=== PATIENT | female | born 1950 | race Caucasian/White ===

== ENCOUNTER 2019-04-15 14:55 | Emergency (ER) | payer MEDICARE, SELFPAY ==
[2019-04-15 15:19] VITALS: BP 134/84; PULSE 91; RESP 20; TEMP 36.8; O2SAT 100
--- NOTE | 2019-04-15 15:39 | ED.URI ---
HPI - URI/Sore Throat General Chief Complaint: Upper Respiratory Infection Stated Complaint: sinus infection Time Seen by Provider: 04/15/19 15:39 Source: patient and RN notes reviewed History of Present Illness HPI Narrative: Patient is a 69-year-old female presents the urgent care with complaints of body aches, congestion, headache. Patient states it started on and she has been using Sudafed and just got some [id number] Vicks cold and flu medication. Patient states that she has not taken her temperature but has had chills and sweats. No other acute complaints. No acute distress noted. Patient had a plan of care. Related Data Home Medications Medication Instructions Recorded Confirmed levothyroxine 175 mcg PO DAILY 02/10/19 02/10/19 Combigan 04/15/19 aspirin 04/15/19 buspirone 04/15/19 estradiol 04/15/19 modafinil 04/15/19 ranitidine HCl 04/15/19 trazodone 04/15/19 valsartan-hydrochlorothiazide 04/15/19 Allergies Allergy/AdvReac Type Severity Reaction Status Date / Time codeine Allergy Intermediate Nausea and Verified 04/15/19 15:45 Vomiting Review of Systems Review of Systems: Narrative: CONSTITUTIONAL: Reports of chills and sweats without known fever EYES: Denies visual changes, redness, or discharge. ENT: Reports of sinus congestion CARDIOVASCULAR: Denies chest pain, palpitations, or edema. RESPIRATORY: Reports of nonproductive cough without dyspnea GASTROINTESTINAL: Denies abdominal pain, nausea, vomiting, or diarrhea. GENITOURINARY: Denies dysuria or hematuria. SKIN: Denies rash or itching. MUSCULOSKELETAL: Denies back pain, joint pain; reports of body aches NEUROLOGIC: Reports of intermittent headaches All other systems reviewed are negative, except as documented in HPI. PMFSH Comments At the time of my signature, I reviewed and agree with the nursing past medical, surgical, social, and family history. There is no relevant family history pertinent to the patient complaint. Exam Narrative: Exam Narrative: GENERAL: This is a well-nourished, well-developed patient, appears slightly fatigued HEAD: normocephalic, atraumatic. EYES: PERRL. Sclera clear/white. Vision is grossly intact. EARS: External ears normal, auditory canals clear and without drainage, TMs normal without perforation. Hearing grossly intact. NOSE: External nose normal with no obvious nasal discharge, mild bilateral erythemic nares with clear rhinorrhea. THROAT: Mucous membranes moist, posterior pharynx clear. Mild postnasal drainage NECK: Neck supple, non-tender without lymphadenopathy CARDIOVASCULAR: Regular rate and rhythm without murmurs, gallops, or rubs. RESPIRATORY: Clear to auscultation. Breath sounds equal bilaterally. No wheezes, rales, or rhonchi. SKIN: warm, intact with no suspicious lesions or rash, good texture and turgor. NEURO: awake, alert, and oriented to person, place and time. There were no obvious focal neurologic abnormalities. EXTREMITIES: No clubbing, cyanosis, or edema. Course Vital Signs Vital signs: Vital Signs Temperature 98.3 F 04/15/19 15:19 Pulse Rate 91 04/15/19 15:19 Respiratory Rate 20 04/15/19 15:19 Blood Pressure 134/84 04/15/19 15:19 Pulse Oximetry 100 04/15/19 15:19 Temperature 98.3 F 04/15/19 15:19 Pulse Rate 91 04/15/19 15:19 Respiratory Rate 20 04/15/19 15:19 Blood Pressure 134/84 04/15/19 15:19 Pulse Oximetry 100 04/15/19 15:19 Reviewed MDM - URI/Sore Throat MDM Narrative Medical decision making narrative: Reviewed lab results with the patient. She is aware that flu swab was negative. Advised patient to continue using [id number] medication for symptom relief such as Claritin and Flonase nasal spray. Use Tylenol/ibuprofen as needed for fever and headache. Increase fluids and rest. Use humidifier at night. If you develop any increase in symptoms associated with shortness of breath, wheezing, high fevers?go to the [facility]
== END 2019-04-15 16:10 | disposition home or self-care (01) ==
PROVIDERS: Emergency Provider Nurse Practitioner Family; PCP Internal Medicine
DX: B34.9 Viral infection, unspecified (principal); I10 Essential (primary) hypertension
CPT/HCPCS: 87804; 99212; G0463

== ENCOUNTER 2019-04-24 12:25 | Emergency (ER) | payer MEDICARE, SELFPAY ==
[2019-04-24 12:31] VITALS: BP 119/78; PULSE 87; RESP 20; TEMP 36.8; O2SAT 100
--- NOTE | 2019-04-24 13:08 | ED.URI ---
HPI - URI/Sore Throat General Chief Complaint: Upper Respiratory Infection Stated Complaint: sinus aches cough Time Seen by Provider: 04/24/19 13:01 Source: patient and RN notes reviewed Mode of arrival: ambulatory Limitations: no limitations History of Present Illness HPI Narrative: Patient presents today with a 10+ day history of occasionally productive cough, nasal congestion, sweats, body aches, headache. She was seen at [facility] on 04/15/2019 and diagnosed with a viral infection. States she has been continuing to take Sudafed and Claritin at home. Reports she was feeling better, but symptoms worsened 4 days ago. States the cough is keeping her awake at night. 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 MD elicited complaint: cough, nasal congestion and sinus pain Related Data Home Medications Medication Instructions Recorded Confirmed levothyroxine 175 mcg PO DAILY 02/10/19 02/10/19 Combigan 04/15/19 aspirin 04/15/19 buspirone 04/15/19 estradiol 04/15/19 modafinil 04/15/19 ranitidine HCl 04/15/19 trazodone 04/15/19 valsartan-hydrochlorothiazide 04/15/19 Allergies Allergy/AdvReac Type Severity Reaction Status Date / Time codeine Allergy Intermediate Nausea and Verified 04/24/19 12:42 Vomiting Review of Systems Review of Systems: Narrative: CONSTITUTIONAL: Denies fever, chills. +Sweats, body aches EYES: Denies visual changes, redness, or discharge. ENT: Denies rhinorrhea, sore throat, or otalgia.+Congestion CARDIOVASCULAR: Denies chest pain, palpitations, or edema. RESPIRATORY: +Cough. Denies shortness of breath GASTROINTESTINAL: Denies abdominal pain, nausea, vomiting, or diarrhea. GENITOURINARY: Denies dysuria or hematuria. SKIN: Denies rash, itching, or wounds. MUSCULOSKELETAL: Denies back pain, joint pain, or myalgia. NEUROLOGIC: Denies numbness, tingling, or weakness.+Headache PSYCH: Denies depression or anxiety. ON LICENSE OF [facility] Social History Social History Gender identity (if verbalized by the patient): Female Comments At time of signature, I have reviewed and agree with nursing past medical, surgical, social and family history unless otherwise noted. Please see nursing chart for further information. There is no relevant family history pertinent to the presenting complaint Exam Narrative: Exam Narrative: GENERAL: Mildly ill-appearing, well-nourished, and in no acute distress. HEAD: Normocephalic, atraumatic. EYES: EOMI. No redness or drainage. Conjunctivae normal. ENT: Mucous membranes pink and moist. Nares Congested. Bilateral maxillary sinus tenderness. No rhinorrhea. TMs normal bilaterally. Throat normal. Uvula midline. NECK: Normal AROM. Supple. No lymphadenopathy. CHEST: No respiratory distress. Clear to auscultation.Frequent dry cough noted. HEART: Regular rate and rhythm. No murmur appreciated. Normal peripheral pulses. EXTREMITIES: Normal range of motion. No edema. SKIN: Warm, dry, no rash. NEURO: No focal deficits. Alert and oriented x3. Gait steady. PSYCH: Normal affect. No signs of depression or anxiety. Course Vital Signs Vital signs: Vital Signs Temperature 98.2 F 04/24/19 12:31 Pulse Rate 87 04/24/19 12:31 Respiratory Rate 04/24/19 12:31 Blood Pressure 119/78 04/24/19 12:31 Pulse Oximetry 100 04/24/19 12:31 Temperature 98.2 F 04/24/19 12:31 Pulse Rate 87 04/24/19 12:31 Respiratory Rate 04/24/19 12:31 Blood Pressure 119/78 04/24/19 12:31 Pulse Oximetry 100 04/24/19 12:31 Reviewed MDM - URI/Sore Throat Differential Diagnosis Differential diagnosis: Likely upper respiratory infection, sinusitis and bronchitis Medical Records Attestation: I reviewed the patient's medical records. Critical Care Time Critical Care Time Critical Care Time: No Discharge Plan Discharge Clinical Impression: Bronchitis Sinusitis Qualifiers: Sinusitis location: unspecified location Chronicity: acute
== END 2019-04-24 13:15 | disposition home or self-care (01) ==
PROVIDERS: Emergency Provider Nurse Practitioner; PCP Internal Medicine
DX: J40 Bronchitis, not specified as acute or chronic (principal); J01.90 Acute sinusitis, unspecified
CPT/HCPCS: 99213; G0463

== ENCOUNTER 2019-12-01 08:02 | Emergency (ER) | payer MEDICARE, SELFPAY ==
[2019-12-01 08:10] VITALS: BP 138/76; PULSE 81; RESP 20; TEMP 36.9; O2SAT 99
--- NOTE | 2019-12-01 08:35 | ED.URI ---
HPI - URI/Sore Throat General Chief Complaint: Upper Respiratory Infection Stated Complaint: sinus infection Time Seen by Provider: 12/01/19 08:18 Source: patient, RN notes reviewed and old records reviewed Mode of arrival: ambulatory Limitations: no limitations History of Present Illness HPI Narrative: Patient presents today complaining of sinus pressure with yellow nasal drainage, postnasal drip, runny nose, cough. Symptoms have been intermittent since September, but have been worsening since onset. Denies shortness of breath, fever, nausea, vomiting, diarrhea, ear pain, sore throat. She has been taking Sudafed without relief. In September, her PCP prescribed her an unknown antibiotic, which did not help. She also had a telemedicine visit on 11/22/2019, where she was prescribed a course of doxycycline.This has not helped her symptoms either. She was previously seen at the medical center in April 2019 with similar symptoms, treated with prednisone and Augmentin, and states her symptoms resolved fully. She has not followed up with an ENT physician since return of her symptoms. Denies seasonal or environmental allergies. MD elicited complaint: cough, nasal congestion and sinus pain Related Data Home Medications Medication Instructions Recorded Confirmed aspirin 81 mg PO DAILY 12/01/19 12/01/19 brimonidine-timolol [Combigan] drp 12/01/19 buspirone mg 12/01/19 calcium carbonate-vitamin D3 tablet 12/01/19 [Os-Kyle 500 + D3] estradiol mg 12/01/19 famotidine 12/01/19 folic acid 12/01/19 latanoprost 12/01/19 levocetirizine mg 12/01/19 levothyroxine 12/01/19 medroxyprogesterone mg 12/01/19 melatonin 10 mg PO HS PRN 12/01/19 12/01/19 pyridoxine (vitamin B6) [Vitamin 100 mg PO DAILY 12/01/19 12/01/19 B-6] trazodone 12/01/19 valsartan-hydrochlorothiazide tablet 12/01/19 venlafaxine mg 12/01/19 vitamin B complex [B 1 tablet PO DAILY 12/01/19 12/01/19 Complex-Vitamin B12] Allergies Allergy/AdvReac Type Severity Reaction Status Date / Time codeine Allergy Intermediate Nausea and Verified 04/24/19 12:42 Vomiting Review of Systems Review of Systems: Narrative: CONSTITUTIONAL: Denies body aches, fever, chills, or sweats. EYES: Denies visual changes, redness, or discharge. ENT: Denies sore throat, or otalgia. +Rhinorrhea, sinus pressure, nasal congestion CARDIOVASCULAR: Denies chest pain, palpitations, or edema. RESPIRATORY: Denies dyspnea. +Cough GASTROINTESTINAL: Denies abdominal pain, nausea, vomiting, or diarrhea. GENITOURINARY: Denies dysuria or hematuria. SKIN: Denies rash, itching, or wounds. MUSCULOSKELETAL: Denies back pain, joint pain, or myalgia. NEUROLOGIC: Denies headache, numbness, tingling, or weakness. PSYCH: Denies depression or anxiety. [facility] Past Medical History Medical History (Updated 12/01/19 @ 08:54 by Toshia Schulz, FORESTRY ENGINEER, ) Anxiety Cataract Depression GERD (gastroesophageal reflux disease) Glaucoma Hypertension Hypothyroidism Sleep apnea Social History Social History Gender identity (if verbalized by the patient): Female Comments At time of signature, I have reviewed and agree with nursing past medical, surgical, social and family history unless otherwise noted. Please see nursing chart for further information. There is no relevant family history pertinent to the presenting complaint Exam Narrative: Exam Narrative: GENERAL: Well-appearing, well-nourished, and in no acute distress. HEAD: Normocephalic, atraumatic. EYES: EOMI. No redness or drainage. Conjunctivae normal. ENT: Mucous membranes pink and moist. Nares Congested with clear yellow drainage. Erythematous and swollen nasal turbinates. Bilateral maxillary sinus tenderness. No frontal sinus tenderness. TMs normal bilaterally. Throat normal. Uvula midline. NECK: Normal AROM. Supple. No lymphadenopathy. CHEST: No respiratory distress. Clear to auscultation. HEART: Regular rate and rhythm. No murmur appr
== END 2019-12-01 08:45 | disposition home or self-care (01) ==
PROVIDERS: Emergency Provider Nurse Practitioner; PCP Internal Medicine
DX: J01.11 Acute recurrent frontal sinusitis (principal); K21.9 Gastro-esophageal reflux disease without esophagitis; H40.9 Unspecified glaucoma; I10 Essential (primary) hypertension; E03.9 Hypothyroidism, unspecified; G47.30 Sleep apnea, unspecified; F41.9 Anxiety disorder, unspecified; F32.9 Major depressive disorder, single episode, unspecified; H26.9 Unspecified cataract; Z79.82 Long term (current) use of aspirin
CPT/HCPCS: 99213; G0463

== ENCOUNTER 2024-04-19 09:57 | Outpatient (CLI) | payer MEDICARE, SELFPAY ==
--- NOTE | ~2024-04-19 | XR_ITS ---
Right foot Technique: AP, oblique, and lateral views were obtained. Clinical History: Pain Findings: No acute fracture or dislocation is seen. There is moderate degenerative change of the firs t MTP joint. There is chronic remodeling of the distal aspect of the fifth proximal phalanx. Soft tis sues are unremarkable. 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 Reviewed, dictated and finalized at location . 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
--- OUTSIDE RECORDS SUMMARY | 2024-04-19 10:58 | XMS_ITS | Encounter Summary ---
Author Organization [facility] Address [address] [place] [address] Phone Care Team Providers Care Reliability Specialist Name Role Phone Aditya Reza MD Unavailable Alexus Mehta APRN, CNP Primary Care Provid er Reason for Visit * Reason Comments Medication Refill Encounter Details Date Type Department Care Team (Late st Contact Info) Description 09/23/2022 Refill [facility] - [facility] [address] [place] [address] Ja Samuel MD #[address] [address] Medication Refill Social History Tobacco Use Types Packs/Day Years Used Date Smoking Tobacco: Former Cigarettes 0 07/06/1982 - 07/06/1989 Smokeless Tobacco: Never Alcohol Use Standard Drinks/Week Comments No 0 (1 standard drink = 0.6 oz pur e alcohol) PHQ-2 Answer Date Recorded Total Score - Questions 1-9 0 10/2021 Sexually Active Control Partners Comments Not Currently Comments No Sex and Gender Information Value Date Recorded Sex Assigned at Not on file Legal Sex Female 10:30 PM CDT Gender Identity Not on file Sexual Orientation Not on file COVID-19 Exposure Response Date Recorded In the last 10 days, have yo u been in contact with someone who was confirmed or suspected to have Coronavirus/COVID-19? 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 [address] [place] [address] Consulting Physician Urology 12/31/21 documented as of this encounter
--- OUTSIDE RECORDS SUMMARY | 2024-04-19 10:58 | XMS_ITS | Encounter Summary ---
Author Organization [facility] Address [address] [place] [address] Phone Care Team Providers Care Hand Shoe Cutter Name Role Phone Aditya Reza MD Unavailable Alexus Mehta APRN, CNP Primary Care Provid er Reason for Visit * Reason Comments Medication Refill Encounter Details Date Type Department Care Team (Late st Contact Info) Description 09/20/2022 Refill [facility] - [facility] #2 [place] [address] Ja Samuel MD #[address] [address] Medication Refill Social History Tobacco Use Types [...] AM CDT documented as of this encounter Miscellaneous Notes * Telephone Encounter - Lynn Saucedo RN - 09/21/2022 1:14 PM CDT Images from the original note were not included. Venlafaxine HCl Dispensed Days Supply Quantity Provider Pharmacy VENLAFAXINE 100MG TABLETS 08/02/2022 90 180 Each Ja Samuel MD [facility] #... 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, unspecified documented in this encounter Additional Health Concerns Infection Onset Date Last Indicated Resolved Time ESBL 06/20/2018 01/01/2022 Assessment Noted Time PHQ-9 Depression Total Score: 0 01/14/20 10:00 AM CUT OFF WORKER documented as of this encounter Care Teams Hand Shoe Cutter Relationship Specialty Start Date End Date Alexus Mehta APRN, CNP #2 [facility] [address] [place] [address] PCP - General Advanced Practice Nurse 01/13/22 Aditya Reza MD [address] [facility] [address] [place] [address] Consulting Physician Urology 12/31/21 documented as of this encounter
--- OUTSIDE RECORDS SUMMARY | 2024-04-19 10:58 | XMS_ITS | Encounter Summary ---
Author Organization [facility] Address [address] [place] [address] Phone Care Team Providers Care Imaging Analyst Name Role Phone Aditya Reza MD Unavailable Alexus Mehta APRN, CNP Primary Care Provid er Reason for Visit * Reason Comments Medication Refill Encounter Details Date Type Department Care Team (Late st Contact Info) Description 06/28/2022 Refill [facility] #2 [place] [address] Ja Samuel MD #[address] [address] Medication Refill Social History Tobacco Use Types [...] suspected to have Coronavirus/COVID-19? No / Unsure 06/12/2022 9:42 AM CDT documented as of this encounter Miscellaneous Notes * Telephone Encounter - Lynn Saucedo RN - 06/29/2022 10:15 AM CDT Reordered 06/04/22 for 4 months - [facility] documented in this encounter Plan of Treatment Not on file documented as of this encounter Visit Diagnoses Not on filedocumented in this encounter Additional Health Concerns Infection Onset Date Last Indicated Resolved Time ESBL 06/20/2018 01/01/2022 Assessment Noted Time PHQ-9 Depression Total Score: 0 01/14/20 10:00 AM COMMISSION SALES ASSOCIATE documented as of this encounter Care Teams Imaging Analyst Relationship Specialty Start Date End Date Alexus Mehta APRN, INTELLIGENCE OFFICER BASIC #[facility] [address] [place] [address] PCP - General Advanced Practice Nurse 01/13/22 Aditya Reza MD [address] [place] [facility] [address] [place] [address] Consulting Physician Urology 12/31/21 documented as of this encounter
--- OUTSIDE RECORDS SUMMARY | 2024-04-19 10:58 | XMS_ITS | Encounter Summary ---
Author Organization [facility] Address [address] [place] [address] Phone Care Team Providers Care Purification Supervisor Name Role Phone Aditya Reza MD Unavailable Alexus Mehta APRN, CNP Primary Care Provid er Reason for Visit * Reason Comments Medication Refill Encounter Details Date Type Department Care Team (Late st Contact Info) Description 04/23/2022 Refill [facility] #2 [place] [address] Alexus Mehta APRN, CNP #[address] [address] Medication Refill Social History Tobacco Use Types [...] Recorded In the last 10 days, have med u been in contact with someone who was confirmed or suspected to have Coronavirus/COVID-19? No / Unsure 04/09/2022 3:43 PM TORCH CUTTER documented as of this encounter Miscellaneous Notes * Telephone Encounter - Lynn Saucedo RN - 04/23/2022 3:16 PM CST Signed Today (04/23/2022): venlafaxine (EFFEXOR) 100 MG Tablet Sig: TAKE 1 TABLET BY MOUTH IN THE MORNING AND AT BEDTIME Disp: 180 Tablet ? Refills: 1 Signed by: Ja Samuel MD [facility] H CUTTER 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, unspecified documented in this encounter Additional Health Concerns Infection Onset Date Last Indicated Resolved Time ESBL 06/20/2018 01/01/2022 Assessment Noted Time PHQ-9 Depression Total Score: 0 01/14/20 22 10:00 AM TORCH CUTTER documented as of this encounter Care Teams Purification Supervisor Relationship Specialty Start Date End Date Alexus Mehta APRN, CNP #2 [facility] [address] [place] [address] PCP - General Advanced Practice Nurse 01/13/22 Aditya Reza MD [address] [place] [facility] [address] [place] [address] Consulting Physician Urology 12/31/21 documented as of this encounter
--- OUTSIDE RECORDS SUMMARY | 2024-04-19 10:58 | XMS_ITS | Encounter Summary ---
Author Organization [facility] Address [address] [place] [address] Phone Care Team Providers Care Fiber Heel Piece Shaper Name Role Phone Aditya Reza MD Unavailable Alexus Mehta APRN, CNP Primary Care Provid er Reason for Visit * Reason Comments Medication Refill Encounter Details Date Type Department Care Team (Late st Contact Info) Description 09/13/2022 Refill [facility] #[address] [place] [address] Ja Samuel MD #[address] [address] Medication Refill Social History Tobacco Use Types [...] Telephone Encounter - Lynn Saucedo RN - 09/14/2022 10:47 AM CDT Images from the original note were not included. Venlafaxine HCl Dispensed Days Supply Quantity Provider Pharmacy VENLAFAXINE 100MG TABLETS 08/02/2022 90 180 Each Ja Samuel MD [facility] #... 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, unspecified documented in this encounter Additional Health Concerns Infection Onset Date Last Indicated Resolved Time ESBL 06/20/2018 01/01/2022 Assessment Noted Time PHQ-9 Depression Total Score: 0 01/14/20 10:00 AM GRAPHICS COORDINATOR documented as of this encounter Care Teams Fiber Heel Piece Shaper Relationship Specialty Start Date End Date Alexus Mehta APRN, CNP #2 [facility] [address] [place] [address] PCP - General Advanced Practice Nurse 01/13/22 Aditya Reza MD #[address] [facility] [address] [place] [address] Consulting Physician Urology 12/31/21 documented as of this encounter
--- OUTSIDE RECORDS SUMMARY | 2024-04-19 10:58 | XMS_ITS | Encounter Summary ---
Author Organization [facility] Address [address] [place] [address] Phone Care Team Providers Care Resourcing Advisor Name Role Phone Aditya Reza MD Unavailable Alexus Mehta APRN, CNP Primary Care Provid er Reason for Visit * Reason Comments Medication Refill Encounter Details Date Type Department Care Team (Late st Contact Info) Description 04/23/2022 Refill [facility] #2 [place] [address] Alexus Mehta APRN, CNP #[address] [address] Medication Refill Social History Tobacco [...] Coronavirus/COVID-19? No / Unsure 04/09/2022 3:43 PM MEDICAL TECHNOLOGIST CHIEF documented as of this encounter Miscellaneous Notes * Telephone Encounter - Lynn Saucedo RN - 04/23/2022 2:45 PM CST Medication failed the protocol, provider to review and approve the medication order if appropriate. Requested Prescriptions Pending Prescriptions Disp Refills venlafaxine (EFFEXOR) 100 MG Tablet [Pharmacy Med Name: VENLAFAXINE 100MG TABLETS] 180 Tablet 1 Sig: TAKE 1 TABLET BY MOUTH IN THE MORNING AND AT BEDTIME SNRI (6 Month Refill Only) Protocol Failed - 04/23/2022 2:08 PM Failed - Has an encounter in the past 6 months with a depression or anxiety visit diagnosis Failed - Patient has established therapy with Serotonin-Norepinephrine Reuptake Inhibitors for at least 6 months Passed - Visit with relevant provider in past 6 months or upcoming 90 days Recent Visits Date Type Provider Dept 01/13/22 Office Visit Alexus Mehta APRN, CNP [facility] Showing recent visits within past 182 days and meeting all other requirements Future Appointments Date Type Provider Dept 06/12/22 Appointment Alexus Mehta APRN, CNP [facility] Showing future appointments within next 90 days and meeting all other requirements CAL TECHNOLOGIST CHIEF 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, unspecified documented in this encounter Additional Health Concerns Infection Onset Date Last Indicated Resolved Time ESBL 06/20/2018 01/01/2022 Assessment Noted Time PHQ-9 Depression Total Score: 0 01/14/20 22 10:00 AM MEDICAL TECHNOLOGIST CHIEF documented as of this encounter Care Teams Resourcing Advisor Relationship Specialty Start Date End Date Alexus Mehta APRN, [place] #[address] [phone] PCP - General Advanced Practice Nurse 01/13/22 Aditya Reza MD #2 [place] [address] Consulting Physician Urology 12/31/21 documented as of this encounter
--- OUTSIDE RECORDS SUMMARY | 2024-04-19 10:58 | XMS_ITS | Encounter Summary ---
Author Organization [facility] Address [address] [place] [address] Phone Care Team Providers Care Automatic Seamer Name Role Phone Aditya Reza MD Unavailable Alexus Mehta APRN, CNP Primary Care Provid er Reason for Visit * Reason Comments Medication Refill Encounter Details Date Type Department Care Team (Late st Contact Info) Description 10/20/2022 Refill [facility] #2 [place] [address] Alexus Mehta APRN, CNP #[address] [address] Medication Refill Social History Tobacco [...] on file Sexual Orientation Not on file documented as of this encounter Miscellaneous Notes * Telephone Encounter - Polina Lyn RN - 10/21/2022 10:43 AM CDT PDMP 08/30/22 30 day supply. Do you want to approve refills also? Medication failed the protocol, provider to review and approve the medication order if appropriate. Requested Prescriptions Pending Prescriptions Disp Refills traZODone (DESYREL) 100 MG Tablet [Pharmacy Med Name: TRAZODONE 100MG TABLETS] 30 Tablet 3 Sig: TAKE 1 TABLET BY MOUTH EVERY NIGHT Serotonin Modulators (6 Month Refill Only) Protocol Failed - 10/20/2022 10:03 PM Failed - Has an encounter in the past 6 months with a depression or anxiety visit diagnosis Passed - Visit with relevant provider in past 6 months or upcoming 90 days Recent Visits Date Type Provider Dept 06/12/22 Office Visit Alexus Mehta APRN, [facility] [place] Showing recent visits within past 182 days and meeting all other requirements Future Appointments Date Type Provider Dept 12/15/22 Appointment Alexus Mehta APRN, [facility] [place] Showing future appointments within next 90 days and meeting all other requirements Passed - No PRN Use for Trazodone Passed - Patient has established therapy with Serotonin Modulators for at least 6 months documented in this encounter Plan of Treatment Not on file documented as of this encounter Visit Diagnoses Not on filedocumented in this encounter Additional Health Concerns Infection Onset Date Last Indicated Resolved Time ESBL 06/20/2018 01/01/2022 Assessment Noted Time PHQ-9 Depression Total Score: 0 01/14/20 10:00 AM COACH documented as of this encounter Care Teams Automatic Seamer Relationship Specialty Start Date End Date Alexus Mehta APRN, CNP #2 [facility] [address] [place] [phone] PCP - General Advanced Practice Nurse 01/13/22 Aditya Reza MD #2 [place] [facility] [place] [address] [place] [address] Consulting Physician Urology 12/31/21 documented as of this encounter
--- OUTSIDE RECORDS SUMMARY | 2024-04-19 10:58 | XMS_ITS | Encounter Summary ---
Author Organization [facility] Address [address] [place] [address] Phone Care Team Providers Care Sports Marketing Internship Name Role Phone Aditya Reza MD Unavailable Alexus Mehta APRN, CNP Primary Care Provid er Reason for Visit * Reason Comments Medication Refill Encounter Details Date Type Department Care Team (Late st Contact Info) Description 01/07/2023 Refill [facility] #2 [place] [address] Ja Samuel MD #[address] [address] Medication Refill Social History Tobacco Use Types Packs/Day Years Used Date Smoking Tobacco: Former Cigarettes 0 07/06/1982 - 07/06/1989 Smokeless Tobacco: Never Alcohol Use Standard Drinks/Week Comments No 0 (1 standard drink = 0.6 oz pur e alcohol) PHQ-2 Answer Date Recorded Total Score - Questions 1-9 0 10/2021 Education Answer Date Recorded What is the highest level of school you have completed or the highest degree you have received? 12th grade 12/31/2022 Sexually Active Control Partners Comments Not Currently [...] suspected to have Coronavirus/COVID-19? No / Unsure 12/31/2022 8:04 AM CDT documented as of this encounter Miscellaneous Notes * Telephone Encounter - Lynn Saucedo RN - 01/07/2023 10:17 AM CDT Signed 1 week ago (12/31/2022): busPIRone (BUSPAR) 10 MG Tablet Sig: Take 10 mg in the morning and 15 mg in the afternoon Disp: 270 Tablet ? Refills: 0 Signed by: [facility]N, [facility] documented in this encounter Plan of Treatment Not on file documented as of this encounter Visit Diagnoses Diagnosis Anxiety Anxiety state, unspecified documented in this encounter Additional Health Concerns Infection Onset Date Last Indicated Resolved Time ESBL 06/20/2018 01/01/2022 Assessment Noted Time PHQ-9 Depression Total Score: 0 01/14/20 22 10:00 AM MANNEQUIN MOLD MAKER documented as of this encounter Care Teams Sports Marketing Internship Relationship Specialty Start Date End Date Alexus Mehta APRN, CNP #2 [facility] [address] [place] [address] PCP - General Advanced Practice Nurse 01/13/22 Aditya Reza MD #2 [facility] [address] [place] [address] Consulting Physician Urology 12/31/21 documented as of this encounter
--- OUTSIDE RECORDS SUMMARY | 2024-04-19 10:59 | XMS_ITS | Encounter Summary ---
Author Organization [facility] Address [address] [place] [address] Phone Care Team Providers Care Filter Changing Technician Name Role Phone Aditya Reza MD Unavailable Alexus Mehta APRN, CNP Primary Care Provid er Reason for Visit * Reason Comments Medication Refill Encounter Details Date Type Department Care Team (Late st Contact Info) Description 06/21/2023 Refill [facility] - [place] #2 [place] [address] Alexus Mehta APRN, CNP #[address] [address] Medication Refill Social History Tobacco Use Types Packs/Day Years Used Date Smoking Tobacco: Former Cigarettes 0 07/06/1982 - 07/06/1989 Smokeless Tobacco: Never Alcohol Use Standard Drinks/Week Comments No 0 (1 standard drink = 0.6 oz pur e alcohol) PHQ-2 Answer Date Recorded Total Score - Questions 1-9 9 04/2023 Education Answer Date Recorded What is the [...] Telephone Encounter - Lynn Saucedo RN - 06/22/2023 11:22 AM CDT Medication([facility]) [facility] Standing Order for Pediatricand Adult Patients. Requested Prescriptions Pending Prescriptions Disp Refills valsartan-hydroCHLOROthiazide (DIOVAN-HCT) 320-12.5 MG Tablet [Pharmacy Med Name: VALSARTAN/HCTZ 320MG/12.5MG TABLETS] 90 Tablet 1 Sig: Take 1 Tablet by mouth daily. ANGIOTENSIN-II RECEPTOR BLOCKERS-DIURETICS COMBO PROTOCOL Passed - 06/21/2023 5:30 PM Passed - Serum potassium on record in past 12 months POTASSIUM Date Value Ref Range Status 06/08/2023 3.9 3.5 - 5.1 mmol/L Final Passed - Serum sodium on record in past 12 months SODIUM Date Value Ref Range Status 06/08/2023 139 136 - 145 mmol/L Final Passed - BP on record in the past year Clinician-entered: BP Readings from Last 3 Encounters: 06/08/23 114/68 03/04/23 (!) 145/93 12/31/22 134/80 Patient-entered: No data recorded Passed - Visit with relevant provider in past year or upcoming 90 days Recent Visits Date Type Provider Dept 06/08/23 Office Visit Alexus Mehta APRN, [place] 12/31/22 Office Visit [facility] Showing recent visits within past 365 days and meeting all other requirements Future Appointments No visits were found meeting these conditions. Showing future appointments within next 90 days and meeting all other requirements Passed - GFR on record in past 12 months GFR, EST. NONAFRICAN Date Value Ref Range Status 06/08/2023 59 (L) >=60 Final documented in this encounter Plan of Treatment Not on file documented as of this encounter Visit Diagnoses Diagnosis Primary hypertension Unspecified essential hypertension documented in this encounter Additional Health Concerns Infection Onset Date Last Indicated Resolved Time ESBL 06/20/2018 01/01/2022 Assessment Noted Time PHQ-9 Depression Total Score: 9 06/08/19 24 10:07 AM CDT documented as of this encounter Care Teams Filter Changing Technician Relationship Specialty Start Date End Date Alexus Mehta APRN, CNP #2 [facility] [address] [place] [address] PCP - General Advanced Practice Nurse 01/13/22 Ad[facility]a Reza MD #2 [facility] [address] [place] [address] Consulting Physician Urology 12/31/21 documented as of this encounter
--- OUTSIDE RECORDS SUMMARY | 2024-04-19 10:59 | XMS_ITS | Encounter Summary ---
Author Organization [facility] Address [address] [place] [address] Phone Care Team Providers Care Associate Product Manager Name Role Phone Aditya Reza MD Unavailable Alexus Mehta APRN, CNP Primary Care Provid er Reason for Visit * Reason Comments Medication Refill Encounter Details Date Type Department Care Team (Late st Contact Info) Description 11/20/2023 Refill [facility] - Family Medicine - [place] #2 [place] [address] Alexus Mehta APRN, CNP #[address] [address] Medication Refill Social History Tobacco Use Types Packs/Day Years Used Date Smoking Tobacco: Former Cigarettes 0 07/06/1982 - 07/06/1989 Smokeless Tobacco: Never Alcohol Use Standard Drinks/Week Comments Never 0 (1 standard drink = 0.6 oz pur e alcohol) [facility] Utilities Answer Date Recorded In the past 12 months has e electric, gas, oil, or water company threatened to shut off services in your home? No 10/14/2023 Social Connection and Isolat ion Panel [NHANES] Answer Date Recorded In a typical week, how many times do you talk on the phone with family, friends, or neighbors? More than three times a week 10/14/2023 How often do you get togethe r with friends or relatives? Three times a week 10/14/2023 How often do you attend chur ch or anabaptist services? 1 to 4 times per year 10/14/2023 Do you belong to any clubs o r organizations such as rastafarian groups, unions, fraternal or athletic groups, or school groups? Yes 10/14/2023 How often do you attend meet ings of the clubs or organizations you belong to? 1 to 4 times per year 10/14/2023 Are you , , di vorced, , never , or living with a partner? 10/14/2023 AUDIT-C Answer Date Recorded Q1: How often do you have a drink containing alcohol? Never 10/14/2023 Q2: How many drinks containi ng alcohol do you have on a typical day when you are drinking? Patient does not drink Q3: How often do you have si x or more drinks on one occasion? Never 10/14/2023 Overall Financial Resource Strain (CARDIA) Answe r Date Recorded How hard is it for you to pa y for the very basics like food, housing, medical care, and heating? Somewhat hard 10/14/2023 PHQ-2 Answer Date Recorded Total Score - Questions 1-9 12 11/2023 [facility]at ional [facility] - Occupational Stress Questionnaire Answer Date Recorded Do you feel stress - tense, restless, nervous, or anxious, or unable to sleep at night because your mind is troubled all the time - these days? To some extent 10/14/2023 Exercise Vital Sign Answer Date Recorde d On average, how many days pe r week do you engage in moderate to strenuous exercise (like a brisk walk)? 1 day 10/14/2023 On average, how many minutes do you engage in exercise at this level? 10 min 10/14/2023 Hunger Vital Sign Answer Date Recorded Within the past 12 months, y ou worried that your food would run out before you got the money to buy more. Never true 10/14/19 24 Within the past 12 months, t he food you bought just didn't last and you didn't have money to get more. Never true 10/14/2023 PRAPARE - Transportation Answer Date Re corded In the past 12 months, has l ack of transportation kept you from medical appointments or from getting medications? No 10/2023 In the past 12 months, has l ack of transportation kept you from meetings, work, or from getting things needed for daily living? No 10/14/2023 Housing Stability Vital Sign Answer Abdon e Recorded In the last 12 months, was t here a time when you were not able to pay the mortgage or rent on time? No 10/14/2023 In the past 12 months, how m any times have you moved where you were living? 0 10/14/2023 At any time in the past 12 m [facility], were you homeless or living in a half-way (including now)? No 10/14/2023 Education Answer Date Recorded What is the highest level of school you have completed or the highest degree you have received? 12th grade 12/31/2022 Sexually Active Control Partners Comments Not Currently I.U.D. Female Comments No Sex and Gender Information Value Date Recorded Sex Assigned at Not on file Legal Sex Female 10:30 PM CDT Gender Identity Not on file Sexual Orientation Not on file documented as of this encounter Miscellaneous Notes * Telephone Encounter - Lynn Saucedo RN - 11/22/2023 9:20 AM CDT Images from the original note were not included. Name from pharmacy: FLUTICASONE 50MCG NASAL SP (120) RX Will file in chart as: fluticasone (FLONASE) 50 MCG/ACT Suspension The original prescription was discontinued on 12/31/2022 by Alexus Mehta APRN, TROLLEY COACH DRIVER documented in this encounter Plan of Treatment Not on file documented as of this encounter Visit Diagnoses Diagnosis Viral URI with cough Acute upper respiratory infections of unspecified site documented in this encounter Additional Health Concerns Infection Onset Date Last Indicated Resolved Time ESBL 06/20/2018 01/01/2022 Assessment Noted Time PHQ-9 Depression Total Score: 12 024 1:00 PM CDT documented as of this encounter Care Teams Associate Product Manager Relationship Specialty Start Date End Date Alexus Mehat APRN, TROLLEY COACH DRIVER #2 [facility] [address] [place] [address] PCP - General Advanced Practice Nurse 01/13/22 Aditya Reza MD #2 [facility] [address] [place] [address] Consulting Physician Urology 12/31/21 documented as of this encounter
--- OUTSIDE RECORDS SUMMARY | 2024-04-19 10:59 | XMS_ITS | Clinical Summary ---
Author Organization [facility] Medical Office Building B Address [address] [place] [address] Care Team Providers Care Program Lead Name Role Phone Alexus Mehta NP Primary Care Provider + Cuong Gaytan MD Unavailable [phone] Allergies Active Allergy Reactions Criticality Noted Date Comments Codeine Hives,Nausea Only Medium 03/11/2016 Reaction: HIVES, Reaction: Hives, , , Warfarin Unknown 07/06/2016 Pt unsure, someone documented pt was allergic after total Medications traZODone (DESYREL) 50 mg tablet take 1 tablet (50MG) by ORAL route every am and 2 tablets at bedtime 0 2 Active multivitamin (DAILY VITAMIN) tablet tablet take 1 tablet by oral route every day with food 0 0 3 Active brimonidine-ti molol (COMBIGAN) 0.2-0.5 % ophthalmic solution instill 1 drop by ophthalmic route every 12 hours into affected eye(s) 0 drop 0 3 Active cholecalcifero l (VITAMIN D3) 2,000 unit tablet take one twice daily 0 0 3 Active alendronate (FOSAMAX) 35 mg tablet take 1 tablet by oral route every week in the morning, at least 30 min before first food, beverage, or medication of day 0 0 5 Active aspirin (ASPIR-81) 81 mg tablet take 1 tablet by oral route every day 0 0 3 Active levothyroxine sodium (TIROSINT) 125 mcg capsule take 1 capsule by oral route every day 0 0 3 Active cyanocobalamin (vitamin B-12) 1,000 mcg tablet take 1 Tablet by Oral route every day 0 0 5 Active busPIRone (BUSPAR) 10 mg tablet take 1 tablet by oral route 3 times every day 0 0 5 Active folic acid (FOLVITE) 1 mg tablet take 1 tablet by oral route every day 0 0 5 Active pyridoxine (vitamin B-6) 100 mg tablet take 1 by Oral route every day 0 0 5 Active latanoprost (XALATAN) 0.005 % ophthalmic solution Administer into affected eye(s). Active medroxyPROGEST ERone (PROVERA) 2.5 mg tablet Take 1 tablet (2.5 mg total) by mouth daily 3 7 Active estradioL (ESTRACE) 2 mg tablet Take 1 tablet (2 mg total) by mouth daily Active melatonin 5 mg tablet Take 1.5 tablets (7.5 mg total) by mouth daily Active acidophilus-pe ctin, citrus 100 million cell-10 mg capsule Take by mouth daily Active valsartan-hydr ochlorothiazid e (DIOVAN-HCT) 320-12.5 mg per tablet Take 1 tablet by mouth daily Active traMADoL (ULTRAM) 50 mg tablet Take 1 tablet (50 mg total) by mouth every 6 (six) hours as needed for pain Active solriamfetoL (Sunosi) 150 mg tablet Take 1 tablet (150 mg total) by mouth daily 30 tablet 5 Active solriamfetoL (Sunosi) 150 mg tablet TAKE 1 TABLET(150 MG) BY MOUTH 1 TIME FOR 1 DOSE 30 tablet 5 4 04/10/19 25 Discontinu ed(Reorder ) Active Problems Problem Noted Date Diagnosed Date Postmenopausal bleeding 04/26/2023 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 Overview (06/10/2016): Hypersomnia with sleep apnea Insomnia 11/14/2012 Overview (06/11/2016): Insomnia Adiposity 11/14/2012 Overview (06/12/2016): Obesity Obstructive sleep apnea syndrome 11/14/2012 Overview (06/12/2016): Obstructive sleep apnea syndrome Hyperparathyroidism 09/23/2010 Thyroid activity decreased 09/23/2010 Calculus of kidney 02/24/2010 Abnormal finding in urine 02/24/2010 Blood in urine 02/24/2010 Encounters Date Type Department Care Team Description 04/03/2024 Telephone [facility] [address] [place] [address] Winter Womack MA 01/26/2024 Telephone [facility] Orthopedics and Sports Medicine [address] [place] [address] Arvin Carreon MD from Last 3 Months Surgical History Surgery Date Site/Laterality Comments ROTATOR CUFF REPAIR 2002 Left Rotator cuff repair OTHER SURGICAL HISTORY 2010 left kidney surgery OTHER SURGICAL HISTORY 03/08/1975 - 03/07/1976 intestinal bypass surgery to lose weight SHOULDER SURGERY rt shoulder surgery KNEE ARTHROPLASTY left knee replacement OTHER SURGICAL HISTORY rt knee replacement Medical History Medical History Date Comments Disorder of thyroid Thyroid dise ase Calculus of kidney Nephrolithias is Sleep apnea Hypertension Bipolar disorder (HCC) Depression Anxiety Family History Medical History Relation Name Comments Cancer Father Cancer; Diabetes Father Diabetes mellit us; Hypertension Father Hypertension; Prostate cancer Father Cancer -pros valdes; Cause of : Cancer -prostate Colon cancer Maternal Grandfather Cancer, colon; Diabetes Mother Diabetes mellit us; Hypertension Mother Hypertension; Relation Name Status Comments Father (Age 75) Maternal Grandfather Mother Social History Tobacco Use Types Packs/Day Years Used Date Smoking Tobacco: Never Smokeless Tobacco: Never Tobacco Cessation:Counseling Given: Not Answered Alcohol Use Standard Drinks/Week Comments No 0 (1 standard drink = 0.6 oz pur e alcohol) AUDIT-C Answer Date Recorded Frequency of Alcohol Consumption Not on file 05/11/2023 Q2: How many drinks containi ng alcohol do you have on a typical day when you are drinking? Patient does not drink Frequency of Binge Drinking Not on file 07/2023 Personal Safety Answer Date Recorded Have you ever been in or are you currently in a harmful physical or emotional relationship or is someone making you feel afraid or unsafe? Denies 05/17/2023 Comments Unknown Sex and Gender Information Value Date Recorded Sex Assigned at Not on file Legal Sex Female 1:02 AM CONVEYOR ATTENDANT Gender Identity Not on file Sexual Orientation Not on file Obstetrics History Last Filed Vital Signs Vital Sign Reading Time Taken Comments Blood Pressure 138/81 05/27/2023 1:11 PM CDT Pulse 83 05/27/2023 1:11 PM CDT Temperature 36.4 C (97.5 F) 05/17/2023 12:20 PM CDT Respiratory Rate 20 05/17/2023 12:50 PM CDT Oxygen Saturation 97% 05/27/2023 1:11 PM CDT Inhaled Oxygen Concentration - - Weight 77.6 kg (171 lb) 05/27/2023 1:11 PM CDT Height 162.6 cm (5' 4 ) 05/27/2023 1:11 PM CDT Body Mass Index 29.35 05/27/2023 1:11 PM CDT Plan of Treatment Health Maintenance Due Date Last Done Comments Depression Screening 1950 Fall Risk Assessment 1950 Hepatitis C Screening 1950 Hepatitis B Screening 1967 Zoster Vaccine (1 of 2) 1999 Well Visit 65+ 2014 Influenza Vaccine (#1) 2023 , 11/26/2019, 12/08/2018, Additional history exists Osteoporosis Screening-Bone Density Scan 08/06/2024 08/06/2022, 10/13/2019 Colon Cancer Screening-Colonoscopy 08/08/2025 08/09/2015, 08/09/2015 DTaP/Tdap/Td Vaccine (3 - Td or Tdap) 04/09/2032 04/09/2022, 11/08/2021 Colon Cancer Screening-CT Colonography Discontinued 08/09/2015, 08/09/2015 Colon Cancer Screening-DNA Stool Discontinued 08/09/19 16, 08/09/2015 Colon Cancer Screening-FIT Discontinued 08/09/2015, Colon Cancer Screening-Sigmoidoscopy Discontinued 08/09/2015, 08/09/2015 Pneumococcal vaccine 65+ Completed 05/05/2018, 05/07 Breast Cancer Screening-Mammogram Discontinued 023, 04/22/2015 Procedures Procedure Name Priority Date/Time Associated Diagnosis Comments COLONOSCOPY 08/09/2015 12:00 AM CDT from Last 3 Months or Most Recently Relevant to Health Maintenance Results * COLONOSCOPY (08/09/2015 12:00 AM CDT) Anatomical Region Laterality Modality Other Narrative 08/09/2015 12:00 AM CDT Ordered by an unspecified provider. Procedure Note Provider, MD John - 08/09/2015 12:00 AM CDT PROCEDURE REPORT Patient: SINA YOO Account: [id number] Room No: : 1950 Patient Type: [facility] Attend.: Elsa Alex M.D. Admit Date: 08/09/2015 Dict.: Elsa Alex M.D. Disch. Date: 08/09/2015 DATE OF PROCEDURE 08/09/15 SURGEON Elsa Alex M.D. PROCEDURE PERFORMED Colonoscopy with polypectomy by cold biopsy forceps. INDICATION Personal history of colon polyps, screening for colon cancer. DATE OF PROCEDURE 08/09/[address] Ishmael Higuera BRIEF HISTORY AND PHYSICAL The patient is a 67-year-old, white female with personal history ofpolyps. No family history of colon cancer. Colonoscopy is being done for afollowup screening. PROCEDURE Sedation was provided by anesthesia service. The procedure ofcolonoscopy including indications and possible complications of bleeding, infection, perforation requiring surgery were discussed with the patient. Consentwas obtained. Rectal exam prior to colonoscopy was unremarkable. The scope introduced to the rectum, advanced to the cecum which was identified bythe ileocecal valve and appendiceal orifice. The quality of the colon preparation was good. The cecum, ascending colon, transverse colon were unremarkable. The descending colon was unremarkable. Noted in the sigmoid colon were small4 mm polyps removed with a jumbo cold biopsy forceps. The rectum was unremarkable. Retroflex in the rectum showed medium size internal hemorrhoids. IMPRESSION 1. One benign 4 mm polyp of the sigmoid colon removed with cold biopsy forceps. 2. Internal hemorrhoids. RECOMMENDATIONS Followup pathology report and repeat screening in 7 years. Electronically Authenticated by: Elsa Alex MD On 08/23/2015 09:25 AM CDT Araseli Reddy/paula TD: 08/09/2015 12:13 CC: Ishmael Higuera M.D. Historical Provider ENDOSCOPY PROCEDURES Kelsey l Result from Last 3 Months or Most Recently Relevant to Health Maintenance Insurance [facility] MEDICARE MEDICARE [facility] MEDICARE [facility] Member Subscriber Plan / Payer (Ef fective 2014-Present) Name:Sina Yoo Relation to Subscriber:Self Name:Sina Yoo Payer ID:[id number] Group ID:Not on file Type:COMMERCIAL Address: [facility] [address] [id number] Care Teams Program Lead Relationship Specialty Start Date End Date Alexus Mehta NP [address] [facility] [place] [address] PCP - General Nurse Practitioner 11/03/22 Cuong Gaytan MD [address] [place] [address] [address] [address] Consulting Physician Obstetrics and Gynecology 05/17/23
--- OUTSIDE RECORDS SUMMARY | 2024-04-19 10:59 | XMS_ITS | Encounter Summary ---
Author Organization [facility] Address [address] [place] [address] Phone Care Team Providers Care Foreign Broadcast Specialist Name Role Phone Aditya Reza MD Unavailable Alexus Mehta APRN, CNP Primary Care Provid er Reason for Visit * Reason Comments Medication Refill Encounter Details Date Type Department Care Team (Late st Contact Info) Description 06/24/2023 Refill [facility] - [place] [address] [place] [address] Alexus Mehta APRN, CNP [address] [address] Medication Refill Social History Tobacco [...] Telephone Encounter - Lynn Saucedo RN - 06/24/2023 11:18 AM CDT Medication(s) refilled and signed per [facility] Chronic Medication Refill Standing Order for Pediatricand Adult Patients. Requested Prescriptions Pending Prescriptions Disp Refills folic acid (FOLVITE) 1 MG Tablet [Pharmacy Med Name: FOLIC ACID 1MG TABLETS] 30 Tablet 6 Sig: TAKE 1 TABLET BY MOUTH DAILY Folic Acid Protocol Passed - 06/24/2023 4:59 AM Passed - Visit with relevant provider in past 12 months or upcoming 90 days Recent Visits Date Type Provider Dept 06/08/23 Office Visit Alexus Mehta APRN, CNP [facility] [place] 12/31/22 Office Visit Alexus Mehta APRN, [facility] Showing recent visits within past 365 days and meeting all other requirements Future Appointments No visits were found meeting these conditions. Showing future appointments within next 90 days and meeting all other requirements documented in this encounter Plan of Treatment Not on file documented as of this encounter Visit Diagnoses Not on filedocumented in this encounter Additional Health Concerns Infection Onset Date Last Indicated Resolved Time ESBL 06/20/2018 01/01/2022 Assessment Noted Time PHQ-9 Depression Total Score: 9 06/08/19 24 10:07 AM CDT documented as of this encounter Care Teams Foreign Broadcast Specialist Relationship Specialty Start Date End Date Alexus Mehta APRN, TYRONE #2 [facility] [address] [place] [address] PCP - General Advanced Practice Nurse 01/13/22 Aditya Reza MD #2 [facility] [address] [place] [address] Consulting Physician Urology 12/31/21 documented as of this encounter
--- OUTSIDE RECORDS SUMMARY | 2024-04-19 10:59 | XMS_ITS | Clinical Summary ---
Author Organization [facility] Address [address] [place] [address] Phone Care Team Providers Care Press Operator Apprentice Name Role Phone Unavailable Primary Care Provider Unavailabl e Social History Tobacco Use Types Packs/Day Years Used Date Smoking Tobacco: Never Assessed Comments Unknown Sex and Gender Information Value Date Recorded Sex Assigned at Not on file Legal Sex Female 5:44 AM BROADCAST TECHNICIAN Gender Identity Not on file Sexual Orientation Not on file Plan of Treatment Health Maintenance Due Date Last Done Comments DTAP/TDAP/TD VACCINES (1 - Tdap) 1968 COLORECTAL SCREENING 1994 Colorectal Cancer Screening 1994 FIT-DNA Q 3 years 1994 FIT/FOBT Q 1 year 1994 Flex Sig/CT Colonography Q 5 years 1994 PNEUMOCOCCAL VACCINE 65+ YEARS (1 of 1 - PCV) 04/15/19 00 ZOSTER VACCINE (1 of 2) 1999 OSTEOPOROSIS SCREENING 2014 INFLUENZA VACCINE (#1) 2023 RSV VACCINE (60+ or ) (1 - 1-dose 75+ series) 2024
--- OUTSIDE RECORDS SUMMARY | 2024-04-19 10:59 | XMS_ITS | Continuity of Care Document ---
Author Organization [facility] Address [address] [place] [address] Phone Care Team Providers Care Locomotive Operator Helper Name Role Phone Juan Daniel Thayer MD [...] Diagnoses Date Provider Providers Copied on Encounter [facility], [address], [place], [place], [id number], [place] tel:[phone] [address] Tone [employer]IVERS Professional No Information [address]. [address] [facility] [facility] [place], [place], [id number], [place]. tel:[phone] Family History Family Member Type Diagnosis Age At Onset Father Problem (finding) glaucoma Mother Problem (finding) glaucoma Mother Problem (finding) Diabetes mellitus Payers Payer name Insurance type Covered alliance party ID Authoriza tion(s) No Information Social History [...]
--- OUTSIDE RECORDS SUMMARY | 2024-04-19 10:59 | XMS_ITS | Referral Summary ---
Author Organization [facility] Medical Office Building B Address [address] [place] [address] Care Team Providers Care Manager Call Center Name Role Phone Alexus Mehta NP Primary Care Provider + Cuong Gaytan MD Unavailable [phone] Encounters Date Type Department Care Team Description 04/03/2024 Telephone [facility] [address] [place] [address] Winter Womack MA 01/26/2024 Telephone [facility] Orthopedics and Sports Medicine [address] [place] [address] Arvin Carreon MD from Last 3 Months Allergies Active Allergy Reactions Criticality Noted Date [...] in urine 02/24/2010 Blood in urine 02/24/2010 Social History Tobacco Use Types Packs/Day Years [...] on file Legal Sex Female 1:02 AM READING AIDE Gender Identity Not on file Sexual Orientation Not on file Last Filed Vital Signs Vital Sign Reading [...] 05/27/2023 1:11 PM CDT Plan of Treatment Not on file Procedures Procedure Name Priority Date/Time Associated Diagnosis Comments COLONOSCOPY 08/09/2015 12:00 AM CDT from Last 3 Months or Most Recently Relevant to Health Maintenance Results * COLONOSCOPY (08/09/2015 12:00 AM CDT) Anatomical Region Laterality Modality Other Narrative 08/09/2015 12:00 AM CDT Ordered by an unspecified provider. Procedure Note Provider, MD John - 08/09/2015 12:00 AM CDT PROCEDURE REPORT Patient: SINA YOO Account: [id number] Room No: : 1950 Patient Type: [facility] Attend.: Elsa Alex M.D. Admit Date: 08/09/2015 [...] Alex MD On 08/23/2015 09:25 AM CDT Elsa Alex M.D. [place] TD: 08/09/2015 12:13 CC: Ishmael Higuera M.D. Historical Provider ENDOSCOPY PROCEDURES Kelsey l Result from Last 3 Months or Most Recently Relevant to Health Maintenance Insurance MEDICARE MEDICARE [facility] Member Subscriber Plan / Payer (Ef fective 2014-Present) Name:ArlenSina Relation to Subscriber:Self Name:SINA YOO Patricia Payer ID:[id number] Group ID:Not on file Type:DigePrint Address: [address] [id number] MEDICARE [facility] Care Teams Manager Call Center Relationship Specialty Start Date End Date Alexus Mehta, ROUGE PRESSER 2 [facility] [address] [place] [address] PCP - General Nurse Practitioner 11/03/22 Cuong Gaytan MD [address] [facility] [facility] [address] [place] [address] Consulting Physician Obstetrics and Gynecology 05/17/23
--- OUTSIDE RECORDS SUMMARY | 2024-04-19 10:59 | XMS_ITS | Encounter Summary ---
Author Organization [facility] Address [address] [place] [address] Phone Care Team Providers Care Animal Caregiver Name Role Phone Aditya Reza MD Unavailable Alexus Mehta APRN, CNP Primary Care Provid er Reason for Visit * Reason Comments Medication Refill Encounter Details Date Type Department Care Team (Late st Contact Info) Description 06/06/2023 Refill [facility] - [place] #[address] [place] [address] Alexus Mehta APRN, CNP [address] [address] Medication Refill Social History Tobacco [...] on file documented as of this encounter Functional Status * Question Answer Date of Assessment Author Little interest or pleasure in doing things Several days 06/08/2023 10:07 AM CDT Melquiades Head MA Feeling down, depressed, or hopeless Not at all 06/08/2023 10:07 AM CDT Kellie Head MA * Over the past 2 weeks, how often have you been bothered by any of the following problems? Question Answer Date of Assessment Author Patient Health Questionnaire -2 Score 1 06/08/2023 10:07 AM CDT Kellie Head MA documented as of this encounter Miscellaneous Notes * Telephone Encounter - Lynn Saucedo RN - 06/08/2023 9:00 AM CDT Medication warning Per nursing clinical judgement, provider to review and approve the medication(s) order(s) if appropriate. Requested Prescriptions Pending Prescriptions Disp Refills traZODone (DESYREL) 100 MG Tablet [Pharmacy Med Name: TRAZODONE 100MG TABLETS] 90 Tablet 1 Sig: TAKE 1 TABLET BY MOUTH EVERY NIGHT Serotonin Modulators (6 Month Refill Only) Protocol Passed - 06/06/2023 3:55 AM Passed - Visit with relevant provider in past 6 months or upcoming 90 days Recent Visits Date Type Provider Dept 12/31/22 Office Visit Alexus Mehta APRN, TYRONE [facility] [place] Showing recent visits within past 182 days and meeting all other requirements Today's Visits Date Type Provider Dept 06/08/23 Appointment Alexus Mehta APRN, TELESCOPE MAINTENANCE [facility] [place] Showing today's visits and meeting all other requirements Future Appointments No visits were found meeting these conditions. Showing future appointments within next 90 days and meeting all other requirements Passed - Has an encounter in the past 6 months with a depression or anxiety visit diagnosis Passed - No PRN Use for Trazodone [...] Total Score: 0 01/14/20 22 10:00 AM COLLECTIONS SPECIALIST documented as of this encounter Care Teams Animal Caregiver Relationship Specialty Start Date End Date Alexus Mehta APRN, CNP #2 [facility] [address] [place] [address] PCP - General Advanced Practice Nurse 01/13/22 Aditya Reza MD #[address] [facility] [address] [place] [address] Consulting Physician Urology 12/31/21 documented as of this encounter
--- OUTSIDE RECORDS SUMMARY | 2024-04-19 10:59 | XMS_ITS | Encounter Summary ---
Author Organization [facility] Address [address] [place] [address] Phone Care Team Providers Care Manager Retirement Name Role Phone Aditya Reza MD Unavailable Alexus Mehta APRN, CNP Primary Care Provid er Reason for Visit * Reason Comments Medication Refill Encounter Details Date Type Department Care Team (Late st Contact Info) Description 02/10/2023 Refill [facility] - [facility] - [place] #2 [place] [address] Alexus Mehta APRN, CNP #[address] [address] Medication Refill Social History Tobacco [...] Telephone Encounter - Lynn Saucedo RN - 02/10/2023 9:20 AM CST Medication warning Per nursing clinical judgement, provider to review and approve the medication(s) order(s) if appropriate. Requested Prescriptions Pending Prescriptions Disp Refills traZODone (DESYREL) 100 MG Tablet [Pharmacy Med Name: TRAZODONE 100MG TABLETS] 30 Tablet 3 Sig: TAKE 1 TABLET BY MOUTH EVERY NIGHT Serotonin Modulators (6 Month Refill Only) Protocol Passed - 02/10/2023 3:56 AM Passed - Visit with relevant provider in past 6 months or upcoming 90 days Recent Visits Date Type Provider Dept 12/31/22 Office Visit Alexus Mehta APRN, CNP [facility] Showing recent visits within past 182 days [...] Serotonin Modulators for at least 6 months RUCTIONAL CONSULTANT documented in this encounter Plan of Treatment Not on file documented as of this encounter Visit Diagnoses Not on filedocumented in this encounter Additional Health Concerns Infection Onset Date Last Indicated Resolved Time ESBL 06/20/2018 01/01/2022 Assessment Noted Time PHQ-9 Depression Total Score: 0 01/14/20 10:00 AM INSTRUCTIONAL CONSULTANT documented as of this encounter Care Teams Manager Retirement Relationship Specialty Start Date End Date Alexus Mehta APRN, TYRONE #2 [facility] [address] [place] [id number] PCP - General Advanced Practice Nurse 01/13/22 Aditya Reza MD #2 [facility] [address] [place] [address] Consulting Physician Urology 12/31/21 documented as of this encounter
--- OUTSIDE RECORDS SUMMARY | 2024-04-19 10:59 | XMS_ITS | Encounter Summary ---
Author Organization [facility] Address [address] [place] [address] Phone Care Team Providers Care Secretary Book Keeper Name Role Phone Aditya Reza MD Unavailable Alexus Mehta APRN, CNP Primary Care Provid er Reason for Visit * Reason Comments Medication Refill Encounter Details Date Type Department Care Team (Late st Contact Info) Description 02/10/2023 Refill [facility] - [place] #[address] [place] [address] Alexus Mehta APRN, CNP #[address] [address] Medication Refill Social History Tobacco [...] Telephone Encounter - Lynn Saucedo RN - 02/11/2023 8:34 AM CST Name from pharmacy: TRAZODONE 100MG TABLETS Will file in chart as: traZODone (DESYREL) 100 MG Tablet The original prescription was reordered on 02/10/2023 by Alexus Mehta APRN, CNP. LANCE DISPATCHER * Telephone Encounter - Lynn Saucedo RN - 02/10/2023 9:19 AM CST duplicate LANCE DISPATCHER documented in this encounter Plan of Treatment Not on file documented as of this encounter Visit Diagnoses Not on filedocumented in this encounter Additional Health Concerns Infection Onset Date Last Indicated Resolved Time ESBL 06/20/2018 01/01/2022 Assessment Noted Time PHQ-9 Depression Total Score: 0 01/14/20 22 10:00 AM AMBULANCE DISPATCHER documented as of this encounter Care Teams Secretary Book Keeper Relationship Specialty Start Date End Date Alexus Mehta APRN, CNP #2 [facility] [address] [place] [address] PCP - General Advanced Practice Nurse 01/13/22 Aditya Reza MD #2 [facility] [address] [place] [address] Consulting Physician Urology 12/31/21 documented as of this encounter
--- OUTSIDE RECORDS SUMMARY | 2024-04-19 10:59 | XMS_ITS | Encounter Summary ---
Author Organization [facility] Address [address] [place] [address] Phone Care Team Providers Care Rn Acls Name Role Phone Aditya Reza MD Unavailable Alexus Mehta APRN, CNP Primary Care Provid er Reason for Visit * Reason Comments Medication Refill Encounter Details Date Type Department Care Team (Late st Contact Info) Description 02/02/2023 Refill [facility] - Family Medicine - [place] [address] [place] [address] Alexus Mehta APRN, CNP [address] [id number] Medication Refill Social History Tobacco [...] Telephone Encounter - Lynn Saucedo RN - 02/02/2023 11:09 AM CST Name from pharmacy: HYDROXYZINE HCL 10MG TABLETS Will file in chart as: hydrOXYzine (ATARAX) 10 MG Tablet The original prescription was discontinued on 12/31/2022 by Alexus Mehta APRN, CNP for the following reason: Formulary change. [facility] documented in this encounter Plan of Treatment Not on file documented as of this encounter Visit Diagnoses Diagnosis Anxiety Anxiety state, unspecified documented in this encounter Additional Health Concerns Infection Onset Date Last Indicated Resolved Time ESBL 06/20/2018 01/01/2022 Assessment Noted Time PHQ-9 Depression Total Score: 0 01/14/20 10:00 AM PRIMARY HEALTH CARE NURSE documented as of this encounter Care Teams Rn Acls Relationship Specialty Start Date End Date Alexus Mehta APRN, CNP [facility] [address] [place] [phone] PCP - General Advanced Practice Nurse 01/13/22 Aditya Reza MD #2 [facility] [address] [place] [address] Consulting Physician Urology 12/31/21 documented as of this encounter
--- OUTSIDE RECORDS SUMMARY | 2024-04-19 10:59 | XMS_ITS | Clinical Summary ---
Author Organization [facility] Address [address] [place] [address] Phone Care Team Providers Care Brim Rounder Name Role Phone Aditya Reza MD Unavailable Alexus Mehta APRN, CNP Primary Care Provid er Allergies Active Allergy Reactions Criticality Noted Date Comments Codeine Nausea,Hives Medium 03/11/2016 Reaction: HIVES, Reaction: Hives, , , Warfarin Unknown 07/06/2016 Pt unsure, someone documented pt was allergic after total Medications Aspirin 81 MG Tablet Take 81 mg by mouth daily. Active B Complex Vitamins (VITAMIN B COMPLEX PO) Take 100 mg by mouth daily. Active Multiple Vitamin (MULTIVITAMINS PO) Take by mouth daily. Active Brimonidine Tartrate-Timolol 0.2-0.5 % Solution Place 1 Drop in affected eye(s) 2 times daily. Takes in the morning Active latanoprost (XALATAN) 0.005 % Solution INSTILL 1 DROP INTO BOTH EYES AT BEDTIME 11 9 Active Solriamfetol HCl (Sunosi) 150 MG Tablet Take by mouth. Activ e traMADol (ULTRAM) 50 MG Tablet TAKE 1 TABLET BY MOUTH EVERY 8 HOURS NEEDED FOR PAIN 2 Active Melatonin (Melatonin Maximum Strength) 5 MG Tablet Take 7.5 mg by mouth. Active Cyanocobalamin 2500 MCG Tablet Take 1 Tablet by mouth daily. 5 Active meloxicam (MOBIC) 7.5 MG Tablet Take 15 mg by mouth daily. 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 90 Tablet 3 4 Active Cholecalciferol (VITAMIN D-3 PO) Take by mouth. Active venlafaxine (EFFEXOR) 100 MG TabletIndications :Hypersomnia with sleep apnea TAKE 1 TABLET BY MOUTH IN THE MORNING AND AT BEDTIME 180 Tablet 1 4 Active traZODone (DESYREL) 100 MG Tablet TAKE 1 TABLET BY MOUTH EVERY NIGHT 90 Tablet 1 4 Active valsartan-hydroCH LOROthiazide (DIOVAN-HCT) 320-12.5 MG TabletIndications :Primary hypertension Take 1 Tablet by mouth daily. 90 Tablet 1 4 Active metroNIDAZOLE (FLAGYL) 500 MG TabletIndications :Bacterial intestinal infection Take 1 Tablet by mouth 3 times daily. 30 Tablet 4 Active folic acid (FOLVITE) 1 MG Tablet TAKE 1 TABLET BY MOUTH DAILY 30 Tablet 6 4 Active busPIRone (BUSPAR) 10 MG TabletIndications :Anxiety TAKE 1 TABLET BY MOUTH EVERY MORNING AND 1 AND 1/2 TABLETS IN THE AFTERNOON 270 Tablet 1 5 Active famotidine (PEPCID) 20 MG TabletIndications :Gastroesophageal reflux disease, unspecified whether esophagitis present TAKE 1 TABLET BY MOUTH TWICE DAILY 180 Tablet 1 5 Active Active Problems Problem Noted Date Diagnosed Date Skin mole 10/17/2018 Renal stone 06/24/2018 Tear of left rotator cuff 07/29/2016 Right flank pain 03/12/2016 Hypertension 03/12/2016 Hypothyroidism 03/12/2016 Depression 03/12/2016 Right knee pain 03/12/2016 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 Overview (01/13/2022): Overview: Hypersomnia with sleep apnea Insomnia 11/14/2012 Overview (01/13/2022): Overview: Insomnia Obstructive sleep apnea syndrome 11/14/2012 Overview (01/13/2022): Overview: Obstructive sleep apnea syndrome Hyperparathyroidism 09/23/2010 Resolved Problems Problem Noted Date Diagnosed Date Resolved Date Acute UTI 03/12/2016 06/12/2022 Leucocytosis 03/12/2016 06/12/2022 Hypokalemia 03/12/2016 06/12/2022 Diarrhea 03/12/2016 06/12/2022 Hypomagnesemia 03/12/2016 06/12/2022 Generalized weakness 03/12/2016 023 Clostridium difficile colitis 03/12/2016 06/12/2022 Encounters Date Type Department Care Team Description 2024 Telephone [facility] [address] [place] [id number] Deanna Grajeda RN 04/12/2024 5:39 PM STORAGE BRINE WORKER - 04/12/2024 9:37 PM STORAGE BRINE WORKER Emergency [facility] [address] [place] [address] Madleyn Jha APRN, CNP Injury of head, initial encounter Discharge Disposition: Discharged to home or Selfcare 04/12/2024 Travel 03/17/2024 [facility] [address] [place] [address] Ja Samuel MD Medication Refill 03/15/2024 [facility] [place] [address] Alexus Mehta APRN, CNP Medication Refill 01/23/2024 [facility] [place] [address] Alexus Mehta APRN, TYRONE Medication Refill from Last 3 Months Immunizations Immunization Administration Dates Next Due Covid-19, Mrna, Lnp-s, Pf, 1 00 Mcg Or 50 Mcg Dose (MODERNA) 01/24/2021,04/30/2020,04/03/2020 Influenza, High-dose, Quadrivalent 12/21/2022,,11/26/2019 Influenza, Injectable, Quadrivalent 12/04/2020,1 ,12/12/2014 Influenza, Quadrivalent, Adjuvanted 01/07/2022 Influenza, Seasonal, Injectable, Undefined 01/16 Influenza, Trivalent, Adjuvanted, PF 01/01/2024 Influenza, high-dose, trivalent, PF 12/08/2018,0 11/24/2017,12/31/2016 Pneumococcal Vaccine - 13 Valent 05/28/2016 Pneumococcal Vaccine Adult - 23 Valent 9 Sars-cov-2 (Covid-19) Vaccine, Unspecified 12/21 TDAP Vaccine 04/09/2022,11/08/2021 Family History Medical History Relation Name Comments Cancer Brother Kwasi Colon Cancer Brother Kwasi Glaucoma Brother Kwasi Cancer Father Fredis prostate Colon Cancer Maternal Grandfather Congestive Heart Failure Maternal Grandmother LenaLena Heart Attack Maternal Grandmother LenaLena Hypertension Maternal Grandmother LenaLena Diabetes Mother Maria De Jesus Hypertension Mother Maria De Jesus Neuropathy Mother Maria De Jesus Relation Name Status Comments Brother Kwasi Father Fredis Maternal Grandfather Maternal Grandmother LenaLena Mother Maria De Jesus Social History Tobacco Use Types Packs/Day Years Used Date Smoking Tobacco: Former Cigarettes 0 07/06/1982 - 07/06/1989 Smokeless Tobacco: Never Tobacco Cessation:Counseling Given: No Alcohol Use Standard Drinks/Week Comments Never 0 (1 standard drink = 0.6 oz pur e alcohol) [employer] Util[employer] Answer Date Recorded In the past 12 months has [employer], [employer], or water [employer] threatened to shut off services in your [...] week 10/14/2023 How often do you attend [facility] or gnosticism services? 1 to 4 times per year 10/14/2023 Do you belong to any clubs o r organizations such as jehovah's witness groups, unions, fraternal or athletic groups, or [...] Recorded Total Score - Questions 1-9 0 03/2023 [facility] - Occupational Stress [...] any time in the past 12 m [facility], were you homeless or living in a fdc (including now)? No 10/14/2023 Education Answer Date [...] Sign Reading Time Taken Comments Blood Pressure 137/93 04/12/2024 9:00 PM STORAGE BRINE WORKER Pulse 87 04/12/2024 9:15 PM STORAGE BRINE WORKER Temperature 36.1 C (96.9 F) 04/12/2024 2:43 PM STORAGE BRINE WORKER Respiratory Rate 18 04/12/2024 9:15 PM STORAGE BRINE WORKER Oxygen Saturation 100% 04/12/2024 9:15 PM STORAGE BRINE WORKER Inhaled Oxygen Concentration - - Weight 81.2 kg (179 lb) 04/12/2024 2:43 PM STORAGE BRINE WORKER Height 163.8 cm (5' 4.5 ) 04/12/2024 2:43 PM STORAGE BRINE WORKER Body Mass Index 30.25 04/12/2024 2:43 PM STORAGE BRINE WORKER Plan of Treatment Health Maintenance Due Date Last Done Comments Cologuard 1999 Immunochemical Fecal Occult Blood 1999 Zoster Immunization (1 of 2) 1999 SARS-COV-2 Immunization ( season) 2023 12/21/2022, 01/24/2021, 04/30/2020, Additional history exists Respiratory Syncytial Virus (RSV) Immunization (Adult) (1 - 1-dose 75+ series) 2024 DEXA Bone Density 08/06/2024 08/06/2022, 10/13/2019 Colonoscopy 08/08/2025 08/09/2015 Colorectal Cancer Screening 08/08/2025 Td Immunization Every 10 Years (Adults With 1 Tdap) 04/09/2032 04/09/2022, 11/08/2021 Pneumococcal Immunization (50+ years) Completed 05/05/2018, 05/28/2016 Pneumococcal Immunization Combined Discontinued 05/05/2018, 05/28/2016 DTaP/Tdap/Td Immunization Discontinued 04/09/2022, 05/2021 Mammogram Discontinued 08/06/2022, 04/22/2015 Influenza Immunization Completed , 12/21/2022, 01/07/2022, Additional history exists Hepatitis B Immunization Aged Out No longer eligible based on patient's age to complete this topic Hepatitis C Virus (HCV) Screening Discontinued Meningococcal Immunization (ACWY) Aged Out No longer eligible based on patient's age to complete this topic Rotavirus Immunization Aged Out No lo nger eligible based on patient's age to complete this topic Medical Devices Implanted Type Area Granite Polisher Apprentice Device Identifier Shelf Expiration Date Model / Serial / Lot Stent Ureteral 6fr 2.1fr 24cm 2 Pigtail Curve 2 Durometer Taper Tip Loprfl Graduated Polaris Ultra - [id number] Implanted:Qty: 1 on 07/15/2018 by [facility] IMPLANT Right: Ureter [employer] 02/07/2021 [id number] 20 / [id number] 20 / [id number] Speedbridge Implant Systemw Ith Biocomposity Swivel Lock Implanted:Qty: 1 on 07/29/2016 by [facility]ofi [facility] Left: Shoulder 03/07/2018 / [id number] S-4 / [id number] Explanted Type Area Granite Polisher Apprentice Device Identifier Shelf Expiration Date Model / Serial / Lot Stent Ureteral 6fr 2.1fr 24cm 2 Pigtail Curve 2 Durometer Taper Tip Loprfl Graduated Polaris Ultra - [id number] Implanted:Qty : 1 on 06/24/2018 by Marbella [facility] at [facility] Explanted:Qty : 1 on 07/15/2018 by [facility]bella [facility] IMPLANT Right: Ureter [employer] 12/20/2020 [id number] / [id number] / [id number] Procedures Procedure Name Priority Date/Time Associated Diagnosis Comments CT CHEST ABDOMEN AND PELVIS W CONTRAST Stat with Interpretation 04/12/2024 8:04 PM STORAGE BRINE WORKER GOLD TOP TUBE STAT 04/12/2024 6:45 PM STORAGE BRINE WORKER BLUE TOP TUBE STAT 04/12/2024 6:45 PM STORAGE BRINE WORKER CBC WITH AUTO DIFFERENTIAL STAT 04/12/2024 6:45 PM STORAGE BRINE WORKER EXTRA TUBES STAT 04/12/2024 6:45 PM STORAGE BRINE WORKER CMP (COMPREHENSIVE METABOLIC PANEL) STAT 04/12/2024 6:45 PM STORAGE BRINE WORKER COMPLETE BLOOD COUNT (CBC) WITH DIFF STAT 04/12/2024 6:45 PM STORAGE BRINE WORKER XR RIBS UNILATERAL WITH PA CHEST LEFT STAT 04/12/2024 3:[address] FACIAL BONES WO CONTRAST Stat with Interpretation 04/12/2024 3:[address] CERVICAL SPINE WO/ CONTRAST Stat with Interpretation 04/12/2024 3:[address] HEAD OR BRAIN WO CONTRAST Stat with Interpretation 04/12/2024 3:15 PM STORAGE BRINE WORKER [facility] BONE DENSITOMETRY AXIAL SKELETON Routine 08/06/2022 11:38 AM CDT Post-menopausal Encounter for screening for osteoporosis [facility] SCREENING BILATERAL DIGITAL W CAD W JESSICA Routine 08/06/2022 11:27 AM CDT Screening mammogram for breast cancer from Last 3 Months or Most Recently Relevant to Health Maintenance Results * CT CHEST ABDOMEN AND PELVIS W CONTRAST (04/12/2024 8:04 PM STORAGE BRINE WORKER) Anatomical Region Laterality Modality Chest, Abdomen, Pelvis N/A Computed Tomography 04/12/2024 8:40 PM STORAGE BRINE WORKER Impressions 04/12/2024 8:43 PM STORAGE BRINE WORKER IMPRESSION: Acute nondisplaced single part fractures of the anterior left 5th and 6th ribs. No acute findings in the abdomen and pelvis. Narrative 04/12/2024 8:43 PM STORAGE BRINE WORKER EXAM DESCRIPTION: CT CHEST ABDOMEN AND PELVIS W CONTRAST REASON FOR STUDY: pt /o pain to left eyebrow area and left ribs after she slipped and fell from a school bus step around 1330. Pt denies LOC. Hematoma and abrasion noted to left eyebrow. Pt denies use of blood thinners. Denies neck pain. TECHNIQUE: CT scan of the chest, abdomen, and pelvis performed with intravenous and without oral contrast using helical scanning technique with dynamic intravenous contrast injection. Reconstructed coronal and sagittal MPR images reviewed. All images stored on PACS. Automated exposure control was used as a dose optimization technique for this examination. CONTRAST TYPE/DOSE: 100mL of IOPAMIDOL 76 % IV SOLN injected via Intravenous COMPARISON: CT abdomen and pelvis 01/13/2022 FINDINGS: CHEST LUNGS: Small bilateral subsegmental atelectasis/scarring. No nodules or masses. No pneumonia. PLEURA: No effusion. No pneumothorax. MEDIASTINUM/CHELE: Calcified mediastinal lymph nodes HEART: Heart size is normal with no pericardial effusion. VASCULATURE CHEST: Atheromatous disease of the aorta with coronary artery calcification. No aneurysms of the aorta. AXILLA: No adenopathy. CHEST WALL: No masses. No subcutaneous air. HARDWARE/LINES/TUBES: None. MUSCULOSKELETAL CHEST: Acute nondisplaced single part fractures of the anterior left 5th and 6th ribs. ABDOMEN/PELVIS LIVER: Normal size. No identified cystic or solid masses. GALLBLADDER: No stones, wall thickening or pericholecystic fluid BILE DUCTS: No intrahepatic or extrahepatic ductal dilatation. SPLEEN: Normal size. No focal lesions. PANCREAS: No identified cystic or solid masses. No significant calcifications. No adjacent inflammation or peripancreatic fluid collections. Pancreatic duct not dilated. ADRENALS: Normal. KIDNEYS/URINARY TRACT: Right renal cortical atrophy. No identified significant cystic or solid masses. No visualized stones. No hydronephrosis or hydroureter. Symmetric enhancement. Urinary bladder is unremarkable. GI: Small hiatal hernia. No dilated bowel loops. No obvious wall thickening. No significant diverticular disease. PERITONEUM: No ascites or free air. RETROPERITONEUM: No mass or adenopathy. REPRODUCTIVE: No significant abnormality. VASCULATURE ABDOMEN: No abdominal aortic aneurysm. MUSCULOSKELETAL ABDOMEN PELVIS: No acute finding. OTHER: No significant abnormality. THIS IS AN ELECTRONICALLY VERIFIED FINAL REPORT 04/12/2024 8:40 PM - Electronically signed by Marysol Aguirre M.D. FT: FT Report ID: [id number] Reading Location: [place] [address] Procedure Note Marysol Dietz MD - 04/12/2024 EXAM DESCRIPTION: CT CHEST ABDOMEN AND PELVIS W CONTRAST REASON FOR STUDY: pt /o pain to left eyebrow area and left ribs after she slipped and fell from a school bus step around 1330. Pt denies LOC. Hematoma and abrasion noted to left eyebrow. Pt denies use of blood thinners. Denies neck pain. TECHNIQUE: CT scan of the chest, abdomen, and pelvis performed with intravenous and without oral contrast using helical scanning technique with dynamic intravenous contrast injection. Reconstructed coronal and sagittal MPR images reviewed. All images stored on PACS. Automated exposure control was used as a dose optimization technique for this examination. CONTRAST TYPE/DOSE: 100mL of IOPAMIDOL 76 % IV SOLN injected via Intravenous COMPARISON: CT abdomen and pelvis 01/13/2022 FINDINGS: CHEST LUNGS: Small bilateral subsegmental atelectasis/scarring. No nodules or masses. No pneumonia. PLEURA: No effusion. No pneumothorax. MEDIASTINUM/CHELE: Calcified mediastinal lymph nodes HEART: Heart size is normal with no pericardial effusion. VASCULATURE CHEST: Atheromatous disease of the aorta with coronary artery calcification. No aneurysms of the aorta. AXILLA: No adenopathy. CHEST WALL: No masses. No subcutaneous air. HARDWARE/LINES/TUBES: None. MUSCULOSKELETAL CHEST: Acute nondisplaced single part fractures of the anterior left 5th and 6th ribs. ABDOMEN/PELVIS LIVER: Normal size. No identified cystic or solid masses. GALLBLADDER: No stones, wall thickening or pericholecystic fluid BILE DUCTS: No intrahepatic or extrahepatic ductal dilatation. SPLEEN: Normal size. No focal lesions. PANCREAS: No identified cystic or solid masses. No significant calcifications. No adjacent inflammation or peripancreatic fluid collections. Pancreatic duct not dilated. ADRENALS: Normal. KIDNEYS/URINARY TRACT: Right renal cortical atrophy. No identified significant cystic or solid masses. No visualized stones. No hydronephrosis or hydroureter. Symmetric enhancement. Urinary bladder is unremarkable. GI: Small hiatal hernia. No dilated bowel loops. No obvious wall thickening. No significant diverticular disease. PERITONEUM: No ascites or free air. RETROPERITONEUM: No mass or adenopathy. REPRODUCTIVE: No significant abnormality. VASCULATURE ABDOMEN: No abdominal aortic aneurysm. MUSCULOSKELETAL ABDOMEN PELVIS: No acute finding. OTHER: No significant abnormality. THIS IS AN ELECTRONICALLY VERIFIED FINAL REPORT 04/12/2024 8:40 PM - Electronically signed by Marysol Aguirre M.D. FT: FT Report ID: [id number] Reading Location: [id number] IMPRESSION: Acute nondisplaced single part fractures of the anterior left 5th and 6th ribs. No acute findings in the abdomen and pelvis. Madelyn Jha APRN, CNP IMG CT ORDERABLES Final Result * Gold Top Tube (04/12/2024 6:45 PM STORAGE BRINE WORKER) Blood No Phlebotomy Charged / Unknown 04/12/2024 6:45 PM STORAGE BRINE WORKER 04/12/2024 6:56 PM STORAGE BRINE WORKER Madelyn Jha APRN, CNP CHEMISTRY ORDERABL ES Final Result Performing Organization Address [facility] Co de Phone Number [facility] [address] [place] [address] * Blue Top Tube (04/12/2024 6:45 PM STORAGE BRINE WORKER) Blood No Phlebotomy Charged / Unknown 04/12/2024 6:45 PM STORAGE BRINE WORKER 04/12/2024 6:56 PM STORAGE BRINE WORKER Madelyn Jha APRN, CNP HEMATOLOGY ORDERAB LES Final Result Performing Organization Address [facility] Co de Phone Number [facility] [address] [place] [address] * (ABNORMAL) CBC with Auto Differential (04/12/2024 6:45 PM [facility]) [facility] WBC 10.10 4.00 - 12.00 10(3)/mcL 04/12/2024 6:59 PM [facility] RBC 3.84 3.80 - 5.30 10(6)/mcL 04/12/2024 6:59 PM [facility] HEMOGLOBIN (HGB) 11.4(L) 12.0 - 15.8 g/dL 04/12/2024 6:59 PM [facility] HEMATOCRIT (HCT) 34.5(L) 36.0 - 47.0 % 04/12/2024 6:59 PM [facility] MCV 89.8 82.0 - 96.0 fL 04/12/2024 6:59 PM [facility] MCH 29.7 26.0 - 34.0 pg 04/12/2024 6:59 PM [facility] MCHC 33.0 31.0 - 36.0 g/dL 04/12/2024 6:59 PM [facility] PLATELET COUNT 290 140 - 440 10(3)/[facility] 04/12/2024 6:59 PM [facility] RDW 13.5 11.8 - 15.5 % 04/12/2024 6:59 PM [facility] MPV 10.5 9.7 - 12.4 fL 04/12/2024 6:59 PM [facility] NEUTROPHILS 71.4 47.0 - 73.0 % 04/12/2024 6:59 PM [facility] LYMPHOCYTES 15.7(L) 18.0 - 42.0 % 04/12/2024 6:59 PM [facility] MONOCYTES 11.7 4.0 - 12.0 % 04/12/2024 6:59 PM [facility] EOSINOPHILS 0.9 0.0 - 5.0 % 04/12/2024 6:59 PM [facility] BASOPHILS 0.3 0.0 - 1.0 % 04/12/2024 6:59 PM STORAGE BRINE WORKER [facility] ABSOLUTE NEUTROPHILS 7.21 1.60 - 7.70 10(3)/[facility] 04/12/2024 6:59 PM STORAGE BRINE WORKER [facility] ABSOLUTE LYMPHOCYTES 1.59 1.30 - 3.20 10(3)/[facility] 04/12/2024 6:59 PM STORAGE BRINE WORKER [facility] ABSOLUTE MONOCYTES 1.18(H) 0.20 - 1.00 10(3)/[facility] 04/12/2024 6:59 PM STORAGE BRINE WORKER [facility] ABSOLUTE EOSINOPHIL 0.09 0.00 - 0.40 10(3)/[facility] 04/12/2024 6:59 PM STORAGE BRINE WORKER [facility] ABSOLUTE BASOPHILS 0.03 0.00 - 0.10 10(3)/[facility] 04/12/2024 6:59 PM STORAGE BRINE WORKER [facility] NRBC PER 100 WBC 0 04/12/19 25 6:59 PM [facility] Blood Venipuncture / Unknown 04/12/2024 6:45 PM STORAGE BRINE WORKER 04/12/2024 6:54 PM STORAGE BRINE WORKER us Madelyn Jha APRN, OCCUP THER HEMATOLOGY ORDERAB LES Final Result [facility] [address] [place] [address] * (ABNORMAL) CMP (04/12/2024 6:45 PM STORAGE BRINE WORKER) SODIUM 141 136 - 145 mmol/L 04/12/2024 7:18 PM STORAGE BRINE WORKER [facility] POTASSIUM 3.9 3.5 - 5.1 mmol/L 04/12/2024 7:18 PM [facility] CHLORIDE 108(H) 98 - 107 mmol/L 04/12/2024 7:18 PM [facility] CO2, VENOUS 25 22 - 30 mmol/L 04/12/2024 7:18 PM [facility] ANION GAP 11.9 <18.0 mmol/L 04/12/2024 7:18 PM [facility] GLUCOSE 112(H) 70 - 99 mg/dL 04/12/2024 7:18 PM [facility] BUN 26(H) 10 - 20 mg/dL 04/12/2024 7:18 PM [facility] CREATININE, BLOOD 1.05(H) 0.60 - 1.00 mg/dL 04/12/2024 7:18 PM [facility] BUN/CREATININE RATIO 25(H) 12 - 20 ratio 04/12/2024 7:18 PM [facility] TOTAL PROTEIN 7.7 6.0 - 8.0 g/dL 04/12/2024 7:18 PM [facility] ALBUMIN 4.1 3.5 - 5.0 g/dL 04/12/2024 7:18 PM [facility] A/G RATIO 1.1 1.0 - 2.2 04/12/2024 7:18 PM [facility] CALCIUM 9.2 8.7 - 10.5 mg/dL 04/12/2024 7:18 PM [facility] T BILI 0.3 0.2 - 1.2 mg/dL 04/12/2024 7:18 PM [facility] SGOT (AST) 27 6 - 42 U/L 04/12/2024 7:18 PM [facility] SGPT (ALT) 35 6 - 55 U/L 04/12/2024 7:18 PM [facility] ALKALINE PHOSPHATASE 75 40 - 150 U/L 04/12/2024 7:18 PM [facility] GFR, ESTIMATED 56(L) >=60 04/12/2024 7:18 PM [facility] Comment: Creatinine Clearance is the preferred criteria for selecting drug dose adjustments in renally impaired patients. The GFR is provided as additional pertinent clinical information. GFR is reported in mL/min/1.73 sq m. Calculation based on the Chronic Kidney Disease Epidemiology Collaboration (CKD- EPI) equation refit without adjustment for race. GFR, EST. >60 >=60 025 7:18 PM STORAGE BRINE WORKER [facility] GFR, EST. NONAFRICAN 51(L) >=60 04/12/2024 7:18 PM STORAGE BRINE WORKER [facility] Blood Venipuncture / Unknown 04/12/2024 6:45 PM STORAGE BRINE WORKER 04/12/2024 6:54 PM STORAGE BRINE WORKER us Madelyn Jha NASCAR DRIVER, OCCUP THER CHEMISTRY ORDERABL ES Final Result [facility] [address] [place] [address] * XR RIBS UNILATERAL WITH PA CHEST LEFT (04/12/2024 3:35 PM STORAGE BRINE WORKER) Anatomical Region Laterality Modality Chest, Rib Left Digital Radiogra phy 04/12/2024 3:46 PM STORAGE BRINE WORKER Impressions 04/12/2024 3:48 PM STORAGE BRINE WORKER IMPRESSION: Questionable fractures of the left 5th and 6th rib laterally. Narrative 04/12/2024 3:48 PM STORAGE BRINE WORKER EXAM DESCRIPTION: XR RIBS UNILATERAL WITH PA CHEST LEFT REASON FOR STUDY: fell from school bus; pain in left ribs TECHNIQUE: 3 view(s) of the left ribs with single view of the chest. COMPARISON: None FINDINGS: LUNGS: No focal opacity, pleural effusion, or pneumothorax. HEART/MEDIASTINUM: Cardiac silhouette normal in size. Mediastinal and hilar contours appear normal. LINES/TUBES: None. BONES: There are questionable fractures of the left 5th and 6th rib laterally. Non contrasted low-dose CT be could be obtained for further characterization as clinically warranted. THIS IS AN ELECTRONICALLY VERIFIED FINAL REPORT 04/12/2024 3:46 PM - Electronically signed by Timoteo Uribe M.D. JA: TOYA Report ID: [id number] Reading Location: [id number] Procedure Note Timoteo Uribe MD - 04/12/2024 EXAM DESCRIPTION: XR RIBS UNILATERAL WITH PA CHEST LEFT REASON FOR STUDY: fell from school bus; pain in left ribs TECHNIQUE: 3 view(s) of the left ribs with single view of the chest. COMPARISON: None FINDINGS: LUNGS: No focal opacity, pleural effusion, or pneumothorax. HEART/MEDIASTINUM: Cardiac silhouette normal in size. Mediastinal and hilar contours appear normal. LINES/TUBES: None. BONES: There are questionable fractures of the left 5th and 6th rib laterally. Non contrasted low-dose CT be could be obtained for further characterization as clinically warranted. THIS IS AN ELECTRONICALLY VERIFIED FINAL REPORT 04/12/2024 3:46 PM - Electronically signed by Timoteo Urbie M.D. JA: TOYA Report ID: [id number] Reading Location: [id number] IMPRESSION: Questionable fractures of the left 5th and 6th rib laterally. Madelyn Jha APRN, [facility] DIAGNOSTIC ORD ERABLES Final Result * CT FACIAL BONES WO CONTRAST (04/12/2024 3:17 PM [employer]AGE [employer]INE WORKER) Anatomical Region Laterality Modality Head N/A Computed Tomogra phy 04/12/2024 3:49 PM [employer]ORAGE [employer]INE WORKER Impressions 04/12/2024 3:51 PM [employer]ORAGE [employer]INE WORKER IMPRESSION: No acute intracranial abnormality. No acute displaced calvarial fracture. Moderate inferior left supraorbital scalp contusion/hematoma. No acute displaced facial bone fracture. No acute fracture or traumatic malalignment of the cervical spine. New fluid within the left maxillary sinus could support a clinical diagnosis of sinusitis in the absence of displaced fracture. Multilevel degenerative changes of the cervical spine as described above. Additional incidental and chronic findings as above. Narrative 04/12/2024 3:51 PM [employer]ORAGE [employer]INE WORKER EXAM DESCRIPTION: CT HEAD OR BRAIN WO CONTRAST; CT FACIAL BONES WO CONTRAST; CT CERVICAL SPINE WO/ CONTRAST REASON FOR STUDY: fall today. pain and abrasion to left eyebrow area. ; fall today. patient denies any neck pain. TECHNIQUE: Axial images acquired through the brain and paranasal sinuses without intravenous contrast. Sagittal and coronal reformatted images obtained. Axial images through the cervical spine with sagittal and coronal reformatted images. Images stored on PACS. Automated exposure control was used as a dose optimization technique for this examination. COMPARISON: None. FINDINGS: Beam hardening artifact obscures evaluation of the brainstem. Findings made within these confines. HEAD: SURGICAL/SUPPORT DEVICES: None. BRAIN PARENCHYMA: No acute large vascular territory infarction. No acute intraparenchymal hemorrhage. No mass or significant mass effect. Patchy periventricular hypodensities which are nonspecific but can be seen with mild chronic microvascular ischemic changes. Similar-appearing calcification/mineralization of the bilateral basal ganglia, bilateral cerebellar dentate nuclei, and white matter of the genao radiata and centrum semiovale which may be seen with primary familial brain calcification (Fahr disease), endocrinopathies, among others. EXTRA-AXIAL SPACES: No hyperdense fluid collections. VENTRICLES: No acute hydrocephalus. BONES/SOFT TISSUES: Moderate inferior left frontal scalp contusion/hematoma. No underlying acute displaced calvarial fracture. OTHER: No other significant abnormality. FACE: BONES/SOFT TISSUES: Left supraorbital contusion/hematoma. No acute displaced fracture. PARANASAL SINUSES: New fluid within the left maxillary sinus. NASAL CAVITY: Midline nasal septum. ORBITS: Bilateral lens replacement. No definite acute orbital injury. TMJ: Advanced degenerative changes of the bilateral temporomandibular joints. MASTOIDS/MIDDLE EAR: No significant abnormality. OTHER: No other significant finding. CERVICAL SPINE: HARDWARE: None in the spine. ALIGNMENT: Unchanged trace anterolisthesis of C4 on C5, likely degenerative. No definite acute traumatic spondylolisthesis. CRANIOCERVICAL JUNCTION: Degenerative changes, otherwise unremarkable. Slight offset of the C1 lateral mass on C2, favored rotational/positional. VERTEBRAE: No acute displaced fracture. Vertebral body heights well-maintained. INTERVERTEBRAL DISCS: Multilevel intervertebral disc height loss. INDIVIDUAL DISC LEVELS: C2-C3: Posterior disc osteophyte complex results in mild spinal canal narrowing. C3-C4: Posterior disc osteophyte complex and uncovertebral joint hypertrophy with mild spinal canal and minimal bilateral neural foraminal narrowing. C4-5: Posterior disc osteophyte complex, uncovertebral joint hypertrophy, and facet arthropathy results in mild spinal canal narrowing and [id number] left neural foraminal narrowing. C5-6: Posterior disc osteophyte complex, uncovertebral joint hypertrophy, and facet arthropathy result in mild spinal canal narrowing. Moderate right and mild left neural foraminal narrowing. C6-C7: Posterior disc osteophyte complex, uncovertebral joint hypertrophy, and facet arthropathy results in mild spinal canal narrowing. C7-T1: Degenerative changes without high-grade narrowing. UPPER THORACIC: Incompletely imaged. No significant osseous spinal stenosis or osseous neural foraminal stenosis. LUNG APICES: Mosaic attenuation which is nonspecific but may be seen with small airways or small vessels disease. Left upper lobe calcified pulmonary nodules, likely sequela of previous granulomatous disease. NECK SOFT TISSUES: Carotid atherosclerotic calcifications. Medialization of the internal carotid arteries. OTHER: No other significant findings. THIS IS AN ELECTRONICALLY VERIFIED FINAL REPORT 04/12/2024 3:49 PM - Electronically signed by Dez Santamaria M.D. NS: NS Report ID: [id number] Reading Location: [place] [address] Procedure Note Dez Santamaria MD - 04/12/2024 EXAM DESCRIPTION: CT HEAD OR BRAIN WO CONTRAST; CT FACIAL BONES WO CONTRAST; CT CERVICAL SPINE WO/ CONTRAST REASON FOR STUDY: fall today. pain and abrasion to left eyebrow area. ; fall today. patient denies any neck pain. TECHNIQUE: Axial images acquired through the brain and paranasal sinuses without intravenous contrast. Sagittal and coronal reformatted images obtained. Axial images through the cervical spine with sagittal and coronal reformatted images. Images stored on PACS. Automated exposure control was used as a dose optimization technique for this examination. COMPARISON: None. FINDINGS: Beam hardening artifact obscures evaluation of the brainstem. Findings made within these confines. HEAD: SURGICAL/SUPPORT DEVICES: None. BRAIN PARENCHYMA: No acute large vascular territory infarction. No acute intraparenchymal hemorrhage. No mass or significant mass effect. Patchy periventricular hypodensities which are nonspecific but can be seen with mild chronic microvascular ischemic changes. Similar-appearing calcification/mineralization of the bilateral basal ganglia, bilateral cerebellar dentate nuclei, and white matter of the genao radiata and centrum semiovale which may be seen with primary familial brain calcification (Fahr disease), endocrinopathies, among others. EXTRA-AXIAL SPACES: No hyperdense fluid collections. VENTRICLES: No acute hydrocephalus. BONES/SOFT TISSUES: Moderate inferior left frontal scalp contusion/hematoma. No underlying acute displaced calvarial fracture. OTHER: No other significant abnormality. FACE: BONES/SOFT TISSUES: Left supraorbital contusion/hematoma. No acute displaced fracture. PARANASAL SINUSES: New fluid within the left maxillary sinus. NASAL CAVITY: Midline nasal septum. ORBITS: Bilateral lens replacement. No definite acute orbital injury. TMJ: Advanced degenerative changes of the bilateral temporomandibular joints. MASTOIDS/MIDDLE EAR: No significant abnormality. OTHER: No other significant finding. CERVICAL SPINE: HARDWARE: None in the spine. ALIGNMENT: Unchanged trace anterolisthesis of C4 on C5, likely degenerative. No definite acute traumatic spondylolisthesis. CRANIOCERVICAL JUNCTION: Degenerative changes, otherwise unremarkable. Slight offset of the C1 lateral mass on C2, favored rotational/positional. VERTEBRAE: No acute displaced fracture. Vertebral body heights well-maintained. INTERVERTEBRAL DISCS: Multilevel intervertebral disc height loss. INDIVIDUAL DISC LEVELS: C2-C3: Posterior disc osteophyte complex results in mild spinal canal narrowing. C3-C4: Posterior disc osteophyte complex and uncovertebral joint hypertrophy with mild spinal canal and minimal bilateral neural foraminal narrowing. C4-5: Posterior disc osteophyte complex, uncovertebral joint hypertrophy, and facet arthropathy results in mild spinal canal narrowing and [id number] left neural foraminal narrowing. C5-6: Posterior disc osteophyte complex, uncovertebral joint hypertrophy, and facet arthropathy result in mild spinal canal narrowing. Moderate right and mild left neural foraminal narrowing. C6-C7: Posterior disc osteophyte complex, uncovertebral joint hypertrophy, and facet arthropathy results in mild spinal canal narrowing. C7-T1: Degenerative changes without high-grade narrowing. UPPER THORACIC: Incompletely imaged. No significant osseous spinal stenosis or osseous neural foraminal stenosis. LUNG APICES: Mosaic attenuation which is nonspecific but may be seen with small airways or small vessels disease. Left upper lobe calcified pulmonary nodules, likely sequela of previous granulomatous disease. NECK SOFT TISSUES: Carotid atherosclerotic calcifications. Medialization of the internal carotid arteries. OTHER: No other significant findings. THIS IS AN ELECTRONICALLY VERIFIED FINAL REPORT 04/12/2024 3:49 PM - Electronically signed by Dez Santamaria M.D. NS: NS Report ID: [id number] Reading Location: [id number] IMPRESSION: No acute intracranial abnormality. No acute displaced calvarial fracture. Moderate inferior left supraorbital scalp contusion/hematoma. No acute displaced facial bone fracture. No acute fracture or traumatic malalignment of the cervical spine. New fluid within the left maxillary sinus could support a clinical diagnosis of sinusitis in the absence of displaced fracture. Multilevel degenerative changes of the cervical spine as described above. Additional incidental and chronic findings as above. 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 No acute displaced calvarial fracture. Moderate inferior left supraorbital scalp contusion/hematoma. No acute displaced facial bone fracture. No acute fracture or traumatic malalignment of the cervical spine. New fluid within the left maxillary sinus could support a clinical diagnosis of sinusitis in the absence of displaced fracture. Multilevel degenerative changes of the cervical spine as described above. Additional incidental and chronic findings as above. Narrative 04/12/2024 3:51 PM STORAGE BRINE WORKER EXAM DESCRIPTION: CT HEAD OR BRAIN WO CONTRAST; CT FACIAL BONES WO CONTRAST; CT CERVICAL SPINE WO/ CONTRAST REASON FOR STUDY: fall today. pain and abrasion to left eyebrow area. ; fall today. patient denies any neck pain. TECHNIQUE: Axial images acquired through the brain and paranasal sinuses without intravenous contrast. Sagittal and coronal reformatted images obtained. Axial images through the cervical spine with sagittal and coronal reformatted images. Images stored on PACS. Automated exposure control was used as a dose optimization technique for this examination. COMPARISON: None. FINDINGS: Beam hardening artifact obscures evaluation of the brainstem. Findings made within these confines. HEAD: SURGICAL/SUPPORT DEVICES: None. BRAIN PARENCHYMA: No acute large vascular territory infarction. No acute intraparenchymal hemorrhage. No mass or significant mass effect. Patchy periventricular hypodensities which are nonspecific but can be seen with mild chronic microvascular ischemic changes. Similar-appearing calcification/mineralization of the bilateral basal ganglia, bilateral cerebellar dentate nuclei, and white matter of the genao radiata and centrum semiovale which may be seen with primary familial brain calcification (Fahr disease), endocrinopathies, among others. EXTRA-AXIAL SPACES: No hyperdense fluid collections. VENTRICLES: No acute hydrocephalus. BONES/SOFT TISSUES: Moderate inferior left frontal scalp contusion/hematoma. No underlying acute displaced calvarial fracture. OTHER: No other significant abnormality. FACE: BONES/SOFT TISSUES: Left supraorbital contusion/hematoma. No acute displaced fracture. PARANASAL SINUSES: New fluid within the left maxillary sinus. NASAL CAVITY: Midline nasal septum. ORBITS: Bilateral lens replacement. No definite acute orbital injury. TMJ: Advanced degenerative changes of the bilateral temporomandibular joints. MASTOIDS/MIDDLE EAR: No significant abnormality. OTHER: No other significant finding. CERVICAL SPINE: HARDWARE: None in the spine. ALIGNMENT: Unchanged trace anterolisthesis of C4 on C5, likely degenerative. No definite acute traumatic spondylolisthesis. CRANIOCERVICAL JUNCTION: Degenerative changes, otherwise unremarkable. Slight offset of the C1 lateral mass on C2, favored rotational/positional. VERTEBRAE: No acute displaced fracture. Vertebral body heights well-maintained. INTERVERTEBRAL DISCS: Multilevel intervertebral disc height loss. INDIVIDUAL DISC LEVELS: C2-C3: Posterior disc osteophyte complex results in mild spinal canal narrowing. C3-C4: Posterior disc osteophyte complex and uncovertebral joint hypertrophy with mild spinal canal and minimal bilateral neural foraminal narrowing. C4-5: Posterior disc osteophyte complex, uncovertebral joint hypertrophy, and facet arthropathy results in mild spinal canal narrowing and [id number]-[id number] left neural foraminal narrowing. C5-6: Posterior disc osteophyte complex, uncovertebral joint hypertrophy, and facet arthropathy result in mild spinal canal narrowing. Moderate right and mild left neural foraminal narrowing. C6-C7: Posterior disc osteophyte complex, uncovertebral joint hypertrophy, and facet arthropathy results in mild spinal canal narrowing. C7-T1: Degenerative changes without high-grade narrowing. UPPER THORACIC: Incompletely imaged. No significant osseous spinal stenosis or osseous neural foraminal stenosis. LUNG APICES: Mosaic attenuation which is nonspecific but may be seen with small airways or small vessels disease. Left upper lobe calcified pulmonary nodules, likely sequela of previous granulomatous disease. NECK SOFT TISSUES: Carotid atherosclerotic calcifications. Medialization of the internal carotid arteries. OTHER: No other significant findings. THIS IS AN ELECTRONICALLY VERIFIED FINAL REPORT 04/12/2024 3:49 PM - Electronically signed by Dez Santamaria M.D. NS: NS Report ID: [id number] Reading Location: [place] [id number] Procedure Note Dez Santamaria MD - 04/12/2024 EXAM DESCRIPTION: CT HEAD OR BRAIN WO CONTRAST; CT FACIAL BONES WO CONTRAST; CT CERVICAL SPINE WO/ CONTRAST REASON FOR STUDY: fall today. pain and abrasion to left eyebrow area. ; fall today. patient denies any neck pain. TECHNIQUE: Axial images acquired through the brain and paranasal sinuses without intravenous contrast. Sagittal and coronal reformatted images obtained. Axial images through the cervical spine with sagittal and coronal reformatted images. Images stored on PACS. Automated exposure control was used as a dose optimization technique for this examination. COMPARISON: None. FINDINGS: Beam hardening artifact obscures evaluation of the brainstem. Findings made within these confines. HEAD: SURGICAL/SUPPORT DEVICES: None. BRAIN PARENCHYMA: No acute large vascular territory infarction. No acute intraparenchymal hemorrhage. No mass or significant mass effect. Patchy periventricular hypodensities which are nonspecific but can be seen with mild chronic microvascular ischemic changes. Similar-appearing calcification/mineralization of the bilateral basal ganglia, bilateral cerebellar dentate nuclei, and white matter of the genao radiata and centrum semiovale which may be seen with primary familial brain calcification (Fahr disease), endocrinopathies, among others. EXTRA-AXIAL SPACES: No hyperdense fluid collections. VENTRICLES: No acute hydrocephalus. BONES/SOFT TISSUES: Moderate inferior left frontal scalp contusion/hematoma. No underlying acute displaced calvarial fracture. OTHER: No other significant abnormality. FACE: BONES/SOFT TISSUES: Left supraorbital contusion/hematoma. No acute displaced fracture. PARANASAL SINUSES: New fluid within the left maxillary sinus. NASAL CAVITY: Midline nasal septum. ORBITS: Bilateral lens replacement. No definite acute orbital injury. TMJ: Advanced degenerative changes of the bilateral temporomandibular joints. MASTOIDS/MIDDLE EAR: No significant abnormality. OTHER: No other significant finding. CERVICAL SPINE: HARDWARE: None in the spine. ALIGNMENT: Unchanged trace anterolisthesis of C4 on C5, likely degenerative. No definite acute traumatic spondylolisthesis. CRANIOCERVICAL JUNCTION: Degenerative changes, otherwise unremarkable. Slight offset of the C1 lateral mass on C2, favored rotational/positional. VERTEBRAE: No acute displaced fracture. Vertebral body heights well-maintained. INTERVERTEBRAL DISCS: Multilevel intervertebral disc height loss. INDIVIDUAL DISC LEVELS: C2-C3: Posterior disc osteophyte complex results in mild spinal canal narrowing. C3-C4: Posterior disc osteophyte complex and uncovertebral joint hypertrophy with mild spinal canal and minimal bilateral neural foraminal narrowing. C4-5: Posterior disc osteophyte complex, uncovertebral joint hypertrophy, and facet arthropathy results in mild spinal canal narrowing and [id number]-[id number] left neural foraminal narrowing. C5-6: Posterior disc osteophyte complex, uncovertebral joint hypertrophy, and facet arthropathy result in mild spinal canal narrowing. Moderate right and mild left neural foraminal narrowing. C6-C7: Posterior disc osteophyte complex, uncovertebral joint hypertrophy, and facet arthropathy results in mild spinal canal narrowing. C7-T1: Degenerative changes without high-grade narrowing. UPPER THORACIC: Incompletely imaged. No significant osseous spinal stenosis or osseous neural foraminal stenosis. LUNG APICES: Mosaic attenuation which is nonspecific but may be seen with small airways or small vessels disease. Left upper lobe calcified pulmonary nodules, likely sequela of previous granulomatous disease. NECK SOFT TISSUES: Carotid atherosclerotic calcifications. Medialization of the internal carotid arteries. OTHER: No other significant findings. THIS IS AN ELECTRONICALLY VERIFIED FINAL REPORT 04/12/2024 3:49 PM - Electronically signed by Dez Santamaria M.D. NS: NS Report ID: [id number] Reading Location: [place] [id number] IMPRESSION: No acute intracranial abnormality. No acute displaced calvarial fracture. Moderate inferior left supraorbital scalp contusion/hematoma. No acute displaced facial bone fracture. No acute fracture or traumatic malalignment of the cervical spine. New fluid within the left maxillary sinus could support a clinical diagnosis of sinusitis in the absence of displaced fracture. Multilevel degenerative changes of the cervical spine as described above. Additional incidental and chronic findings as above. us Madelyn Jha APRN, O[employer] IMG CT ORDERABLES Final Result * CT HEAD OR BRAIN WO CONTRAST (04/12/2024 3:15 PM STORAGE BRINE WORKER) Anatomical Region Laterality Modality Head N/A Computed Tomogra phy 04/12/2024 3:49 PM STORAGE BRINE WORKER Impressions 04/12/2024 3:51 PM STORAGE [employer]INE WORKER IMPRESSION: No acute intracranial abnormality. No acute displaced calvarial fracture. Moderate inferior left supraorbital scalp contusion/hematoma. No acute displaced facial bone fracture. No acute fracture or traumatic malalignment of the cervical spine. New fluid within the left maxillary sinus could support a clinical diagnosis of sinusitis in the absence of displaced fracture. Multilevel degenerative changes of the cervical spine as described above. Additional incidental and chronic findings as above. Narrative 04/12/2024 3:51 PM STORAGE BRINE WORKER EXAM DESCRIPTION: CT HEAD OR BRAIN WO CONTRAST; CT FACIAL BONES WO CONTRAST; CT CERVICAL SPINE WO/ CONTRAST REASON FOR STUDY: fall today. pain and abrasion to left eyebrow area. ; fall today. patient denies any neck pain. TECHNIQUE: Axial images acquired through the brain and paranasal sinuses without intravenous contrast. Sagittal and coronal reformatted images obtained. Axial images through the cervical spine with sagittal and coronal reformatted images. Images stored on PACS. Automated exposure control was used as a dose optimization technique for this examination. COMPARISON: None. FINDINGS: Beam hardening artifact obscures evaluation of the brainstem. Findings made within these confines. HEAD: SURGICAL/SUPPORT DEVICES: None. BRAIN PARENCHYMA: No acute large vascular territory infarction. No acute intraparenchymal hemorrhage. No mass or significant mass effect. Patchy periventricular hypodensities which are nonspecific but can be seen with mild chronic microvascular ischemic changes. Similar-appearing calcification/mineralization of the bilateral basal ganglia, bilateral cerebellar dentate nuclei, and white matter of the genao radiata and centrum semiovale which may be seen with primary familial brain calcification (Fahr disease), endocrinopathies, among others. EXTRA-AXIAL SPACES: No hyperdense fluid collections. VENTRICLES: No acute hydrocephalus. BONES/SOFT TISSUES: Moderate inferior left frontal scalp contusion/hematoma. No underlying acute displaced calvarial fracture. OTHER: No other significant abnormality. FACE: BONES/SOFT TISSUES: Left supraorbital contusion/hematoma. No acute displaced fracture. PARANASAL SINUSES: New fluid within the left maxillary sinus. NASAL CAVITY: Midline nasal septum. ORBITS: Bilateral lens replacement. No definite acute orbital injury. TMJ: Advanced degenerative changes of the bilateral temporomandibular joints. MASTOIDS/MIDDLE EAR: No significant abnormality. OTHER: No other significant finding. CERVICAL SPINE: HARDWARE: None in the spine. ALIGNMENT: Unchanged trace anterolisthesis of C4 on C5, likely degenerative. No definite acute traumatic spondylolisthesis. CRANIOCERVICAL JUNCTION: Degenerative changes, otherwise unremarkable. Slight offset of the C1 lateral mass on C2, favored rotational/positional. VERTEBRAE: No acute displaced fracture. Vertebral body heights well-maintained. INTERVERTEBRAL DISCS: Multilevel intervertebral disc height loss. INDIVIDUAL DISC LEVELS: C2-C3: Posterior disc osteophyte complex results in mild spinal canal narrowing. C3-C4: Posterior disc osteophyte complex and uncovertebral joint hypertrophy with mild spinal canal and minimal bilateral neural foraminal narrowing. C4-5: Posterior disc osteophyte complex, uncovertebral joint hypertrophy, and facet arthropathy results in mild spinal canal narrowing and aswcrdoj-kn-whlrog left neural foraminal narrowing. C5-6: Posterior disc osteophyte complex, uncovertebral joint hypertrophy, and facet arthropathy result in mild spinal canal narrowing. Moderate right and mild left neural foraminal narrowing. C6-C7: Posterior disc osteophyte complex, uncovertebral joint hypertrophy, and facet arthropathy results in mild spinal canal narrowing. C7-T1: Degenerative changes without high-grade narrowing. UPPER THORACIC: Incompletely imaged. No significant osseous spinal stenosis or osseous neural foraminal stenosis. LUNG APICES: Mosaic attenuation which is nonspecific but may be seen with small airways or small vessels disease. Left upper lobe calcified pulmonary nodules, likely sequela of previous granulomatous disease. NECK SOFT TISSUES: Carotid atherosclerotic calcifications. Medialization of the internal carotid arteries. OTHER: No other significant findings. THIS IS AN ELECTRONICALLY VERIFIED FINAL REPORT 04/12/2024 3:49 PM - Electronically signed by Dez Santamaria M.D. NS: NS Report ID: [id number] Reading Location: [place] [id number] Procedure Note Dez Santamaria MD - 04/12/2024 EXAM DESCRIPTION: CT HEAD OR BRAIN WO CONTRAST; CT FACIAL BONES WO CONTRAST; CT CERVICAL SPINE WO/ CONTRAST REASON FOR STUDY: fall today. pain and abrasion to left eyebrow area. ; fall today. patient denies any neck pain. TECHNIQUE: Axial images acquired through the brain and paranasal sinuses without intravenous contrast. Sagittal and coronal reformatted images obtained. Axial images through the cervical spine with sagittal and coronal reformatted images. Images stored on PACS. Automated exposure control was used as a dose optimization technique for this examination. COMPARISON: None. FINDINGS: Beam hardening artifact obscures evaluation of the brainstem. Findings made within these confines. HEAD: SURGICAL/SUPPORT DEVICES: None. BRAIN PARENCHYMA: No acute large vascular territory infarction. No acute intraparenchymal hemorrhage. No mass or significant mass effect. Patchy periventricular hypodensities which are nonspecific but can be seen with mild chronic microvascular ischemic changes. Similar-appearing calcification/mineralization of the bilateral basal ganglia, bilateral cerebellar dentate nuclei, and white matter of the genao radiata and centrum semiovale which may be seen with primary familial brain calcification (Fahr disease), endocrinopathies, among others. EXTRA-AXIAL SPACES: No hyperdense fluid collections. VENTRICLES: No acute hydrocephalus. BONES/SOFT TISSUES: Moderate inferior left frontal scalp contusion/hematoma. No underlying acute displaced calvarial fracture. OTHER: No other significant abnormality. FACE: BONES/SOFT TISSUES: Left supraorbital contusion/hematoma. No acute displaced fracture. PARANASAL SINUSES: New fluid within the left maxillary sinus. NASAL CAVITY: Midline nasal septum. ORBITS: Bilateral lens replacement. No definite acute orbital injury. TMJ: Advanced degenerative changes of the bilateral temporomandibular joints. MASTOIDS/MIDDLE EAR: No significant abnormality. OTHER: No other significant finding. CERVICAL SPINE: HARDWARE: None in the spine. ALIGNMENT: Unchanged trace anterolisthesis of C4 on C5, likely degenerative. No definite acute traumatic spondylolisthesis. CRANIOCERVICAL JUNCTION: Degenerative changes, otherwise unremarkable. Slight offset of the C1 lateral mass on C2, favored rotational/positional. VERTEBRAE: No acute displaced fracture. Vertebral body heights well-maintained. INTERVERTEBRAL DISCS: Multilevel intervertebral disc height loss. INDIVIDUAL DISC LEVELS: C2-C3: Posterior disc osteophyte complex results in mild spinal canal narrowing. C3-C4: Posterior disc osteophyte complex and uncovertebral joint hypertrophy with mild spinal canal and minimal bilateral neural foraminal narrowing. C4-5: Posterior disc osteophyte complex, uncovertebral joint hypertrophy, and facet arthropathy results in mild spinal canal narrowing and [id number] left neural foraminal narrowing. C5-6: Posterior disc osteophyte complex, uncovertebral joint hypertrophy, and facet arthropathy result in mild spinal canal narrowing. Moderate right and mild left neural foraminal narrowing. C6-C7: Posterior disc osteophyte complex, uncovertebral joint hypertrophy, and facet arthropathy results in mild spinal canal narrowing. C7-T1: Degenerative changes without high-grade narrowing. UPPER THORACIC: Incompletely imaged. No significant osseous spinal stenosis or osseous neural foraminal stenosis. LUNG APICES: Mosaic attenuation which is nonspecific but may be seen with small airways or small vessels disease. Left upper lobe calcified pulmonary nodules, likely sequela of previous granulomatous disease. NECK SOFT TISSUES: Carotid atherosclerotic calcifications. Medialization of the internal carotid arteries. OTHER: No other significant findings. THIS IS AN ELECTRONICALLY VERIFIED FINAL REPORT 04/12/2024 3:49 PM - Electronically signed by Dez Santamaria M.D. NS: NS Report ID: [id number] Reading Location: [id number] IMPRESSION: No acute intracranial abnormality. No acute displaced calvarial fracture. Moderate inferior left supraorbital scalp contusion/hematoma. No acute displaced facial bone fracture. No acute fracture or traumatic malalignment of the cervical spine. New fluid within the left maxillary sinus could support a clinical diagnosis of sinusitis in the absence of displaced fracture. Multilevel degenerative changes of the cervical spine as described above. Additional incidental and chronic findings as above. us Madelyn Jha APRN, [facility] ORDERABLES Final Result * ANTWON BONE DENSITOMETRY AXIAL SKELETON (08/06/2022 11:38 AM CDT) Anatomical Region Laterality Modality BODY N/A Computed Radiogr aphy 08/07/2022 6:03 AM CDT Impressions 08/07/2022 6:06 AM CDT IMPRESSION: Osteoporosis REFERENCE: Bone mineral density: Normal (T-score above or = -1.0) Low bone mass (T-score between -1.0 and -2.5) replaces the previously used term osteopenia Osteoporosis (T-score = or below -2.5) Medical evaluation for secondary causes of low bone mineral density may be appropriate. FRAX is a World Health Organization validated fracture risk assessment tool that calculates a person's 10 year probability of a major osteoporosis related fracture and hip fracture. According to the National Osteoporosis Foundation guidelines, postmenopausal women and men age 50 or older with low bone mass and a 10 year probability of a major osteoporosis related fracture = or greater than 20% or a 10 year probability of a hip fracture = or greater than 3% should be considered for treatment. For further information, including treatment recommendations, please refer to the 2019 ISCD Official Positions (http://www.iscd.org) and the NOF's Clinician's Guide to Prevention and Treatment of Osteoporosis (http://www.nof.org/professionals/clinical-guidelines) Narrative 08/07/2022 6:06 AM CDT EXAM DESCRIPTION: ANTWON BONE DENSITOMETRY AXIAL SKELETON REASON FOR STUDY: 72 y/o year old F with given history of screening. 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 LEFT HIP: Total BMD is 0.748 g/cm2 T-score is -2.1 This is a 3.6% decrease in comparison to prior exam which is not statistically significant. Femoral neck BMD is 0.667 g/cm2 T-score is -2.7 FRAX: FRAX not reported due to T-scores of hip, femoral neck and/or spine being at or below -2.5 (Osteoporosis). THIS IS AN ELECTRONICALLY VERIFIED FINAL REPORT 08/07/2022 6:03 AM - Electronically signed by Naomi Cifuentes M.D. TW: MARY Report ID: [id number] Reading Location: [id number] Procedure Note Naomi Cifuentes MD - 08/07/2022 EXAM DESCRIPTION: ANTWON BONE DENSITOMETRY AXIAL SKELETON REASON FOR STUDY: 72 y/o year old F with given history of screening. 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 LEFT HIP: Total BMD is 0.748 g/cm2 T-score is -2.1 This is a 3.6% decrease in comparison to prior exam which is not statistically significant. Femoral neck BMD is 0.667 g/cm2 T-score is -2.7 FRAX: FRAX not reported due to T-scores of hip, femoral neck and/or spine being at or below -2.5 (Osteoporosis). THIS IS AN ELECTRONICALLY VERIFIED FINAL REPORT 08/07/2022 6:03 AM - Electronically signed by Naomi Cifuentes M.D. TW: TW Report ID: [id number] Reading Location: [id number] IMPRESSION: Osteoporosis REFERENCE: Bone mineral density: Normal (T-score above or = -1.0) Low bone mass (T-score between -1.0 and -2.5) replaces the previously used term osteopenia Osteoporosis (T-score = or below -2.5) Medical evaluation for secondary causes of low bone mineral density may be appropriate. FRAX is a World Health Organization validated fracture risk assessment tool that calculates a person's 10 year probability of a major osteoporosis related fracture and hip fracture. According to the National Osteoporosis Foundation guidelines, postmenopausal women and men age 50 or older with low bone mass and a 10 year probability of a major osteoporosis related fracture = or greater than 20% or a 10 year probability of a hip fracture = or greater than 3% should be considered for treatment. For further information, including treatment recommendations, please refer to the 2019 ISCD Official Positions (http://www.iscd.org) and the NOF's Clinician's Guide to Prevention and Treatment of Osteoporosis (http://www.nof.org/professionals/clinical-guidelines) Alexus Mehta NASCAR DRIVER, OCCUP THER IMG DEXA ORDERABLES Final Result * ANTWON SCREENING BILATERAL DIGITAL W CAD W JESSICA (08/06/2022 11:27 AM CDT) Anatomical Region Laterality Modality breast Bilateral Mammography 08/06/2022 12:1 8 PM CDT Narrative 08/06/2022 3:19 PM CDT - ANTWON SCREENING BILATERAL DIGITAL W CAD W JESSICA BILATERAL DIGITAL SCREENING MAMMOGRAM 3D/2D WITH CAD WITH MEDIOLATERAL OBLIQUE CRANIOCAUDAL: 08/06/2022 The study was acquired using digital technology and interpreted from soft copy. Current study was also evaluated with ICAD version 7.2. 2D digital mammographic views, as well as 3D digital tomosynthesis were performed in the CC and MLO projections. CLINICAL: Routine screening. Patient has no complaints. Patient has numerous moles covering bilateral breasts. No personal history of cancer. No family history of breast cancer. COMPARISONS: Comparison is made to exams dated: 04/22/2015 and 03/03/2011 [facility]. BREAST TISSUE:There are scattered fibroglandular densities in both breasts. FINDINGS: High density material trapped within the moles is identified and likely represents cream or talc. There are mole markers on both breasts. No significant masses, calcifications, or other findings are seen in either breast. There has been no significant interval change. IMPRESSION: BI-RAD 2 BENIGN There is no mammographic evidence of malignancy. A 1 year screening mammogram is recommended. A letter will be sent to the patient with these results. The patient will be entered into a reminder system with a target due date of 1 year for her next screening exam. Electronically signed by: Karlee boyer/mary:08/06/2022 15:06:48 Yarn Comber(s): RT Wil(R)(M), [facility] letter sent: Normal Exam Reading location: [facility] BI-RADS: 2 Benign Procedure Note Karlee Mendiola MD - 08/06/2022 - ANTWON SCREENING BILATERAL DIGITAL W CAD W JESSICA BILATERAL DIGITAL SCREENING MAMMOGRAM 3D/2D WITH CAD WITH MEDIOLATERAL OBLIQUE CRANIOCAUDAL: 08/06/2022 The study was acquired using digital technology and interpreted from soft copy. Current study was also evaluated with ICAD version 7.2. 2D digital mammographic views, as well as 3D digital tomosynthesis were performed in the CC and MLO projections. CLINICAL: Routine screening. Patient has no complaints. Patient has numerous moles covering bilateral breasts. No personal history of cancer. No family history of breast cancer. COMPARISONS: Comparison is made to exams dated: 04/22/2015 and 03/03/2011 [facility]. BREAST TISSUE:There are scattered fibroglandular densities in both breasts. FINDINGS: High density material trapped within the moles is identified and likely represents cream or talc. There are mole markers on both breasts. No significant masses, calcifications, or other findings are seen in either breast. There has been no significant interval change. IMPRESSION: BI-RAD 2 BENIGN There is no mammographic evidence of malignancy. A 1 year screening mammogram is recommended. A letter will be sent to the patient with these results. The patient will be entered into a reminder system with a target due date of 1 year for her next screening exam. Electronically signed by: Karlee boyer/mary:08/06/2022 15:06:48 Yarn Comber(s): RT Wil(R)(M), [facility] letter sent: Normal Exam Reading location: [facility] BI-RADS: 2 Benign Alexus Mehta APRN, [facility] MAMMO ORDERABLES Final Result from Last 3 Months or Most Recently Relevant to Health Maintenance Additional Health Concerns Infection Onset Date Last Indicated ESBL 06/20/2018 01/01/2022 Insurance [employer] MEDICARE C [employer] OR MEDPAY PA [facility]PL [facility] Advance Directives * Full Code (Latest Code Status on File) Date Activated Date Inactivated Comments 07/29/2016 5:22 AM 07/29/2016 1:46 PM CPR-Full Jorje atment: FULL ARREST: Attempt Resuscitation/CPR wit intubation and mechanical ventilation. PRE-ARREST: Use entire range of life support measures to stabilize the patient. * Full Code Date Activated Date Inactivated Comments 03/11/2016 8:26 PM 03/14/2016 7:02 PM CPR-Full Treat ment: FULL ARREST: Attempt Resuscitation/CPR wit intubation and mechanical ventilation. PRE-ARREST: Use entire range of life support measures to stabilize the patient. Care Teams Brim Rounder Relationship Specialty Start Date End Date Alexus Mehta APRN, OCCUP THER #2 [facility] [address] [place] [id number] PCP - General Advanced Practice Nurse 01/13/22 Aditya Reza MD #2 [facility] [address] [place] [address] Consulting Physician Urology 12/31/21
--- OUTSIDE RECORDS SUMMARY | 2024-04-19 10:59 | XMS_ITS | Encounter Summary ---
Author Organization [facility] Address 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 Gender Identity Not on file Sexual Orientation Not on file documented as of this encounter Plan of Treatment Not on file documented as of this encounter Procedures Procedure Name Priority Date/Time Associated Diagnosis Comments PROTIME-INR Routine 09/07/2008 5:57 AM CDT CBC WITH DIFFERENTIAL Timed Study 09/06/2008 5:00 AM CDT PROTIME-INR Routine 09/06/2008 5:00 AM CDT BASIC METABOLIC PANEL Timed Study 09/06/2008 5:00 AM CDT HEMOGLOBIN AND HEMATOCRIT Routine 09/05/2008 4:16 AM CDT PROTIME-INR Routine 09/05/2008 4:16 AM CDT BASIC METABOLIC PANEL Timed Study 09/05/2008 4:16 AM CDT XR CHEST PA AND LATERAL 2 VW Pre-Operative 08/13/2008 11:57 AM CDT CBC WITH DIFFERENTIAL Routine 08/13/2008 11:14 AM CDT URINALYSIS W/REFLEX MICROSCOPIC Routine 08/13/2008 11:14 AM CDT PROTIME-INR Routine 08/13/2008 11:14 AM CDT COMPREHENSIVE METABOLIC PANEL Routine 08/13/2008 11:14 AM CDT TYPE AND CROSSMATCH Routine 08/13/2008 1 1:13 AM CDT documented in this encounter Results * (ABNORMAL) PROTIME-INR (09/07/2008 5:57 AM CDT) INR 2.5(H) 0.9 - 1.1 [facility] Comment: INR Therapeutic Range: Adult: 2.0 - 3.0 for pulmonary embolism or prophylaxis against venous thrombosis or systemic embolization. 2.0 - 3.0 for patients with tissue heart valves. 2.5 - 3.5 for patients with mechanical heart valves or post AK. Pediatric (12 years and under): 1.5 - 3.0 Although the target range in children is not well established, INR values of 1.5 - 3.0 are recommended for most patients. Higher values have been used in children with prosthetic cardiac valves and hereditary clotting disorders. (<3 days) therapeutic ranges have not been established. PROTIME 27.1(H) 12.7 - 15.1 Seconds [facility] 09/07/2008 5:57 AM CDT 09/07/2008 6:39 AM CDT us Gio Watkins MD HEMATOLOGY ORDERABLES Kelsey kaminski Result INTERFACE SYSTEM Refer to clinic/hospital department [facility] CLIA# [id number] [address] [place] [address] * (ABNORMAL) PROTIME-INR (09/06/2008 5:00 AM CDT) PROTIME 23.5(H) 12.7 - 15.1 Seconds [facility] INR 2.1(H) 0.9 - 1.1 [facility] Comment: INR Therapeutic Range: Adult: 2.0 - 3.0 for pulmonary embolism or prophylaxis against venous thrombosis or systemic embolization. 2.0 - 3.0 for patients with tissue heart valves. 2.5 - 3.5 for patients with mechanical heart valves or post AK. Pediatric (12 years and under): 1.5 - 3.0 Although the target range in children is not well established, INR values of 1.5 - 3.0 are recommended for most patients. Higher values have been used in children with prosthetic cardiac valves and hereditary clotting disorders. Troy (<3 days) therapeutic ranges have not been established. 09/06/2008 5:00 AM CDT 09/06/2008 6:09 AM CDT us Subbuluxmi Sunita DONALDSON HEMATOLOGY ORDERABLES Fi nal Result INTERFACE SYSTEM Refer to clinic/hospital department [facility] CLIA# [id number] [address] [facility] [place] [address] * (ABNORMAL) BASIC METABOLIC PANEL (09/06/2008 5:00 AM CDT) CHLORIDE 104 96 - 108 mmol/L [facility] GLUCOSE 98 65 - 99 mg/dL [facility] SODIUM 135 135 - 145 mmol/L [facility] CALCIUM 8.2(L) 8.6 - 10.2 mg/dL [facility] CO2 24 22 - 30 mmol/L [facility] CREATININE 0.80 0.51 - 0.95 mg/dL [facility] POTASSIUM 4.1 3.5 - 4.9 mmol/L [facility] BUN 15 6 - 20 mg/dL [facility] GFR, >60 >=60 mL/min/1. 7 sq meter [facility] GFR >60 >=60 mL/min/1. 7 sq meter [facility] Comment: Modification of Diet in Renal Disease (MDRD) study formula. Estimated GFR rate interpretative information for both Americans and non- Americans is available on the [facility] Intranet at: [email or web address] Select: Lab Policies and Procedures Select: Reference Ranges - GFR 09/06/2008 5:00 AM CDT 09/06/2008 6:09 AM CDT us Subbuluxmi Sunita DONALDSON CHEMISTRY ORDERABLES Chavo mack INTERFACE SYSTEM Refer to clinic/hospital department [facility] CLIA# [id number] [address] [place] [address] * (ABNORMAL) CBC WITH DIFFERENTIAL (09/06/2008 5:00 AM CDT) MCV 83.8 82.0 - 99.0 fL [facility] PLATELETS 191 140 - 350 K/uL [facility] HEMOGLOBIN 8.3(L) 11.8 - 14.8 g/dL [facility] RDW 14.8(H) 11.5 - 14.5 % [facility] WBC 7.9 4.0 - 9.8 K/uL [facility] MCH 27.5 27.2 - 32.6 pg [facility] MPV 10.5 9.3 - 12.4 fL [facility] HEMATOCRIT 25.3(L) 35.5 - 44.0 % [facility] RDW-STDEV 46.0 37.1 - 48.7 fL [facility] RBC 3.02(L) 3.90 - 4.90 M/uL [facility] MCHC 32.8 31.5 - 35.5 % [facility] BASOPHILS ABSOLUTE 0.00 0.00 - 0.20 K/uL [facility] POIKILOCYTES Slight [facility] MONOCYTES 5 3 - 13 % [facility] MONOCYTE ABSOLUTE 0.40 0.10 - 1.30 K/uL [facility] PLATELET EST. Consistent w/ count Normal [facility] BANDS 1 0 - 5 % [facility] NEUTROPHIL ABSOLUTE 6.32 1.90 - 7.00 K/uL [facility] NEUTROPHILS, SEG 79(H) 45 - 70 % [facility] EOSINOPHILS 2 0 - 7 % [facility] MICROCYTES Slight [facility] EOSINOPHIL ABSOLUTE 0.16 0.00 - 0.70 K/uL [facility] LYMPHOCYTES 13(L) 16 - 45 % [facility] ANISOCYTOSIS Slight [facility] LYMPHOCYTE ABSOLUTE 1.03 0.70 - 4.50 K/uL [facility] BASOPHILS 0 0 - 2 % [facility] Blood specimen (specimen) 09/06/2008 5:00 AM CDT 09/06/2008 6:09 AM CDT Mickbuluxbrad Dorsey MD HEMATOLOGY ORDERABLES Ed ited INTERFACE SYSTEM Refer to clinic/hospital department [facility] CLIA# [id number] [address] [facility] [address] [place], [place] [address] * (ABNORMAL) PROTIME-INR (09/05/2008 4:16 AM CDT) PROTIME 16.3(H) 12.7 - 15.1 Seconds [facility] INR 1.3(H) 0.9 - 1.1 [facility] Comment: INR Therapeutic Range: Adult: 2.0 - 3.0 for pulmonary embolism or prophylaxis against venous thrombosis or systemic embolization. 2.0 - 3.0 for patients with tissue heart valves. 2.5 - 3.5 for patients with mechanical heart valves or post AK. Pediatric (12 years and under): 1.5 - 3.0 Although the target range in children is not well established, INR values of 1.5 - 3.0 are recommended for most patients. Higher values have been used in children with prosthetic cardiac valves and hereditary clotting disorders. Troy (<3 days) therapeutic ranges have not been established. 09/05/2008 4:16 AM CDT 09/05/2008 5:14 AM CDT Gio Watkins MD HEMATOLOGY ORDERABLES Kelsey kaminski Result Performing Organization Address [facility] Phone Number INTERFACE SYSTEM Refer to clinic/hospital department [facility] CLIA# [id number] [address] [facility] [place] [address] * (ABNORMAL) HEMOGLOBIN AND HEMATOCRIT (09/05/2008 4:16 AM CDT) HEMOGLOBIN 8.9(L) 11.8 - 14.8 g/dL [facility] HEMATOCRIT 27.1(L) 35.5 - 44.0 % [facility] 09/05/2008 4:16 AM CDT 09/05/2008 5:14 AM CDT Gio Watkins MD HEMATOLOGY ORDERABLES Kelsey l Result Performing Organization Address [facility] de Phone Number INTERFACE SYSTEM Refer to clinic/hospital department [facility] CLIA# [id number] [address] [place] [address] * (ABNORMAL) BASIC METABOLIC PANEL (09/05/2008 4:16 AM CDT) CREATININE 0.86 0.51 - 0.95 mg/dL [facility] POTASSIUM 3.4(L) 3.5 - 4.9 mmol/L [facility] BUN 13 6 - 20 mg/dL [facility] CHLORIDE 103 96 - 108 mmol/L [facility] GLUCOSE 115(H) 65 - 99 mg/dL [facility] SODIUM 135 135 - 145 mmol/L [facility] CALCIUM 8.1(L) 8.6 - 10.2 mg/dL [facility] CO2 23 22 - 30 mmol/L [facility] GFR, >60 >=60 mL/min/1. 7 sq meter [facility] GFR >60 >=60 mL/min/1. 7 sq meter [facility] Comment: Modification of Diet in Renal Disease (MDRD) study formula. Estimated GFR rate interpretative information for both Americans and non- Americans is available on the [facility] Intranet at: [email or web address] Select: Lab Policies and Procedures Select: Reference Ranges - GFR 09/05/2008 4:16 AM CDT 09/05/2008 5:14 AM CDT Gio Watkins MD CHEMISTRY ORDERABLES Edite d Performing Organization Address City/State/[facility] Co de Phone Number INTERFACE SYSTEM Refer to clinic/hospital department [facility] CLIA# [id number] [address] [place] [address] * XR CHEST PA AND LATERAL (08/13/2008 11:57 AM CDT) Anatomical Region Laterality Modality Chest Other 08/13/2008 11:5 7 AM CDT Narrative 08/13/2008 12:45 PM CDT [facility] [address] [place], [place] [address] Admit Date: 07/09/2008 DEANNA YOO Sex: F Admit Prov: GIO WATKINS Date: 1950 Primary Care Prov: SRIKANTH MULLINS CMRN: [id number] [facility] [id number] IMAGING SERVICES Ordering Prov: N/A Accession Number: [id number] Interpretation PA AND LATERAL CHEST X-RAY, 08/13/2008 HISTORY: Orthopedic knee surgery planned, shortness of breath. FINDINGS: No prior chest exams are available. There are some small nodular densities in the left upper lobe. The lungs are otherwise clear. There is no pneumothorax or pleural effusion. The heart size is normal. IMPRESSION: Small nodular changes in the left upper lobe, of uncertain significance. . Dictated by: LUPE CARTER 08/13/2008 12:04 Electronically signed by: LUPE CARTER 08/13/2008 12:43 Transcribed: 08/13/2008 12:40 DKT Procedure Note Lupe Carter MD - 08/13/2008 [id number] [place], [place] [address] Admit Date: 07/09/2008 DEANNA YOO Sex: F Admit Prov: GIO WATKINS Date: 1950 Primary Care Prov: SRIKANTH MULLINS CMRN: [id number] [facility] [id number] IM[facility]ING SERVICES Ordering Prov: N/A Interpretation PA AND LATERAL CHEST X-RAY, 08/13/2008 HISTORY: Orthopedic knee surgery planned, shortness of breath. FINDINGS: No prior chest exams are available. There are some smallnodular densities in the left upper lobe. The lungs are otherwise clear.There is no pneumothorax or pleural effusion. The heart size is normal. IMPRESSION: Small nodular changes in the left upper lobe, ofuncertain significance. . Dictated by: LUPE CARTER 08/13/2008 12:04 Electronically signed by: LUPE CARTER 08/13/2008 12:43 Transcribed: 08/13/2008 12:40 DKT Gio Watkins MD DIAGNOSTIC IMAGING ORDERAB LES Final Result * (ABNORMAL) URINALYSIS (08/13/2008 11:14 AM CDT) CLARITY UA Slt. Cloudy(A) Clear [facility] PROTEIN UA Trace(A) Negative [facility] EPITHELIAL CELLS, URINE 0-2 /HPF [facility] BILIRUBIN UA Negative Negative [facility] LEUKOCYTE ESTERASE UA 3+(A) Negative [facility] RBC UA 28(H) 0 - 4 /HPF [facility] SPECIFIC GRAVITY UA 1.013 1.001 - 1.035 [facility] BLOOD UA 2+(A) Negative [facility] GLUCOSE UA Negative Negative [facility] WBC CLUMPS Present(A) None Seen [facility] COLOR UA Yellow [facility] NITRITE UA Negative Negative [facility] UROBILINOGEN UA <1 <=1 mg/dL [facility] BACTERIA UA 3+(A) None Seen /HPF [facility] PH UA 5.5 5.0 - 8.0 [facility] KETONES UA Negative Negative [facility] WBC UA >100(H) 0 - 5 /HPF [facility] 08/13/2008 11:1 4 AM CDT 08/13/2008 12:16 PM CDT us Gio Watkins MD URINE ORDERABLES Final Res ult INTERFACE SYSTEM Refer to clinic/hospital department [facility] CLIA# [id number] [address] [place] [address] * COMPREHENSIVE METABOLIC PANEL (08/13/2008 11:14 AM CDT) Pathologist [facility] ALKALINE PHOSPHATASE 79 35 - 104 U/L [facility] CO2 22 22 - 30 mmol/L [facility] BILIRUBIN TOTAL 0.4 0.2 - 1.0 mg/dL [facility] POTASSIUM 3.5 3.5 - 4.9 mmol/L [facility] TOTAL PROTEIN 7.7 6.3 - 8.6 g/dL [facility] GLUCOSE 90 65 - 99 mg/dL [facility] AST 12 12 - 32 U/L [facility] BUN 12 6 - 20 mg/dL [facility] CALCIUM 9.6 8.6 - 10.2 mg/dL [facility] ALBUMIN 4.1 3.4 - 4.8 g/dL [facility] CHLORIDE 105 96 - 108 mmol/L [facility] CREATININE 0.92 0.51 - 0.95 mg/dL [facility] ALT 13 0 - 31 U/L [facility] SODIUM 140 135 - 145 mmol/L [facility] GFR, >60 >=60 mL/min/1.7 sq meter [facility] GFR >60 >=60 mL/min/1.7 sq meter [facility] Comment: Modification of Diet in Renal Disease (MDRD) study formula. Estimated GFR rate interpretative information for both Americans and non- Americans is available on the [facility] Intranet at: [email or web address] Select: Lab Policies and Procedures Select: Reference Ranges - GFR 08/13/2008 11:1 4 AM CDT 08/13/2008 12:08 PM CDT us Gio Watkins MD CHEMISTRY ORDERABLES Edite d INTERFACE SYSTEM Refer to clinic/hospital department [facility] CLIA# [id number] [address] [place] [address] * PROTIME-INR (08/13/2008 11:14 AM CDT) INR 1.0 0.9 - 1.1 [facility] Comment: ansiINR Therapeutic Range: Adult: 2.0 - 3.0 for pulmonary embolism or prophylaxis against venous thrombosis or systemic embolization. 2.0 - 3.0 for patients with tissue heart valves. 2.5 - 3.5 for patients with mechanical heart valves or post AK. Pediatric (12 years and under): 1.5 - 3.0 Although the target range in children is not well established, INR values of 1.5 - 3.0 are recommended for most patients. Higher values have been used in children with prosthetic cardiac valves and hereditary clotting disorders. Troy (<3 days) therapeutic ranges have not been established. PROTIME 13.5 12.7 - 15.1 Seconds [facility] 08/13/2008 11:1 4 AM CDT 08/13/2008 12:08 PM CDT us Gio Watkins MD HEMATOLOGY ORDERABLES Kelsey kaminski Result INTERFACE SYSTEM Refer to clinic/hospital department [facility] CLIA# [id number] [address] [place] [address] * (ABNORMAL) CBC WITH DIFFERENTIAL (08/13/2008 11:14 AM CDT) Pathologist [facility] WBC 6.9 4.0 - 9.8 K/uL [facility] MCH 27.7 27.2 - 32.6 pg [facility] MPV 11.1 9.3 - 12.4 fL [facility] HEMATOCRIT 36.5 35.5 - 44.0 % [facility] RDW-STDEV 44.2 37.1 - 48.7 fL [facility] RBC 4.23 3.90 - 4.90 M/uL [facility] MCHC 32.1 31.5 - 35.5 % [facility] MCV 86.3 82.0 - 99.0 fL [facility] PLATELETS 334 140 - 350 K/uL [facility] HEMOGLOBIN 11.7(L) 11.8 - 14.8 g/dL [facility] RDW 14.2 11.5 - 14.5 % [facility] LYMPHOCYTES 29 16 - 45 % [facility] LYMPHOCYTE ABSOLUTE 2.01 0.70 - 4.50 K/uL [facility] BASOPHILS 0 0 - 2 % [facility] BASOPHILS ABSOLUTE 0.02 0.00 - 0.20 K/uL [facility] MONOCYTES 8 3 - 13 % [facility] MONOCYTE ABSOLUTE 0.57 0.10 - 1.30 K/uL [facility] NEUTROPHILS 62 45 - 70 % [facility] NEUTROPHIL ABSOLUTE 4.24 1.90 - 7.00 K/uL [facility] EOSINOPHILS 1 0 - 7 % [facility] EOSINOPHIL ABSOLUTE 0.05 0.00 - 0.70 K/uL [facility] 08/13/2008 11:1 4 AM CDT 08/13/2008 12:08 PM CDT us Gio Watkins MD HEMATOLOGY ORDERABLES Edit ed INTERFACE SYSTEM Refer to clinic/hospital department [facility] CLIA# [id number] [address] [place] [address] * TYPE AND CROSSMATCH (08/13/2008 11:13 AM CDT) HISTORY CHECK No Historical ABO/Rh [facility] SPECIMEN LIFE 3 days from OR date [facility] ABO/RH TYPE AB Negative [facility] ANTIBODY SCREEN Negative [facility] 08/13/2008 11:1 3 AM CDT us Gio Watkins MD BLOOD BANK ORDERABLES Edit ed INTERFACE SYSTEM Refer to clinic/hospital department [facility] CLIA# [id number] [address] [place], [place] [address] documented in this encounter Visit Diagnoses Not on filedocumented in this encounter
[2024-04-19 18:16] LABS: Basophils Absolute Auto 0.1 K/mm3 (0.0-0.1); Basophils Percent Auto 0.8 % (0.2-1.2); Eosinophils Absolute Auto 0.3 K/mm3 (0-0.3); Eosinophils Percent Auto 3.2 % (0-4.4); Hematocrit 36.1 % (37.0-47.0); Hemoglobin 11.4 g/dL (12.0-15.0); Immature Granulocyte Absolute 0.02 K/mm3 (0.00-0.031); Immature Granulocyte Percent A 0.3 % (0-0.5); Lymphocytes Absolute Auto 1.29 K/mm3 (0.9-3.2); Lymphocytes Percent Auto 16.7 % (18.3-44.2); Mean Corpuscular HGB Conc 31.6 g/dl (32-36); Mean Corpuscular Hemoglobin 29.1 pg (26-34); Mean Corpuscular Volume 92.1 fl (80-100); Mean Platelet Volume 10.7 fl (7.4-10.4); Monocytes Absolute Auto 1.2 K/mm3 (0.1-0.6); Monocytes Percent Auto 16.1 % (2.6-8.5); Neutrophils Absolute Auto 4.9 K/mm3 (1.3-6.7); Neutrophils Percent Auto 62.9 % (45.5-73.1); Platelet Count Result 317 k/mm3 (150-375); Red Blood Count 3.92 M/mm3 (4.2-5.4); Red Cell Distribution Width 14.4 % (11.5-14.5); White Blood Count 7.7 K/mm3 (4.5-10.0)
[2024-04-19 18:28] LABS: Alanine Aminotransferase 25 U/L (6-35); Alkaline Phosphatase 86 U/L (38-126); Anion Gap 12 mmol/L (4-12); Aspartate Amino Transferase 36 U/L (14-36); Bilirubin,Total 0.4 mg/dL (0.2-1.3); Blood Urea Nitrogen 28 mg/dL (7-17); Calcium 9.5 mg/dL (8.4-10.2); Carbon Dioxide 25 mmol/L (22-30); Chloride 104 mmol/L (98-107); Cholesterol 153 mg/dL (0-200); Estimated Glomerular Filt Rate 47; Glucose 100 mg/dL (65-110); HDL Direct 46 mg/dL; Magnesium 1.8 mg/dL (1.6-2.3); Sodium 141 mmol/L (137-145); Triglycerides 140 mg/dL (<150)
[2024-04-19 18:39] LABS: LDL Cholesterol Direct 80 mg/dL
[2024-04-19 18:43] LABS: Vitamin D 25 Hydroxy 32.1 ng/mL
[2024-04-19 19:23] LABS: Free T4 Free Thyroxine Reflex 0.76 ng/dL (0.78-2.19)
[2024-04-19 19:36] LABS: Folic Acid > 20.0 ng/mL (2.76->20)
== END 2024-04-19 09:58 | disposition home or self-care (01) ==
LOC: ANHBWCLAB 09:59
PROVIDERS: PCP Nurse Practitioner Adult Health; Visit Provider Nurse Practitioner Adult Health
DX: E55.9 Vitamin D deficiency, unspecified (principal); I10 Essential (primary) hypertension; E53.8 Deficiency of other specified B group vitamins; M79.671 Pain in right foot
CPT/HCPCS: 36415; 73630; 80053; 80061; 82306; 82607; 82746; 83735; 84439; 84443; 85025

== ENCOUNTER 2024-05-16 12:20 | Emergency (ER) | payer MEDICARE, SELFPAY ==
--- NOTE | ~2024-05-16 | CT_ITS ---
CT lumbar spine wo con Ordering provider: Sangeetha Melton PA-C History: 74 years Female with . low back pain radiating down legs . Comparison: None. Technique: CT lumbar spine without contrast. Automated exposure control and iterative reconstruction technique were employed. The dose-length product was 937.62 mGy-cm. FINDINGS: VERTEBRAE: Normal height and alignment. No subluxation or visible acute fracture. Degenerative change s of the spine. DISC SPACES: Well maintained. Multilevel facet joint disease. T12-L1: No stenosis. L1-L2: No stenosis. L2-L3: No stenosis. L3-L4: No stenosis. Mild diffuse disc bulge. L4-L5: No stenosis. Mild diffuse disc bulge. L5-S1: Diffuse disc bulge. Soft tissue density is seen in the right side of the vertebral canal with indentation of the thecal sac. This may indicate sequestrated disc versus synovium cyst. PARASPINOUS SOFT TISSUES: Normal aorta. Left kidney stones in the left kidney upper pole. Slightly at rophic right kidney. Bilateral sacroiliitis. IMPRESSION: Soft tissue density at the level of L5-S1 on the right side of the vertebral canal which may be seque strated disc versus synovial cyst. MRI evaluation advised. Left kidney stones in the upper pole with slightly atrophic right kidney. Reviewed, dictated and finalized at location A. IMPRESSION: Soft tissue density at the level of L5-S1 on the right side of the vertebral ca nal which may be sequestrated disc versus synovial cyst. MRI evaluation advised . Left kidney stones in the upper pole with slightly atrophic right kidney.
[2024-05-16 12:46] VITALS: BP 142/90; PULSE 88; RESP 18; TEMP 36.6; O2SAT 100
--- OUTSIDE RECORDS SUMMARY | 2024-05-16 13:40 | XMS_ITS | Encounter Summary ---
Author Organization [facility] Address [address] [place] [address] Phone Care Team Providers Care Salvage Worker Name Role Phone Aditya Reza MD Unavailable Alexus Mehta APRN, CNP Primary Care Provid er Reason for Visit * Reason Comments Medication Refill Encounter Details Date Type Department Care Team (Late st Contact Info) Description 01/07/2023 Refill [facility] - [facility] Medicine [facility] [address] [place] [address] Ja Samuel MD [address] [address] Medication Refill Social History Tobacco Use Types [...] 0 Signed by: Alexus Mehta APRN, CNP [facility] [place] documented in this encounter Plan of Treatment Not on file documented as of this encounter Visit Diagnoses Diagnosis Anxiety Anxiety state, unspecified documented in this encounter Additional Health Concerns Infection Onset Date Last Indicated Resolved Time ESBL 06/20/2018 01/01/2022 Assessment Noted Time PHQ-9 Depression Total Score: 0 01/14/20 22 10:00 AM ONCOLOGY NURSE documented as of this encounter Care Teams Salvage Worker Relationship Specialty Start Date End Date Alexus Mehta APRN, CNP [address]2 [facility] [address] [place] [address] PCP - General Advanced Practice Nurse 01/13/22 Aditya Reza MD #2 [facility] [address] [place] [address] Consulting Physician Urology 12/31/21 documented as of this encounter
--- OUTSIDE RECORDS SUMMARY | 2024-05-16 13:40 | XMS_ITS | Encounter Summary ---
Author Organization [facility] Address [address] [place] [address] Phone Care Team Providers Care Sheriff'S Sergeant Name Role Phone Aditya Reza MD Unavailable Alexus Mehta APRN, CNP Primary Care Provid er Reason for Visit * Reason Comments Medication Refill Encounter Details Date Type Department Care Team (Late st Contact Info) Description 09/23/2022 Refill [facility] - Family Medicine [facility] [address] [place] [address] Ja Samuel MD #[address] [address] Medication Refill Social History Tobacco Use Types [...] Depression Total Score: 0 01/14/20 10:00 AM NETWORK ARCHITECT documented as of this encounter Care Teams Sheriff'S Sergeant Relationship Specialty Start Date End Date Alexus Mehta APRN, ASSEMBLER DC [employer] #2 [facility] [address] [place] [address] PCP - General Advanced Practice Nurse 01/13/22 Aditya Reza MD #2 [facility] [address] [place] [address] Consulting Physician Urology 12/31/21 documented as of this encounter
--- OUTSIDE RECORDS SUMMARY | 2024-05-16 13:40 | XMS_ITS | Encounter Summary ---
Author Organization [facility] Address [address] [place] [address] Phone Care Team Providers Care Operational Test Mechanic Name Role Phone Aditya Reza MD Unavailable Alexus Mehta APRN, CNP Primary Care Provid er Reason for Visit * Reason Comments Medication Refill Encounter Details Date Type Department Care Team (Late st Contact Info) Description 11/20/2023 Refill [facility] - Family Medicine - [place] [address] [place] [address] Alexus Mehta APRN, CNP #[address] [address] Medication Refill Social History Tobacco Use Types Packs/Day Years Used Date Smoking Tobacco: Former Cigarettes 0 07/06/1982 - 07/06/1989 Smokeless Tobacco: Never Alcohol Use Standard Drinks/Week Comments Never 0 (1 standard drink = 0.6 oz pur e alcohol) [facility] Utilities Answer Date Recorded In the past [...] often do you attend chur ch or gnosticism services? 1 to 4 times per year 10/14/2023 Do you belong to any clubs o r organizations such as buddhism groups, unions, fraternal or athletic groups, or [...] Score - Questions 1-9 12 11/2023 [facility] - Occupational Stress [...] any time in the past 12 m [facility], were you homeless or living in a detention (including now)? No 10/14/2023 Education Answer Date [...] discontinued on 12/31/2022 by Alexus Mehta APRN, NO EXPERIENCE documented in this encounter Plan of Treatment [...] documented as of this encounter Care Teams Operational Test Mechanic Relationship Specialty Start Date End Date Alexus Mehta APRN, NO EXPERIENCE #2 [facility] [address] [place] [address] PCP - General Advanced Practice Nurse 01/13/22 Aditya Reza MD #2 [facility] [address] [place] [address] Consulting Physician Urology 12/31/21 documented as of this encounter
--- OUTSIDE RECORDS SUMMARY | 2024-05-16 13:40 | XMS_ITS | Encounter Summary ---
Author Organization [facility] Address [address] [place] [address] Phone Care Team Providers Care Solar Installation Manager Name Role Phone Aditya Reza MD Unavailable Alexus Mehta APRN, CNP Primary Care Provid er Reason for Visit * Reason Comments Medication Refill Encounter Details Date Type Department Care Team (Late st Contact Info) Description 09/13/2022 Refill [facility] #[address] [place] [address] Ja Samuel MD #[address] [address] Medication Refill Social History Tobacco Use Types [...] 08/02/2022 90 180 Each Ja Samuel MD [facility] #... 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, unspecified documented in this encounter Additional Health Concerns Infection Onset Date Last Indicated Resolved Time ESBL 06/20/2018 01/01/2022 Assessment Noted Time PHQ-9 Depression Total Score: 0 01/14/20 10:00 AM MANAGER ZONE documented as of this encounter Care Teams Solar Installation Manager Relationship Specialty Start Date End Date Alexus Mehta APRN, CNP #2 [facility] [address] [place] [address] PCP - General Advanced Practice Nurse 01/13/22 Aditya Reza MD #2 [facility] [address] [place] [address] Consulting Physician Urology 12/31/21 documented as of this encounter
--- OUTSIDE RECORDS SUMMARY | 2024-05-16 13:40 | XMS_ITS | Continuity of Care Document ---
Author Organization [facility] Address [address] [place] [address] Phone Care Team Providers Care Gemologist Name Role Phone Juan Daniel Thayer MD [...] Copied on Encounter [facility], [address], [place], [place], [id number], [place] tel:[phone] [employer] Professional No Information [address], [address], [place], [place], [id number], [place]. tel:[phone] Family History Family Member Type Diagnosis Age At Onset Father Problem (finding) glaucoma Mother Problem (finding) glaucoma Mother Problem (finding) Diabetes mellitus Payers Payer name Insurance type Covered democrat ID Authoriza tion(s) No Information Social History [...]
--- OUTSIDE RECORDS SUMMARY | 2024-05-16 13:40 | XMS_ITS | Encounter Summary ---
Author Organization [facility] Address [address] [place] [address] Phone Care Team Providers Care Recruitment Manager Name Role Phone Aditya Reza MD Unavailable Alexus Mehta APRN, CNP Primary Care Provid er Reason for Visit * Reason Comments Medication Refill Encounter Details Date Type Department Care Team (Late st Contact Info) Description 06/24/2023 Refill [facility] - Family Medicine - [place] [address] [place] [address] Alexus Mehta APRN, CNP #[address] [address] Medication Refill Social History Tobacco [...] AM CDT Medication([facility]) [facility] Medication Refill Standing Order for Pediatricand [...] 12/31/22 Office Visit Alexus Mehta APRN, CNP [facility] Showing recent visits within past 365 [...] documented as of this encounter Care Teams Recruitment Manager Relationship Specialty Start Date End Date Alexus Mehta APRN, TYRONE #2 [facility] [address] [place] [address] PCP - General Advanced Practice Nurse 01/13/22 Aditya Reza MD #2 [facility] [address] [place] [address] Consulting Physician Urology 12/31/21 documented as of this encounter
--- OUTSIDE RECORDS SUMMARY | 2024-05-16 13:40 | XMS_ITS | Encounter Summary ---
Author Organization [facility] Address [address] [place] [address] Phone Care Team Providers Care Supplier Specialist Name Role Phone Aditya Reza MD Unavailable Alexus Mehta APRN, CNP Primary Care Provid er Reason for Visit * Reason Comments Medication Refill Encounter Details Date Type Department Care Team (Late st Contact Info) Description 02/10/2023 Refill [facility] - [facility] Medicine - [place] [address]2 [place] [address] Alexus Mehta APRN, CNP #[address] [address] Medication Refill Social History Tobacco [...] 12/31/22 Office Visit Alexus Mehta APRN, CNP [facility] Showing recent visits within past 182 days [...] Serotonin Modulators for at least 6 months RICT ADMINISTRATOR documented in this encounter Plan of Treatment Not on file documented as of this encounter Visit Diagnoses Not on filedocumented in this encounter Additional Health Concerns Infection Onset Date Last Indicated Resolved Time ESBL 06/20/2018 01/01/2022 Assessment Noted Time PHQ-9 Depression Total Score: 0 01/14/20 10:00 AM DISTRICT 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
--- OUTSIDE RECORDS SUMMARY | 2024-05-16 13:40 | XMS_ITS | Encounter Summary ---
Author Organization [facility] Address [address] [place] [address] Phone Care Team Providers Care Repairer Wood Furniture Name Role Phone Aditya Reza MD Unavailable Alexus Mehta APRN, CNP Primary Care Provid er Reason for Visit * Reason Comments Medication Refill Encounter Details Date Type Department Care Team (Late st Contact Info) Description 06/21/2023 Refill [facility] - Family Medicine - [place] [address]2 [place] [address] Alexus Mehta APRN, CNP #[address] [address] Medication Refill Social History Tobacco [...] AM CDT [facility]) [facility] Medication Refill Standing Order for [...] 12/31/22 Office Visit Alexus Mehta APRN, CNP [facility] Showing recent visits within past 365 [...] documented as of this encounter Care Teams Repairer Wood Furniture Relationship Specialty Start Date End Date Alexus Mehta APRN, CNP #2 [facility] [address] [place] [address] PCP - General Advanced Practice Nurse 01/13/22 Aditya Reza MD [facility]2 [facility] [address] [place] [address] Consulting Physician Urology 12/31/21 documented as of this encounter
--- OUTSIDE RECORDS SUMMARY | 2024-05-16 13:40 | XMS_ITS | Referral Summary ---
Author Organization [facility] Address [address] [place] [address] Care Team Providers Care Bid Clerk Name Role Phone Alexus Mehta NP Primary Care Provider + Cuong Gaytan MD Unavailable [phone] Encounters Date Type Department Care Team Description 04/03/2024 Telephone [facility] [address] [facility] [address] [place] [address] Winter Womack MA from Last 3 Months Allergies Active Allergy [...] day with food 0 0 3 Active brimonidine-andre olol (COMBIGAN) 0.2-0.5 % ophthalmic solution instill 1 drop by ophthalmic route every 12 hours into affected eye(s) 0 drop 0 3 Active cholecalciferol (VITAMIN D3) 2,000 unit tablet take one [...] ophthalmic solution Administer into affected eye(s). Active medroxyPROGESTE Adam (PROVERA) 2.5 mg tablet Take 1 tablet (2.5 mg total) by mouth daily 3 7 Active estradioL (ESTRACE) 2 mg tablet Take 1 tablet (2 mg total) by mouth daily Active melatonin 5 mg tablet Take 1.5 tablets (7.5 mg total) by mouth daily Active acidophilus-pec tin, citrus 100 million cell-10 mg capsule Take by mouth daily Active valsartan-hydro chlorothiazide (DIOVAN-HCT) 320-12.5 mg per tablet Take 1 tablet by mouth daily Active traMADoL (ULTRAM) 50 mg tablet Take 1 tablet (50 mg total) by mouth every 6 (six) hours as needed for pain Active solriamfetoL (Sunosi) 150 mg tablet Take 1 tablet (150 mg total) by mouth daily 30 tablet 5 Active Active Problems Problem Noted Date [...] on file Legal Sex 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 Procedure Note ProviderJohn MD - 08/09/2015 12:00 AM CDT PROCEDURE REPORT Patient: SINA YOO Account: [id number] Room No: : 1950 Patient Type: SDS Attend.: Elsa Alex M.D. Admit Date: 08/09/2015 [...] 08/23/2015 09:25 AM CDT Elsa Alex M.D. JOSE/paula TD: 08/09/2015 12:13 CC: Ishmael Higuera M.D. Historical Provider ENDOSCOPY PROCEDURES Kelsey l Result from Last 3 Months or Most Recently Relevant to Health Maintenance Insurance [facility] MEDICARE MEDICARE [facility] MEDICARE [facility] Care Teams Bid Clerk Relationship Specialty Start Date End Date Alexus Mehta NP [address] [facility] [address] [address] PCP - General Nurse Practitioner 11/03/22 Cuong Gaytan MD [address] [address] [place]be [address] [address] Consulting Physician Obstetrics and Gynecology 05/17/23
--- OUTSIDE RECORDS SUMMARY | 2024-05-16 13:40 | XMS_ITS | Encounter Summary ---
Author Organization [employer] [facility] Address 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 2.0 - 3.0 for patients with tissue heart valves. 2.5 - 3.5 for patients with mechanical heart valves or post VA. Pediatric (12 years and under): 1.5 - 3.0 Although the target range in children is not well established, INR values of 1.5 - 3.0 are recommended for most patients. Higher values have been used in children with prosthetic cardiac valves and hereditary clotting disorders. Leigh (<3 days) therapeutic ranges have not been established. PROTIME 27.1(H) 12.7 - 15.1 Seconds [facility] 09/07/2008 5:57 AM CDT 09/07/2008 6:39 AM CDT us Gio Watkins MD HEMATOLOGY ORDERABLES Kelsey kaminski Result INTERFACE SYSTEM Refer to clinic/hospital department [facility] CLIA# [id number] [address] [place] [address] * (ABNORMAL) PROTIME-INR (09/06/2008 5:00 AM CDT) PROTIME 23.5(H) 12.7 - 15.1 Seconds [facility] INR 2.1(H) 0.9 - 1.1 [facility] Comment: INR Therapeutic Range: Adult: 2.0 - 3.0 for pulmonary embolism or prophylaxis against venous thrombosis or systemic embolization. 2.0 - 3.0 for patients with tissue heart valves. 2.5 - 3.5 for patients with mechanical heart valves or post VA. Pediatric (12 years and under): 1.5 - 3.0 Although the target range in children is not well established, INR values of 1.5 - 3.0 are recommended for most patients. Higher values have been used in children with prosthetic cardiac valves and hereditary clotting disorders. Leigh (<3 days) therapeutic ranges have not been established. 09/06/2008 5:00 AM CDT 09/06/2008 6:09 AM CDT us Subbuluxmi Sunita DONALDSON HEMATOLOGY ORDERABLES Fi nal Result INTERFACE SYSTEM Refer to clinic/hospital department [facility] CLIA# [id number] [address] [facility] [place] [address] * (ABNORMAL) BASIC METABOLIC PANEL (09/06/2008 5:00 AM CDT) CHLORIDE 104 96 - 108 mmol/L [facility] GLUCOSE 98 65 - 99 mg/dL [facility] SODIUM 135 135 - 145 mmol/L [facility] CALCIUM 8.2(L) 8.6 - 10.2 mg/dL [facility] CO2 24 22 - 30 mmol/L [facility] CREATININE 0.80 0.51 - 0.95 mg/dL [facility] POTASSIUM 4.1 3.5 - 4.9 mmol/L [facility] BUN 15 6 - 20 mg/dL [facility] GFR, >60 >=60 mL/min/1. 7 sq meter [facility] GFR >60 >=60 mL/min/1. 7 sq meter [facility] Comment: Modification of Diet in Renal Disease (MDRD) study formula. Estimated GFR rate interpretative information for both Americans and non- Americans is available on the [facility] Intranet at: [email or web address] Select: Lab Policies and Procedures Select: Reference Ranges - GFR 09/06/2008 5:00 AM CDT 09/06/2008 6:09 AM CDT us Subbuluxmi Sunita DONALDSON CHEMISTRY ORDERABLES Chavo mack INTERFACE SYSTEM Refer to clinic/hospital department [facility] CLIA# [id number] [address] [place] [address] * (ABNORMAL) CBC WITH DIFFERENTIAL (09/06/2008 5:00 AM CDT) MCV 83.8 82.0 - 99.0 fL [facility] PLATELETS 191 140 - 350 K/uL [facility] HEMOGLOBIN 8.3(L) 11.8 - 14.8 g/dL [facility] RDW 14.8(H) 11.5 - 14.5 % [facility] WBC 7.9 4.0 - 9.8 K/uL [facility] MCH 27.5 27.2 - 32.6 pg [facility] MPV 10.5 9.3 - 12.4 fL [facility] HEMATOCRIT 25.3(L) 35.5 - 44.0 % [facility] RDW-STDEV 46.0 37.1 - 48.7 fL [facility] RBC 3.02(L) 3.90 - 4.90 M/uL [facility] MCHC 32.8 31.5 - 35.5 % [facility] BASOPHILS ABSOLUTE 0.00 0.00 - 0.20 K/uL [facility] POIKILOCYTES Slight [facility] MONOCYTES 5 3 - 13 % [facility] MONOCYTE ABSOLUTE 0.40 0.10 - 1.30 K/uL [facility] PLATELET EST. Consistent w/ count Normal [facility] BANDS 1 0 - 5 % [facility] NEUTROPHIL ABSOLUTE 6.32 1.90 - 7.00 K/uL [facility] NEUTROPHILS, SEG 79(H) 45 - 70 % [facility] EOSINOPHILS 2 0 - 7 % [facility] MICROCYTES Slight [facility] EOSINOPHIL ABSOLUTE 0.16 0.00 - 0.70 K/uL [facility] LYMPHOCYTES 13(L) 16 - 45 % [facility] ANISOCYTOSIS Slight [facility] LYMPHOCYTE ABSOLUTE 1.03 0.70 - 4.50 K/uL [facility] BASOPHILS 0 0 - 2 % [facility] Blood specimen (specimen) 09/06/2008 5:00 AM CDT 09/06/2008 6:09 AM CDT Mickbuluxbrad Dorsey MD HEMATOLOGY ORDERABLES Ed ited INTERFACE SYSTEM Refer to clinic/hospital department [facility] CLIA# [id number] [address] [place], [place] [address] * (ABNORMAL) PROTIME-INR (09/05/2008 4:16 AM CDT) PROTIME 16.3(H) 12.7 - 15.1 Seconds [facility] INR 1.3(H) 0.9 - 1.1 [facility] Comment: INR Therapeutic Range: Adult: 2.0 - 3.0 for pulmonary embolism or prophylaxis against venous thrombosis or systemic embolization. 2.0 - 3.0 for patients with tissue heart valves. 2.5 - 3.5 for patients with mechanical heart valves or post VA. Pediatric (12 years and under): 1.5 - [...] ORDERABLES Kelsey kaminski Result Performing Organization Address [facility] Phone Number INTERFACE SYSTEM Refer to clinic/hospital department [facility] CLIA# [id number] [address] [place] [address] * (ABNORMAL) HEMOGLOBIN AND HEMATOCRIT (09/05/2008 4:16 AM CDT) HEMOGLOBIN 8.9(L) 11.8 - 14.8 g/dL [facility] HEMATOCRIT 27.1(L) 35.5 - 44.0 % [facility] 09/05/2008 4:16 AM CDT 09/05/2008 5:14 AM CDT Gio Watkins MD HEMATOLOGY ORDERABLES Kelsey l Result Performing Organization Address [facility] [[email or web address]] de Phone Number INTERFACE SYSTEM Refer to clinic/hospital department [facility] CLIA# [id number] [address] [place] [address] * (ABNORMAL) BASIC METABOLIC PANEL (09/05/2008 4:16 AM CDT) CREATININE 0.86 0.51 - 0.95 mg/dL [facility] POTASSIUM 3.4(L) 3.5 - 4.9 mmol/L [facility] BUN 13 6 - 20 mg/dL [facility] CHLORIDE 103 96 - 108 mmol/L [facility] GLUCOSE 115(H) 65 - 99 mg/dL [facility] SODIUM 135 135 - 145 mmol/L [facility] CALCIUM 8.1(L) 8.6 - 10.2 mg/dL [facility] CO2 23 22 - 30 mmol/L [facility] GFR, >60 >=60 mL/min/1. 7 sq meter [facility] GFR >60 >=60 mL/min/1. 7 sq meter [facility] Comment: Modification of Diet in Renal Disease (MDRD) study formula. Estimated GFR rate interpretative information for both Americans and non- Americans is available on the [facility] Intranet at: [email or web address] Select: Lab Policies and Procedures Select: Reference Ranges - GFR 09/05/2008 4:16 AM CDT 09/05/2008 5:14 AM CDT Gio Watkins MD CHEMISTRY ORDERABLES Edite d Performing Organization Address City/State/[facility] Co de Phone Number INTERFACE SYSTEM Refer to clinic/hospital department [facility] CLIA# [id number] [address] [place] [address] * XR CHEST PA AND LATERAL (08/13/2008 11:57 AM CDT) Anatomical Region Laterality Modality Chest Other 08/13/2008 11:5 7 AM CDT Narrative 08/13/2008 12:45 PM CDT [facility] [address] [place], [place] [address] Admit Date: 07/09/2008 DEANNA YOO Sex: F Admit Prov: GIO WATKINS Date: 1950 Primary Care Prov: SRIKANTH MULLINS CMRN: [id number] [id number] IM[facility] Ordering Prov: N/A Accession Number: [id number] Interpretation PA AND LATERAL CHEST X-RAY, 08/13/2008 [...] Procedure Note Lupe Carter MD - 08/13/2008 [address] [place], [place] [address] Admit Date: 07/09/2008 DEANNA YOO Sex: F Admit Prov: GIO WATKINS Date: 1950 Primary Care Prov: SRIKANTH MULLINS CMRN: [id number] [id number] [facility] Ordering Prov: N/A Interpretation PA [...] AM CDT) CLARITY UA Slt. Cloudy(A) Clear [facility] PROTEIN UA Trace(A) Negative [facility] EPITHELIAL CELLS, URINE 0-2 /HPF [facility] BILIRUBIN UA Negative Negative [facility] LEUKOCYTE ESTERASE UA 3+(A) Negative [facility] RBC UA 28(H) 0 - 4 /HPF [facility] SPECIFIC GRAVITY UA 1.013 1.001 - 1.035 [facility] BLOOD UA 2+(A) Negative [facility] GLUCOSE UA Negative Negative [facility] WBC CLUMPS Present(A) None Seen [facility] COLOR UA Yellow [facility] NITRITE UA Negative Negative [facility] UROBILINOGEN UA <1 <=1 mg/dL [facility] BACTERIA UA 3+(A) None Seen /HPF [facility] PH UA 5.5 5.0 - 8.0 [facility] KETONES UA Negative Negative [facility] WBC UA >100(H) 0 - 5 /HPF [facility] 08/13/2008 11:1 4 AM CDT 08/13/2008 12:16 PM CDT us Gio Watkins MD URINE ORDERABLES Final Res ult INTERFACE SYSTEM Refer to clinic/hospital department [facility] CLIA# [id number] [address] [place] [address] * COMPREHENSIVE METABOLIC PANEL (08/13/2008 11:14 AM CDT) Pathologist [facility] ALKALINE PHOSPHATASE 79 35 - 104 U/L [facility] CO2 22 22 - 30 mmol/L [facility] BILIRUBIN TOTAL 0.4 0.2 - 1.0 mg/dL [facility] POTASSIUM 3.5 3.5 - 4.9 mmol/L [facility] TOTAL PROTEIN 7.7 6.3 - 8.6 g/dL [facility] GLUCOSE 90 65 - 99 mg/dL [facility] AST 12 12 - 32 U/L [facility] BUN 12 6 - 20 mg/dL [facility] CALCIUM 9.6 8.6 - 10.2 mg/dL [facility] ALBUMIN 4.1 3.4 - 4.8 g/dL [facility] CHLORIDE 105 96 - 108 mmol/L [facility] CREATININE 0.92 0.51 - 0.95 mg/dL [facility] ALT 13 0 - 31 U/L [facility] SODIUM 140 135 - 145 mmol/L [facility] GFR, >60 >=60 mL/min/1.7 sq meter [facility] GFR >60 >=60 mL/min/1.7 sq meter [facility] Comment: Modification of Diet in Renal Disease (MDRD) study formula. Estimated GFR rate interpretative information for both Americans and non- Americans is available on the [facility] Intranet at: [email or web address] Select: Lab Policies and Procedures Select: Reference Ranges - GFR 08/13/2008 11:1 4 AM CDT 08/13/2008 12:08 PM CDT us Gio Watkins MD CHEMISTRY ORDERABLES Edite d INTERFACE SYSTEM Refer to clinic/hospital department [facility] CLIA# [id number] [address] [place] [address] * PROTIME-INR (08/13/2008 11:14 AM CDT) INR 1.0 0.9 - 1.1 [facility] Comment: ansiINR Therapeutic Range: Adult: 2.0 - 3.0 for pulmonary embolism or prophylaxis against venous thrombosis or systemic embolization. 2.0 - 3.0 for patients with tissue heart valves. 2.5 - 3.5 for patients with mechanical heart valves or post VA. Pediatric (12 years and under): 1.5 - 3.0 Although the target range in children is not well established, INR values of 1.5 - 3.0 are recommended for most patients. Higher values have been used in children with prosthetic cardiac valves and hereditary clotting disorders. Leigh (<3 days) therapeutic ranges have not been established. PROTIME 13.5 12.7 - 15.1 Seconds [facility] 08/13/2008 11:1 4 AM CDT 08/13/2008 12:08 PM CDT us Gio Watkins MD HEMATOLOGY ORDERABLES Kelsey kaminski Result INTERFACE SYSTEM Refer to clinic/hospital department [facility] CLIA# [id number] [address] [place] [address] * (ABNORMAL) CBC WITH DIFFERENTIAL (08/13/2008 11:14 AM CDT) Pathologist [facility] WBC 6.9 4.0 - 9.8 K/uL [facility] MCH 27.7 27.2 - 32.6 pg [facility] MPV 11.1 9.3 - 12.4 fL [facility] HEMATOCRIT 36.5 35.5 - 44.0 % [facility] RDW-STDEV 44.2 37.1 - 48.7 fL [facility] RBC 4.23 3.90 - 4.90 M/uL [facility] MCHC 32.1 31.5 - 35.5 % [facility] MCV 86.3 82.0 - 99.0 fL [facility] PLATELETS 334 140 - 350 K/uL [facility] HEMOGLOBIN 11.7(L) 11.8 - 14.8 g/dL [facility] RDW 14.2 11.5 - 14.5 % [facility] LYMPHOCYTES 29 16 - 45 % [facility] LYMPHOCYTE ABSOLUTE 2.01 0.70 - 4.50 K/uL [facility] BASOPHILS 0 0 - 2 % [facility] BASOPHILS ABSOLUTE 0.02 0.00 - 0.20 K/uL [facility] MONOCYTES 8 3 - 13 % [facility] MONOCYTE ABSOLUTE 0.57 0.10 - 1.30 K/uL [facility] NEUTROPHILS 62 45 - 70 % [facility] NEUTROPHIL ABSOLUTE 4.24 1.90 - 7.00 K/uL [facility] EOSINOPHILS 1 0 - 7 % [facility] EOSINOPHIL ABSOLUTE 0.05 0.00 - 0.70 K/uL [facility] 08/13/2008 11:1 4 AM CDT 08/13/2008 12:08 PM CDT us Gio Watkins MD HEMATOLOGY ORDERABLES Edit ed INTERFACE SYSTEM Refer to clinic/hospital department [facility] CLIA# [id number] [address] [place] [address] * TYPE AND CROSSMATCH (08/13/2008 11:13 AM CDT) HISTORY CHECK No Historical ABO/Rh [facility] SPECIMEN LIFE 3 days from OR date [facility] ABO/RH TYPE AB Negative [facility] ANTIBODY SCREEN Negative [facility] 08/13/2008 11:1 3 AM CDT us Gio Watkins MD BLOOD BANK ORDERABLES Edit ed INTERFACE SYSTEM Refer to clinic/hospital department [facility] CLIA# [id number] [address] [place], [place] [address] documented in this encounter Visit Diagnoses Not on filedocumented in this encounter
--- OUTSIDE RECORDS SUMMARY | 2024-05-16 13:40 | XMS_ITS | Encounter Summary ---
Author Organization [facility] Address [address] [place] [address] Phone Care Team Providers Care Self Sealing Fuel Tank Builder Name Role Phone Aditya Reza MD Unavailable Alexus Mehta APRN, CNP Primary Care Provid er Reason for Visit * Reason Comments Medication Refill Encounter Details Date Type Department Care Team (Late st Contact Info) Description 06/06/2023 Refill [facility] - [place] [address] [place] [address] Alexus Mehta APRN, CNP [address] [address] Medication Refill Social History Tobacco [...] -2 Score 1 06/08/2023 10:07 AM CDT Klelie Head MA documented as of this encounter [...] Provider Dept 06/08/23 Appointment Alexus Mehta APRN, LEAN SIX SIGMA BLACK BELT [place] Showing today's visits and meeting [...] Total Score: 0 01/14/20 22 10:00 AM ALLIGATOR HUNTER documented as of this encounter Care Teams Self Sealing Fuel Tank Builder Relationship Specialty Start Date End Date Alexus Mehta APRN, CNP #[address] [facility] [address] [place] [address] PCP - General Advanced Practice Nurse 01/13/22 Aditya Reza MD #[address] [facility] [address] [place] [address] Consulting Physician Urology 12/31/21 documented as of this encounter
--- OUTSIDE RECORDS SUMMARY | 2024-05-16 13:40 | XMS_ITS | Encounter Summary ---
Author Organization [facility] Address [address] [place] [address] Phone Care Team Providers Care Fresh Work Inspector Name Role Phone Aditya Reza MD Unavailable Alexus Mehta APRN, CNP Primary Care Provid er Reason for Visit * Reason Comments Medication Refill Encounter Details Date Type Department Care Team (Late st Contact Info) Description 10/20/2022 Refill [facility] - [facility] - [place] [address] [place] [address] Alexus Mehta APRN, CNP #[address] [address] Medication Refill Social History Tobacco [...] Depression Total Score: 0 01/14/20 10:00 AM HARPSICHORD MAKER documented as of this encounter Care Teams Fresh Work Inspector Relationship Specialty Start Date End Date Alexus Mehta APRN, CNP #2 [facility] [address] [place] [phone] PCP - General Advanced Practice Nurse 01/13/22 Aditya Reza MD [address] [facility] [address] [place] [address] Consulting Physician Urology 12/31/21 documented as of this encounter
--- OUTSIDE RECORDS SUMMARY | 2024-05-16 13:40 | XMS_ITS | Clinical Summary ---
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
--- OUTSIDE RECORDS SUMMARY | 2024-05-16 13:40 | XMS_ITS | Clinical Summary ---
Author Organization [facility] Address [address] [place] [address] Care Team Providers Care Area Director Of Home Health Sales Name Role Phone Alexus Mehta NP Primary Care Provider + Cuong Gaytan MD Unavailable [phone] Allergies Active Allergy Reactions Criticality Noted Date [...] Type Department Care Team Description 04/03/2024 Telephone [facility] [address] [facility] [address] [place] [address] Winter Womack MA from Last 3 Months Surgical History Surgery [...] on file Legal Sex Female 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 [facility] Provider ENDOSCOPY PROCEDURES Kelsey l Result from Last 3 Months or Most Recently Relevant to Health Maintenance Insurance [facility] MEDICARE MEDICARE [facility] MEDICARE [facility] Care Teams Area Director Of Home Health Sales Relationship Specialty Start Date End Date Alexus Mehta NP [address] [facility] [address] [place] [address] PCP - General Nurse Practitioner 11/03/22 Cuong Gaytan MD [address] MARIPOSA Beebe [facility] [address] [place] [address] Consulting Physician Obstetrics and Gynecology 05/17/23
--- OUTSIDE RECORDS SUMMARY | 2024-05-16 13:40 | XMS_ITS | Encounter Summary ---
Author Organization [facility] Address [address] [place] [address] Phone Care Team Providers Care Assistant Professor Of Art Name Role Phone Aditya Reza MD Unavailable Alexus Mehta APRN, CNP Primary Care Provid er Reason for Visit * Reason Comments Medication Refill Encounter Details Date Type Department Care Team (Late st Contact Info) Description 02/10/2023 Refill [facility] [place] [address] [place] [address] Alexus Mehta APRN, CNP #[address] [address] Medication Refill Social History Tobacco [...] on 02/10/2023 by Alexus Mehta APRN, CNP. ATAL GENETIC COUNSELOR * Telephone Encounter - Lynn Saucedo RN - 02/10/2023 9:19 AM CST duplicate ATAL GENETIC COUNSELOR documented in this encounter Plan of Treatment Not on file documented as of this encounter Visit Diagnoses Not on filedocumented in this encounter Additional Health Concerns Infection Onset Date Last Indicated Resolved Time ESBL 06/20/2018 01/01/2022 Assessment Noted Time PHQ-9 Depression Total Score: 0 01/14/20 22 10:00 AM PRENATAL GENETIC COUNSELOR documented as of this encounter Care Teams Assistant Professor Of Art Relationship Specialty Start Date End Date Alexus Mehta APRN, CNP #2 [facility] [address] [place] [address] PCP - General Advanced Practice Nurse 01/13/22 Aditya Reza MD #2 [facility] [place] [address] [place] [address] Consulting Physician Urology 12/31/21 documented as of this encounter
--- OUTSIDE RECORDS SUMMARY | 2024-05-16 13:40 | XMS_ITS | Encounter Summary ---
Author Organization [facility] Address [address] [place] [address] Phone Care Team Providers Care Header Operator Name Role Phone Aditya Reza MD Unavailable Alexus Mehta APRN, CNP Primary Care Provid er Reason for Visit * Reason Comments Medication Refill Encounter Details Date Type Department Care Team (Late st Contact Info) Description 04/23/2022 Refill [facility] #2 [place] [address] Alexus Mehta APRN, CNP #[address] [address] Medication Refill Social History Tobacco [...] Coronavirus/COVID-19? No / Unsure 04/09/2022 3:43 PM PHYSICAL THERAPIST CLINIC DIRECTOR documented as of this encounter Miscellaneous Notes [...] 90 days and meeting all other requirements ICAL THERAPIST CLINIC DIRECTOR 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, unspecified documented in this encounter Additional Health Concerns Infection Onset Date Last Indicated Resolved Time ESBL 06/20/2018 01/01/2022 Assessment Noted Time PHQ-9 Depression Total Score: 0 01/14/20 22 10:00 AM PHYSICAL THERAPIST CLINIC DIRECTOR documented as of this encounter Care Teams Header Operator Relationship Specialty Start Date End Date Alexus Mehta APRN, TYRONE #[address] [address] PCP - General Advanced Practice Nurse 01/13/22 Aditya Reza MD #2 [place] [address] Consulting Physician Urology 12/31/21 documented as of this encounter
--- OUTSIDE RECORDS SUMMARY | 2024-05-16 13:40 | XMS_ITS | Clinical Summary ---
Author Organization [facility] Address #[address] [place] [address] Phone Care Team Providers Care Spice Mixer Name Role Phone Aditya Reza MD Unavailable [...] Department Care Team Description 2024 Telephone [facility] [address] [place] [address] Deanna Grajeda RN 04/12/2024 5:39 PM WEAVING PROFESSOR - 04/12/2024 9:37 PM WEAVING PROFESSOR Emergency [facility] [address] [place] [address] Madelyn Jha APRN, TYRONE Injury of head, initial encounter Discharge Disposition: Discharged to home or Selfcare 04/12/2024 Travel 03/17/2024 Refill [facility] [place] [address] Ja Samuel MD Medication Refill 03/15/2024 Refill [facility] [place] [address] Alexus Mehta APRN, PULPWOOD BUYER Medication Refill from Last 3 Months Immunizations [...] drink = 0.6 oz pur e alcohol) [facility] Utilities Answer Date Recorded In the past 12 months has e [employer], gas, oil, or water [employer] threatened to shut off services in your [...] often do you attend chur ch or religion services? 1 to 4 times per year 10/14/2023 Do you belong to any clubs o r organizations such as jewish groups, unions, fraternal or athletic groups, or [...] Total Score - Questions 1-9 0 03/2023 [facility] - Occupational Stress Questionnaire Answer Date Recorded [...] were you homeless or living in a mcc (including now)? No 10/14/2023 Education Answer Date [...] Comments Blood Pressure 137/93 04/12/2024 9:00 PM WEAVING PROFESSOR Pulse 87 04/12/2024 9:15 PM WEAVING PROFESSOR Temperature 36.1 C (96.9 F) 04/12/2024 2:43 PM WEAVING PROFESSOR Respiratory Rate 18 04/12/2024 9:15 PM WEAVING PROFESSOR Oxygen Saturation 100% 04/12/2024 9:15 PM WEAVING PROFESSOR Inhaled Oxygen Concentration - - Weight 81.2 kg (179 lb) 04/12/2024 2:43 PM WEAVING PROFESSOR Height 163.8 cm (5' 4.5 ) 04/12/2024 2:43 PM WEAVING PROFESSOR Body Mass Index 30.25 04/12/2024 2:43 PM WEAVING PROFESSOR Plan of Treatment Health Maintenance Due Date [...] this topic Medical Devices Implanted Type Area Biology Tutor Device Identifier Shelf Expiration Date Model / Serial / Lot Stent Ureteral 6fr 2.1fr 24cm 2 Pigtail Curve 2 Durometer Taper Tip Loprfl Graduated Polaris Ultra - [id number] Implanted:Qty: 1 on 07/15/2018 by Marbella Alejandra MD at [facility] IMPLANT Right: Ureter [employer] 02/07/2021 [id number] 20 / [id number] 20 / [id number] Speedbridge Implant Systemw Ith Biocomposity Swivel Lock Implanted:Qty: 1 on 07/29/2016 by Kofi Henning MD at [facility] Left: Shoulder 03/07/2018 / [id number] S-4 / [id number] Explanted Type Area Biology Tutor Device Identifier Shelf Expiration Date Model / Serial / Lot Stent Ureteral 6fr 2.1fr 24cm 2 Pigtail Curve 2 Durometer Taper Tip Loprfl Graduated Polaris Ultra - [id number] Implanted:Qty : 1 on 06/24/2018 by Marbella Alejandra MD at [facility] Explanted:Qty : 1 on 07/15/2018 by Marbella Alejandra MD at [facility] IMPLANT Right: Ureter [employer] 12/20/2020 [id number] / [id number] / [id number] Procedures Procedure Name Priority Date/Time Associated Diagnosis Comments CT CHEST ABDOMEN AND PELVIS W CONTRAST Stat with Interpretation 04/12/2024 8:04 PM WEAVING PROFESSOR GOLD TOP TUBE STAT 04/12/2024 6:45 PM WEAVING PROFESSOR BLUE TOP TUBE STAT 04/12/2024 6:45 PM WEAVING PROFESSOR CBC WITH AUTO DIFFERENTIAL STAT 04/12/2024 6:45 PM WEAVING PROFESSOR EXTRA TUBES STAT 04/12/2024 6:45 PM WEAVING PROFESSOR CMP (COMPREHENSIVE METABOLIC PANEL) STAT 04/12/2024 6:45 PM WEAVING PROFESSOR COMPLETE BLOOD COUNT (CBC) WITH DIFF STAT 04/12/2024 6:45 PM WEAVING PROFESSOR XR RIBS UNILATERAL WITH PA CHEST LEFT STAT 04/12/2024 3:[address] FACIAL BONES WO CONTRAST Stat with Interpretation 04/12/2024 3:[address] CERVICAL SPINE WO/ CONTRAST Stat with Interpretation 04/12/2024 3:[address] HEAD OR BRAIN WO CONTRAST Stat with Interpretation 04/12/2024 3:15 PM WEAVING PROFESSOR [facility] BONE DENSITOMETRY AXIAL SKELETON Routine 08/06/2022 11:38 AM CDT Post-menopausal Encounter for screening for osteoporosis [facility] SCREENING BILATERAL DIGITAL W CAD W JESSICA Routine 08/06/2022 11:27 AM CDT Screening mammogram for breast cancer from Last 3 Months or Most Recently Relevant to Health Maintenance Results * CT CHEST ABDOMEN AND PELVIS W CONTRAST (04/12/2024 8:04 PM WEAVING PROFESSOR) Anatomical Region Laterality Modality Chest, Abdomen, Pelvis N/A Computed Tomography 04/12/2024 8:40 PM WEAVING PROFESSOR Impressions 04/12/2024 8:43 PM WEAVING PROFESSOR IMPRESSION: Acute nondisplaced single part fractures of the anterior left 5th and 6th ribs. No acute findings in the abdomen and pelvis. Narrative 04/12/2024 8:43 PM WEAVING PROFESSOR EXAM DESCRIPTION: CT CHEST ABDOMEN AND PELVIS [...] Marysol Aguirre M.D. FT: FT Report ID: [id number] Reading Location: [id number] Procedure Note Marysol Dietz MD - 04/12/2024 [...] Marysol Aguirre M.D. FT: FT Report ID: [id number] Reading Location: [id number] IMPRESSION: Acute nondisplaced single part fractures of the anterior left 5th and 6th ribs. No acute findings in the abdomen and pelvis. Madelyn Jha APRN, CNP IMG CT ORDERABLES Final Result * Gold Top Tube (04/12/2024 6:45 PM WEAVING PROFESSOR) Blood No Phlebotomy Charged / Unknown 04/12/2024 6:45 PM WEAVING PROFESSOR 04/12/2024 6:56 PM WEAVING PROFESSOR Madelyn Jha APRN, CNP CHEMISTRY ORDERABL ES Final Result [facility] [address] [place] [address] * Blue Top Tube (04/12/2024 6:45 PM WEAVING PROFESSOR) Blood No Phlebotomy Charged / Unknown 04/12/2024 6:45 PM WEAVING PROFESSOR 04/12/2024 6:56 PM WEAVING PROFESSOR Madelyn Jha APRN, CNP HEMATOLOGY ORDERAB LES Final Result [facility] [place] [address] * (ABNORMAL) CBC with Auto Differential (04/12/2024 6:45 PM WEAVING PROFESSOR) WBC 10.10 4.00 - 12.00 10(3)/mcL 04/12/2024 6:59 PM WEAVING PROFESSOR [facility] RBC 3.84 3.80 - 5.30 10(6)/mcL 04/12/2024 6:59 PM [facility] HEMOGLOBIN (HGB) 11.4(L) 12.0 - 15.8 g/dL 04/12/2024 6:59 PM [facility] HEMATOCRIT (HCT) 34.5(L) 36.0 - 47.0 % 04/12/2024 6:59 PM [facility] MCV 89.8 82.0 - 96.0 fL 04/12/2024 6:59 PM [facility] MCH 29.7 26.0 - 34.0 pg 04/12/2024 6:59 PM [facility] MCHC 33.0 31.0 - 36.0 g/dL 04/12/2024 6:59 PM [facility] PLATELET COUNT 290 140 - 440 10(3)/mcL 04/12/2024 6:59 PM [facility] RDW 13.5 11.8 - 15.5 % 04/12/2024 6:59 PM [facility] MPV 10.5 9.7 - 12.4 fL 04/12/2024 6:59 PM [facility] NEUTROPHILS 71.4 47.0 - 73.0 % 04/12/2024 6:59 PM [facility] LYMPHOCYTES 15.7(L) 18.0 - 42.0 % 04/12/2024 6:59 PM [facility] MONOCYTES 11.7 4.0 - 12.0 % 04/12/2024 6:59 PM [facility] EOSINOPHILS 0.9 0.0 - 5.0 % 04/12/2024 6:59 PM [facility] BASOPHILS 0.3 0.0 - 1.0 % 04/12/2024 6:59 PM [facility] ABSOLUTE NEUTROPHILS 7.21 1.60 - 7.70 10(3)/mcL 04/12/2024 6:59 PM [facility] ABSOLUTE LYMPHOCYTES 1.59 1.30 - 3.20 10(3)/mcL 04/12/2024 6:59 PM WEAVING PROFESSOR [facility] ABSOLUTE MONOCYTES 1.18(H) 0.20 - 1.00 10(3)/[facility] 04/12/2024 6:59 PM WEAVING PROFESSOR [facility] ABSOLUTE EOSINOPHIL 0.09 0.00 - 0.40 10(3)/[facility] 04/12/2024 6:59 PM WEAVING PROFESSOR [facility] ABSOLUTE BASOPHILS 0.03 0.00 - 0.10 10(3)/[facility] 04/12/2024 6:59 PM WEAVING PROFESSOR [facility] NRBC PER 100 WBC 0 04/12/19 6:59 PM WEAVING PROFESSOR [facility] Blood Venipuncture / Unknown 04/12/2024 6:45 PM WEAVING PROFESSOR 04/12/2024 6:54 PM WEAVING PROFESSOR us Madelyn Jha APRN, PULPWOOD BUYER HEMATOLOGY ORDERAB LES Final Result [facility] [address] [place] [address] * (ABNORMAL) CMP (04/12/2024 6:45 PM WEAVING PROFESSOR) SODIUM 141 136 - 145 mmol/L 04/12/2024 7:18 PM [facility] POTASSIUM 3.9 3.5 - 5.1 mmol/L 04/12/2024 7:18 PM [facility] CHLORIDE 108(H) 98 - 107 mmol/L 04/12/2024 7:18 PM [facility] CO2, VENOUS 25 22 - 30 mmol/L 04/12/2024 7:18 PM [facility] ANION GAP 11.9 <18.0 mmol/L 04/12/2024 7:18 PM [facility] GLUCOSE 112(H) 70 - 99 mg/dL 04/12/2024 7:18 PM [facility] BUN 26(H) 10 - 20 mg/dL 04/12/2024 7:18 PM [facility] CREATININE, BLOOD 1.05(H) 0.60 - 1.00 mg/dL 04/12/2024 7:18 PM [facility] BUN/CREATININE RATIO 25(H) 12 - 20 ratio 04/12/2024 7:18 PM [facility] TOTAL PROTEIN 7.7 6.0 - 8.0 g/dL 04/12/2024 7:18 PM [facility] ALBUMIN 4.1 3.5 - 5.0 g/dL 04/12/2024 7:18 PM [facility] A/G RATIO 1.1 1.0 - 2.2 04/12/2024 7:18 PM [facility] CALCIUM 9.2 8.7 - 10.5 mg/dL 04/12/2024 7:18 PM [facility] T BILI 0.3 0.2 - 1.2 mg/dL 04/12/2024 7:18 PM [facility] SGOT (AST) 27 6 - 42 U/L 04/12/2024 7:18 PM [facility] SGPT (ALT) 35 6 - 55 U/L 04/12/2024 7:18 PM [facility] ALKALINE PHOSPHATASE 75 40 - 150 U/L 04/12/2024 7:18 PM [facility] GFR, ESTIMATED 56(L) >=60 04/12/2024 7:18 PM [facility] Comment: Creatinine Clearance is the preferred criteria for selecting drug dose adjustments in renally impaired patients. The GFR is provided as additional pertinent clinical information. GFR is reported in mL/min/1.73 sq m. Calculation based on the Chronic Kidney Disease Epidemiology Collaboration (CKD- EPI) equation refit without adjustment for race. GFR, EST. >60 >=60 025 7:18 PM [facility] GFR, EST. NONAFRICAN 51(L) >=60 04/12/2024 7:18 PM WEAVING PROFESSOR [facility] Blood Venipuncture / Unknown 04/12/2024 6:45 PM WEAVING PROFESSOR 04/12/2024 6:54 PM WEAVING PROFESSOR us Madelyn Jha APRN, PULPWOOD BUYER CHEMISTRY ORDERABL ES Final Result [facility] [place] [address] * XR RIBS UNILATERAL WITH PA CHEST LEFT (04/12/2024 3:35 PM WEAVING PROFESSOR) Anatomical Region Laterality Modality Chest, Rib Left Digital Radiogra phy 04/12/2024 3:46 PM WEAVING PROFESSOR Impressions 04/12/2024 3:48 PM WEAVING PROFESSOR IMPRESSION: Questionable fractures of the left 5th and 6th rib laterally. Narrative 04/12/2024 3:48 PM WEAVING PROFESSOR EXAM DESCRIPTION: XR RIBS UNILATERAL WITH PA [...] Timoteo Uribe M.D. JA: TOYA Report ID: [id number] Reading Location: [id number] Procedure Note Timoteo Uribe MD - 04/12/2024 [...] Timoteo Uribe M.D. JA: TOYA Report ID: [id number] Reading Location: [id number] IMPRESSION: Questionable fractures of the left 5th and 6th rib laterally. Madelyn Jha APRN, CNP IMG DIAGNOSTIC ORD ERABLES Final Result * CT FACIAL BONES WO CONTRAST (04/12/2024 3:17 PM WEAVING PROFESSOR) Anatomical Region Laterality Modality Head N/A Computed Tomogra phy 04/12/2024 3:49 PM WEAVING PROFESSOR Impressions 04/12/2024 3:51 PM WEAVING PROFESSOR IMPRESSION: No acute intracranial abnormality. No acute [...] findings as above. Narrative 04/12/2024 3:51 PM WEAVING PROFESSOR EXAM DESCRIPTION: CT HEAD OR BRAIN WO [...] results in mild spinal canal narrowing and nxmrthyl-wa-zjwvpg left neural foraminal narrowing. C5-6: Posterior disc [...] Dez Santamaria M.D. NS: NS Report ID: [id number] Reading Location: [id number] Procedure Note Dez Santamaria MD - 04/12/2024 [...] results in mild spinal canal narrowing and btjrgbfi-pv-wknapi left neural foraminal narrowing. C5-6: Posterior disc [...] Dez Santamaria M.D. NS: NS Report ID: [id number] Reading Location: [place] [address] IMPRESSION: No acute intracranial abnormality. No acute [...] incidental and chronic findings as above. Madelyn Huffman Abhijeet LABORATORY CUREMAN, PULPWOOD BUYER IMG CT ORDERABLES Final Result * CT CERVICAL SPINE WO/ CONTRAST (04/12/2024 3:16 PM WEAVING PROFESSOR) Anatomical Region Laterality Modality Spine N/A Computed Tomogra phy 04/12/2024 3:49 PM WEAVING PROFESSOR Impressions 04/12/2024 3:51 PM WEAVING PROFESSOR IMPRESSION: No acute intracranial abnormality. No acute [...] findings as above. Narrative 04/12/2024 3:51 PM WEAVING PROFESSOR EXAM DESCRIPTION: CT HEAD OR BRAIN WO [...] results in mild spinal canal narrowing and atswjhvw-go-cwifcf left neural foraminal narrowing. C5-6: Posterior disc [...] 3:49 PM - Electronically signed by Dez Livingston.D. NS: NS Report ID: [id number] Reading Location: [id number] Procedure Note Dez Santamaria MD - 04/12/2024 [...] results in mild spinal canal narrowing and dsehzmcr-vi-livyyb left neural foraminal narrowing. C5-6: Posterior disc [...] Dez Santamaria M.D. NS: NS Report ID: [id number] Reading Location: [place] [address] IMPRESSION: No acute intracranial abnormality. No acute [...] and chronic findings as above. Madelyn Jha LABORATORY CUREMAN, PULPWOOD BUYER IMG CT ORDERABLES Final Result * CT HEAD OR BRAIN WO CONTRAST (04/12/2024 3:15 PM WEAVING PROFESSOR) Anatomical Region Laterality Modality Head N/A Computed Tomogra phy 04/12/2024 3:49 PM WEAVING PROFESSOR Impressions 04/12/2024 3:51 PM WEAVING PROFESSOR IMPRESSION: No acute intracranial abnormality. No acute [...] findings as above. Narrative 04/12/2024 3:51 PM WEAVING PROFESSOR EXAM DESCRIPTION: CT HEAD OR BRAIN WO [...] results in mild spinal canal narrowing and tqllcuva-kl-tpbmsx left neural foraminal narrowing. C5-6: Posterior disc [...] Dez Santamaria M.D. NS: NS Report ID: [id number] Reading Location: [id number] Procedure Note Dez Santamaria MD - 04/12/2024 [...] results in mild spinal canal narrowing and ncqtcvgd-vi-yvyara left neural foraminal narrowing. C5-6: Posterior disc [...] Dez Santamaria M.D. NS: NS Report ID: [id number] Reading Location: [place] [address] IMPRESSION: No acute intracranial abnormality. No acute [...] and chronic findings as above. Madelyn Jha APRN, PULPWOOD BUYER IMG CT ORDERABLES Final Result * [facility] BONE DENSITOMETRY AXIAL SKELETON (08/06/2022 11:38 AM [...] old F with given history of screening. Biology Tutor/Model: [employer] (S/N [id number]) CLINICAL INFORMATION: Current height: 64 inches Maximum [...] Naomi Cifuentes M.D. TW: MARY Report ID: [id number] Reading Location: [id number] Procedure Note Naomi Cifuentes MD - 08/07/2022 EXAM DESCRIPTION: [facility]ONE DENSITOMETRY AXIAL SKELETON REASON FOR STUDY: 72 y/o year old F with given history of screening. Biology Tutor/Model: [employer] (S/N [id number]) CLINICAL INFORMATION: Current height: 64 inches Maximum [...] Naomi Cifuentes M.D. TW: MARY Report ID: [id number] Reading Location: [place] [address] IMPRESSION: Osteoporosis REFERENCE: Bone mineral density: Normal [...] and Treatment of Osteoporosis (http://www.nof.org/professionals/clinical-guidelines) Alexus Mehta LABORATORY CUREMAN, PULPWOOD BUYER IMG DEXA ORDERABLES Final Result * [facility] [...] copy. Current study was also evaluated with [employer] version 7.2. 2D digital mammographic views, as well as 3D digital tomosynthesis were performed in the CC and MLO projections. CLINICAL: Routine screening. Patient has no complaints. Patient has numerous moles covering bilateral breasts. No personal history of cancer. No family history of breast cancer. COMPARISONS: Comparison is made to exams dated: 04/22/2015 and 03/03/2011 [facility]. BREAST TISSUE:There are scattered fibroglandular densities in [...] exam. Electronically signed by: Karlee boyer/mary:08/06/2022 15:06:48 Real Estate Office Supervisor(s): RT Wil(R)(M), [facility] letter sent: Normal Exam Reading location: [facility] BI-RADS: 2 Benign Procedure Note Karlee Mendiola [...] made to exams dated: 04/22/2015 and 03/03/2011 [facility]. BREAST TISSUE:There are scattered fibroglandular densities in [...] exam. Electronically signed by: Karlee boyer/mary:08/06/2022 15:06:48 Real Estate Office Supervisor(s): RT Wil(R)(M), [facility] letter sent: Normal Exam Reading location: [facility] BI-RADS: 2 Benign Alexus Mehta LABORATORY CUREMAN, PULPWOOD BUYER IMG MAMMO ORDERABLES Final Result from Last 3 Months or Most Recently Relevant to Health Maintenance Additional Health Concerns Infection Onset Date Last Indicated ESBL 06/20/2018 01/01/2022 Insurance [employer] MEDIC[employer] C [employer] [facility] GENER[facility] Advance Directives * Full Code [...] measures to stabilize the patient. Care Teams Spice Mixer Relationship Specialty Start Date End Date Alexus Mehta APRN, PULPWOOD BUYER #2 [facility] [address] [place] [address] PCP - General Advanced Practice Nurse 01/13/22 Aditya Reza MD #2 [facility] [address] [place] [address] Consulting Physician Urology 12/31/21
--- OUTSIDE RECORDS SUMMARY | 2024-05-16 13:40 | XMS_ITS | Encounter Summary ---
Author Organization [facility] Address [address] [place] [address] Phone Care Team Providers Care Hose Handler Name Role Phone Aditya Reza MD Unavailable Alexus Mehta APRN, CNP Primary Care Provid er Reason for Visit * Reason Comments Medication Refill Encounter Details Date Type Department Care Team (Late st Contact Info) Description 06/28/2022 Refill [facility] [address] [place] [address] Ja Samuel MD #[address] [address] Medication Refill Social History Tobacco Use Types [...] CDT Reordered 06/04/22 for 4 months - [facility] documented in this encounter Plan of Treatment Not on file documented as of this encounter Visit Diagnoses Not on filedocumented in this encounter Additional Health Concerns Infection Onset Date Last Indicated Resolved Time ESBL 06/20/2018 01/01/2022 Assessment Noted Time PHQ-9 Depression Total Score: 0 01/14/20 10:00 AM COMPANY SECRETARY documented as of this encounter Care Teams Hose Handler Relationship Specialty Start Date End Date Alexus Mehta APRN, BRUSH PAINTER #2 [facility] [address] [place] [address] PCP - General Advanced Practice Nurse 01/13/22 Aditya Reza MD #2 [facility] [address] [place] [address] Consulting Physician Urology 12/31/21 documented as of this encounter
--- OUTSIDE RECORDS SUMMARY | 2024-05-16 13:40 | XMS_ITS | Encounter Summary ---
Author Organization [facility] Address [address] [place] [address] Phone Care Team Providers Care Journal Entry Audit Clerk Name Role Phone Aditya Reza MD Unavailable Alexus Mehta APRN, CNP Primary Care Provid er Reason for Visit * Reason Comments Medication Refill Encounter Details Date Type Department Care Team (Late st Contact Info) Description 04/23/2022 Refill [facility] #2 [place] [address] Alexus Mehta APRN, CNP #[address] [address] Medication Refill Social History Tobacco [...] Coronavirus/COVID-19? No / Unsure 04/09/2022 3:43 PM VAT CLEANER documented as of this encounter Miscellaneous Notes * Telephone Encounter - Lynn Saucedo RN - 04/23/2022 3:16 PM CST Signed Today (04/23/2022): venlafaxine (EFFEXOR) 100 MG Tablet Sig: TAKE 1 TABLET BY MOUTH IN THE MORNING AND AT BEDTIME Disp: 180 Tablet ? Refills: 1 Signed by: Ja Samuel MD [facility] CLEANER 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, unspecified documented in this encounter Additional Health Concerns Infection Onset Date Last Indicated Resolved Time ESBL 06/20/2018 01/01/2022 Assessment Noted Time PHQ-9 Depression Total Score: 0 01/14/20 22 10:00 AM VAT CLEANER documented as of this encounter Care Teams Journal Entry Audit Clerk Relationship Specialty Start Date End Date Alexus Mehta APRN, CNP #2 [facility] [address] [place] [address] PCP - General Advanced Practice Nurse 01/13/22 Aditya Reza MD #2 [facility] [address] [place] [address] Consulting Physician Urology 12/31/21 documented as of this encounter
--- OUTSIDE RECORDS SUMMARY | 2024-05-16 13:40 | XMS_ITS | Encounter Summary ---
Author Organization [facility] Address [address] [place] [address] Phone Care Team Providers Care Aquarium Specialist Name Role Phone Aditya Reza MD Unavailable Alexus Mehta APRN, CNP Primary Care Provid er Reason for Visit * Reason Comments Medication Refill Encounter Details Date Type Department Care Team (Late st Contact Info) Description 02/02/2023 Refill [facility] - [place] #2 [place] [address] Alexus Mehta APRN, CNP #[address] [address] Medication Refill Social History Tobacco [...] CNP for the following reason: Formulary change. SSING TOOLSETTER documented in this encounter Plan of Treatment Not on file documented as of this encounter Visit Diagnoses Diagnosis Anxiety Anxiety state, unspecified documented in this encounter Additional Health Concerns Infection Onset Date Last Indicated Resolved Time ESBL 06/20/2018 01/01/2022 Assessment Noted Time PHQ-9 Depression Total Score: 0 01/14/20 10:00 AM EMBOSSING TOOLSETTER documented as of this encounter Care Teams Aquarium Specialist Relationship Specialty Start Date End Date Alexus Mehta APRN, CNP [facility]2 [facility] [address] [place] [phone] PCP - General Advanced Practice Nurse 01/13/22 Aditya Reza MD #2 [facility] [address] [place] [address] Consulting Physician Urology 12/31/21 documented as of this encounter
--- OUTSIDE RECORDS SUMMARY | 2024-05-16 13:40 | XMS_ITS | Encounter Summary ---
Author Organization [facility] Address [address] [place] [address] Phone Care Team Providers Care Picker Tender Helper Name Role Phone Aditya Reza MD Unavailable Alexus Mehta APRN, CNP Primary Care Provid er Reason for Visit * Reason Comments Medication Refill Encounter Details Date Type Department Care Team (Late st Contact Info) Description 09/20/2022 Refill [facility] #2 [place] [address] Ja Samuel MD #[address] [address] Medication Refill Social History Tobacco Use Types [...] 08/02/2022 90 180 Each Ja Samuel MD [facility] #... 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, unspecified documented in this encounter Additional Health Concerns Infection Onset Date Last Indicated Resolved Time ESBL 06/20/2018 01/01/2022 Assessment Noted Time PHQ-9 Depression Total Score: 0 01/14/20 10:00 AM CONTINUOUS CONVEYOR SCREEN DRIER documented as of this encounter Care Teams Picker Tender Helper Relationship Specialty Start Date End Date Alexus Mehta APRN, CNP #2 [facility] [address] [place] [address] PCP - General Advanced Practice Nurse 01/13/22 Aditya Reza MD #2 [facility] [address] [place] [address] Consulting Physician Urology 12/31/21 documented as of this encounter
--- NOTE | 2024-05-16 14:02 | ED_ITS ---
HPI - Extremity Injury (Lower) General Chief Complaint: Extremity Injury, Lower <Sangeetha Melton PA-C - Last Filed: 05/19/24 11:14> Stated Complaint: sent by PMD for bilateral leg pain <Sangeetha Melton PA-C - Last Filed: 05/19/24 11:14> Time Seen by Provider: 05/16/24 14:03 <Sangeetha Melton PA-C - Last Filed: 05/19/24 11:14> Focused HPI: This is a 74 year old female that presents to the ER for bilateral lower extremity pain. Reports she keeps falling. Reports history of sciatica. Reports pain radiating to the buttock down into the leg bilaterally. She has not been able to walk due to pain. Reports she takes Tramadol and Meloxicam for pain. She also has taken over the counter medications with little relief. Denies saddle anesthesia or bowel/bladder incontinence. GENERAL: Well-appearing, well-nourished, and in no acute distress. HEAD: Normocephalic, atraumatic. CHEST: Clear to auscultation. ?No respiratory distress. HEART: Regular rate and rhythm.? NEURO: ?Alert and oriented x3. Patient screened in triage and initial orders placed.? ?Additional care and disposition to be based upon?diagnostic testing and treatment. <Sangeetha Melton PA-C - Last Filed: 05/19/24 11:14> Source: patient <Bryant Santos PA-C - Last Filed: 05/16/24 18:05> Mode of arrival: ambulatory <Bryant Santos PA-C - Last Filed: 05/16/24 18:05> Limitations: no limitations <BJ Gutierrez Last Filed: 05/16/24 18:05> History of Present Illness HPI Narrative: Agree with MSE note above. Patient denies fevers, chills, nausea, vomiting, numbness or weakness of the extremities. <BJ Gutierrez Last Filed: 05/16/24 18:05> Related Data Home Medications: Home Medications ?Medication ?Instructions ?Recorded ?Confirmed ?Last Taken ?Type aspirin 81 mg chewable tablet 81 mg PO DAILY 12/01/19 05/01/24 Unknown History calcium 500 mg (as tablet 12/01/19 05/01/24 Unknown History carbonate)-vitamin D3 5 mcg (200 unit) tablet (Os-Kyle 500 + D3) melatonin 10 mg tablet 10 mg PO HS PRN Anxiety 12/01/19 05/01/24 Unknown History pyridoxine (vitamin B6) 100 mg 100 mg PO DAILY 12/01/19 05/01/24 Unknown History tablet (Vitamin B-6) Multiple Vitamin BYMOUTH 04/19/24 05/01/24 Unknown History brimonidine 0.2 %-timolol 0.5 % drp EACH EYE QPM 04/19/24 05/01/24 Unknown History eye drops (Combigan) cholecalciferol (vitamin D3) 50 50 mcg PO DAILY 04/19/24 05/01/24 Unknown History mcg (2,000 unit) capsule cyanocobalamin (vitamin B-12) 500 500 mcg PO DAILY 04/19/24 05/01/24 Unknown History mcg tablet famotidine 20 mg tablet PO BID 04/19/24 05/01/24 Unknown History latanoprost 0.005 % eye drops EACH EYE BID 04/19/24 05/01/24 Unknown History melatonin 5 mg tablet 5 mg PO QHS 04/19/24 05/01/24 Unknown History valsartan 320 tablet PO DAILY 04/19/24 05/01/24 Unknown History mg-hydrochlorothiazide 12.5 mg tablet womens Probiotic BYMOUTH DAILY 04/19/24 05/01/24 Unknown History <Sangeetha Melton PA-C - Last Filed: 05/19/24 11:14> Allergies/Adverse Reactions: Allergies Allergy/AdvReac Type Severity Reaction Status Date / Time codeine Allergy Intermediate Nausea and Verified 05/16/24 16:32 Vomiting <Sangeetha Melton PA-C - Last Filed: 05/19/24 11:14> Review of Systems Review of Systems: All systems as dictated in HPI <Bryant Santos PA-C - Last Filed: 05/16/24 18:05> [facility] Past Medical History Medical History: Medical History (Updated 05/17/24 @ 00:00 by Background Daemon) Chronic GERD Arthritis Allergies IBS (irritable bowel syndrome) Glaucoma Depression Anxiety Sleep apnea Cataract Hypothyroidism Hypertension GERD (gastroesophageal reflux disease) <Sangeetha Melton PA-C - Last Filed: 05/19/24 11:14> Family History Family History: Family History Mother Diabetes mellitus Hypertension Father Depression Anxiety Sibling Depression Anxiety Cancer <Sangeetha Melton PA-C - Last Filed: 05/19/24 11:14> Social History Social History: Social History (Updated 04/19/24 @ 07:34 by Lora Rivas MA) Smoking status: Never smoker Alcohol use details: does not drink ETOH Substance use type: does not use Do You Feel Safe in your Home?: Yes Lack of Transportation: No Lack of Food: Never True Current Housing: I Have Housing Concerned About Future Housing: No Difficulty Paying Gas/Electric Bills: No Difficulty Paying for Meds: No Currently Unemployed: No Education: High School Diploma/GED Difficulty w/ Childcare or Family Care: No Living arrangements: with family Gender identity (if verbalized by the patient): Female Agree to blood products: Yes <Sangeetha Melton PA-C - Last Filed: 05/19/24 11:14> Exam Narrative: GENERAL: Well-appearing, well-nourished, and in no acute distress. HEAD: Normocephalic, atraumatic. EYES: PERRLA and EOMI. ENT: Nares clear, no rhinorrhea or epistaxis. Mucous membranes moist. Oroph arynx without tonsillar hypertrophy exudate or other lesions. NECK: Supple. No adenopathy or masses. CHEST: No respiratory distress. Clear to auscultation. No wheezes rales or rhonchi HEART: Regular rate and rhythm. No murmur heard. Normal peripheral pulses. ABDOMEN: Soft, nontender, nondistended, normal active bowel sounds. MSK: Normal range of motion. No edema. No midline spinal tenderness. Mild tenderness to the bilateral SI joints. Walks with a Trendelenburg gait, but is ambulatory without assistance. SKIN: Warm, dry, no rash. NEURO: Alert and oriented x4. No focal deficits. 5/5 strength and sensation in the upper and lower extremities. No saddle anesthesia. PSYCH: Normal mood and affect. <Bryant Santos PA-C - Last Filed: 05/16/24 18:05> Course Vital Signs Vital signs: Vital Signs Temperature 97.8 F 05/16/24 12:46 Pulse Rate 88 05/16/24 12:46 Respiratory Rate 18 05/16/24 12:46 Blood Pressure 142/90 H 05/16/24 12:46 Pulse Oximetry 100 05/16/24 12:46 Oxygen Delivery Room Air 05/16/24 12:46 Temperature 97.2 F L 05/16/24 16:28 Pulse Rate 90 05/16/24 16:28 Respiratory Rate 16 05/16/24 16:28 Blood Pressure 153/88 H 05/16/24 16:28 Pulse Oximetry 100 05/16/24 16:28 Oxygen Delivery Room Air 05/16/24 12:46 <Sangeetha Melton PA-C - Last Filed: 05/19/24 11:14> Vital Signs Temperature 97.8 F 05/16/24 12:46 Pulse Rate 88 05/16/24 12:46 Respiratory Rate 18 05/16/24 12:46 Blood Pressure 142/90 H 05/16/24 12:46 Pulse Oximetry 100 05/16/24 12:46 Oxygen Delivery Room Air 05/16/24 12:46 Temperature 97.2 F L 05/16/24 16:28 Pulse Rate 90 05/16/24 16:28 Respiratory Rate 16 05/16/24 16:28 Blood Pressure 153/88 H 05/16/24 16:28 Pulse Oximetry 100 05/16/24 16:28 Oxygen Delivery Room Air 05/16/24 12:46 <Bryant Santos PA-C - Last Filed: 05/16/24 18:05> MDM - Extremity Injury (Lower) MDM Narrative Medical decision making narrative: This is a 74-year-old female who presents to the ED for chief complaint of acute on chronic low back pain radiating down right leg. Vitals are normal. Exam remarkable for the above. She has obvious sciatic on exam. There is no saddle anesthesia, bowel or bladder dysfunction to suggest cauda equina today. She has good strength distally and is able to ambulate without assistance. CT imaging of the lumbar spine: IMPRESSION: Soft tissue density at the level of L5-S1 on the right side of the vertebral canal which may be sequestrated disc versus synovial cyst. MRI evaluation advised. Left kidney stones in the upper pole with slightly atrophic right kidney. Presentation is consistent with sciatica. She will be given Toradol shot here as she states that it is okay for her to take NSAIDs. She will be discharged with follow-up for Neurosurgery. She will continue to follow-up with PCP regarding her workup as well. Rx for low-dose cyclobenzaprine as well as short course of steroids given as she has had relief with steroids in the past. Patient will be discharged in stable condition. Supportive measures discussed and return precautions given. Patient is understanding and agreeable with plan for discharge with PCP follow-up. <Bryant Santos PA-C - Last Filed: 05/16/24 18:05> Critical Care Time Critical Care Time Critical Care Time: No <Sangeetha Melton PA-C - Last Filed: 05/19/24 11:14> Discharge Plan Discharge Clinical Impression: Lumbar radiculopathy, right <BJ Lockhart Last Filed: 05/19/24 11:14> Patient Disposition: Home, Self-Care <BJ Lockhart Last Filed: 05/19/24 11:14> Condition: Stable <BJ Lockhart Last Filed: 05/19/24 11:14> Instructions: Antibiotic Form <BJ Lockhart Last Filed: 05/19/24 11:14> Additional Instructions: Exam today shows bulging to the L5-S1 disc. This needs to be followed up with neurosurgery. Continue taking your normal pain medications and follow-up closely with PCP. <BJ Lockhart Last Filed: 05/19/24 11:14> Patient Language: Citizen [place] <BJ Lockhart Last Filed: 05/19/24 11:14> Prescriptions: New cyclobenzaprine 10 mg tablet 5 mg PO HS PRN (Reason: muscle spasm) Qty: 10 0RF prednisone 20 mg tablet 20 mg PO DAILY Qty: 3 0RF No Action aspirin 81 mg Tablet,Chewable 81 mg PO DAILY calcium carbonate-vitamin D3 [Os-Kyle 500 + D3] 500 mg(1,250mg) -200 unit tablet pyridoxine (vitamin B6) [Vitamin B-6] 100 mg Tablet 100 mg PO DAILY melatonin 10 mg Tablet 10 mg PO HS PRN (Reason: Anxiety) brimonidine-timolol [Combigan] 0.2-0.5 % drops EACH EYE QPM famotidine 20 mg tablet PO BID latanoprost 0.005 % drops EACH EYE BID valsartan-hydrochlorothiazide 320-12.5 mg tablet PO DAILY methylprednisolone [Medrol (Zach)] 4 mg tablets,dose pack See Rx Instructions PO PER PKG DIR Qty: 21 0RF Rx Instructions: PO PER PKG DIR melatonin 5 mg tablet 5 mg PO QHS Multiple Vitamin BYMOUTH Rx Instructions: Daily womens Probiotic BYMOUTH DAILY cyanocobalamin (vitamin B-12) 500 mcg tablet 500 mcg PO DAILY cholecalciferol (vitamin D3) 50 mcg (2,000 unit) capsule 50 mcg PO DAILY tramadol 50 mg tablet 50 mg PO BID PRN (Reason: pain) Qty: 60 1RF levothyroxine [Synthroid] 175 mcg tablet 175 mcg PO DAILY Qty: 30 1RF buspirone 10 mg tablet See Rx Instructions PO .COMPLEX Qty: 75 3RF Rx Instructions: orally 1 po in am and 1.5 tablet in afternoon; meloxicam 15 mg tablet 15 mg PO DAILY Qty: 90 3RF trazodone 100 mg tablet 100 mg PO QHS Qty: 90 3RF venlafaxine 100 mg tablet 100 mg PO BID Qty: 180 3RF <Sangeetha Melton PA-C - Last Filed: 05/19/24 11:14> Follow-up/Referrals: Alvaro Carranza MD [Physician] - Irma Carreon APRN [Primary Care Provider] - <Sangeetha Melton PA-C - Last Filed: 05/19/24 11:14> Stand Alone Forms: Work/School Release IP <Sangeetha Melton PA-C - Last Filed: 05/19/24 11:14> Time of Disposition: 17:23 <Sangeetha Melton PA-C - Last Filed: 05/19/24 11:14> 17:23 <Bryant Santos PA-C - Last Filed: 05/16/24 18:05>
[2024-05-16 16:28] VITALS: BP 153/88; PULSE 90; RESP 16; TEMP 36.2; O2SAT 100
--- OUTSIDE RECORDS SUMMARY | 2024-05-16 16:38 | XMS_ITS | Encounter Summary ---
Author Organization [facility] Address [address] [place] [address] Phone Care Team Providers Care Biogeographer Name Role Phone Aditya Reza MD Unavailable Alexus Mehta APRN, CNP Primary Care Provid er Reason for Visit * Reason Comments Medication Refill Encounter Details Date Type Department Care Team (Late st Contact Info) Description 06/06/2023 Refill [facility] - [place] #2 [place] [address] Alexus Mehta APRN, CNP #[address] [address] Medication Refill Social History Tobacco [...] Provider Dept 06/08/23 Appointment Alexus Mehta APRN, STOCKROOM SELECTOR [place] Showing today's visits and meeting [...] Total Score: 0 01/14/20 22 10:00 AM CUTTER AND EDGE TRIMMER documented as of this encounter Care Teams Biogeographer Relationship Specialty Start Date End Date Alexus Mehta APRN, CNP #2 [facility] [address] [place] [address] PCP - General Advanced Practice Nurse 01/13/22 Aditya Reza MD #2 [facility] [address] [place] [address] Consulting Physician Urology 12/31/21 documented as of this encounter
--- OUTSIDE RECORDS SUMMARY | 2024-05-16 16:38 | XMS_ITS | Encounter Summary ---
Author Organization [facility] Address [address] [place] [address] Phone Care Team Providers Care Professor Of Criminal Justice Name Role Phone Aditya Reza MD Unavailable Alexus Mehta APRN, CNP Primary Care Provid er Reason for Visit * Reason Comments Medication Refill Encounter Details Date Type Department Care Team (Late st Contact Info) Description 09/20/2022 Refill [facility] #2 [place] [address] Ja Samuel MD #[address] [address] Medication Refill Social History Tobacco Use Types [...] 08/02/2022 90 180 Each Ja Samuel MD [facility] #... 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
--- OUTSIDE RECORDS SUMMARY | 2024-05-16 16:38 | XMS_ITS | Encounter Summary ---
Author Organization [facility] Address [address] [place] [address] Phone Care Team Providers Care Aerotriangulation Specialist Name Role Phone Aditya Reza MD Unavailable Alexus Mehta APRN, CNP Primary Care Provid er Reason for Visit * Reason Comments Medication Refill Encounter Details Date Type Department Care Team (Late st Contact Info) Description 04/23/2022 Refill [facility] #2 [place] [address] Alexus Mehta APRN, CNP #[address] [address] Medication Refill Social History Tobacco [...] Coronavirus/COVID-19? 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
--- OUTSIDE RECORDS SUMMARY | 2024-05-16 16:38 | XMS_ITS | Encounter Summary ---
Author Organization [facility] Address [address] [place] [address] Phone Care Team Providers Care Corporate Coordinator Name Role Phone Aditya Reza MD Unavailable Alexus Mehta APRN, CNP Primary Care Provid er Reason for Visit * Reason Comments Medication Refill Encounter Details Date Type Department Care Team (Late st Contact Info) Description 01/07/2023 Refill [facility] #2 [place] [address] Ja Samuel MD #[address] [address] Medication Refill Social History Tobacco Use Types [...] 0 Signed by: Alexus Mehta APRN, CNP [facility] documented in this encounter Plan of Treatment Not on file documented as of this encounter Visit Diagnoses Diagnosis Anxiety Anxiety state, unspecified documented in this encounter Additional Health Concerns Infection Onset Date Last Indicated Resolved Time ESBL 06/20/2018 01/01/2022 Assessment Noted Time PHQ-9 Depression Total Score: 0 01/14/20 22 10:00 AM FILLETER documented as of this encounter Care Teams Corporate Coordinator Relationship Specialty Start Date End Date Alexus Mehta APRN, CNP #2 [facility] [address] [place] [address] PCP - General Advanced Practice Nurse 01/13/22 Aditya Reza MD #2 [facility] [address] [place] [address] Consulting Physician Urology 12/31/21 documented as of this encounter
--- OUTSIDE RECORDS SUMMARY | 2024-05-16 16:38 | XMS_ITS | Continuity of Care Document ---
Author Organization [employer] [facility] Address [address] [place] [address] Phone Care Team Providers Care Water Quality Technician Name Role Phone Juan Daniel Thayer MD [...] Diagnoses Date Provider Providers Copied on Encounter [facility], [address], [place], [place], [id number], [place] tel:[phone] SEC Tone RIVERS Professional No Information [address], [address], [place], [place], [id number], [place]. tel:[phone] Family History Family Member Type Diagnosis Age [...]
--- OUTSIDE RECORDS SUMMARY | 2024-05-16 16:38 | XMS_ITS | Encounter Summary ---
Author Organization [facility] Address [address] [address] Phone Care Team Providers Care Executive Account Manager Name Role Phone Aditya Reza MD Unavailable Alexus Mehta APRN, CNP Primary Care Provid er Reason for Visit * Reason Comments Medication Refill Encounter Details Date Type Department Care Team (Late st Contact Info) Description 09/13/2022 Refill [facility] #2 [place] [address] Ja Samuel MD #[address] [address] Medication Refill Social History Tobacco Use Types [...] 08/02/2022 90 180 Each Ja Samuel MD [facility] #... 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
--- OUTSIDE RECORDS SUMMARY | 2024-05-16 16:38 | XMS_ITS | Encounter Summary ---
Author Organization [facility] Address [address] [place] [address] Phone Care Team Providers Care Farmer Diversified Crops Name Role Phone Aditya Reza MD Unavailable Alexus Mehta APRN, CNP Primary Care Provid er Reason for Visit * Reason Comments Medication Refill Encounter Details Date Type Department Care Team (Late st Contact Info) Description 02/10/2023 Refill [facility] - [facility] - [place] [address] [place] [address] Alexus Mehta APRN, CNP #[address] [address] Medication Refill Social History Tobacco [...] 12/31/22 Office Visit Alexus Mehta APRN, CNP [facility] Showing recent visits within past 182 days [...] Serotonin Modulators for at least 6 months E DELIVERY MANAGER documented in this encounter Plan of Treatment Not on file documented as of this encounter Visit Diagnoses Not on filedocumented in this encounter Additional Health Concerns Infection Onset Date Last Indicated Resolved Time ESBL 06/20/2018 01/01/2022 Assessment Noted Time PHQ-9 Depression Total Score: 0 01/14/20 10:00 AM ROUTE DELIVERY MANAGER documented as of this encounter Care Teams Farmer Diversified Crops Relationship Specialty Start Date End Date Alexus Mehta APRN, [place] #2 [facility] [address] [place] [phone] PCP - General Advanced Practice Nurse 01/13/22 Aditya Reza MD #2 [facility] [address] [place] [address] Consulting Physician Urology 12/31/21 documented as of this encounter
--- OUTSIDE RECORDS SUMMARY | 2024-05-16 16:38 | XMS_ITS | Encounter Summary ---
Author Organization [facility] Address [address] [place] [address] Phone Care Team Providers Care Camp Recreation Specialist Name Role Phone Aditya Reza MD Unavailable Alexus Mehta APRN, CNP Primary Care Provid er Reason for Visit * Reason Comments Medication Refill Encounter Details Date Type Department Care Team (Late st Contact Info) Description 11/20/2023 Refill [facility] - Family Medicine - [place] [address] [place] [address] Alexus Mehta APRN, CNP #[address] [address] Medication Refill Social History Tobacco Use Types Packs/Day Years Used Date Smoking Tobacco: Former Cigarettes 0 07/06/1982 - 07/06/1989 Smokeless Tobacco: Never Alcohol Use Standard Drinks/Week Comments Never 0 (1 standard drink = 0.6 oz pur e alcohol) [facility] Utilities Answer Date Recorded In the past [...] often do you attend chur ch or samaritan services? 1 to 4 times per year 10/14/2023 Do you belong to any clubs o r organizations such as zoroastrian groups, unions, fraternal or athletic groups, or [...] Total Score - Questions 1-9 12 11/2023 [facility] - [...] any time in the past 12 m [facility], were you homeless or living in a correction (including now)? No 10/14/2023 Education Answer Date [...] discontinued on 12/31/2022 by Alexus Mehta APRN, NYLON MENDER documented in this encounter Plan of Treatment [...] documented as of this encounter Care Teams Camp Recreation Specialist Relationship Specialty Start Date End Date Alexus Mehta APRN, NYLON MENDER #2 [facility] [address] [place] [address] PCP - General Advanced Practice Nurse 01/13/22 Aditya Reza MD #2 [facility] [address] [place] [address] Consulting Physician Urology 12/31/21 documented as of this encounter
--- OUTSIDE RECORDS SUMMARY | 2024-05-16 16:38 | XMS_ITS | Encounter Summary ---
Author Organization [facility] Address [address] [place] [address] Phone Care Team Providers Care Cooker Chip Name Role Phone Aditya Reza MD Unavailable Alexus Mehta APRN, CNP Primary Care Provid er Reason for Visit * Reason Comments Medication Refill Encounter Details Date Type Department Care Team (Late st Contact Info) Description 06/28/2022 Refill [facility] - [facility] Medicine [facility] #2 [place] [address] Ja Samuel MD #[address] [address] Medication Refill Social History Tobacco Use Types [...] CDT Reordered 06/04/22 for 4 months - [facility] documented in this encounter Plan of Treatment Not on file documented as of this encounter Visit Diagnoses Not on filedocumented in this encounter Additional Health Concerns Infection Onset Date Last Indicated Resolved Time ESBL 06/20/2018 01/01/2022 Assessment Noted Time PHQ-9 Depression Total Score: 0 01/14/20 10:00 AM INCOME TAX EXPERT documented as of this encounter Care Teams Cooker Chip Relationship Specialty Start Date End Date Alexus Mehta APRN, MARRIAGE AND FAMILY COUNSELOR #2 [facility] [address] [place] [address] PCP - General Advanced Practice Nurse 01/13/22 Aditya Reza MD #2 [facility] [address] [place] [address] Consulting Physician Urology 12/31/21 documented as of this encounter
--- OUTSIDE RECORDS SUMMARY | 2024-05-16 16:38 | XMS_ITS | Encounter Summary ---
Author Organization [facility] Address [address] [place] [address] Phone Care Team Providers Care Certified Control Systems Technician Name Role Phone Aditya Reza MD Unavailable Alexus Mehta APRN, CNP Primary Care Provid er Reason for Visit * Reason Comments Medication Refill Encounter Details Date Type Department Care Team (Late st Contact Info) Description 06/21/2023 Refill [facility] - Family Medicine - [place] #2 [place] [address] Alexus Mehta APRN, CNP #[address] [address] Medication Refill Social History Tobacco [...] documented as of this encounter Care Teams Certified Control Systems Technician Relationship Specialty Start Date End Date Alexus Mehta APRN, CNP #2 [facility] [address] [place] [address] PCP - General Advanced Practice Nurse 01/13/22 Ad[facility]a Reza MD #2 [facility] [address] [place] [address] Consulting Physician Urology 12/31/21 documented as of this encounter
--- OUTSIDE RECORDS SUMMARY | 2024-05-16 16:38 | XMS_ITS | Encounter Summary ---
Author Organization [facility] Address [address] [place] [address] Phone Care Team Providers Care Traffic Line Painter Name Role Phone Aditya Reza MD Unavailable Alexus Mehta APRN, CNP Primary Care Provid er Reason for Visit * Reason Comments Medication Refill Encounter Details Date Type Department Care Team (Late st Contact Info) Description 02/02/2023 Refill [facility] - Family Medicine - [place] #2 [place] [address] Alexus Mehta APRN, CNP #[address] [address] Medication Refill Social History Tobacco [...] CNP for the following reason: Formulary change. MAKER HELPER documented in this encounter Plan of Treatment Not on file documented as of this encounter Visit Diagnoses Diagnosis Anxiety Anxiety state, unspecified documented in this encounter Additional Health Concerns Infection Onset Date Last Indicated Resolved Time ESBL 06/20/2018 01/01/2022 Assessment Noted Time PHQ-9 Depression Total Score: 0 01/14/20 10:00 AM TOOLMAKER HELPER documented as of this encounter Care Teams Traffic Line Painter Relationship Specialty Start Date End Date Alexus Mehta APRN, CNP #2 [facility] [address] [place] [phone] PCP - General Advanced Practice Nurse 01/13/22 Aditya Reza MD #2 [facility] [address] [place] [address] Consulting Physician Urology 12/31/21 documented as of this encounter
--- OUTSIDE RECORDS SUMMARY | 2024-05-16 16:38 | XMS_ITS | Clinical Summary ---
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
--- OUTSIDE RECORDS SUMMARY | 2024-05-16 16:38 | XMS_ITS | Clinical Summary ---
Author Organization 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 [facility] Provider ENDOSCOPY PROCEDURES Kelsey l Result from Last 3 Months or Most Recently Relevant to Health Maintenance Insurance [facility] MEDICARE MEDICARE [facility] MEDICARE [facility] Care Teams Basin Cleaner Relationship Specialty Start Date End Date Alexus Mehta NP 2 [facility] [address] [place] [address] PCP - General Nurse Practitioner 11/03/22 Cuong Gaytan MD [address] [facility] [facility] MARIPOSA Beebe [facility] [address] [place] [address] Consulting Physician Obstetrics and Gynecology 05/17/23
--- OUTSIDE RECORDS SUMMARY | 2024-05-16 16:38 | XMS_ITS | Encounter Summary ---
Author Organization [employer] [facility] Address 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 2.0 - 3.0 for patients with tissue heart valves. 2.5 - 3.5 for patients with mechanical heart valves or post [place]. Pediatric (12 years and under): 1.5 - 3.0 Although the target range in children is not well established, INR values of 1.5 - 3.0 are recommended for most patients. Higher values have been used in children with prosthetic cardiac valves and hereditary clotting disorders. [place] (<3 days) therapeutic ranges have not been established. PROTIME 27.1(H) 12.7 - 15.1 Seconds [facility] 09/07/2008 5:57 AM CDT 09/07/2008 6:39 AM CDT us Gio Watkins MD HEMATOLOGY ORDERABLES Kelsey kaminski Result INTERFACE SYSTEM Refer to clinic/hospital department [facility] CLIA# [id number] [address] [place] [address] * (ABNORMAL) PROTIME-INR (09/06/2008 5:00 AM CDT) PROTIME 23.5(H) 12.7 - 15.1 Seconds [facility] INR 2.1(H) 0.9 - 1.1 [facility] Comment: INR Therapeutic Range: Adult: 2.0 - 3.0 for pulmonary embolism or prophylaxis against venous thrombosis or systemic embolization. 2.0 - 3.0 for patients with tissue heart valves. 2.5 - 3.5 for patients with mechanical heart valves or post [place]. Pediatric (12 years and under): 1.5 - 3.0 Although the target range in children is not well established, INR values of 1.5 - 3.0 are recommended for most patients. Higher values have been used in children with prosthetic cardiac valves and hereditary clotting disorders. [place] (<3 days) therapeutic ranges have not been established. 09/06/2008 5:00 AM CDT 09/06/2008 6:09 AM CDT us Subbuluxmi Sunita DONALDSON HEMATOLOGY ORDERABLES Fi nal Result INTERFACE SYSTEM Refer to clinic/hospital department [facility] CLIA# [id number] [address] [facility] [place] [address] * (ABNORMAL) BASIC METABOLIC PANEL (09/06/2008 5:00 AM CDT) CHLORIDE 104 96 - 108 mmol/L [facility] GLUCOSE 98 65 - 99 mg/dL [facility] SODIUM 135 135 - 145 mmol/L [facility] CALCIUM 8.2(L) 8.6 - 10.2 mg/dL [facility] CO2 24 22 - 30 mmol/L [facility] CREATININE 0.80 0.51 - 0.95 mg/dL [facility] POTASSIUM 4.1 3.5 - 4.9 mmol/L [facility] BUN 15 6 - 20 mg/dL [facility] GFR, >60 >=60 mL/min/1. 7 sq meter [facility] GFR >60 >=60 mL/min/1. 7 sq meter [facility] Comment: Modification of Diet in Renal Disease (MDRD) study formula. Estimated GFR rate interpretative information for both Americans and non- Americans is available on the [facility] Intranet at: [email or web address] Select: Lab Policies and Procedures Select: Reference Ranges - GFR 09/06/2008 5:00 AM CDT 09/06/2008 6:09 AM CDT us Subbuluxmi Sunita DONALDSON CHEMISTRY ORDERABLES Chavo mack INTERFACE SYSTEM Refer to clinic/hospital department [facility] CLIA# [id number] [address] [place] [address] * (ABNORMAL) CBC WITH DIFFERENTIAL (09/06/2008 5:00 AM CDT) MCV 83.8 82.0 - 99.0 fL [facility] PLATELETS 191 140 - 350 K/uL [facility] HEMOGLOBIN 8.3(L) 11.8 - 14.8 g/dL [facility] RDW 14.8(H) 11.5 - 14.5 % [facility] WBC 7.9 4.0 - 9.8 K/uL [facility] MCH 27.5 27.2 - 32.6 pg [facility] MPV 10.5 9.3 - 12.4 fL [facility] HEMATOCRIT 25.3(L) 35.5 - 44.0 % [facility] RDW-STDEV 46.0 37.1 - 48.7 fL [facility] RBC 3.02(L) 3.90 - 4.90 M/uL [facility] MCHC 32.8 31.5 - 35.5 % [facility] BASOPHILS ABSOLUTE 0.00 0.00 - 0.20 K/uL [facility] POIKILOCYTES Slight [facility] MONOCYTES 5 3 - 13 % [facility] MONOCYTE ABSOLUTE 0.40 0.10 - 1.30 K/uL [facility] PLATELET EST. Consistent w/ count Normal [facility] BANDS 1 0 - 5 % [facility] NEUTROPHIL ABSOLUTE 6.32 1.90 - 7.00 K/uL [facility] NEUTROPHILS, SEG 79(H) 45 - 70 % [facility] EOSINOPHILS 2 0 - 7 % [facility] MICROCYTES Slight [facility] EOSINOPHIL ABSOLUTE 0.16 0.00 - 0.70 K/uL [facility] LYMPHOCYTES 13(L) 16 - 45 % [facility] ANISOCYTOSIS Slight [facility] LYMPHOCYTE ABSOLUTE 1.03 0.70 - 4.50 K/uL [facility] BASOPHILS 0 0 - 2 % [facility] Blood specimen (specimen) 09/06/2008 5:00 AM CDT 09/06/2008 6:09 AM CDT Mickbuluxbrad Dorsey MD HEMATOLOGY ORDERABLES Ed ited INTERFACE SYSTEM Refer to clinic/hospital department [facility] CLIA# [id number] [address] [place] [address] * (ABNORMAL) PROTIME-INR (09/05/2008 4:16 AM CDT) PROTIME 16.3(H) 12.7 - 15.1 Seconds [facility] INR 1.3(H) 0.9 - 1.1 [facility] Comment: INR Therapeutic Range: Adult: 2.0 - 3.0 for pulmonary embolism or prophylaxis against venous thrombosis or systemic embolization. 2.0 - 3.0 for patients with tissue heart valves. 2.5 - 3.5 for patients with mechanical heart valves or post [place]. Pediatric (12 years and under): 1.5 - [...] ORDERABLES Kelsey kaminski Result Performing Organization Address [facility] Phone Number INTERFACE SYSTEM Refer to clinic/hospital department [facility] CLIA# [id number] [address] [facility] [place] [address] * (ABNORMAL) HEMOGLOBIN AND HEMATOCRIT (09/05/2008 4:16 AM CDT) HEMOGLOBIN 8.9(L) 11.8 - 14.8 g/dL [facility] HEMATOCRIT 27.1(L) 35.5 - 44.0 % [facility] 09/05/2008 4:16 AM CDT 09/05/2008 5:14 AM CDT Gio Watkins MD HEMATOLOGY ORDERABLES Kelsey l Result Performing Organization Address [facility] de Phone Number INTERFACE SYSTEM Refer to clinic/hospital department [facility] CLIA# [id number] [address] [place] [address] * (ABNORMAL) BASIC METABOLIC PANEL (09/05/2008 4:16 AM CDT) CREATININE 0.86 0.51 - 0.95 mg/dL [facility] POTASSIUM 3.4(L) 3.5 - 4.9 mmol/L [facility] BUN 13 6 - 20 mg/dL [facility] CHLORIDE 103 96 - 108 mmol/L [facility] GLUCOSE 115(H) 65 - 99 mg/dL [facility] SODIUM 135 135 - 145 mmol/L [facility] CALCIUM 8.1(L) 8.6 - 10.2 mg/dL [facility] CO2 23 22 - 30 mmol/L [facility] GFR, >60 >=60 mL/min/1. 7 sq meter [facility] GFR >60 >=60 mL/min/1. 7 sq meter [facility] Comment: Modification of Diet in Renal Disease (MDRD) study formula. Estimated GFR rate interpretative information for both Americans and non- Americans is available on the [facility] Intranet at: [email or web address] Select: Lab Policies and Procedures Select: Reference Ranges - GFR 09/05/2008 4:16 AM CDT 09/05/2008 5:14 AM CDT Gio Watkins MD CHEMISTRY ORDERABLES Edite d Performing Organization Address City/State/[facility] Co de Phone Number INTERFACE SYSTEM Refer to clinic/hospital department [facility] CLIA# [id number] [address] [place] [address] * XR CHEST PA AND LATERAL (08/13/2008 11:57 AM CDT) Anatomical Region Laterality Modality Chest Other 08/13/2008 11:5 7 AM CDT Narrative 08/13/2008 12:45 PM CDT [facility] [address] [place], [place] [address] Admit Date: 07/09/2008 DEANNA YOO Sex: F Admit Prov: GIO WATKINS Date: 1950 Primary Care Prov: SRIKANTH MULLINS CMRN: [id number] Room: [facility] N: [id number] IMAGING SERVICES Ordering Prov: N/A Accession Number: [id number] Interpretation PA AND LATERAL CHEST X-RAY, 08/13/2008 [...] Procedure Note Lupe Carter MD - 08/13/2008 [address] [place], [place] [address] Admit Date: 07/09/2008 DEANNA YOO Sex: F Admit Prov: GIO WATKINS Date: 1950 Primary Care Prov: SRIKANTH MULLINS CMRN: [id number] [facility]: [id number] IMAGING SERVICES Ordering Prov: N/A Interpretation PA [...] AM CDT) CLARITY UA Slt. Cloudy(A) Clear [facility] PROTEIN UA Trace(A) Negative [facility] EPITHELIAL CELLS, URINE 0-2 /HPF [facility] BILIRUBIN UA Negative Negative [facility] LEUKOCYTE ESTERASE UA 3+(A) Negative [facility] RBC UA 28(H) 0 - 4 /HPF [facility] SPECIFIC GRAVITY UA 1.013 1.001 - 1.035 [facility] BLOOD UA 2+(A) Negative [facility] GLUCOSE UA Negative Negative [facility] WBC CLUMPS Present(A) None Seen [facility] COLOR UA Yellow [facility] NITRITE UA Negative Negative [facility] UROBILINOGEN UA <1 <=1 mg/dL [facility] BACTERIA UA 3+(A) None Seen /HPF [facility] PH UA 5.5 5.0 - 8.0 [facility] KETONES UA Negative Negative [facility] WBC UA >100(H) 0 - 5 /HPF [facility] 08/13/2008 11:1 4 AM CDT 08/13/2008 12:16 PM CDT us Gio Watkins MD URINE ORDERABLES Final Res ult INTERFACE SYSTEM Refer to clinic/hospital department [facility] CLIA# [id number] [address] [place] [address] * COMPREHENSIVE METABOLIC PANEL (08/13/2008 11:14 AM CDT) Pathologist [facility] ALKALINE PHOSPHATASE 79 35 - 104 U/L [facility] CO2 22 22 - 30 mmol/L [facility] BILIRUBIN TOTAL 0.4 0.2 - 1.0 mg/dL [facility] POTASSIUM 3.5 3.5 - 4.9 mmol/L [facility] TOTAL PROTEIN 7.7 6.3 - 8.6 g/dL [facility] GLUCOSE 90 65 - 99 mg/dL [facility] AST 12 12 - 32 U/L [facility] BUN 12 6 - 20 mg/dL [facility] CALCIUM 9.6 8.6 - 10.2 mg/dL [facility] ALBUMIN 4.1 3.4 - 4.8 g/dL [facility] CHLORIDE 105 96 - 108 mmol/L [facility] CREATININE 0.92 0.51 - 0.95 mg/dL [facility] ALT 13 0 - 31 U/L [facility] SODIUM 140 135 - 145 mmol/L [facility] GFR, >60 >=60 mL/min/1.7 sq meter [facility] GFR >60 >=60 mL/min/1.7 sq meter [facility] Comment: Modification of Diet in Renal Disease (MDRD) study formula. Estimated GFR rate interpretative information for both Americans and non- Americans is available on the [facility] Intranet at: [email or web address] Select: Lab Policies and Procedures Select: Reference Ranges - GFR 08/13/2008 11:1 4 AM CDT 08/13/2008 12:08 PM CDT us Gio Watkins MD CHEMISTRY ORDERABLES Edite d INTERFACE SYSTEM Refer to clinic/hospital department [facility] CLIA# [id number] [address] [place] [address] * PROTIME-INR (08/13/2008 11:14 AM CDT) INR 1.0 0.9 - 1.1 [facility] Comment: ansiINR Therapeutic Range: Adult: 2.0 - 3.0 for pulmonary embolism or prophylaxis against venous thrombosis or systemic embolization. 2.0 - 3.0 for patients with tissue heart valves. 2.5 - 3.5 for patients with mechanical heart valves or post [place]. Pediatric (12 years and under): 1.5 - 3.0 Although the target range in children is not well established, INR values of 1.5 - 3.0 are recommended for most patients. Higher values have been used in children with prosthetic cardiac valves and hereditary clotting disorders. [place] (<3 days) therapeutic ranges have not been established. PROTIME 13.5 12.7 - 15.1 Seconds [facility] 08/13/2008 11:1 4 AM CDT 08/13/2008 12:08 PM CDT us Gio Watkins MD HEMATOLOGY ORDERABLES Kelsey kaminski Result INTERFACE SYSTEM Refer to clinic/hospital department [facility] CLIA# [id number] [address] [place] [address] * (ABNORMAL) CBC WITH DIFFERENTIAL (08/13/2008 11:14 AM CDT) Pathologist [facility] WBC 6.9 4.0 - 9.8 K/uL [facility] MCH 27.7 27.2 - 32.6 pg [facility] MPV 11.1 9.3 - 12.4 fL [facility] HEMATOCRIT 36.5 35.5 - 44.0 % [facility] RDW-STDEV 44.2 37.1 - 48.7 fL [facility] RBC 4.23 3.90 - 4.90 M/uL [facility] MCHC 32.1 31.5 - 35.5 % [facility] MCV 86.3 82.0 - 99.0 fL [facility] PLATELETS 334 140 - 350 K/uL [facility] HEMOGLOBIN 11.7(L) 11.8 - 14.8 g/dL [facility] RDW 14.2 11.5 - 14.5 % [facility] LYMPHOCYTES 29 16 - 45 % [facility] LYMPHOCYTE ABSOLUTE 2.01 0.70 - 4.50 K/uL [facility] BASOPHILS 0 0 - 2 % [facility] BASOPHILS ABSOLUTE 0.02 0.00 - 0.20 K/uL [facility] MONOCYTES 8 3 - 13 % [facility] MONOCYTE ABSOLUTE 0.57 0.10 - 1.30 K/uL [facility] NEUTROPHILS 62 45 - 70 % [facility] NEUTROPHIL ABSOLUTE 4.24 1.90 - 7.00 K/uL [facility] EOSINOPHILS 1 0 - 7 % [facility] EOSINOPHIL ABSOLUTE 0.05 0.00 - 0.70 K/uL [facility] 08/13/2008 11:1 4 AM CDT 08/13/2008 12:08 PM CDT us Gio Watkins MD HEMATOLOGY ORDERABLES Edit ed INTERFACE SYSTEM Refer to clinic/hospital department [facility] CLIA# [id number] [address] [place] [address] * TYPE AND CROSSMATCH (08/13/2008 11:13 AM CDT) HISTORY CHECK No Historical ABO/Rh [facility] SPECIMEN LIFE 3 days from OR date [facility] ABO/RH TYPE AB Negative [facility] ANTIBODY SCREEN Negative [facility] 08/13/2008 11:1 3 AM CDT us Gio Watkins MD BLOOD BANK ORDERABLES Edit ed INTERFACE SYSTEM Refer to clinic/hospital department [facility] CLIA# [id number] [address] [place], [place] [address] documented in this encounter Visit Diagnoses Not on filedocumented in this encounter
--- OUTSIDE RECORDS SUMMARY | 2024-05-16 16:38 | XMS_ITS | Encounter Summary ---
Author Organization [facility] Address [address] 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
--- OUTSIDE RECORDS SUMMARY | 2024-05-16 16:38 | XMS_ITS | Encounter Summary ---
Author Organization [facility] Address [address] [place] [address] Phone Care Team Providers Care Blanking Press Operator Name Role Phone Aditya Reza MD Unavailable Alexus Mehta APRN, CNP Primary Care Provid er Reason for Visit * Reason Comments Medication Refill Encounter Details Date Type Department Care Team (Late st Contact Info) Description 06/24/2023 Refill [facility] - [place] [address] [place] [address] Alexus Mehta APRN, CNP [address] [address] Medication Refill Social History Tobacco [...] AM CDT Medication(s) refilled and signed per [facility] Chronic Medication Refill Standing Order for [...] 12/31/22 Office Visit Alexus Mehta APRN, CNP [facility] [place] Showing recent visits within past 365 [...] documented as of this encounter Care Teams Blanking Press Operator Relationship Specialty Start Date End Date Alexus Mehta APRN, [place] #2 [facility] [address] [place] [address] PCP - General Advanced Practice Nurse 01/13/22 Aditya Reza MD #[address] [facility] [address] [place] [address] Consulting Physician Urology 12/31/21 documented as of this encounter
--- OUTSIDE RECORDS SUMMARY | 2024-05-16 16:38 | XMS_ITS | Encounter Summary ---
Author Organization [facility] Address [address] [place] [address] Phone Care Team Providers Care Will Call Clerk Name Role Phone Aditya Reza MD Unavailable Alexus Mehta APRN, CNP Primary Care Provid er Reason for Visit * Reason Comments Medication Refill Encounter Details Date Type Department Care Team (Late st Contact Info) Description 04/23/2022 Refill [facility] - [facility] [address] [place] [address] Alexus Mehta APRN, CNP #[address] [address] Medication Refill Social History Tobacco [...] Coronavirus/COVID-19? No / Unsure 04/09/2022 3:43 PM WRAPPER OPERATOR documented as of this encounter Miscellaneous Notes * Telephone Encounter - Lynn Saucedo RN - 04/23/2022 3:16 PM CST Signed Today (04/23/2022): venlafaxine (EFFEXOR) 100 MG Tablet Sig: TAKE 1 TABLET BY MOUTH IN THE MORNING AND AT BEDTIME Disp: 180 Tablet ? Refills: 1 Signed by: Ja Samuel MD [facility] PER OPERATOR 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, unspecified documented in this encounter Additional Health Concerns Infection Onset Date Last Indicated Resolved Time ESBL 06/20/2018 01/01/2022 Assessment Noted Time PHQ-9 Depression Total Score: 0 01/14/20 22 10:00 AM WRAPPER OPERATOR documented as of this encounter Care Teams Will Call Clerk Relationship Specialty Start Date End Date Alexus Mehta APRN, CNP #2 [facility] [address] [place] [address] PCP - General Advanced Practice Nurse 01/13/22 Aditya Reza MD #2 [facility] [address] [place] [address] Consulting Physician Urology 12/31/21 documented as of this encounter
--- OUTSIDE RECORDS SUMMARY | 2024-05-16 16:38 | XMS_ITS | Clinical Summary ---
Author Organization [facility] Address [address] [place] [address] Phone Care Team Providers Care Computational Physicist Name Role Phone Aditya Reza MD Unavailable [...] Department Care Team Description 2024 Telephone [facility] [address] [place] [address] Deanna Grajeda RN 04/12/2024 5:39 PM WELDING EQUIPMENT REPAIRER - 04/12/2024 9:37 PM WELDING EQUIPMENT REPAIRER Emergency [facility] Emergency [address] [place] [address] Madelyn Jha APRN, TYRONE Injury of head, initial encounter Discharge Disposition: Discharged to home or Selfcare 04/12/2024 Travel 03/17/2024 Refill [facility] [place] [address] Ja Samuel MD Medication Refill 03/15/2024 Refill [facility] [place] [address] Alexus Mehta APRN, TURF AND GROUNDS SUPERVISOR Medication Refill from Last 3 Months Immunizations [...] drink = 0.6 oz pur e alcohol) [facility] Utilities Answer Date Recorded In the past 12 months has e [employer], gas, oil, or water [employer] threatened to shut off services in your [...] often do you attend chur ch or jew services? 1 to 4 times per year 10/14/2023 Do you belong to any clubs o r organizations such as adventist groups, unions, fraternal or athletic groups, or [...] Total Score - Questions 1-9 0 03/2023 [facility] - Occupational Stress Questionnaire Answer Date Recorded [...] any time in the past 12 m [facility], were you homeless or living in a chcf (including now)? No 10/14/2023 Education Answer Date [...] Comments Blood Pressure 137/93 04/12/2024 9:00 PM WELDING EQUIPMENT REPAIRER Pulse 87 04/12/2024 9:15 PM WELDING EQUIPMENT REPAIRER Temperature 36.1 C (96.9 F) 04/12/2024 2:43 PM WELDING EQUIPMENT REPAIRER Respiratory Rate 18 04/12/2024 9:15 PM WELDING EQUIPMENT REPAIRER Oxygen Saturation 100% 04/12/2024 9:15 PM WELDING EQUIPMENT REPAIRER Inhaled Oxygen Concentration - - Weight 81.2 kg (179 lb) 04/12/2024 2:43 PM WELDING EQUIPMENT REPAIRER Height 163.8 cm (5' 4.5 ) 04/12/2024 2:43 PM WELDING EQUIPMENT REPAIRER Body Mass Index 30.25 04/12/2024 2:43 PM WELDING EQUIPMENT REPAIRER Plan of Treatment Health Maintenance Due Date [...] this topic Medical Devices Implanted Type Area Residential Life Director Device Identifier Shelf Expiration Date Model / Serial / Lot Stent Ureteral 6fr 2.1fr 24cm 2 Pigtail Curve 2 Durometer Taper Tip Loprfl Graduated Polaris Ultra - [id number] Implanted:Qty: 1 on 07/15/2018 by Marbella Alejandra MD at [facility] IMPLANT Right: Ureter [id number] 02/07/2021 [id number] 20 / [id number] 20 / [id number] Speedbridge Implant Systemw Ith Biocomposity Swivel Lock Implanted:Qty: 1 on 07/29/2016 by Kofi Henning MD at [facility] Left: Shoulder 03/07/2018 / [id number] S-4 / [id number] Explanted Type Area Residential Life Director Device Identifier Shelf Expiration Date Model / Serial / Lot Stent Ureteral 6fr 2.1fr 24cm 2 Pigtail Curve 2 Durometer Taper Tip Loprfl Graduated Polaris Ultra - [id number] Implanted:Qty : 1 on 06/24/2018 by Marbella Alejandra MD at [facility] Explanted:Qty : 1 on 07/15/2018 by Marbella Alejandra MD at [facility] IMPLANT Right: Ureter [employer] 12/20/2020 [id number] 0 / [id number] / [id number] Procedures Procedure Name Priority Date/Time Associated Diagnosis Comments CT CHEST ABDOMEN AND PELVIS W CONTRAST Stat with Interpretation 04/12/2024 8:04 PM WELDING EQUIPMENT REPAIRER GOLD TOP TUBE STAT 04/12/2024 6:45 PM WELDING EQUIPMENT REPAIRER BLUE TOP TUBE STAT 04/12/2024 6:45 PM WELDING EQUIPMENT REPAIRER CBC WITH AUTO DIFFERENTIAL STAT 04/12/2024 6:45 PM WELDING EQUIPMENT REPAIRER EXTRA TUBES STAT 04/12/2024 6:45 PM WELDING EQUIPMENT REPAIRER CMP (COMPREHENSIVE METABOLIC PANEL) STAT 04/12/2024 6:45 PM WELDING EQUIPMENT REPAIRER COMPLETE BLOOD COUNT (CBC) WITH DIFF STAT 04/12/2024 6:45 PM WELDING EQUIPMENT REPAIRER XR RIBS UNILATERAL WITH PA CHEST LEFT STAT 04/12/2024 3:35 [address]ING EQUIPMENT REPAIRER CT FACIAL BONES WO CONTRAST Stat with Interpretation 04/12/2024 3:17 PM WELDING EQUIPMENT REPAIRER CT CERVICAL SPINE WO/ CONTRAST Stat with Interpretation 04/12/2024 3:16 PM WELDING EQUIPMENT REPAIRER CT HEAD OR BRAIN WO CONTRAST Stat with Interpretation 04/12/2024 3:15 PM WELDING EQUIPMENT REPAIRER [facility] BONE DENSITOMETRY AXIAL SKELETON Routine 08/06/2022 11:38 AM CDT Post-menopausal Encounter for screening for osteoporosis [facility] SCREENING BILATERAL DIGITAL W CAD W JESSICA Routine 08/06/2022 11:27 AM CDT Screening mammogram for breast cancer from Last 3 Months or Most Recently Relevant to Health Maintenance Results * CT CHEST ABDOMEN AND PELVIS W CONTRAST (04/12/2024 8:04 PM WELDING EQUIPMENT REPAIRER) Anatomical Region Laterality Modality Chest, Abdomen, Pelvis N/A Computed Tomography 04/12/2024 8:40 PM WELDING EQUIPMENT REPAIRER Impressions 04/12/2024 8:43 PM WELDING EQUIPMENT REPAIRER IMPRESSION: Acute nondisplaced single part fractures of the anterior left 5th and 6th ribs. No acute findings in the abdomen and pelvis. Narrative 04/12/2024 8:43 PM WELDING EQUIPMENT REPAIRER EXAM DESCRIPTION: CT CHEST ABDOMEN AND PELVIS [...] Marysol Aguirre M.D. FT: FT Report ID: [id number] Reading Location: [id number] Procedure Note Marysol Dietz MD - 04/12/2024 [...] Marysol Aguirre M.D. FT: FT Report ID: [id number] Reading Location: [id number] IMPRESSION: Acute nondisplaced single part fractures of the anterior left 5th and 6th ribs. No acute findings in the abdomen and pelvis. Madelyn Jha APRN, CNP IMG CT ORDERABLES Final Result * Gold Top Tube (04/12/2024 6:45 PM WELDING EQUIPMENT REPAIRER) Blood No Phlebotomy Charged / Unknown 04/12/2024 6:45 PM WELDING EQUIPMENT REPAIRER 04/12/2024 6:56 PM WELDING EQUIPMENT REPAIRER Madelyn Jha APRN, CNP CHEMISTRY ORDERABL ES Final Result [facility] [address] [place] [address] * Blue Top Tube (04/12/2024 6:45 PM WELDING EQUIPMENT REPAIRER) Blood No Phlebotomy Charged / Unknown 04/12/2024 6:45 PM WELDING EQUIPMENT REPAIRER 04/12/2024 6:56 PM WELDING EQUIPMENT REPAIRER Madelyn Jha APRN, CNP HEMATOLOGY ORDERAB LES Final Result [facility] [address] [place] [address] * (ABNORMAL) CBC with Auto Differential (04/12/2024 6:45 PM WELDING EQUIPMENT REPAIRER) WBC 10.10 4.00 - 12.00 10(3)/mcL 04/12/2024 6:59 PM WELDING EQUIPMENT REPAIRER [facility] RBC 3.84 3.80 - 5.30 10(6)/mcL 04/12/2024 6:59 PM [facility] HEMOGLOBIN (HGB) 11.4(L) 12.0 - 15.8 g/dL 04/12/2024 6:59 PM [facility] HEMATOCRIT (HCT) 34.5(L) 36.0 - 47.0 % 04/12/2024 6:59 PM [facility] MCV 89.8 82.0 - 96.0 fL 04/12/2024 6:59 PM [facility] MCH 29.7 26.0 - 34.0 pg 04/12/2024 6:59 PM [facility] MCHC 33.0 31.0 - 36.0 g/dL 04/12/2024 6:59 PM [facility] PLATELET COUNT 290 140 - 440 10(3)/mcL 04/12/2024 6:59 PM [facility] RDW 13.5 11.8 - 15.5 % 04/12/2024 6:59 PM [facility] MPV 10.5 9.7 - 12.4 fL 04/12/2024 6:59 PM [facility] NEUTROPHILS 71.4 47.0 - 73.0 % 04/12/2024 6:59 PM [facility] LYMPHOCYTES 15.7(L) 18.0 - 42.0 % 04/12/2024 6:59 PM [facility] MONOCYTES 11.7 4.0 - 12.0 % 04/12/2024 6:59 PM [facility] EOSINOPHILS 0.9 0.0 - 5.0 % 04/12/2024 6:59 PM [facility] BASOPHILS 0.3 0.0 - 1.0 % 04/12/2024 6:59 PM [facility] ABSOLUTE NEUTROPHILS 7.21 1.60 - 7.70 10(3)/mcL 04/12/2024 6:59 PM [facility] ABSOLUTE LYMPHOCYTES 1.59 1.30 - 3.20 10(3)/mcL 04/12/2024 6:59 PM WELDING EQUIPMENT REPAIRER [facility] ABSOLUTE MONOCYTES 1.18(H) 0.20 - 1.00 10(3)/[facility] 04/12/2024 6:59 PM WELDING EQUIPMENT REPAIRER [facility] ABSOLUTE EOSINOPHIL 0.09 0.00 - 0.40 10(3)/[facility] 04/12/2024 6:59 PM WELDING EQUIPMENT REPAIRER [facility] ABSOLUTE BASOPHILS 0.03 0.00 - 0.10 10(3)/[facility] 04/12/2024 6:59 PM WELDING EQUIPMENT REPAIRER [facility] NRBC PER 100 WBC 0 04/12/19 6:59 PM WELDING EQUIPMENT REPAIRER [facility] Blood Venipuncture / Unknown 04/12/2024 6:45 PM WELDING EQUIPMENT REPAIRER 04/12/2024 6:54 PM WELDING EQUIPMENT REPAIRER us Madelyn Jha APRN, TURF AND GROUNDS SUPERVISOR HEMATOLOGY ORDERAB LES Final Result [facility] [address] [place] [address] * (ABNORMAL) CMP (04/12/2024 6:45 PM WELDING EQUIPMENT REPAIRER) SODIUM 141 136 - 145 mmol/L 04/12/2024 7:18 PM [facility] POTASSIUM 3.9 3.5 - 5.1 mmol/L 04/12/2024 7:18 PM [facility] CHLORIDE 108(H) 98 - 107 mmol/L 04/12/2024 7:18 PM [facility] CO2, VENOUS 25 22 - 30 mmol/L 04/12/2024 7:18 PM [facility] ANION GAP 11.9 <18.0 mmol/L 04/12/2024 7:18 PM [facility] GLUCOSE 112(H) 70 - 99 mg/dL 04/12/2024 7:18 PM [facility] BUN 26(H) 10 - 20 mg/dL 04/12/2024 7:18 PM [facility] CREATININE, BLOOD 1.05(H) 0.60 - 1.00 mg/dL 04/12/2024 7:18 PM [facility] BUN/CREATININE RATIO 25(H) 12 - 20 ratio 04/12/2024 7:18 PM [facility] TOTAL PROTEIN 7.7 6.0 - 8.0 g/dL 04/12/2024 7:18 PM [facility] ALBUMIN 4.1 3.5 - 5.0 g/dL 04/12/2024 7:18 PM [facility] A/G RATIO 1.1 1.0 - 2.2 04/12/2024 7:18 PM [facility] CALCIUM 9.2 8.7 - 10.5 mg/dL 04/12/2024 7:18 PM [facility] T BILI 0.3 0.2 - 1.2 mg/dL 04/12/2024 7:18 PM [facility] SGOT (AST) 27 6 - 42 U/L 04/12/2024 7:18 PM [facility] SGPT (ALT) 35 6 - 55 U/L 04/12/2024 7:18 PM [facility] ALKALINE PHOSPHATASE 75 40 - 150 U/L 04/12/2024 7:18 PM [facility] GFR, ESTIMATED 56(L) >=60 04/12/2024 7:18 PM [facility] Comment: Creatinine Clearance is the preferred criteria for selecting drug dose adjustments in renally impaired patients. The GFR is provided as additional pertinent clinical information. GFR is reported in mL/min/1.73 sq m. Calculation based on the Chronic Kidney Disease Epidemiology Collaboration (CKD- EPI) equation refit without adjustment for race. GFR, EST. >60 >=60 025 7:18 PM [facility] GFR, EST. NONAFRICAN 51(L) >=60 04/12/2024 7:18 PM WELDING EQUIPMENT REPAIRER [facility] Blood Venipuncture / Unknown 04/12/2024 6:45 PM WELDING EQUIPMENT REPAIRER 04/12/2024 6:54 PM WELDING EQUIPMENT REPAIRER us Madelyn Jha APRN, TURF AND GROUNDS SUPERVISOR CHEMISTRY ORDERABL ES Final Result [facility] [facility] [place] [address] * XR RIBS UNILATERAL WITH PA CHEST LEFT (04/12/2024 3:35 PM WELDING EQUIPMENT REPAIRER) Anatomical Region Laterality Modality Chest, Rib Left Digital Radiogra phy 04/12/2024 3:46 PM WELDING EQUIPMENT REPAIRER Impressions 04/12/2024 3:48 PM WELDING EQUIPMENT REPAIRER IMPRESSION: Questionable fractures of the left 5th and 6th rib laterally. Narrative 04/12/2024 3:48 PM WELDING EQUIPMENT REPAIRER EXAM DESCRIPTION: XR RIBS UNILATERAL WITH PA [...] Timoteo Uribe M.D. JA: TOYA Report ID: [id number] Reading Location: [id number] Procedure Note Timoteo Uribe MD - 04/12/2024 [...] Timoteo Uribe M.D. JA: TOYA Report ID: [id number] Reading Location: [id number] IMPRESSION: Questionable fractures of the left 5th and 6th rib laterally. Madelyn Jha APRN, CNP IMG DIAGNOSTIC ORD ERABLES Final Result * CT FACIAL BONES WO CONTRAST (04/12/2024 3:17 PM WELDING EQUIPMENT REPAIRER) Anatomical Region Laterality Modality Head N/A Computed Tomogra phy 04/12/2024 3:49 PM WELDING EQUIPMENT REPAIRER Impressions 04/12/2024 3:51 PM WELDING EQUIPMENT REPAIRER IMPRESSION: No acute intracranial abnormality. No acute [...] findings as above. Narrative 04/12/2024 3:51 PM WELDING EQUIPMENT REPAIRER EXAM DESCRIPTION: CT HEAD OR BRAIN WO [...] results in mild spinal canal narrowing and kjjlsyoh-fx-dxmjph left neural foraminal narrowing. C5-6: Posterior disc [...] Dez Santamaria M.D. NS: NS Report ID: [id number] Reading Location: [id number] Procedure Note Dez Santamaria MD - 04/12/2024 [...] results in mild spinal canal narrowing and yunzrdmu-ql-xfyajq left neural foraminal narrowing. C5-6: Posterior disc [...] Dez Santamaria M.D. NS: NS Report ID: [id number] Reading Location: [place] [address] IMPRESSION: No acute intracranial abnormality. No acute [...] chronic findings as above. Madelyn Huffman Abhijeet RESIDENT ATHLETIC TRAINER, TURF AND GROUNDS SUPERVISOR IMG CT ORDERABLES Final Result * CT CERVICAL SPINE WO/ CONTRAST (04/12/2024 3:16 PM WELDING EQUIPMENT REPAIRER) Anatomical Region Laterality Modality Spine N/A Computed Tomogra phy 04/12/2024 3:49 PM WELDING EQUIPMENT REPAIRER Impressions 04/12/2024 3:51 PM WELDING EQUIPMENT REPAIRER IMPRESSION: No acute intracranial abnormality. No acute [...] findings as above. Narrative 04/12/2024 3:51 PM WELDING EQUIPMENT REPAIRER EXAM DESCRIPTION: CT HEAD OR BRAIN WO [...] results in mild spinal canal narrowing and rjbzbnun-qw-yzeodq left neural foraminal narrowing. C5-6: Posterior disc [...] by Dez Livingston.D. NS: NS Report ID: [id number] Reading Location: [id number] Procedure Note Dez Santamaria MD - 04/12/2024 [...] results in mild spinal canal narrowing and hlrfmmsk-jm-yyvjct left neural foraminal narrowing. C5-6: Posterior disc [...] Dez Santamaria M.D. NS: NS Report ID: [id number] Reading Location: [place] [address] IMPRESSION: No acute intracranial abnormality. No acute [...] and chronic findings as above. Madelyn Jha RESIDENT ATHLETIC TRAINER, TURF AND GROUNDS SUPERVISOR IMG CT ORDERABLES Final Result * CT HEAD OR BRAIN WO CONTRAST (04/12/2024 3:15 PM WELDING EQUIPMENT REPAIRER) Anatomical Region Laterality Modality Head N/A Computed Tomogra phy 04/12/2024 3:49 PM WELDING EQUIPMENT REPAIRER Impressions 04/12/2024 3:51 PM WELDING EQUIPMENT REPAIRER IMPRESSION: No acute intracranial abnormality. No acute [...] findings as above. Narrative 04/12/2024 3:51 PM WELDING EQUIPMENT REPAIRER EXAM DESCRIPTION: CT HEAD OR BRAIN WO [...] results in mild spinal canal narrowing and jgfcyuel-du-rejafv left neural foraminal narrowing. C5-6: Posterior disc [...] Dez Santamaria M.D. NS: NS Report ID: [id number] Reading Location: [id number] Procedure Note Dez Santamaria MD - 04/12/2024 [...] results in mild spinal canal narrowing and cyweclkr-cn-mclzxg left neural foraminal narrowing. C5-6: Posterior disc [...] Dez Santamaria M.D. NS: NS Report ID: [id number] Reading Location: [place] [address] IMPRESSION: No acute intracranial abnormality. No acute [...] chronic findings as above. Madelyn Jha APRN, TURF AND GROUNDS SUPERVISOR IMG CT ORDERABLES Final Result * [facility] BONE DENSITOMETRY AXIAL SKELETON (08/06/2022 11:38 AM [...] old F with given history of screening. Residential Life Director/Model: [employer] (S/N [id number]) CLINICAL INFORMATION: Current height: 64 inches Maximum [...] Naomi Cifuentes M.D. TW: MARY Report ID: [id number] Reading Location: [id number] Procedure Note Naomi Cifuentes MD - 08/07/2022 EXAM DESCRIPTION: [facility] BONE DENSITOMETRY AXIAL SKELETON REASON FOR STUDY: 72 y/o year old F with given history of screening. Residential Life Director/Model: [employer] (S/N [id number]) CLINICAL INFORMATION: Current height: 64 inches Maximum [...] Naomi Cifuentes M.D. TW: MARY Report ID: [id number] Reading Location: [place] [address] IMPRESSION: Osteoporosis REFERENCE: Bone mineral density: Normal [...] and Treatment of Osteoporosis (http://www.nof.org/professionals/clinical-guidelines) Alexus Mehta RESIDENT ATHLETIC TRAINER, TURF AND GROUNDS SUPERVISOR IMG DEXA ORDERABLES Final Result * ANTWON [...] copy. Current study was also evaluated with ZeoD version 7.2. 2D digital mammographic views, as well as 3D digital tomosynthesis were performed in the CC and MLO projections. CLINICAL: Routine screening. Patient has no complaints. Patient has numerous moles covering bilateral breasts. No personal history of cancer. No family history of breast cancer. COMPARISONS: Comparison is made to exams dated: 04/22/2015 and 03/03/2011 [facility]. BREAST TISSUE:There are scattered fibroglandular densities in [...] exam. Electronically signed by: Karlee boyer/mary:08/06/2022 15:06:48 Publicity Consultant(s): RT Wil(R)(M), [facility] letter sent: Normal Exam Reading location: [facility] BI-RADS: 2 Benign Procedure Note Karlee [...] made to exams dated: 04/22/2015 and 03/03/2011 [facility]. BREAST TISSUE:There are scattered fibroglandular densities in [...] exam. Electronically signed by: Karlee boyer/mary:08/06/2022 15:06:48 Publicity Consultant(s): RT Wil(R)(M), [facility] letter sent: Normal Exam Reading location: [facility] BI-RADS: 2 Benign Alexus Mehta RESIDENT ATHLETIC TRAINER, TURF AND GROUNDS SUPERVISOR IMG MAMMO ORDERABLES Final Result from Last 3 Months or Most Recently Relevant to Health Maintenance Additional Health Concerns Infection Onset Date Last Indicated ESBL 06/20/2018 01/01/2022 Insurance [employer] MEDICARE C [employer] INSURANCE [facility] Advance Directives * Full Code (Latest [...] measures to stabilize the patient. Care Teams Computational Physicist Relationship Specialty Start Date End Date Alexus Mehta APRN, TURF AND GROUNDS SUPERVISOR #2 [facility] [address] [place] [address] PCP - General Advanced Practice Nurse 01/13/22 Aditya Reza MD #2 [facility] [address] [place] [address] Consulting Physician Urology 12/31/21
--- OUTSIDE RECORDS SUMMARY | 2024-05-16 16:38 | XMS_ITS | Referral Summary ---
Author Organization [facility] Building [address] Address [address] [place] [address] Care Team Providers Care Student Services Counselor Name Role Phone Alexus Mehta NP Primary Care Provider + Cuong Gaytan MD Unavailable [phone] Encounters Date Type Department Care Team Description 04/03/2024 Telephone [facility] [address] [facility] [address] [place] [address] Winter Womack MA from Last [...] on file Legal Sex Female 1:02 AM SENIOR ORACLE APPLICATIONS DEVELOPER Gender Identity Not on file Sexual [...] CDT PROCEDURE REPORT Patient: SINA YOO Account: [id number] Room No: : 1950 Patient Type: SDS [...] Most Recently Relevant to Health Maintenance Insurance [facility] MEDICARE MEDICARE [facility] MEDICARE [facility] Care Teams Student Services Counselor Relationship Specialty Start Date End Date Alexus Mehta NP [address] [facility] [address] [address] PCP - General Nurse Practitioner 11/03/22 Cuong Gaytan MD [address] [facility] [address] MARIPOSA Beebe [address] [address] Consulting Physician Obstetrics and Gynecology 05/17/23
--- OUTSIDE RECORDS SUMMARY | 2024-05-16 16:38 | XMS_ITS | Encounter Summary ---
Author Organization [facility] Address [address] [place] [address] Phone Care Team Providers Care Cake Icer Name Role Phone Aditya Reza MD Unavailable Alexus Mehta APRN, CNP Primary Care Provid er Reason for Visit * Reason Comments Medication Refill Encounter Details Date Type Department Care Team (Late st Contact Info) Description 02/10/2023 Refill [facility] [place] [address] [place] [address] Alexus Mehta APRN, CNP #[address] [address] Medication Refill Social History Tobacco [...] on 02/10/2023 by Alexus Mehta APRN, CNP. BPM ARCHITECT * Telephone Encounter - Lynn Saucedo RN - 02/10/2023 9:19 AM CST duplicate BPM ARCHITECT documented in this encounter Plan of Treatment Not on file documented as of this encounter Visit Diagnoses Not on filedocumented in this encounter Additional Health Concerns Infection Onset Date Last Indicated Resolved Time ESBL 06/20/2018 01/01/2022 Assessment Noted Time PHQ-9 Depression Total Score: 0 01/14/20 22 10:00 AM [employer] BPM ARCHITECT documented as of this encounter Care Teams Cake Icer Relationship Specialty Start Date End Date Alexus Mehta APRN, CNP #2 [facility] [address] [place] [address] PCP - General Advanced Practice Nurse 01/13/22 Aditya Reza MD #2 [facility] [address] [place] [address] Consulting Physician Urology 12/31/21 documented as of this encounter
--- OUTSIDE RECORDS SUMMARY | 2024-05-16 16:38 | XMS_ITS | Encounter Summary ---
Author Organization [facility] Address [address] [place] [address] Phone Care Team Providers Care Tailings Dam Pumper Name Role Phone Aditya Reza MD Unavailable Alexus Mehta APRN, CNP Primary Care Provid er Reason for Visit * Reason Comments Medication Refill Encounter Details Date Type Department Care Team (Late st Contact Info) Description 09/23/2022 Refill [facility] #[address] [place] [address] Ja Samuel MD #[address] [address] Medication Refill Social History Tobacco Use Types [...] Depression Total Score: 0 01/14/20 10:00 AM SUCTION PLATE CARRIER CLEANER documented as of this encounter Care Teams Tailings Dam Pumper Relationship Specialty Start Date End Date Alexus Mehta APRN, SHOW CARD WRITER #2 [facility] [address] [place] [address] PCP - General Advanced Practice Nurse 01/13/22 Aditya Reza MD #2 [facility] [address] [place] [address] Consulting Physician Urology 12/31/21 documented as of this encounter
[2024-05-16] MEDS: KETOROLAC 30 MG/ML VIAL (*BKC) IM (17:26)
== END 2024-05-16 17:41 | disposition home or self-care (01) ==
PROVIDERS: Emergency Provider Physician Assistant; PCP Nurse Practitioner Adult Health
DX: M54.16 Radiculopathy, lumbar region (principal); K21.9 Gastro-esophageal reflux disease without esophagitis; M19.90 Unspecified osteoarthritis, unspecified site; F32.A Depression, unspecified; F41.9 Anxiety disorder, unspecified; E03.9 Hypothyroidism, unspecified; I10 Essential (primary) hypertension
CPT/HCPCS: 72131; 96372; 99284; J1885

== ENCOUNTER 2024-06-06 10:03 | Outpatient (CLI) | payer MEDICARE, SELFPAY ==
--- OUTSIDE RECORDS SUMMARY | 2024-06-06 10:58 | XMS_ITS | Encounter Summary ---
Author Organization [facility] Address [address] [place] [address] Phone Care Team Providers Care Fruit Coordinator Name Role Phone Aditya Reza MD Unavailable Alexus Mehta APRN, CNP Primary Care Provid er Reason for Visit * Reason Comments Medication Refill Encounter Details Date Type Department Care Team (Late st Contact Info) Description 06/24/2023 Refill [facility] - Family Medicine - [place] #2 [place] [address] Alexus Mehta APRN, CNP #[address] [phone] Medication Refill Social History Tobacco [...] documented as of this encounter Care Teams Fruit Coordinator Relationship Specialty Start Date End Date Alexus Mehta APRN, [place] #2 [facility] [address] [place] [address] PCP - General Advanced Practice Nurse 01/13/22 Aditya Reza MD #2 [facility] [address] [place] [address] Consulting Physician Urology 12/31/21 documented as of this encounter
--- OUTSIDE RECORDS SUMMARY | 2024-06-06 10:58 | XMS_ITS | Encounter Summary ---
Author Organization [facility] Address [address] [place] [address] Phone Care Team Providers Care Senior It Engineer Name Role Phone Aditya Reza MD Unavailable Alexus Mehta APRN, CNP Primary Care Provid er Reason for Visit * Reason Comments Medication Refill Encounter Details Date Type Department Care Team (Late st Contact Info) Description 06/06/2023 Refill [facility] - Family Medicine - [place] #2 [place] [address] Alexus Mehta APRN, CNP #[address] [address] Medication Refill Social History Tobacco [...] Provider Dept 06/08/23 Appointment Alexus Mehta APRN, SCHOOL LUNCH MONITOR [place] Showing today's visits and meeting [...] Total Score: 0 01/14/20 22 10:00 AM ASSEMBLER ENGINE documented as of this encounter Care Teams Senior It Engineer Relationship Specialty Start Date End Date Alexus Mehta APRN, CNP #2 [facility] [address] [place] [address] PCP - General Advanced Practice Nurse 01/13/22 Aditya Reza MD #[address] [facility] [address] [place] [address] Consulting Physician Urology 12/31/21 documented as of this encounter
--- OUTSIDE RECORDS SUMMARY | 2024-06-06 10:58 | XMS_ITS | Encounter Summary ---
Author Organization [facility] Address [address] [place] [address] Phone Care Team Providers Care Roll Forger Name Role Phone Aditya Reza MD Unavailable Alexus Mehta APRN, CNP Primary Care Provid er Reason for Visit * Reason Comments Medication Refill Encounter Details Date Type Department Care Team (Late st Contact Info) Description 02/02/2023 Refill [facility] - Family Medicine - [place] #2 [place] [address] Alexus Mehta APRN, CNP #[address] [phone] Medication Refill Social History Tobacco [...] CNP for the following reason: Formulary change. RONMENTAL PLANNER documented in this encounter Plan of Treatment Not on file documented as of this encounter Visit Diagnoses Diagnosis Anxiety Anxiety state, unspecified documented in this encounter Additional Health Concerns Infection Onset Date Last Indicated Resolved Time ESBL 06/20/2018 01/01/2022 Assessment Noted Time PHQ-9 Depression Total Score: 0 01/14/20 10:00 AM ENVIRONMENTAL PLANNER documented as of this encounter Care Teams Roll Forger Relationship Specialty Start Date End Date Alexus Mehta APRN, CNP #[facility] [address] [place] [phone] PCP - General Advanced Practice Nurse 01/13/22 Aditya Reza MD #[address] [facility] [address] [place] [address] Consulting Physician Urology 12/31/21 documented as of this encounter
--- OUTSIDE RECORDS SUMMARY | 2024-06-06 10:58 | XMS_ITS | Encounter Summary ---
Author Organization [facility] Address [address] [place] [address] Phone Care Team Providers Care Traveling Passenger Agent Name Role Phone Aditya Reza MD Unavailable Alexus Mehta APRN, CNP Primary Care Provid er Reason for Visit * Reason Comments Medication Refill Encounter Details Date Type Department Care Team (Late st Contact Info) Description 02/10/2023 Refill [facility] - Family Medicine - [place] #2 [place] [address] Alexus Mehta APRN, CNP #[address] [phone] Medication Refill Social History Tobacco [...] 12/31/22 Office Visit Alexus Mehta APRN, CNP [facility] Showing recent visits within past 182 days [...] Modulators for at least 6 months E GRAINER documented in this encounter Plan of Treatment Not on file documented as of this encounter Visit Diagnoses Not on filedocumented in this encounter Additional Health Concerns Infection Onset Date Last Indicated Resolved Time ESBL 06/20/2018 01/01/2022 Assessment Noted Time PHQ-9 Depression Total Score: 0 01/14/20 10:00 AM PLATE GRAINER documented as of this encounter Care Teams Traveling Passenger Agent Relationship Specialty Start Date End Date Alexus Mehta APRN, [place] #2 [facility] [address] [place] [phone] PCP - General Advanced Practice Nurse 01/13/22 Aditya Reza MD [address] [facility] [address] [place] [address] Consulting Physician Urology 12/31/21 documented as of this encounter
--- OUTSIDE RECORDS SUMMARY | 2024-06-06 10:58 | XMS_ITS | Encounter Summary ---
Author Organization [facility] Address [address] [place] [address] Phone Care Team Providers Care Death Claim Examiner Name Role Phone Aditya Reza MD Unavailable Alexus Mehta APRN, CNP Primary Care Provid er Reason for Visit * Reason Comments Medication Refill Encounter Details Date Type Department Care Team (Late st Contact Info) Description 02/10/2023 Refill [facility] - Family Medicine - [place] #2 [place] [address] Alexus Mehta APRN, CNP #[address] [phone] Medication Refill Social History Tobacco [...] on 02/10/2023 by Alexus Mehta APRN, CNP. [employer] ASSEM[employer] * Telephone Encounter - Lynn Saucedo RN - 02/10/2023 9:19 AM CST duplicate [employer] documented in this encounter Plan of Treatment Not on file documented as of this encounter Visit Diagnoses Not on filedocumented in this encounter Additional Health Concerns Infection Onset Date Last Indicated Resolved Time ESBL 06/20/2018 01/01/2022 Assessment Noted Time PHQ-9 Depression Total Score: 0 01/14/20 22 10:00 AM INSPECTOR FINAL ASSEMBLY MECHANICAL documented as of this encounter Care Teams Death Claim Examiner Relationship Specialty Start Date End Date Alexus Mehta APRN, CNP #2 [facility] [address] [place] [address] PCP - General Advanced Practice Nurse 01/13/22 Aditya Reza MD #2 [facility] [address] [place] [address] Consulting Physician Urology 12/31/21 documented as of this encounter
--- OUTSIDE RECORDS SUMMARY | 2024-06-06 10:58 | XMS_ITS | Encounter Summary ---
Author Organization [facility] Address [address] [place] [address] Phone Care Team Providers Care Email Campaign Specialist Name Role Phone Aditya Reza MD Unavailable Alexus Mehta APRN, CNP Primary Care Provid er Reason for Visit * Reason Comments Medication Refill Encounter Details Date Type Department Care Team (Late st Contact Info) Description 06/28/2022 Refill [facility] - Family Medicine [facility] #2 [place] [address] Ja Samuel MD #[address] [address] Medication Refill Social History Tobacco Use Types [...] CDT Reordered 06/04/22 for 4 months - [facility] documented in this encounter Plan of Treatment Not on file documented as of this encounter Visit Diagnoses Not on filedocumented in this encounter Additional Health Concerns Infection Onset Date Last Indicated Resolved Time ESBL 06/20/2018 01/01/2022 Assessment Noted Time PHQ-9 Depression Total Score: 0 01/14/20 10:00 AM DUST BOX TENDER documented as of this encounter Care Teams Email Campaign Specialist Relationship Specialty Start Date End Date Alexus Mehta APRN, SUPERINTENDENT BOARD MILL #2 [facility] [address] [place] [phone] PCP - General Advanced Practice Nurse 01/13/22 Aditya Reza MD [address]2 [place] [address] [place] [address] Consulting Physician Urology 12/31/21 documented as of this encounter
--- OUTSIDE RECORDS SUMMARY | 2024-06-06 10:58 | XMS_ITS | Clinical Summary ---
Author Organization [facility] Address [address] [place] [address] Phone Care Team Providers Care Blade Worker Name Role Phone Aditya Reza MD [...] Department Care Team Description 2024 Telephone [facility] [address] [place] [address] Deanna Grajeda RN 04/12/2024 5:39 PM WELLHEAD PUMPER - 04/12/2024 9:37 PM WELLHEAD PUMPER Emergency [facility] [address] [place] [address] Madelyn Jha APRN, TYRONE Injury of head, initial encounter Discharge Disposition: Discharged to home or Selfcare 04/12/2024 Travel 03/17/2024 Refill [facility] [address] [place] [address] Ja Samuel MD Medication Refill 03/15/2024 Refill [facility] [address] [place] [address] Alexus Mehta APRN, MEDICAL ASSISTANT FLOAT Medication Refill from Last 3 Months Immunizations [...] drink = 0.6 oz pur e alcohol) [facility] Utilities Answer Date Recorded In the past 12 months has e [employer], gas, oil, or water [employer] threatened to shut off services in your [...] often do you attend chur ch or baptism services? 1 to 4 times per year 10/14/2023 Do you belong to any clubs o r organizations such as jew groups, unions, fraternal or athletic groups, or [...] Total Score - Questions 1-9 0 03/2023 [facility] - Occupational Stress Questionnaire Answer Date [...] any time in the past 12 m [facility], were you homeless or living [...] Comments Blood Pressure 137/93 04/12/2024 9:00 PM WELLHEAD PUMPER Pulse 87 04/12/2024 9:15 PM WELLHEAD PUMPER Temperature 36.1 C (96.9 F) 04/12/2024 2:43 PM WELLHEAD PUMPER Respiratory Rate 18 04/12/2024 9:15 PM WELLHEAD PUMPER Oxygen Saturation 100% 04/12/2024 9:15 PM WELLHEAD PUMPER Inhaled Oxygen Concentration - - Weight 81.2 kg (179 lb) 04/12/2024 2:43 PM WELLHEAD PUMPER Height 163.8 cm (5' 4.5 ) 04/12/2024 2:43 PM WELLHEAD PUMPER Body Mass Index 30.25 04/12/2024 2:43 PM WELLHEAD PUMPER Plan of Treatment Health Maintenance Due Date [...] this topic Medical Devices Implanted Type Area Barge Worker Device Identifier Shelf Expiration Date Model / Serial / Lot Stent Ureteral 6fr 2.1fr 24cm 2 Pigtail Curve 2 Durometer Taper Tip Loprfl Graduated Polaris Ultra - [id number] Implanted:Qty: 1 on 07/15/2018 by Marbella Alejandra MD at [facility] IMPLANT Right: Ureter Mango DSP 02/07/2021 [id number] 20 / [id number] 20 / [id number] Speedbridge Implant Systemw Ith Biocomposity Swivel Lock Implanted:Qty: 1 on 07/29/2016 by [facility] Left: Shoulder 03/07/2018 / [id number] S-4 / [id number] Explanted Type Area Barge Worker Device Identifier Shelf Expiration Date Model / Serial / Lot Stent Ureteral 6fr 2.1fr 24cm 2 Pigtail Curve 2 Durometer Taper Tip Loprfl Graduated Polaris Ultra - [id number] Implanted:Qty : 1 on 06/24/2018 by Marbella Alejandra MD at [facility] Explanted:Qty : 1 on 07/15/2018 by Marbella [facility] MD at [facility] IMPLANT Right: Ureter [employer] 12/20/2020 [id number] / [id number] / [id number] Procedures Procedure Name Priority Date/Time Associated Diagnosis Comments CT CHEST ABDOMEN AND PELVIS W CONTRAST Stat with Interpretation 04/12/2024 8:04 PM WELLHEAD PUMPER GOLD TOP TUBE STAT 04/12/2024 6:45 PM WELLHEAD PUMPER BLUE TOP TUBE STAT 04/12/2024 6:45 PM WELLHEAD PUMPER CBC WITH AUTO DIFFERENTIAL STAT 04/12/2024 6:45 PM WELLHEAD PUMPER EXTRA TUBES STAT 04/12/2024 6:45 PM WELLHEAD PUMPER CMP (COMPREHENSIVE METABOLIC PANEL) STAT 04/12/2024 6:45 PM WELLHEAD PUMPER COMPLETE BLOOD COUNT (CBC) WITH DIFF STAT 04/12/2024 6:45 PM WELLHEAD PUMPER XR RIBS UNILATERAL WITH PA CHEST LEFT STAT 04/12/2024 3:[address] FACIAL BONES WO CONTRAST Stat with Interpretation 04/12/2024 3:[address] CERVICAL SPINE WO/ CONTRAST Stat with Interpretation 04/12/2024 3:[address] HEAD OR BRAIN WO CONTRAST Stat with Interpretation 04/12/2024 3:15 PM WELLHEAD PUMPER [facility] BONE DENSITOMETRY AXIAL SKELETON Routine 08/06/2022 11:38 AM CDT Post-menopausal Encounter for screening for osteoporosis [facility] SCREENING BILATERAL DIGITAL W CAD W JESSICA Routine 08/06/2022 11:27 AM CDT Screening mammogram for breast cancer from Last 3 Months or Most Recently Relevant to Health Maintenance Results * CT CHEST ABDOMEN AND PELVIS W CONTRAST (04/12/2024 8:04 PM WELLHEAD PUMPER) Anatomical Region Laterality Modality Chest, Abdomen, Pelvis N/A Computed Tomography 04/12/2024 8:40 PM WELLHEAD PUMPER Impressions 04/12/2024 8:43 PM WELLHEAD PUMPER IMPRESSION: Acute nondisplaced single part fractures of the anterior left 5th and 6th ribs. No acute findings in the abdomen and pelvis. Narrative 04/12/2024 8:43 PM WELLHEAD PUMPER EXAM DESCRIPTION: CT CHEST ABDOMEN AND PELVIS [...] Marysol Aguirre M.D. FT: FT Report ID: [id number] Reading Location: [id number] Procedure Note Marysol Dietz MD - 04/12/2024 [...] Marysol Aguirre M.D. FT: FT Report ID: [id number] Reading Location: [id number] IMPRESSION: Acute nondisplaced single part fractures of the anterior left 5th and 6th ribs. No acute findings in the abdomen and pelvis. Madelyn Jha APRN, CNP IMG CT ORDERABLES Final Result * Gold Top Tube (04/12/2024 6:45 PM WELLHEAD PUMPER) Blood No Phlebotomy Charged / Unknown 04/12/2024 6:45 PM WELLHEAD PUMPER 04/12/2024 6:56 PM WELLHEAD PUMPER Madelyn Jah APRN, CNP CHEMISTRY ORDERABL ES Final Result [facility] [address] [place] [address] * Blue Top Tube (04/12/2024 6:45 PM WELLHEAD PUMPER) Blood No Phlebotomy Charged / Unknown 04/12/2024 6:45 PM WELLHEAD PUMPER 04/12/2024 6:56 PM WELLHEAD PUMPER Madelyn Jha APRN, CNP HEMATOLOGY ORDERAB LES Final Result [facility] [address] [place] [address] * (ABNORMAL) CBC with Auto Differential (04/12/2024 6:45 PM WELLHEAD PUMPER) WBC 10.10 4.00 - 12.00 10(3)/mcL 04/12/2024 6:59 PM WELLHEAD PUMPER [facility] RBC 3.84 3.80 - 5.30 10(6)/mcL 04/12/2024 6:59 PM [facility] HEMOGLOBIN (HGB) 11.4(L) 12.0 - 15.8 g/dL 04/12/2024 6:59 PM [facility] HEMATOCRIT (HCT) 34.5(L) 36.0 - 47.0 % 04/12/2024 6:59 PM [facility] MCV 89.8 82.0 - 96.0 fL 04/12/2024 6:59 PM [facility] MCH 29.7 26.0 - 34.0 pg 04/12/2024 6:59 PM [facility] MCHC 33.0 31.0 - 36.0 g/dL 04/12/2024 6:59 PM [facility] PLATELET COUNT 290 140 - 440 10(3)/mcL 04/12/2024 6:59 PM [facility] RDW 13.5 11.8 - 15.5 % 04/12/2024 6:59 PM [facility] MPV 10.5 9.7 - 12.4 fL 04/12/2024 6:59 PM [facility] NEUTROPHILS 71.4 47.0 - 73.0 % 04/12/2024 6:59 PM [facility] LYMPHOCYTES 15.7(L) 18.0 - 42.0 % 04/12/2024 6:59 PM [facility] MONOCYTES 11.7 4.0 - 12.0 % 04/12/2024 6:59 PM [facility] EOSINOPHILS 0.9 0.0 - 5.0 % 04/12/2024 6:59 PM [facility] BASOPHILS 0.3 0.0 - 1.0 % 04/12/2024 6:59 PM [facility] ABSOLUTE NEUTROPHILS 7.21 1.60 - 7.70 10(3)/mcL 04/12/2024 6:59 PM [facility] ABSOLUTE LYMPHOCYTES 1.59 1.30 - 3.20 10(3)/mcL 04/12/2024 6:59 PM WELLHEAD PUMPER [facility] ABSOLUTE MONOCYTES 1.18(H) 0.20 - 1.00 10(3)/[facility] 04/12/2024 6:59 PM WELLHEAD PUMPER [facility] ABSOLUTE EOSINOPHIL 0.09 0.00 - 0.40 10(3)/[facility] 04/12/2024 6:59 PM WELLHEAD PUMPER [facility] ABSOLUTE BASOPHILS 0.03 0.00 - 0.10 10(3)/[facility] 04/12/2024 6:59 PM WELLHEAD PUMPER [facility] NRBC PER 100 WBC 0 04/12/19 6:59 PM WELLHEAD PUMPER [facility] Blood Venipuncture / Unknown 04/12/2024 6:45 PM WELLHEAD PUMPER 04/12/2024 6:54 PM WELLHEAD PUMPER us Madelyn Jha APRN, MEDICAL ASSISTANT FLOAT HEMATOLOGY ORDERAB LES Final Result [facility] [address] [place] [address] * (ABNORMAL) CMP (04/12/2024 6:45 PM WELLHEAD PUMPER) SODIUM 141 136 - 145 mmol/L 04/12/2024 7:18 PM [facility] POTASSIUM 3.9 3.5 - 5.1 mmol/L 04/12/2024 7:18 PM [facility] CHLORIDE 108(H) 98 - 107 mmol/L 04/12/2024 7:18 PM [facility] CO2, VENOUS 25 22 - 30 mmol/L 04/12/2024 7:18 PM [facility] ANION GAP 11.9 <18.0 mmol/L 04/12/2024 7:18 PM [facility] GLUCOSE 112(H) 70 - 99 mg/dL 04/12/2024 7:18 PM [facility] BUN 26(H) 10 - 20 mg/dL 04/12/2024 7:18 PM [facility] CREATININE, BLOOD 1.05(H) 0.60 - 1.00 mg/dL 04/12/2024 7:18 PM [facility] BUN/CREATININE RATIO 25(H) 12 - 20 ratio 04/12/2024 7:18 PM [facility] TOTAL PROTEIN 7.7 6.0 - 8.0 g/dL 04/12/2024 7:18 PM [facility] ALBUMIN 4.1 3.5 - 5.0 g/dL 04/12/2024 7:18 PM [facility] A/G RATIO 1.1 1.0 - 2.2 04/12/2024 7:18 PM [facility] CALCIUM 9.2 8.7 - 10.5 mg/dL 04/12/2024 7:18 PM [facility] T BILI 0.3 0.2 - 1.2 mg/dL 04/12/2024 7:18 PM [facility] SGOT (AST) 27 6 - 42 U/L 04/12/2024 7:18 PM [facility] SGPT (ALT) 35 6 - 55 U/L 04/12/2024 7:18 PM [facility] ALKALINE PHOSPHATASE 75 40 - 150 U/L 04/12/2024 7:18 PM [facility] GFR, ESTIMATED 56(L) >=60 04/12/2024 7:18 PM [facility] Comment: Creatinine Clearance is the preferred criteria for selecting drug dose adjustments in renally impaired patients. The GFR is provided as additional pertinent clinical information. GFR is reported in mL/min/1.73 sq m. Calculation based on the Chronic Kidney Disease Epidemiology Collaboration (CKD- EPI) equation refit without adjustment for race. GFR, EST. >60 >=60 025 7:18 PM [facility] GFR, EST. NONAFRICAN 51(L) >=60 04/12/2024 7:18 PM WELLHEAD PUMPER [facility] Blood Venipuncture / Unknown 04/12/2024 6:45 PM WELLHEAD PUMPER 04/12/2024 6:54 PM WELLHEAD PUMPER us Madelyn Jha APRN, MEDICAL ASSISTANT FLOAT CHEMISTRY ORDERABL ES Final Result [facility] [facility] [place] [address] * XR RIBS UNILATERAL WITH PA CHEST LEFT (04/12/2024 3:35 PM WELLHEAD PUMPER) Anatomical Region Laterality Modality Chest, Rib Left Digital Radiogra phy 04/12/2024 3:46 PM WELLHEAD PUMPER Impressions 04/12/2024 3:48 PM WELLHEAD PUMPER IMPRESSION: Questionable fractures of the left 5th and 6th rib laterally. Narrative 04/12/2024 3:48 PM WELLHEAD PUMPER EXAM DESCRIPTION: XR RIBS UNILATERAL WITH PA [...] Timoteo Uribe M.D. JA: TOYA Report ID: [id number] Reading Location: [id number] Procedure Note Timoteo Uribe MD - 04/12/2024 [...] Timoteo Uribe M.D. JA: TOYA Report ID: [id number] Reading Location: [id number] IMPRESSION: Questionable fractures of the left 5th and 6th rib laterally. Madelyn Jha APRN, CNP IMG DIAGNOSTIC ORD ERABLES Final Result * CT FACIAL BONES WO CONTRAST (04/12/2024 3:17 PM WELLHEAD PUMPER) Anatomical Region Laterality Modality Head N/A Computed Tomogra phy 04/12/2024 3:49 PM WELLHEAD PUMPER Impressions 04/12/2024 3:51 PM WELLHEAD PUMPER IMPRESSION: No acute intracranial abnormality. No acute [...] findings as above. Narrative 04/12/2024 3:51 PM WELLHEAD PUMPER EXAM DESCRIPTION: CT HEAD OR BRAIN WO [...] results in mild spinal canal narrowing and xgiuxftf-rt-pyekgu left neural foraminal narrowing. C5-6: Posterior disc [...] Dez Santamaria M.D. NS: NS Report ID: [id number] Reading Location: [id number] Procedure Note Dez Santamaria MD - 04/12/2024 [...] results in mild spinal canal narrowing and yrpbkqjh-dc-yvexkp left neural foraminal narrowing. C5-6: Posterior disc [...] Dez Santamaria M.D. NS: NS Report ID: [id number] Reading Location: [place] [address] IMPRESSION: No acute intracranial abnormality. No acute [...] chronic findings as above. Madelyn Huffman Abhijeet GUN STOCK MAKER, MEDICAL ASSISTANT FLOAT IMG CT ORDERABLES Final Result * CT CERVICAL SPINE WO/ CONTRAST (04/12/2024 3:16 PM WELLHEAD PUMPER) Anatomical Region Laterality Modality Spine N/A Computed Tomogra phy 04/12/2024 3:49 PM WELLHEAD PUMPER Impressions 04/12/2024 3:51 PM WELLHEAD PUMPER IMPRESSION: No acute intracranial abnormality. No acute [...] findings as above. Narrative 04/12/2024 3:51 PM WELLHEAD PUMPER EXAM DESCRIPTION: CT HEAD OR BRAIN WO [...] results in mild spinal canal narrowing and sepjkyzg-yq-hmfbmu left neural foraminal narrowing. C5-6: Posterior disc [...] by Dez Livingston.D. NS: NS Report ID: [id number] Reading Location: [id number] Procedure Note Dez Santamaria MD - 04/12/2024 [...] results in mild spinal canal narrowing and duaapovq-gm-grrfcr left neural foraminal narrowing. C5-6: Posterior disc [...] Dez Santamaria M.D. NS: NS Report ID: [id number] Reading Location: [place] [address] IMPRESSION: No acute intracranial abnormality. No acute [...] and chronic findings as above. Madelyn Jha GUN STOCK MAKER, MEDICAL ASSISTANT FLOAT IMG CT ORDERABLES Final Result * CT HEAD OR BRAIN WO CONTRAST (04/12/2024 3:15 PM WELLHEAD PUMPER) Anatomical Region Laterality Modality Head N/A Computed Tomogra phy 04/12/2024 3:49 PM WELLHEAD PUMPER Impressions 04/12/2024 3:51 PM WELLHEAD PUMPER IMPRESSION: No acute intracranial abnormality. No acute [...] findings as above. Narrative 04/12/2024 3:51 PM WELLHEAD PUMPER EXAM DESCRIPTION: CT HEAD OR BRAIN WO [...] results in mild spinal canal narrowing and cvehtbqt-rk-uqdjrn left neural foraminal narrowing. C5-6: Posterior disc [...] Dez Santamaria M.D. NS: NS Report ID: [id number] Reading Location: [id number] Procedure Note Dez Santamaria MD - 04/12/2024 [...] results in mild spinal canal narrowing and vjiqtqxj-ff-wnralz left neural foraminal narrowing. C5-6: Posterior disc [...] Dez Santamaria M.D. NS: NS Report ID: [id number] Reading Location: [place] [address] IMPRESSION: No acute intracranial abnormality. No acute [...] chronic findings as above. Madelyn Jha APRN, MEDICAL ASSISTANT FLOAT IMG CT ORDERABLES Final Result * [facility] BONE DENSITOMETRY AXIAL SKELETON (08/06/2022 [...] old F with given history of screening. Barge Worker/Model: TheTakes (S/N [id number]) CLINICAL INFORMATION: Current height: 64 inches Maximum [...] Naomi Cifuentes M.D. TW: MARY Report ID: [id number] Reading Location: [id number] Procedure Note Naomi Cifuentes MD - 08/07/2022 EXAM DESCRIPTION: [facility] BONE DENSITOMETRY AXIAL SKELETON REASON FOR STUDY: 72 y/o year old F with given history of screening. Barge Worker/Model: [employer]Takes (S/N [id number]) CLINICAL INFORMATION: Current height: 64 inches Maximum [...] Naomi Cifuentes M.D. TW: MARY Report ID: [id number] Reading Location: [place] [address] IMPRESSION: Osteoporosis REFERENCE: Bone mineral density: Normal [...] and Treatment of Osteoporosis (http://www.nof.org/professionals/clinical-guidelines) Alexus Mehta GUN STOCK MAKER, MEDICAL ASSISTANT FLOAT IMG DEXA ORDERABLES Final Result * ANTWON [...] copy. Current study was also evaluated with [employer] version 7.2. 2D digital mammographic views, as well as 3D digital tomosynthesis were performed in the CC and MLO projections. CLINICAL: Routine screening. Patient has no complaints. Patient has numerous moles covering bilateral breasts. No personal history of cancer. No family history of breast cancer. COMPARISONS: Comparison is made to exams dated: 04/22/2015 and 03/03/2011 [facility]. BREAST TISSUE:There are scattered fibroglandular densities in [...] exam. Electronically signed by: Karlee boyer/mary:08/06/2022 15:06:48 Talent Associate(s): RT Wil(R)(M), [facility] letter sent: Normal Exam Reading location: [facility] BI-RADS: 2 Benign Procedure Note Karlee Mendiola [...] made to exams dated: 04/22/2015 and 03/03/2011 [facility]. BREAST TISSUE:There are scattered fibroglandular densities in [...] exam. Electronically signed by: Karlee boyer/mary:08/06/2022 15:06:48 Talent Associate(s): RT Wil(R)(M), [facility] letter sent: Normal Exam Reading location: [facility] BI-RADS: 2 Benign Alexus Mehta GUN STOCK MAKER, MEDICAL ASSISTANT FLOAT IMG MAMMO ORDERABLES Final Result from Last 3 Months or Most Recently Relevant to Health Maintenance Additional Health Concerns Infection Onset Date Last Indicated ESBL 06/20/2018 01/01/2022 Insurance [employer] MEDICARE C [employer] [facility] Advance Directives * Full Code (Latest [...] measures to stabilize the patient. Care Teams Blade Worker Relationship Specialty Start Date End Date Alexus Mehta APRN, MEDICAL ASSISTANT FLOAT #2 [facility] [address] [place] [address] PCP - General Advanced Practice Nurse 01/13/22 Aditya Reza MD #2 [facility] [address] [place] [address] Consulting Physician Urology 12/31/21
--- OUTSIDE RECORDS SUMMARY | 2024-06-06 10:58 | XMS_ITS | Encounter Summary ---
Author Organization [facility] Address [address] [place] [address] Phone Care Team Providers Care Airline Transport Pilot Name Role Phone Aditya Reza MD Unavailable Alexus Mehta APRN, CNP Primary Care Provid er Reason for Visit * Reason Comments Medication Refill Encounter Details Date Type Department Care Team (Late st Contact Info) Description 09/13/2022 Refill [facility] [address] [place] [address] Ja Samuel MD #[address] [address] Medication Refill Social History Tobacco Use Types [...] 08/02/2022 90 180 Each Ja Samuel MD [facility]... 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, unspecified documented in this encounter Additional Health Concerns Infection Onset Date Last Indicated Resolved Time ESBL 06/20/2018 01/01/2022 Assessment Noted Time PHQ-9 Depression Total Score: 0 01/14/20 10:00 AM DIRECTOR OF RESOURCE DEVELOPMENT documented as of this encounter Care Teams Airline Transport Pilot Relationship Specialty Start Date End Date Alexus Mehta APRN, CNP #2 [facility] [address] [place] [address] PCP - General Advanced Practice Nurse 01/13/22 Aditya Reza MD #2 [facility] [address] [place] [address] Consulting Physician Urology 12/31/21 documented as of this encounter
--- OUTSIDE RECORDS SUMMARY | 2024-06-06 10:58 | XMS_ITS | Referral Summary ---
Author Organization [facility] Address [address] [place] [address] Care Team Providers Care Logistics Supply Officer Name Role Phone Alexus Mehta NP Primary Care Provider + Cuong Gaytan MD Unavailable [phone] Encounters Date Type Department Care Team Description 04/03/2024 Telephone [facility] [address] [facility] [address] [place] [address] Winter Womack MA from Last [...] on file Legal Sex Female 1:02 AM MILLWORK ESTIMATOR Gender Identity Not on file Sexual Orientation [...] CDT PROCEDURE REPORT Patient: SINA YOO Account: [id number] Room No: : 1950 Patient Type: SDS Attend.: Elsa Alex M.D. Admit Date: 08/09/2015 Dict.: Elsa Alex M.D. Disch. Date: 08/09/2015 DATE OF PROCEDURE 08/09/15 SURGEON Elsa Alex M.D. PROCEDURE PERFORMED Colonoscopy with polypectomy by cold biopsy forceps. INDICATION Personal history of colon polyps, screening for colon cancer. DATE OF PROCEDURE 08/09/[address] Ishmeal Higuera BRIEF HISTORY AND PHYSICAL The patient [...] [facility] Care Teams Logistics Supply Officer Relationship Specialty Start Date End Date Alexus Mehta NP 2 [facility] [address] [address] PCP - General Nurse Practitioner 11/03/22 Cuong Gaytan MD [address] [facility] [address] [place] Bee[place] [address] [address] Consulting Physician Obstetrics and Gynecology 05/17/23
--- OUTSIDE RECORDS SUMMARY | 2024-06-06 10:58 | XMS_ITS | Encounter Summary ---
Author Organization [facility] Healthcare Address [address] [place] [address] Care Team Providers Care Service Station Cashier Name Role Phone Alexus Mehta NP Primary Care Provider + Cuong Gaytan MD Unavailable [phone] Encounter Details Date Type Department Care Team (Late st Contact Info) Description 04/03/2024 Telephone [facility] [address] [place] [address] [address], [place] [address] Winter Womack MA Social History Tobacco Use Types Packs/Day Years Used Date Smoking Tobacco: Never Smokeless Tobacco: Never Alcohol Use Standard Drinks/Week [...] on file Legal Sex Female 1:02 AM SIEVE REPAIRER Gender Identity Not on file Sexual Orientation Not on file documented as of this encounter Miscellaneous Notes * Telephone Encounter - Winter Womack MA - 04/03/2024 10:25 AM CST PA started for Sunosi 150mg on covermymeds [place]: BTAREWUA Appeal completed on covermymeds 04/05/24 PA approved until 03/07/25 E REPAIRER E REPAIRER documented in this encounter Plan of Treatment Not on file documented as of this encounter Visit Diagnoses Not on filedocumented in this encounter Care Teams Service Station Cashier Relationship Specialty Start Date End Date Alexus Mehta NP 2 [facility] [address] [place] [address] PCP - General Nurse Practitioner 11/03/22 Cuong Gaytan MD [address] [facility] [address] [place] Beebe [facility] [address] [place] [address] Consulting Physician Obstetrics and Gynecology 05/17/23 documented as of this encounter
--- OUTSIDE RECORDS SUMMARY | 2024-06-06 10:58 | XMS_ITS | Clinical Summary ---
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
--- OUTSIDE RECORDS SUMMARY | 2024-06-06 10:58 | XMS_ITS | Encounter Summary ---
Author Organization [facility] Address [address] [place] [address] Phone Care Team Providers Care Mechanical Manager Name Role Phone Aditya Reza MD Unavailable Alexus Mehta APRN, CNP Primary Care Provid er Reason for Visit * Reason Comments Medication Refill Encounter Details Date Type Department Care Team (Late st Contact Info) Description 06/21/2023 Refill [facility] [place] #2 [place] [address] Alexus Mehta APRN, CNP #[address] [address] Medication Refill Social History [...] AM CDT Medication[facility]) [facility] Medication Refill Standing Order for [...] 12/31/22 Office Visit Alexus Mehta APRN, CNP [facility] Tone Showing recent visits within [...] documented as of this encounter Care Teams Mechanical Manager Relationship Specialty Start Date End Date Alexus Mehta APRN, CNP #2 [facility] [address] [place] [address] PCP - General Advanced Practice Nurse 01/13/22 Aditya Reza MD #[facility] [address] [place] [address] Consulting Physician Urology 12/31/21 documented as of this encounter
--- OUTSIDE RECORDS SUMMARY | 2024-06-06 10:58 | XMS_ITS | Encounter Summary ---
Author Organization [facility] Address [address] [place] [address] Phone Care Team Providers Care Typing Pool Supervisor Name Role Phone Aditya Reza MD Unavailable Alexus Mehta APRN, CNP Primary Care Provid er Reason for Visit * Reason Comments Medication Refill Encounter Details Date Type Department Care Team (Late st Contact Info) Description 09/20/2022 Refill [facility] #2 [place] [address] Ja Samuel MD #[address] [address] Medication Refill Social History Tobacco Use Types [...] 08/02/2022 90 180 Each Ja Samuel MD [facility] #... 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, unspecified documented in this encounter Additional Health Concerns Infection Onset Date Last Indicated Resolved Time ESBL 06/20/2018 01/01/2022 Assessment Noted Time PHQ-9 Depression Total Score: 0 01/14/20 10:00 AM FIBER OPTIC TECHNICIAN documented as of this encounter Care Teams Typing Pool Supervisor Relationship Specialty Start Date End Date Alexus Mehta APRN, CNP #2 [facility] [address] [place] [address] PCP - General Advanced Practice Nurse 01/13/22 Aditya Reza MD #2 [facility] [address] [place] [address] Consulting Physician Urology 12/31/21 documented as of this encounter
--- OUTSIDE RECORDS SUMMARY | 2024-06-06 10:58 | XMS_ITS | Encounter Summary ---
Author Organization [employer] [facility] Address [address] [place] [address] Care Team Providers Care Canal Equipment Maintenance Supervisor Name Role Phone Unavailable Primary Care Provider [...] on file Legal Sex Female 5:44 AM SATIN FINISHER Gender Identity Not on file Sexual Orientation [...] AM CDT) INR 2.5(H) 0.9 - 1.1 [facility] Comment: INR Therapeutic Range: Adult: 2.0 - 3.0 for pulmonary embolism or prophylaxis against venous thrombosis or systemic embolization. 2.0 - 3.0 for patients with tissue heart valves. 2.5 - 3.5 for patients with mechanical heart valves or post NH. Pediatric (12 years and under): 1.5 - 3.0 Although the target range in children is not well established, INR values of 1.5 - 3.0 are recommended for most patients. Higher values have been used in children with prosthetic cardiac valves and hereditary clotting disorders. Shelby (<3 days) therapeutic ranges have not been established. PROTIME 27.1(H) 12.7 - 15.1 Seconds [facility] 09/07/2008 5:57 AM CDT 09/07/2008 6:39 AM CDT us Gio Watkins MD HEMATOLOGY ORDERABLES Kelsey kaminski Result INTERFACE SYSTEM Refer to clinic/hospital department [facility] CLIA# [id number] [address] [place] [address] * (ABNORMAL) PROTIME-INR (09/06/2008 5:00 AM CDT) PROTIME 23.5(H) 12.7 - 15.1 Seconds [facility] INR 2.1(H) 0.9 - 1.1 [facility] Comment: INR Therapeutic Range: Adult: 2.0 - 3.0 for pulmonary embolism or prophylaxis against venous thrombosis or systemic embolization. 2.0 - 3.0 for patients with tissue heart valves. 2.5 - 3.5 for patients with mechanical heart valves or post NH. Pediatric (12 years and under): 1.5 - [...] Result INTERFACE SYSTEM Refer to clinic/hospital department [facility] CLIA# [id number] [address] [place] [address] * (ABNORMAL) BASIC METABOLIC PANEL (09/06/2008 5:00 AM CDT) CHLORIDE 104 96 - 108 mmol/L [facility] GLUCOSE 98 65 - 99 mg/dL [facility] SODIUM 135 135 - 145 mmol/L [facility] CALCIUM 8.2(L) 8.6 - 10.2 mg/dL [facility] CO2 24 22 - 30 mmol/L [facility] CREATININE 0.80 0.51 - 0.95 mg/dL [facility] POTASSIUM 4.1 3.5 - 4.9 mmol/L [facility] BUN 15 6 - 20 mg/dL [facility] GFR, >60 >=60 mL/min/1. 7 sq meter [facility] GFR >60 >=60 mL/min/1. 7 sq meter [facility] Comment: Modification of Diet in Renal Disease (MDRD) study formula. Estimated GFR rate interpretative information for both Americans and non- Americans is available on the [facility] Intranet at: [email or web address] Select: Lab Policies and Procedures Select: Reference Ranges - GFR 09/06/2008 5:00 AM CDT 09/06/2008 6:09 AM CDT us Subbuluxmi Sunita DONALDSON CHEMISTRY ORDERABLES Chavo mack INTERFACE SYSTEM Refer to clinic/hospital department [facility] CLIA# [id number] [address] [place] [address] * (ABNORMAL) CBC WITH DIFFERENTIAL (09/06/2008 5:00 AM CDT) MCV 83.8 82.0 - 99.0 fL [facility] PLATELETS 191 140 - 350 K/uL [facility] HEMOGLOBIN 8.3(L) 11.8 - 14.8 g/dL [facility] RDW 14.8(H) 11.5 - 14.5 % [facility] WBC 7.9 4.0 - 9.8 K/uL [facility] MCH 27.5 27.2 - 32.6 pg [facility] MPV 10.5 9.3 - 12.4 fL [facility] HEMATOCRIT 25.3(L) 35.5 - 44.0 % [facility] RDW-STDEV 46.0 37.1 - 48.7 fL [facility] RBC 3.02(L) 3.90 - 4.90 M/uL [facility] MCHC 32.8 31.5 - 35.5 % [facility] BASOPHILS ABSOLUTE 0.00 0.00 - 0.20 K/uL [facility] POIKILOCYTES Slight [facility] MONOCYTES 5 3 - 13 % [facility] MONOCYTE ABSOLUTE 0.40 0.10 - 1.30 K/uL [facility] PLATELET EST. Consistent w/ count Normal [facility] BANDS 1 0 - 5 % [facility] NEUTROPHIL ABSOLUTE 6.32 1.90 - 7.00 K/uL [facility] NEUTROPHILS, SEG 79(H) 45 - 70 % [facility] EOSINOPHILS 2 0 - 7 % [facility] MICROCYTES Slight [facility] EOSINOPHIL ABSOLUTE 0.16 0.00 - 0.70 K/uL [facility] LYMPHOCYTES 13(L) 16 - 45 % [facility] ANISOCYTOSIS Slight [facility] LYMPHOCYTE ABSOLUTE 1.03 0.70 - 4.50 K/uL [facility] BASOPHILS 0 0 - 2 % [facility] Blood specimen (specimen) 09/06/2008 5:00 AM CDT 09/06/2008 6:09 AM CDT Mickbuluxbrad Dorsey MD HEMATOLOGY ORDERABLES Ed ited INTERFACE SYSTEM Refer to clinic/hospital department [facility] CLIA# [id number] [address] [place], [place] [address] * (ABNORMAL) PROTIME-INR (09/05/2008 4:16 AM CDT) PROTIME 16.3(H) 12.7 - 15.1 Seconds [facility] INR 1.3(H) 0.9 - 1.1 [facility] Comment: INR Therapeutic Range: Adult: 2.0 - 3.0 for pulmonary embolism or prophylaxis against venous thrombosis or systemic embolization. 2.0 - 3.0 for patients with tissue heart valves. 2.5 - 3.5 for patients with mechanical heart valves or post NH. Pediatric (12 years and under): 1.5 - 3.0 Although the target range in children is not well established, INR values of 1.5 - 3.0 are recommended for most patients. Higher values have been used in children with prosthetic cardiac valves and hereditary clotting disorders. Shelby (<3 days) therapeutic ranges have not been established. 09/05/2008 4:16 AM CDT 09/05/2008 5:14 AM CDT Gio Watkins MD HEMATOLOGY ORDERABLES Kelsey kaminski Result Performing Organization Address [facility] Phone Number INTERFACE SYSTEM Refer to clinic/hospital department [facility] CLIA# [id number] [address] [facility] [place] [address] * (ABNORMAL) HEMOGLOBIN AND HEMATOCRIT (09/05/2008 4:16 AM CDT) HEMOGLOBIN 8.9(L) 11.8 - 14.8 g/dL [facility] HEMATOCRIT 27.1(L) 35.5 - 44.0 % [facility] 09/05/2008 4:16 AM CDT 09/05/2008 5:14 AM CDT Gio Watkins MD HEMATOLOGY ORDERABLES Kelsey l Result Performing Organization Address [facility] de Phone Number INTERFACE SYSTEM Refer to clinic/hospital department [facility] CLIA# [id number] [address] [place] [address] * (ABNORMAL) BASIC METABOLIC PANEL (09/05/2008 4:16 AM CDT) CREATININE 0.86 0.51 - 0.95 mg/dL [facility] POTASSIUM 3.4(L) 3.5 - 4.9 mmol/L [facility] BUN 13 6 - 20 mg/dL [facility] CHLORIDE 103 96 - 108 mmol/L [facility] GLUCOSE 115(H) 65 - 99 mg/dL [facility] SODIUM 135 135 - 145 mmol/L [facility] CALCIUM 8.1(L) 8.6 - 10.2 mg/dL [facility] CO2 23 22 - 30 mmol/L [facility] GFR, >60 >=60 mL/min/1. 7 sq meter [facility] GFR >60 >=60 mL/min/1. 7 sq meter [facility] Comment: Modification of Diet in Renal Disease (MDRD) study formula. Estimated GFR rate interpretative information for both Americans and non- Americans is available on the [facility] Intranet at: [email or web address] Select: Lab Policies and Procedures Select: Reference Ranges - GFR 09/05/2008 4:16 AM CDT 09/05/2008 5:14 AM CDT Gio Watkins MD CHEMISTRY ORDERABLES Edite d Performing Organization Address City/State/[facility] Co de Phone Number INTERFACE SYSTEM Refer to clinic/hospital department [facility] CLIA# [id number] [address] [place] [address] * XR CHEST PA AND LATERAL (08/13/2008 11:57 AM CDT) Anatomical Region Laterality Modality Chest Other 08/13/2008 11:5 7 AM CDT Narrative 08/13/2008 12:45 PM CDT [facility] [address] [place], [place] [address] Admit Date: 07/09/2008 DEANNA YOO Sex: F Admit Prov: GIO WATKINS Date: 1950 Primary Care Prov: SRIKANTH MULLINS CMRN: [id number] [facility] N: [id number] IMAGING SERVICES Ordering Prov: N/A Accession Number: [id number] Interpretation PA AND LATERAL CHEST X-RAY, 08/13/2008 [...] Procedure Note Lupe Carter MD - 08/13/2008 [id number] [place], [place] [address] Admit Date: 07/09/2008 DEANNA YOO Sex: F Admit Prov: GIO WATKINS Date: 1950 Primary Care Prov: SRIKANTH MULLINS CMRN: [id number] [facility]: [id number] IMAGING SERVICES Ordering Prov: N/A Interpretation PA [...] AM CDT) CLARITY UA Slt. Cloudy(A) Clear [facility] PROTEIN UA Trace(A) Negative [facility] EPITHELIAL CELLS, URINE 0-2 /HPF [facility] BILIRUBIN UA Negative Negative [facility] LEUKOCYTE ESTERASE UA 3+(A) Negative [facility] RBC UA 28(H) 0 - 4 /HPF [facility] SPECIFIC GRAVITY UA 1.013 1.001 - 1.035 [facility] BLOOD UA 2+(A) Negative [facility] GLUCOSE UA Negative Negative [facility] WBC CLUMPS Present(A) None Seen [facility] COLOR UA Yellow [facility] NITRITE UA Negative Negative [facility] UROBILINOGEN UA <1 <=1 mg/dL [facility] BACTERIA UA 3+(A) None Seen /HPF [facility] PH UA 5.5 5.0 - 8.0 [facility] KETONES UA Negative Negative [facility] WBC UA >100(H) 0 - 5 /HPF [facility] 08/13/2008 11:1 4 AM CDT 08/13/2008 12:16 PM CDT us Gio Watkins MD URINE ORDERABLES Final Res ult INTERFACE SYSTEM Refer to clinic/hospital department [facility] CLIA# [id number] [address] [place] [address] * COMPREHENSIVE METABOLIC PANEL (08/13/2008 11:14 AM CDT) Pathologist [facility] ALKALINE PHOSPHATASE 79 35 - 104 U/L [facility] CO2 22 22 - 30 mmol/L [facility] BILIRUBIN TOTAL 0.4 0.2 - 1.0 mg/dL [facility] POTASSIUM 3.5 3.5 - 4.9 mmol/L [facility] TOTAL PROTEIN 7.7 6.3 - 8.6 g/dL [facility] GLUCOSE 90 65 - 99 mg/dL [facility] AST 12 12 - 32 U/L [facility] BUN 12 6 - 20 mg/dL [facility] CALCIUM 9.6 8.6 - 10.2 mg/dL [facility] ALBUMIN 4.1 3.4 - 4.8 g/dL [facility] CHLORIDE 105 96 - 108 mmol/L [facility] CREATININE 0.92 0.51 - 0.95 mg/dL [facility] ALT 13 0 - 31 U/L [facility] SODIUM 140 135 - 145 mmol/L [facility] GFR, >60 >=60 mL/min/1.7 sq meter [facility] GFR >60 >=60 mL/min/1.7 sq meter [facility] Comment: Modification of Diet in Renal Disease (MDRD) study formula. Estimated GFR rate interpretative information for both Americans and non- Americans is available on the [facility] Intranet at: [email or web address] Select: Lab Policies and Procedures Select: Reference Ranges - GFR 08/13/2008 11:1 4 AM CDT 08/13/2008 12:08 PM CDT us Gio Watkisn MD CHEMISTRY ORDERABLES Edite d INTERFACE SYSTEM Refer to clinic/hospital department [facility] CLIA# [id number] [address] [place] [address] * PROTIME-INR (08/13/2008 11:14 AM CDT) INR 1.0 0.9 - 1.1 [facility] Comment: ansiINR Therapeutic Range: Adult: 2.0 - 3.0 for pulmonary embolism or prophylaxis against venous thrombosis or systemic embolization. 2.0 - 3.0 for patients with tissue heart valves. 2.5 - 3.5 for patients with mechanical heart valves or post NH. Pediatric (12 years and under): 1.5 - 3.0 Although the target range in children is not well established, INR values of 1.5 - 3.0 are recommended for most patients. Higher values have been used in children with prosthetic cardiac valves and hereditary clotting disorders. (<3 days) therapeutic ranges have not been established. PROTIME 13.5 12.7 - 15.1 Seconds [facility] 08/13/2008 11:1 4 AM CDT 08/13/2008 12:08 PM CDT us Gio Watkins MD HEMATOLOGY ORDERABLES Kelsey kaminski Result INTERFACE SYSTEM Refer to clinic/hospital department [facility] CLIA# [id number] [address] [place] [address] * (ABNORMAL) CBC WITH DIFFERENTIAL (08/13/2008 11:14 AM CDT) Pathologist [facility] WBC 6.9 4.0 - 9.8 K/uL [facility] MCH 27.7 27.2 - 32.6 pg [facility] MPV 11.1 9.3 - 12.4 fL [facility] HEMATOCRIT 36.5 35.5 - 44.0 % [facility] RDW-STDEV 44.2 37.1 - 48.7 fL [facility] RBC 4.23 3.90 - 4.90 M/uL [facility] MCHC 32.1 31.5 - 35.5 % [facility] MCV 86.3 82.0 - 99.0 fL [facility] PLATELETS 334 140 - 350 K/uL [facility] HEMOGLOBIN 11.7(L) 11.8 - 14.8 g/dL [facility] RDW 14.2 11.5 - 14.5 % [facility] LYMPHOCYTES 29 16 - 45 % [facility] LYMPHOCYTE ABSOLUTE 2.01 0.70 - 4.50 K/uL [facility] BASOPHILS 0 0 - 2 % [facility] BASOPHILS ABSOLUTE 0.02 0.00 - 0.20 K/uL [facility] MONOCYTES 8 3 - 13 % [facility] MONOCYTE ABSOLUTE 0.57 0.10 - 1.30 K/uL [facility] NEUTROPHILS 62 45 - 70 % [facility] NEUTROPHIL ABSOLUTE 4.24 1.90 - 7.00 K/uL [facility] EOSINOPHILS 1 0 - 7 % [facility] EOSINOPHIL ABSOLUTE 0.05 0.00 - 0.70 K/uL [facility] 08/13/2008 11:1 4 AM CDT 08/13/2008 12:08 PM CDT us Gio Watkins MD HEMATOLOGY ORDERABLES Edit ed INTERFACE SYSTEM Refer to clinic/hospital department [facility] CLIA# [id number] [address] [place] [address] * TYPE AND CROSSMATCH (08/13/2008 11:13 AM CDT) HISTORY CHECK No Historical ABO/Rh [facility] SPECIMEN LIFE 3 days from OR date [facility] ABO/RH TYPE AB Negative [facility] ANTIBODY SCREEN Negative [facility] 08/13/2008 11:1 3 AM CDT us Gio Watkins MD BLOOD BANK ORDERABLES Edit ed INTERFACE SYSTEM Refer to clinic/hospital department [facility] CLIA# [id number] [address] [place], [place] [address] documented in this encounter Visit Diagnoses Not on filedocumented in this encounter
--- OUTSIDE RECORDS SUMMARY | 2024-06-06 10:58 | XMS_ITS | Encounter Summary ---
Author Organization [facility] Address [address] [place] [address] Phone Care Team Providers Care Laundry Tech Name Role Phone Aditya Reza MD Unavailable Alexus Mehta APRN, CNP Primary Care Provid er Reason for Visit * Reason Comments Medication Refill Encounter Details Date Type Department Care Team (Late st Contact Info) Description 09/23/2022 Refill [facility] #2 [place] [address] Ja Samuel MD #[address] [address] Medication Refill Social History Tobacco Use Types [...] Depression Total Score: 0 01/14/20 10:00 AM BIT SHAVER documented as of this encounter Care Teams Laundry Tech Relationship Specialty Start Date End Date Alexus Mehta APRN, DRY TRANSFER MAN #2 [facility] [address] [place] [address] PCP - General Advanced Practice Nurse 01/13/22 Aditya Reza MD #2 [facility] [address] [place] [address] Consulting Physician Urology 12/31/21 documented as of this encounter
--- OUTSIDE RECORDS SUMMARY | 2024-06-06 10:58 | XMS_ITS | Clinical Summary ---
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 [facility] Provider ENDOSCOPY PROCEDURES Kelsey l Result from Last 3 Months or Most Recently Relevant to Health Maintenance Insurance [facility] MEDICARE MEDICARE [facility] MEDICARE [facility] Care Teams Sponge Fisherman Relationship Specialty Start Date End Date Alexus Mehta NP 2 [facility] [address] [place] [address] PCP - General Nurse Practitioner 11/03/22 Cuong Gaytan MD [address] [facility] [address] [place] [facility] [address] [place] [address] Consulting Physician Obstetrics and Gynecology 05/17/23
--- OUTSIDE RECORDS SUMMARY | 2024-06-06 10:58 | XMS_ITS | Encounter Summary ---
Author Organization [facility] Address [address] [place] [address] Phone Care Team Providers Care Speedometer Inspector Name Role Phone Aditya Reza MD Unavailable Alexus Mehta APRN, CNP Primary Care Provid er Reason for Visit * Reason Comments Medication Refill Encounter Details Date Type Department Care Team (Late st Contact Info) Description 11/20/2023 Refill [facility] - Family Medicine - [place] [address] [place] [address] Alexus Mehta APRN, CNP #[address] [address] Medication Refill Social History Tobacco Use Types Packs/Day Years Used Date Smoking Tobacco: Former Cigarettes 0 07/06/1982 - 07/06/1989 Smokeless Tobacco: Never Alcohol Use Standard Drinks/Week Comments Never 0 (1 standard drink = 0.6 oz pur e alcohol) [facility] Utilities Answer Date Recorded In [...] often do you attend chur ch or hoahaoism services? 1 to 4 times per year 10/14/2023 Do you belong to any clubs o r organizations such as congregational groups, unions, fraternal or athletic groups, or [...] any time in the past 12 [facility], were you homeless or living in a retirement (including now)? No 10/14/2023 Education Answer Date [...] discontinued on 12/31/2022 by Alexus Mehta APRN, GAS STATION MANAGER documented in this encounter Plan of [...] documented as of this encounter Care Teams Speedometer Inspector Relationship Specialty Start Date End Date Alexus Mehta APRN, GAS STATION MANAGER #2 [facility] [address] [place] [address] PCP - General Advanced Practice Nurse 01/13/22 Aditya Reza MD #2 [facility] [address] [place] [address] Consulting Physician Urology 12/31/21 documented as of this encounter
--- OUTSIDE RECORDS SUMMARY | 2024-06-06 10:58 | XMS_ITS | Encounter Summary ---
Author Organization [facility] Address [address] [place] [address] Phone Care Team Providers Care Service Coordinator Elderly Facility Name Role Phone Aditya Reza MD Unavailable Alexus Mehta APRN, CNP Primary Care Provid er Reason for Visit * Reason Comments Medication Refill Encounter Details Date Type Department Care Team (Late st Contact Info) Description 04/23/2022 [facility]ill [facility] #2 [place] [address] Alexus Mehta APRN, CNP #[address] [address] Medication Refill Social History [...] Coronavirus/COVID-19? No / Unsure 04/09/2022 3:43 PM TEXTILE DESIGNS SALES REPRESENTATIVE documented as of this encounter Miscellaneous Notes [...] 90 days and meeting all other requirements ILE DESIGNS SALES REPRESENTATIVE 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, unspecified documented in this encounter Additional Health Concerns Infection Onset Date Last Indicated Resolved Time ESBL 06/20/2018 01/01/2022 Assessment Noted Time PHQ-9 Depression Total Score: 0 01/14/20 22 10:00 AM TEXTILE DESIGNS SALES REPRESENTATIVE documented as of this encounter Care Teams Service Coordinator Elderly Facility Relationship Specialty Start Date End Date Alexus Mehta APRN, [place] #[address] [address] PCP - General Advanced Practice Nurse 01/13/22 Aditya Reza MD #2 [place] [address] Consulting Physician Urology 12/31/21 documented as of this encounter
--- OUTSIDE RECORDS SUMMARY | 2024-06-06 10:58 | XMS_ITS | Continuity of Care Document ---
Author Organization [facility] Address [address] [place] [address] Phone Care Team Providers Care Diagnostic Imaging Manager Name Role Phone Juan Daniel Thayer MD [...] Date Provider Providers Copied on Encounter [facility], [address], [place], [place], [id number], [place] tel:[phone] SEC [employer] Professional No Information [address]. [address], [place], [place], [id number], [place]. tel:[phone] Family History Family Member Type Diagnosis Age At Onset Father Problem (finding) glaucoma Mother Problem (finding) glaucoma Mother Problem (finding) Diabetes mellitus Payers Payer name Insurance type Covered libertarian ID Authoriza tion(s) No Information Social History [...]
--- OUTSIDE RECORDS SUMMARY | 2024-06-06 10:58 | XMS_ITS | Encounter Summary ---
Author Organization [facility] Address [address] [place] [address] Phone Care Team Providers Care Edger Feeder Name Role Phone Aditya Reza MD Unavailable Alexus Mehta APRN, CNP Primary Care Provid er Reason for Visit * Reason Comments Medication Refill Encounter Details Date Type Department Care Team (Late st Contact Info) Description 04/23/2022 Refill [facility] #2 [place] [address] Alexus Mehta APRN, CNP #[address] [address] Medication Refill Social History Tobacco [...] Coronavirus/COVID-19? No / Unsure 04/09/2022 3:43 PM IT PROFESSIONAL documented as of this encounter Miscellaneous Notes * Telephone Encounter - Lynn Saucedo RN - 04/23/2022 3:16 PM CST Signed Today (04/23/2022): venlafaxine (EFFEXOR) 100 MG Tablet Sig: TAKE 1 TABLET BY MOUTH IN THE MORNING AND AT BEDTIME Disp: 180 Tablet ? 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, unspecified documented in this encounter Additional Health Concerns Infection Onset Date Last Indicated Resolved Time ESBL 06/20/2018 01/01/2022 Assessment Noted Time PHQ-9 Depression Total Score: 0 01/14/20 22 10:00 AM IT PROFESSIONAL documented as of this encounter Care Teams Edger Feeder Relationship Specialty Start Date End Date Alexus Mehta APRN, CNP #2 [facility] [address] [place] [address] PCP - General Advanced Practice Nurse 01/13/22 dAitya Reza MD #2 [place] [facility] [address] [place] [address] Consulting Physician Urology 12/31/21 documented as of this encounter
--- OUTSIDE RECORDS SUMMARY | 2024-06-06 10:58 | XMS_ITS | Encounter Summary ---
Author Organization [facility] Address [address] [place] [address] Phone Care Team Providers Care Teletype Installer Name Role Phone Aditya Reza MD Unavailable Alexus Mehta APRN, CNP Primary Care Provid er Reason for Visit * Reason Comments Medication Refill Encounter Details Date Type Department Care Team (Late st Contact Info) Description 10/20/2022 Refill [facility] - [place] #2 [place] [address] Alexus Mehta APRN, CNP #[address] [address] Medication Refill Social History Tobacco [...] Depression Total Score: 0 01/14/20 10:00 AM FRESH WORK INSPECTOR documented as of this encounter Care Teams Teletype Installer Relationship Specialty Start Date End Date Alexus Mehta APRN, CNP #2 [facility] [address] [place] [phone] PCP - General Advanced Practice Nurse 01/13/22 Aditya Reza MD #2 [place] [facility] [address] [place] [address] Consulting Physician Urology 12/31/21 documented as of this encounter
--- OUTSIDE RECORDS SUMMARY | 2024-06-06 10:58 | XMS_ITS | Encounter Summary ---
Author Organization [facility] Address [address] [place] [address] Phone Care Team Providers Care Photogrammetric Compilation Specialist Name Role Phone Aditya Reza MD Unavailable Alexus Mehta APRN, CNP Primary Care Provid er Reason for Visit * Reason Comments Medication Refill Encounter Details Date Type Department Care Team (Late st Contact Info) Description 01/07/2023 Refill [facility] #2 [place] [address] Ja Samuel MD #[address] [address] Medication Refill Social History Tobacco Use Types [...] 0 Signed by: Alexus Mehta APRN, CNP [facility] documented in this encounter Plan of Treatment Not on file documented as of this encounter Visit Diagnoses Diagnosis Anxiety Anxiety state, unspecified documented in this encounter Additional Health Concerns Infection Onset Date Last Indicated Resolved Time ESBL 06/20/2018 01/01/2022 Assessment Noted Time PHQ-9 Depression Total Score: 0 01/14/20 22 10:00 AM SOLAR DESIGNER/INSTALLER documented as of this encounter Care Teams Photogrammetric Compilation Specialist Relationship Specialty Start Date End Date Alexus Mehta APRN, CNP #2 [facility] [address] [place] [address] PCP - General Advanced Practice Nurse 01/13/22 Aditya Reza MD #2 [facility] [address] [place] [address] Consulting Physician Urology 12/31/21 documented as of this encounter
--- NOTE | 2024-06-06 11:30 | NEURO_ITS ---
Impression: # Complains of paresthesia of lower extremities. Non-diabetic. ? # Axonal motor/sensory neuropathy. ? # Needle/EMG exam reveals neurogenic changes in bilateral EDB. ? # Clinical correlation recommended. Nerve Conduction Studies Anti Sensory Summary Table ?Stim Site NR Peak (ms) P-T Amp (?V) Site1 Site2 Delta-P (ms) Dist (cm) Floyd (m/s) Left Sup Fibular Anti Sensory (Ant Lat Mall)??? NO RESPONSE 14 cm NR 14 cm Ant Lat Mall 16.0 Right Sup Fibular Anti Sensory (Ant Lat Mall)??? NO RESPONSE 14 cm NR 14 cm Ant Lat Mall 16.0 Left Sural Anti Sensory (Lat Mall) Calf ? 4.0 12.7 Calf Lat Mall 4.0 16.0 40 Right Sural Anti Sensory (Lat Mall) Calf ? 4.0 7.1 Calf Lat Mall 4.0 16.0 40 Motor Summary Table ?Stim Site NR Onset (ms) O-P Amp (mV) Site1 Site2 Delta-0 (ms) Dist (cm) Floyd (m/s) Left Peroneal Motor (Vastus Med) Ankle ? 4.5 3.8 Popit Ankle 9.2 40.0 43 Popit ? 13.7 2.9 Right Peroneal Motor (Vastus Med) Ankle ? 4.5 1.2 Popit Ankle 9.3 40.0 43 Popit ? 13.8 0.9 Left Tibial Motor (Abd Velez Brev) Ankle ? 4.4 2.8 Knee Ankle 9.7 41.0 42 Knee ? 14.1 2.1 Right Tibial Motor (Abd Velez Brev) Ankle ? 4.5 0.8 Knee Ankle 9.4 39.0 41 Knee ? 13.9 1.5 F Wave Studies ?NR F-Lat (ms) L-R F-Lat (ms) Left Peroneal (Mrkrs) (EDB) ? 53.28 1.20 Right Peroneal (Mrkrs) (EDB) ? 52.08 1.20 Left Tibial (Mrkrs) (Abd Hallucis) ? 55.10 0.72 Right Tibial (Mrkrs) (Abd Hallucis) ? 54.39 0.72 EMG ?Side Muscle Nerve Root Ins Act Fibs Amp Dur Recrt Comment Right AntTibialis Dp Br Fibular L4-5 Nml Nml Nml Nml Nml Right Gastroc Tibial S1-2 Nml Nml Nml Nml Nml Right Fibularis Long Sup Br Fibular L5-S1 Nml Nml Nml Nml Nml Right Flex Dig Long Tibial L5-S2 Nml Nml Nml Nml Nml Right Ext Dig Brev Dp Br Fibular L5, S1 Nml Nml Incr >12ms +1 Right QuadratusFem QuadFemoris L4-5, S1 Nml Nml Nml Nml Nml Left AntTibialis Dp Br Fibular L4-5 Nml Nml Nml Nml Nml Left Gastroc Tibial S1-2 Nml Nml Nml Nml Nml Left Fibularis Long Sup Br Fibular L5-S1 Nml Nml Nml Nml Nml Left Flex Dig Long Tibial L5-S2 Nml Nml Nml Nml Nml Left Ext Dig Brev Dp Br Fibular L5, S1 Nml Nml Incr >12ms +1 Left QuadratusFem QuadFemoris L4-5, S1 Nml Nml Nml Nml Nml Impression: # Complains of paresthesia of lower extremities. Non-diabetic. ? # Axonal motor/sensory neuropathy. ? # Needle/EMG exam reveals neurogenic changes in bilateral EDB. ? # Clinical correlation recommended. Nerve Conduction Studies Anti Sensory Summary Table ?Stim Site NR Peak (ms) P-T Amp (?V) Site1 Site2 Delta-P (ms) Dist (cm) Floyd (m/s) Left Sup Fibular Anti Sensory (Ant Lat Mall)??? NO RESPONSE 14 cm NR 14 cm Ant Lat Mall 16.0 Right Sup Fibular Anti Sensory (Ant Lat Mall)??? NO RESPONSE 14 cm NR 14 cm Ant Lat Mall 16.0 Left Sural Anti Sensory (Lat Mall) Calf ? 4.0 12.7 Calf Lat Mall 4.0 16.0 40 Right Sural Anti Sensory (Lat Mall) Calf ? 4.0 7.1 Calf Lat Mall 4.0 16.0 40 Motor Summary Table ?Stim Site NR Onset (ms) O-P Amp (mV) Site1 Site2 Delta-0 (ms) Dist (cm) Floyd (m/s) Left Peroneal Motor (Vastus Med) Ankle ? 4.5 3.8 Popit Ankle 9.2 40.0 43 Popit ? 13.7 2.9 Right Peroneal Motor (Vastus Med) Ankle ? 4.5 1.2 Popit Ankle 9.3 40.0 43 Popit ? 13.8 0.9 Left Tibial Motor (Abd Velez Brev) Ankle ? 4.4 2.8 Knee Ankle 9.7 41.0 42 Knee ? 14.1 2.1 Right Tibial Motor (Abd Velez Brev) Ankle ? 4.5 0.8 Knee Ankle 9.4 39.0 41 Knee ? 13.9 1.5 F Wave Studies ?NR F-Lat (ms) L-R F-Lat (ms) Left Peroneal (Mrkrs) (EDB) ? 53.28 1.20 Right Peroneal (Mrkrs) (EDB) ? 52.08 1.20 Left Tibial (Mrkrs) (Abd Hallucis) ? 55.10 0.72 Right Tibial (Mrkrs) (Abd Hallucis) ? 54.39 0.72 EMG ?Side Muscle Nerve Root Ins Act Fibs Amp Dur Recrt Comment Right AntTibialis Dp Br Fibular L4-5 Nml Nml Nml Nml Nml Right Gastroc Tibial S1-2 Nml Nml Nml Nml Nml Right Fibularis Long Sup Br Fibular L5-S1 Nml Nml Nml Nml Nml Right Flex Dig Long Tibial L5-S2 Nml Nml Nml Nml Nml Right Ext Dig Brev Dp Br Fibular L5, S1 Nml Nml Incr >12ms +1 Right QuadratusFem QuadFemoris L4-5, S1 Nml Nml Nml Nml Nml Left AntTibialis Dp Br Fibular L4-5 Nml Nml Nml Nml Nml Left Gastroc Tibial S1-2 Nml Nml Nml Nml Nml Left Fibularis Long Sup Br Fibular L5-S1 Nml Nml Nml Nml Nml Left Flex Dig Long Tibial L5-S2 Nml Nml Nml Nml Nml Left Ext Dig Brev Dp Br Fibular L5, S1 Nml Nml Incr >12ms +1 Left QuadratusFem QuadFemoris L4-5, S1 Nml Nml Nml Nml Nml MTDD
== END 2024-06-06 10:04 | disposition home or self-care (01) ==
PROVIDERS: PCP Nurse Practitioner Adult Health; Visit Provider Nurse Practitioner Adult Health
DX: R20.2 Paresthesia of skin (principal)
CPT/HCPCS: 95886; 95910

== ENCOUNTER 2024-06-24 09:37 | Outpatient (CLI) | payer MEDICARE, SELFPAY ==
--- NOTE | ~2024-06-24 | MR_ITS ---
MRI of the lumbar spine Clinical History: Neck pain Technique: Axial T2-weighted images, and sagittal T1-weighted, T2-weighted, and T2 fat-sat images wer e acquired. Findings: There is no fracture or subluxation lumbar spine. Vertebral bodies maintain normal alignmen t. No bone marrow signal abnormality seen. At L1-L2, there is no disc bulge or herniation. No spinal canal stenosis or neural foraminal narrowin g. There is moderate facet arthropathy. At L2-L3, there is no disc bulge or herniation. There is mild facet arthropathy. No central canal elissa nosis. There is mild bilateral neural foraminal narrowing. At L3-L4, there is minimal disc bulge with moderate facet arthropathy. No leroy central canal stenosi s. There is moderate right neural foraminal narrowing, and mild to moderate left neural foraminal alexander rowing. At L4-L5, there is disc bulge with severe facet arthropathy, resulting in severe spinal canal stenosi s/thecal sac compression. There is preservation of bilateral neural foramina. At L5-S1, there is disc bulge with severe facet arthropathy. There is severe spinal canal stenosis/th ecal sac compression. There is mild bilateral neural foraminal narrowing. Paravertebral soft tissues are unremarkable. Impression: Advanced degenerative spondylosis at L4-L5 and L5-S1, as detailed above. Moderate degenerative spondy losis at L3-L4. Reviewed, dictated and finalized at [facility]. Impression: Advanced degenerative spondylosis at L4-L5 and L5-S1, as detailed above. Modera te degenerative spondylosis at L3-L4.
--- OUTSIDE RECORDS SUMMARY | 2024-06-24 09:41 | XMS_ITS | Encounter Summary ---
Author Organization [facility] Address [address] [place] [address] Phone Care Team Providers Care Medical Asst Name Role Phone Aditya Reza MD Unavailable Alexus Mehta APRN, CNP Primary Care Provid er Reason for Visit * Reason Comments Medication Refill Encounter Details Date Type Department Care Team (Late st Contact Info) Description 10/20/2022 Refill [facility] - [facility] - [place] #2 [place] [address] Alexus Mehta APRN, CNP #[address] [address] Medication Refill Social History Tobacco [...] Depression Total Score: 0 01/14/20 10:00 AM BRANNER MACHINE TENDER documented as of this encounter Care Teams Medical Asst Relationship Specialty Start Date End Date Alexus Mehta APRN, CNP #2 [facility] [address] [place] [phone] PCP - General Advanced Practice Nurse 01/13/22 Aditya Reza MD #2 [place] [facility] [address] [place] [address] Consulting Physician Urology 12/31/21 documented as of this encounter
--- OUTSIDE RECORDS SUMMARY | 2024-06-24 09:41 | XMS_ITS | Encounter Summary ---
Author Organization [facility] Address [address] [place] [address] Phone Care Team Providers Care Rug Sizer Name Role Phone Aditya Reza MD Unavailable Alexus Mehta APRN, CNP Primary Care Provid er Reason for Visit * Reason Comments Medication Refill Encounter Details Date Type Department Care Team (Late st Contact Info) Description 09/23/2022 Refill [facility] #2 [place] [address] Ja Samuel MD #[address] [address] Medication Refill Social History Tobacco Use Types [...] Depression Total Score: 0 01/14/20 10:00 AM WARP KNITTING MACHINE OPERATOR documented as of this encounter Care Teams Rug Sizer Relationship Specialty Start Date End Date Alexus Mehta APRN, BANQUET ATTENDANT #2 [facility] [address] [place] [address] PCP - General Advanced Practice Nurse 01/13/22 Aditya Reza MD #2 [place] [facility] [address] [place] [address] Consulting Physician Urology 12/31/21 documented as of this encounter
--- OUTSIDE RECORDS SUMMARY | 2024-06-24 09:41 | XMS_ITS | Encounter Summary ---
Author Organization [facility] Address [address] [place] [address] Phone Care Team Providers Care Sr. Director Product Management Name Role Phone Aditya Reza MD Unavailable Alexus Mehta APRN, CNP Primary Care Provid er Reason for Visit * Reason Comments Medication Refill Encounter Details Date Type Department Care Team (Late st Contact Info) Description 01/07/2023 Refill [facility] #2 [place] [address] Ja Samuel MD #[address] [address] Medication Refill Social History Tobacco Use Types [...] 0 Signed by: Alexus Mehta APRN, CNP [facility] documented in this encounter Plan of Treatment Not on file documented as of this encounter Visit Diagnoses Diagnosis Anxiety Anxiety state, unspecified documented in this encounter Additional Health Concerns Infection Onset Date Last Indicated Resolved Time ESBL 06/20/2018 01/01/2022 Assessment Noted Time PHQ-9 Depression Total Score: 0 01/14/20 22 10:00 AM SCRAP STRIPPER HAND documented as of this encounter Care Teams Sr. Director Product Management Relationship Specialty Start Date End Date Alexus Mehta APRN, CNP #2 [facility] [address] [place] [address] PCP - General Advanced Practice Nurse 01/13/22 Aditya Reza MD #2 [facility] [address] [place] [address] Consulting Physician Urology 12/31/21 documented as of this encounter
--- OUTSIDE RECORDS SUMMARY | 2024-06-24 09:41 | XMS_ITS | Encounter Summary ---
Author Organization [facility] Address [address] [place] [address] Phone Care Team Providers Care Teacher Adventure Education Name Role Phone Aditya Reza MD Unavailable Alexus Mehta APRN, CNP Primary Care Provid er Reason for Visit * Reason Comments Medication Refill Encounter Details Date Type Department Care Team (Late st Contact Info) Description 09/13/2022 Refill [facility] #2 [place] [address] Ja Samuel MD #[address] [address] Medication Refill Social History Tobacco Use Types [...] 08/02/2022 90 180 Each Ja Samuel MD [facility] #... 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, unspecified documented in this encounter Additional Health Concerns Infection Onset Date Last Indicated Resolved Time ESBL 06/20/2018 01/01/2022 Assessment Noted Time PHQ-9 Depression Total Score: 0 01/14/20 10:00 AM ICE HOUSE SUPERVISOR documented as of this encounter Care Teams Teacher Adventure Education Relationship Specialty Start Date End Date Alexus Mehta APRN, CNP #2 [facility] [address] [place] [address] PCP - General Advanced Practice Nurse 01/13/22 Aditya Reza MD #2 [place] [facility] [address] [place] [address] Consulting Physician Urology 12/31/21 documented as of this encounter
--- OUTSIDE RECORDS SUMMARY | 2024-06-24 09:41 | XMS_ITS | Encounter Summary ---
Author Organization [facility] Address [address] [place] [address] Phone Care Team Providers Care Mechanical Engineering Specialist Name Role Phone Aditya Reza MD Unavailable Alexus Mehta APRN, CNP Primary Care Provid er Reason for Visit * Reason Comments Medication Refill Encounter Details Date Type Department Care Team (Late st Contact Info) Description 06/28/2022 Refill [facility] #2 [place] [address] Ja Samuel MD #[address] [address] Medication Refill Social History Tobacco Use Types [...] CDT Reordered 06/04/22 for 4 months - [facility] documented in this encounter Plan of Treatment Not on file documented as of this encounter Visit Diagnoses Not on filedocumented in this encounter Additional Health Concerns Infection Onset Date Last Indicated Resolved Time ESBL 06/20/2018 01/01/2022 Assessment Noted Time PHQ-9 Depression Total Score: 0 01/14/20 10:00 AM MINE CAR MECHANIC documented as of this encounter Care Teams Mechanical Engineering Specialist Relationship Specialty Start Date End Date Alexus Mehta APRN, FREIGHT BREAKER #2 [facility] [address] [place] [address] PCP - General Advanced Practice Nurse 01/13/22 Aditya Reza MD #2 [place] [facility] [address] [place] [address] Consulting Physician Urology 12/31/21 documented as of this encounter
--- OUTSIDE RECORDS SUMMARY | 2024-06-24 09:41 | XMS_ITS | Encounter Summary ---
Author Organization [facility] Address [address] [place] [address] Phone Care Team Providers Care Filenet Developer Name Role Phone Aditya Reza MD Unavailable Alexus Mehta APRN, CNP Primary Care Provid er Reason for Visit * Reason Comments Medication Refill Encounter Details Date Type Department Care Team (Late st Contact Info) Description 04/23/2022 Refill [facility] #2 [place] [address] Alexus Mehta APRN, CNP #[address] [address] Medication Refill Social History [...] Coronavirus/COVID-19? No / Unsure 04/09/2022 3:43 PM ARBOREAL SCIENTIST documented as of this encounter Miscellaneous Notes [...] 90 days and meeting all other requirements REAL SCIENTIST 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, unspecified documented in this encounter Additional Health Concerns Infection Onset Date Last Indicated Resolved Time ESBL 06/20/2018 01/01/2022 Assessment Noted Time PHQ-9 Depression Total Score: 0 01/14/20 22 10:00 AM ARBOREAL SCIENTIST documented as of this encounter Care Teams Filenet Developer Relationship Specialty Start Date End Date Alexus Mehta APRN, TYRONE #[address] [address] PCP - General Advanced Practice Nurse 01/13/22 Aditya Reza MD #2 [place] [address] Consulting Physician Urology 12/31/21 documented as of this encounter
--- OUTSIDE RECORDS SUMMARY | 2024-06-24 09:41 | XMS_ITS | Encounter Summary ---
Author Organization [facility] Address [address] [place] [address] Phone Care Team Providers Care Lead Worker Of Housekeeping And Laundry Name Role Phone Aditya Reza MD Unavailable Alexus Mehta APRN, CNP Primary Care Provid er Reason for Visit * Reason Comments Medication Refill Encounter Details Date Type Department Care Team (Late st Contact Info) Description 04/23/2022 Refill [facility] #2 [place] [address] Alexus Mehta APRN, CNP #[address] [address] Medication Refill Social History Tobacco [...] Coronavirus/COVID-19? No / Unsure 04/09/2022 3:43 PM SHARED SERVICES AND OUTSOURCING MANAGER documented as of this encounter Miscellaneous Notes * Telephone Encounter - Lynn Saucedo RN - 04/23/2022 3:16 PM CST Signed Today (04/23/2022): venlafaxine (EFFEXOR) 100 MG Tablet Sig: TAKE 1 TABLET BY MOUTH IN THE MORNING AND AT BEDTIME Disp: 180 Tablet ? Refills: 1 Signed by: Ja Samuel MD [facility] ED SERVICES AND OUTSOURCING MANAGER 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, unspecified documented in this encounter Additional Health Concerns Infection Onset Date Last Indicated Resolved Time ESBL 06/20/2018 01/01/2022 Assessment Noted Time PHQ-9 Depression Total Score: 0 01/14/20 22 10:00 AM SHARED SERVICES AND OUTSOURCING MANAGER documented as of this encounter Care Teams Lead Worker Of Housekeeping And Laundry Relationship Specialty Start Date End Date Alexus Mehta APRN, CNP #[address] [facility] [address] [place] [address] PCP - General Advanced Practice Nurse 01/13/22 Aditya Reza MD #2 [place] [facility] [address] [place] [address] Consulting Physician Urology 12/31/21 documented as of this encounter
--- OUTSIDE RECORDS SUMMARY | 2024-06-24 09:41 | XMS_ITS | Encounter Summary ---
Author Organization [facility] Address [address] [place] [address] Phone Care Team Providers Care Drum Plater Name Role Phone Aditya Reza MD Unavailable Alexus Mehta APRN, CNP Primary Care Provid er Reason for Visit * Reason Comments Medication Refill Encounter Details Date Type Department Care Team (Late st Contact Info) Description 09/20/2022 Refill [facility] #2 [place] [address] Ja Samuel MD #[address] [address] Medication Refill Social History Tobacco Use Types [...] encounter Miscellaneous Notes * Telephone Encounter - Lnyn Saucedo RN - 09/21/2022 1:14 PM CDT Images from the original note were not included. Venlafaxine HCl Dispensed Days Supply Quantity Provider Pharmacy VENLAFAXINE 100MG TABLETS 08/02/2022 90 180 Each Ja Samuel MD [facility] #... 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, unspecified documented in this encounter Additional Health Concerns Infection Onset Date Last Indicated Resolved Time ESBL 06/20/2018 01/01/2022 Assessment Noted Time PHQ-9 Depression Total Score: 0 01/14/20 10:00 AM UTILITY ACCOUNTS DIRECTOR documented as of this encounter Care Teams Drum Plater Relationship Specialty Start Date End Date Alexus Mehta APRN, CNP #2 [facility] [address] [place] [address] PCP - General Advanced Practice Nurse 01/13/22 Aditya Reza MD #2 [place] [facility] [address] [place] [address] Consulting Physician Urology 12/31/21 documented as of this encounter
--- OUTSIDE RECORDS SUMMARY | 2024-06-24 09:42 | XMS_ITS | Encounter Summary ---
Author Organization [facility] Address [address] [place] [address] Phone Care Team Providers Care Plywood Layup Line Core Feeder Name Role Phone Aditya Reza MD Unavailable Alexus Mehta APRN, CNP Primary Care Provid er Reason for Visit * Reason Comments Medication Refill Encounter Details Date Type Department Care Team (Late st Contact Info) Description 06/24/2023 Refill [facility] - [facility] - [place] [address] [place] [address] Alexus Mehta APRN, CNP [address] [address] Medication Refill Social History Tobacco [...] AM CDT Medication(s) refilled and signed per [facility] Chronic Medication Refill Standing Order for Pediatricand [...] Office Visit Alexus Mehta APRN, CNP [facility] Tone Showing recent visits [...] documented as of this encounter Care Teams Plywood Layup Line Core Feeder Relationship Specialty Start Date End Date Alexus Mehta APRN, TYRONE #2 [facility] [address] [place] [address] PCP - General Advanced Practice Nurse 01/13/22 Aditya Reza MD #2 [facility] [address] [place] [address] Consulting Physician Urology 12/31/21 documented as of this encounter
--- OUTSIDE RECORDS SUMMARY | 2024-06-24 09:42 | XMS_ITS | Clinical Summary ---
Author Organization [facility] Address [address] [place] [address] Phone Care Team Providers Care Clinical Account Specialist Name Role Phone Unavailable Primary Care Provider Unavailabl e Social History Tobacco Use Types Packs/Day Years Used Date Smoking Tobacco: Never Assessed Comments Unknown Sex and Gender Information Value Date Recorded Sex Assigned at Not on file Legal Sex Female 5:44 AM BUSINESS ANALYST [employer] Gender Identity Not on file Sexual Orientation [...]
--- OUTSIDE RECORDS SUMMARY | 2024-06-24 09:42 | XMS_ITS | Clinical Summary ---
Author Organization [facility] Address [address] [place] [address] Phone Care Team Providers Care Discovery Manager Name Role Phone Aditya Reza MD [...] Department Care Team Description 2024 Telephone [facility] [address] [place] [address] Deanna Grajeda RN 04/12/2024 5:39 PM [employer] OFFICER - 04/12/2024 9:37 PM [employer] OFFICER Emergency [facility] Emergency [address] [place] [address] Madelyn Jha APRN, SUPERVISOR MELT HOUSE Injury of head, initial encounter Discharge Disposition: Discharged to home or Selfcare 04/12/2024 Travel from Last 3 Months Immunizations Immunization Administration [...] drink = 0.6 oz pur e alcohol) [facility] Utilities Answer Date Recorded In the past 12 months has th e electric, gas, oil, or water company [...] often do you attend chur ch or faith services? 1 to 4 times per year 10/14/2023 Do you belong to any clubs o r organizations such as episcopalian groups, unions, fraternal or athletic groups, or [...] Total Score - Questions 1-9 0 03/2023 [facility] Occupational Stress Questionnaire Answer Date [...] any time in the past 12 m [facility], were you homeless or living in a group home (including now)? No 10/14/2023 Education Answer Date [...] Comments Blood Pressure 137/93 04/12/2024 9:00 PM [employer] OFFICER Pulse 87 04/12/2024 9:15 PM [employer] OFFICER Temperature 36.1 C (96.9 F) 04/12/2024 2:43 PM [employer] OFFICER Respiratory Rate 18 04/12/2024 9:15 PM [employer] OFFICER Oxygen Saturation 100% 04/12/2024 9:15 PM [employer] OFFICER Inhaled Oxygen Concentration - - Weight 81.2 kg (179 lb) 04/12/2024 2:43 PM [employer] OFFICER Height 163.8 cm (5' 4.5 ) 04/12/2024 2:43 PM [employer] OFFICER Body Mass Index 30.25 04/12/2024 2:43 PM [employer] OFFICER Plan of Treatment Health Maintenance Due Date [...] this topic Medical Devices Implanted Type Area Artist'S Manager Device Identifier Shelf Expiration Date Model / Serial / Lot Stent Ureteral 6fr 2.1fr 24cm 2 Pigtail Curve 2 Durometer Taper Tip Loprfl Graduated Polaris Ultra - [id number] Implanted:Qty: 1 on 07/15/2018 by Marbella Alejandra MD at [facility] IMPLANT Right: Ureter [employer] 02/07/2021 [id number] 20 / [id number] 20 / [id number] Speedbridge Implant Systemw Ith Biocomposity Swivel Lock Implanted:Qty: 1 on 07/29/2016 by [facility] Left: Shoulder 03/07/2018 / [id number] S-4 / [id number] Explanted Type Area Artist'S Manager Device Identifier Shelf Expiration Date Model / Serial / Lot Stent Ureteral 6fr 2.1fr 24cm 2 Pigtail Curve 2 Durometer Taper Tip Loprfl Graduated Polaris Ultra - [id number] Implanted:Qty : 1 on 06/24/2018 by Marbella Alejandra MD at [facility] Explanted:Qty : 1 on 07/15/2018 by Marbella Alejandra MD at [facility] IMPLANT Right: Ureter [employer] 12/20/2020 [id number] / [id number] / [id number] Procedures Procedure Name Priority Date/Time Associated Diagnosis Comments CT CHEST ABDOMEN AND PELVIS W CONTRAST Stat with Interpretation 04/12/2024 8:04 PM [employer] OFFICER GOLD TOP TUBE STAT 04/12/2024 6:45 PM [employer] OFFICER BLUE TOP TUBE STAT 04/12/2024 6:45 PM [employer] OFFICER CBC WITH AUTO DIFFERENTIAL STAT 04/12/2024 6:45 PM [employer] OFFICER EXTRA TUBES STAT 04/12/2024 6:45 PM [employer] OFFICER CMP (COMPREHENSIVE METABOLIC PANEL) STAT 04/12/2024 6:45 PM [employer] OFFICER COMPLETE BLOOD COUNT (CBC) WITH DIFF STAT 04/12/2024 6:45 PM [employer] OFFICER XR RIBS UNILATERAL WITH PA CHEST LEFT STAT 04/12/2024 3:35 PM [employer] E[employer]IC [employer]ARF[employer] OFFICER CT FACIAL BONES WO CONTRAST Stat with Interpretation 04/12/2024 3:17 PM [employer] OFFICER CT CERVICAL SPINE WO/ CONTRAST Stat with Interpretation 04/12/2024 3:16 PM [employer] OFFICER CT HEAD OR BRAIN WO CONTRAST Stat with Interpretation 04/12/2024 3:15 PM [employer]FARE OFFICER [facility] BONE DENSITOMETRY AXIAL SKELETON Routine 08/06/2022 11:38 AM CDT Post-menopausal Encounter for screening for osteoporosis [facility] SCREENING BILATERAL DIGITAL W CAD W JESSICA Routine 08/06/2022 11:27 AM CDT Screening mammogram for breast cancer from Last 3 Months or Most Recently Relevant to Health Maintenance Results * CT CHEST ABDOMEN AND PELVIS W CONTRAST (04/12/2024 8:04 PM [employer] OFFICER) Anatomical Region Laterality Modality Chest, Abdomen, Pelvis N/A Computed Tomography 04/12/2024 8:40 PM [employer] OFFICER Impressions 04/12/2024 8:43 PM [employer] WARF[employer] OFFICER IMPRESSION: Acute nondisplaced single part fractures of the anterior left 5th and 6th ribs. No acute findings in the abdomen and pelvis. Narrative 04/12/2024 8:43 PM [employer]IC WARF[employer] OFFICER EXAM DESCRIPTION: CT CHEST ABDOMEN AND PELVIS [...] Marysol Aguirre M.D. FT: FT Report ID: [id number] Reading Location: [id number] Procedure Note Marysol Dietz MD - 04/12/2024 [...] Marysol Aguirre M.D. FT: FT Report ID: [id number] Reading Location: [id number] IMPRESSION: Acute nondisplaced single part fractures of the anterior left 5th and 6th ribs. No acute findings in the abdomen and pelvis. us Madelyn Jha APRN, CNP IMG CT ORDERABLES Final Result * Gold Top Tube (04/12/2024 6:45 PM [employer] OFFICER) Blood No Phlebotomy Charged / Unknown 04/12/2024 6:45 PM [employer] OFFICER 04/12/2024 6:56 PM [employer] OFFICER us Madelyn Jha APRN, CNP CHEMISTRY ORDERABL ES Final Result Performing Organization Address [facility]/ZIP Co de Phone Number [facility] [address] [place] [address] * Blue Top Tube (04/12/2024 6:45 PM [employer] OFFICER) Blood No Phlebotomy Charged / Unknown 04/12/2024 6:45 PM [employer] OFFICER 04/12/2024 6:56 PM [employer] OFFICER Madelyn Jha APRN, CNP HEMATOLOGY ORDERAB LES Final Result Performing Organization Address [facility] Co de Phone Number [facility] [address] [place] [address] * (ABNORMAL) CBC with Auto Differential (04/12/2024 6:45 PM [employer]IC WARFARE OFFICER) WBC 10.10 4.00 - 12.00 10(3)/mcL 04/12/2024 6:59 PM [employer] E[employer]IC WARFARE OFFICER [facility] RBC 3.84 3.80 - 5.30 10(6)/mcL 04/12/2024 6:59 PM [employer]S ELECTRONIC WARFARE OFFICER [facility] HEMOGLOBIN (HGB) 11.4(L) 12.0 - 15.8 g/dL 04/12/2024 6:59 PM [employer] E[employer]RONIC WARFARE OFFICER [facility] HEMATOCRIT (HCT) 34.5(L) 36.0 - 47.0 % 04/12/2024 6:59 PM [facility] MCV 89.8 82.0 - 96.0 fL 04/12/2024 6:59 PM [facility] MCH 29.7 26.0 - 34.0 pg 04/12/2024 6:59 PM [facility] MCHC 33.0 31.0 - 36.0 g/dL 04/12/2024 6:59 PM [facility] PLATELET COUNT 290 140 - 440 10(3)/mcL 04/12/2024 6:59 PM [facility] RDW 13.5 11.8 - 15.5 % 04/12/2024 6:59 PM [facility] MPV 10.5 9.7 - 12.4 fL 04/12/2024 6:59 PM [facility] NEUTROPHILS 71.4 47.0 - 73.0 % 04/12/2024 6:59 PM [facility] LYMPHOCYTES 15.7(L) 18.0 - 42.0 % 04/12/2024 6:59 PM [facility] MONOCYTES 11.7 4.0 - 12.0 % 04/12/2024 6:59 PM [facility] EOSINOPHILS 0.9 0.0 - 5.0 % 04/12/2024 6:59 PM [facility] BASOPHILS 0.3 0.0 - 1.0 % 04/12/2024 6:59 PM [facility] ABSOLUTE NEUTROPHILS 7.21 1.60 - 7.70 10(3)/mcL 04/12/2024 6:59 PM [facility] ABSOLUTE LYMPHOCYTES 1.59 1.30 - 3.20 10(3)/mcL 04/12/2024 6:59 PM [facility] ABSOLUTE MONOCYTES 1.18(H) 0.20 - 1.00 10(3)/mcL 04/12/2024 6:59 PM [facility] ABSOLUTE EOSINOPHIL 0.09 0.00 - 0.40 10(3)/mcL 04/12/2024 6:59 PM [facility] ABSOLUTE BASOPHILS 0.03 0.00 - 0.10 10(3)/mcL 04/12/2024 6:59 PM [facility] NRBC PER 100 WBC 0 04/12/19 6:59 PM [facility] Blood Venipuncture / Unknown 04/12/2024 6:45 PM [employer]S E[employer]IC WARF[employer] OFFICER 04/12/2024 6:54 PM [employer] E[employer]ARF[employer] OFFICER us Madelyn Jha APPAREL STOCK CHECKER, SUPERVISOR MELT HOUSE HEMATOLOGY ORDERAB LES Final Result [facility] [address] [place] [address] * (ABNORMAL) CMP (04/12/2024 6:45 PM [employer]S ELECTRONIC WARFARE OFFICER) SODIUM 141 136 - 145 mmol/L 04/12/2024 7:18 PM [facility] POTASSIUM 3.9 3.5 - 5.1 mmol/L 04/12/2024 7:18 PM [facility] CHLORIDE 108(H) 98 - 107 mmol/L 04/12/2024 7:18 PM [facility] CO2, VENOUS 25 22 - 30 mmol/L 04/12/2024 7:18 PM [facility] ANION GAP 11.9 <18.0 mmol/L 04/12/2024 7:18 PM [facility] GLUCOSE 112(H) 70 - 99 mg/dL 04/12/2024 7:18 PM [facility] BUN 26(H) 10 - 20 mg/dL 04/12/2024 7:18 PM [facility] CREATININE, BLOOD 1.05(H) 0.60 - 1.00 mg/dL 04/12/2024 7:18 PM [facility] BUN/CREATININE RATIO 25(H) 12 - 20 ratio 04/12/2024 7:18 PM [facility] TOTAL PROTEIN 7.7 6.0 - 8.0 g/dL 04/12/2024 7:18 PM [employer] W[employer] OFFICER [facility] ALBUMIN 4.1 3.5 - 5.0 g/dL 04/12/2024 7:18 PM [facility] A/G RATIO 1.1 1.0 - 2.2 04/12/2024 7:18 PM [facility] CALCIUM 9.2 8.7 - 10.5 mg/dL 04/12/2024 7:18 PM [employer] E[employer]IC WARFARE OFFICER [facility] T BILI 0.3 0.2 - 1.2 mg/dL 04/12/2024 7:18 PM [employer] ELECTRONIC WARFARE OFFICER [facility] SGOT (AST) 27 6 - 42 U/L 04/12/2024 7:18 PM [facility] SGPT (ALT) 35 6 - 55 U/L 04/12/2024 7:18 PM [facility] ALKALINE PHOSPHATASE 75 40 - 150 U/L 04/12/2024 7:18 PM [facility] GFR, ESTIMATED 56(L) >=60 04/12/2024 7:18 PM [facility] Comment: Creatinine Clearance is the preferred criteria for selecting drug dose adjustments in renally impaired patients. The GFR is provided as additional pertinent clinical information. GFR is reported in mL/min/1.73 sq m. Calculation based on the Chronic Kidney Disease Epidemiology Collaboration (CKD- EPI) equation refit without adjustment for race. GFR, EST. >60 >=60 025 7:18 PM [employer]S ELECTRONIC WARFARE OFFICER [facility] GFR, EST. NONAFRICAN 51(L) >=60 04/12/2024 7:18 PM [facility] Blood Venipuncture / Unknown 04/12/2024 6:45 PM [employer]S ELECTRONIC WARFARE OFFICER 04/12/2024 6:54 PM [employer] E[employer] W[employer] OFFICER us Madelyn Jha APPAREL STOCK CHECKER, SUPERVISOR MELT HOUSE CHEMISTRY ORDERABL ES Final Result [facility] [address] [place] [address] * XR RIBS UNILATERAL WITH PA CHEST LEFT (04/12/2024 3:35 PM SH[employer]S ELECTRONIC WARFARE OFFICER) Anatomical Region Laterality Modality Chest, Rib Left Digital Radiogra phy 04/12/2024 3:46 PM [employer] E[employer]IC WARFARE OFFICER Impressions 04/12/2024 3:48 PM [employer] ELECTRONIC WARFARE OFFICER IMPRESSION: Questionable fractures of the left 5th and 6th rib laterally. Narrative 04/12/2024 3:48 PM [employer]S ELECTRONIC WARFARE OFFICER EXAM DESCRIPTION: XR RIBS UNILATERAL WITH PA [...] Timoteo Uribe M.D. JA: TOYA Report ID: [id number] Reading Location: [id number] Procedure Note Timoteo Uribe MD - 04/12/2024 [...] 3:46 PM - Electronically signed by Timoteo Livingston.D. JA: TOYA Report ID: [id number] Reading Location: [id number] IMPRESSION: Questionable fractures of the left 5th and 6th rib laterally. us Madelyn Armidamarnie Jha APPAREL STOCK CHECKER, SUPERVISOR MELT HOUSE IMG DIAGNOSTIC ORD ERABLES Final Result * CT FACIAL BONES WO CONTRAST (04/12/2024 3:17 PM [employer]S ELECTRONIC WARFARE OFFICER) Anatomical Region Laterality Modality Head N/A Computed Tomogra phy 04/12/2024 3:49 PM [employer] E[employer]IC WARFARE OFFICER Impressions 04/12/2024 3:51 PM [employer] E[employer]IC WARFARE OFFICER IMPRESSION: No acute intracranial abnormality. No acute [...] findings as above. Narrative 04/12/2024 3:51 PM [employer]S ELECTRONIC WARFARE OFFICER EXAM DESCRIPTION: CT HEAD OR BRAIN WO [...] results in mild spinal canal narrowing and ilwohbzu-il-tzmxmm left neural foraminal narrowing. C5-6: Posterior disc [...] 3:49 PM - Electronically signed by Dez EspinosaD. NS: NS Report ID: [id number] Reading Location: [id number] Procedure Note Dez Santamaria MD - 04/12/2024 [...] results in mild spinal canal narrowing and yqqpxgyc-js-sxixfa left neural foraminal narrowing. C5-6: Posterior disc [...] Dez Santamaria M.D. NS: NS Report ID: [id number] Reading Location: [place] [id number] IMPRESSION: No acute intracranial abnormality. No acute [...] chronic findings as above. us Madelyn Jha APPAREL STOCK CHECKER, SUPERVISOR MELT HOUSE IMG CT ORDERABLES Final Result * CT CERVICAL SPINE WO/ CONTRAST (04/12/2024 3:16 PM [employer]S ELECTRONIC WARFARE OFFICER) Anatomical Region Laterality Modality Spine N/A Computed Tomogra phy 04/12/2024 3:49 PM [employer] E[employer]RONIC WARFARE OFFICER Impressions 04/12/2024 3:51 PM [employer] E[employer]IC WARFARE OFFICER IMPRESSION: No acute intracranial abnormality. No acute [...] findings as above. Narrative 04/12/2024 3:51 PM [employer] ELECTRONIC WARFARE OFFICER EXAM DESCRIPTION: CT HEAD OR BRAIN WO [...] results in mild spinal canal narrowing and toxxmzaw-em-qapazz left neural foraminal narrowing. C5-6: Posterior disc [...] Dez Santamaria M.D. NS: NS Report ID: [id number] Reading Location: [id number] Procedure Note Dez Santamaria MD - 04/12/2024 [...] results in mild spinal canal narrowing and pzxhkjye-fl-nbqizs left neural foraminal narrowing. C5-6: Posterior disc [...] Dez Santamaria M.D. NS: NS Report ID: [id number] Reading Location: [place] [id number] IMPRESSION: No acute intracranial abnormality. No acute [...] chronic findings as above. Madelyn Jha APRN, TYRONE IMG CT ORDERABLES Final Result * CT HEAD OR BRAIN WO CONTRAST (04/12/2024 3:15 PM [employer]S ELECTRONIC WARFARE OFFICER) Anatomical Region Laterality Modality Head N/A Computed Tomogra phy 04/12/2024 3:49 PM [employer] E[employer]IC WARFARE OFFICER Impressions 04/12/2024 3:51 PM [employer] E[employer]IC WARFARE OFFICER IMPRESSION: No acute intracranial abnormality. No acute [...] findings as above. Narrative 04/12/2024 3:51 PM [employer]S E[employer]RONIC WARFARE OFFICER EXAM DESCRIPTION: CT HEAD OR BRAIN WO [...] results in mild spinal canal narrowing and gjeztbbu-ni-lvmapz left neural foraminal narrowing. C5-6: Posterior disc [...] Dez Santamaria M.D. NS: NS Report ID: [id number] Reading Location: [place] [address] Procedure Note Dez Santamaria MD - 04/12/2024 [...] results in mild spinal canal narrowing and ileegqub-eb-lhozmw left neural foraminal narrowing. C5-6: Posterior disc [...] Dez Santamaria M.D. NS: NS Report ID: [id number] Reading Location: [id number] IMPRESSION: No acute intracranial abnormality. No acute [...] chronic findings as above. Madelyn Jha APRN, CNP IMG CT ORDERABLES Final Result * ANTWON [...] Narrative 08/07/2022 6:06 AM CDT EXAM DESCRIPTION: [facility] BONE DENSITOMETRY AXIAL SKELETON REASON FOR STUDY: 72 y/o year old F with given history of screening. Artist'S Manager/Model: Touchstorm (S/N [id number]) CLINICAL INFORMATION: Current height: 64 inches Maximum [...] Naomi Cifuentes M.D. TW: TW Report ID: [id number] Reading Location: [id number] Procedure Note Naomi Cifuentes MD - 08/07/2022 EXAM DESCRIPTION: [facility] BONE DENSITOMETRY AXIAL SKELETON REASON FOR STUDY: 72 y/o year old F with given history of screening. Artist'S Manager/Model: Touch[employer] (S/N [id number]) CLINICAL INFORMATION: Current height: 64 inches Maximum [...] Naomi Cifuentes M.D. TW: TW Report ID: [id number] Reading Location: [id number] IMPRESSION: Osteoporosis REFERENCE: Bone mineral density: Normal [...] and Treatment of Osteoporosis (http://www.nof.org/professionals/clinical-guidelines) Alexus Mehta APRN, TYRONE IMG DEXA ORDERABLES Final Result * ANTWON [...] made to exams dated: 04/22/2015 and 03/03/2011 [facility]. BREAST TISSUE:There are scattered fibroglandular [...] exam. Electronically signed by: Karlee boyer/mary:08/06/2022 15:06:48 Registered Medical Transcriptionist(s): RT Wil(R)(M), [facility] letter sent: Normal Exam Reading location: [facility] BI-RADS: 2 Benign Procedure Note [...] made to exams dated: 04/22/2015 and [facility]2011 [facility] BREAST TISSUE:There are scattered fibroglandular densities in [...] exam. Electronically signed by: Karlee boyer/mary:08/06/2022 15:06:48 Registered Medical Transcriptionist(s): RT Wil(Carole)(M), [facility] letter sent: Normal Exam Reading location: [facility] BI-RADS: 2 Benign Alexus Mehta APRN, SUPERVISOR [employer]SE IMG MAMMO ORDERABLES Final Result from Last 3 Months or Most Recently Relevant to Health Maintenance Additional Health Concerns Infection Onset Date Last Indicated ESBL 06/20/2018 01/01/[address] [employer] MEDIC[employer] C [employer] [facility] [employer] [facility] Advance Directives * Full Code [...] measures to stabilize the patient. Care Teams Discovery Manager Relationship Specialty Start Date End Date Alexus Mehta APRN, TYRONE #2 [facility] [address] [place] [address] PCP - General Advanced Practice Nurse 01/13/22 Aditya Reza MD #2 [facility] [address] [place] [address] Consulting Physician Urology 12/31/21
--- OUTSIDE RECORDS SUMMARY | 2024-06-24 09:42 | XMS_ITS | Encounter Summary ---
Author Organization [facility] Address [address] [place] [address] Phone Care Team Providers Care Radio Rigger Name Role Phone Aditya Reza MD Unavailable Alexus Mehta APRN, CNP Primary Care Provid er Reason for Visit * Reason Comments Medication Refill Encounter Details Date Type Department Care Team (Late st Contact Info) Description 11/20/[address] [facility] - Family Medicine - [place] [address] [place] [address] Alexus Mehta APRN, CNP [address] [address] Medication Refill Social History Tobacco Use Types Packs/Day Years Used Date Smoking Tobacco: Former Cigarettes 0 07/06/1982 - 07/06/1989 Smokeless Tobacco: Never Alcohol Use Standard Drinks/Week Comments Never 0 (1 standard drink = 0.6 oz pur e alcohol) [facility] Utilities Answer Date Recorded In the [...] Total Score - Questions 1-9 12 11/2023 [facility] - Occupational [...] time in the past 12 m [facility], were you homeless or living in a intermediate (including now)? No 10/14/2023 Education Answer Date [...] discontinued on 12/31/2022 by Alexus Mehta APRN, MAINTENANCE MECHANIC TECHNICIAN documented in this encounter Plan of Treatment [...] documented as of this encounter Care Teams Radio Rigger Relationship Specialty Start Date End Date Alexus Mehta APRN, MAINTENANCE MECHANIC TECHNICIAN #2 [facility] [address] [place] [address] PCP - General Advanced Practice Nurse 01/13/22 Aditya Reza MD #2 [facility] [address] [place] [address] Consulting Physician Urology 12/31/21 documented as of this encounter
--- OUTSIDE RECORDS SUMMARY | 2024-06-24 09:42 | XMS_ITS | Encounter Summary ---
Author Organization [facility] Address [address] [place] [address] Phone Care Team Providers Care Coal Drier Operator Name Role Phone Aditya Reza MD Unavailable Alexus Mehta APRN, CNP Primary Care Provid er Reason for Visit * Reason Comments Medication Refill Encounter Details Date Type Department Care Team (Late st Contact Info) Description 06/06/2023 Refill [facility] - [place] [address] [place] [address] Alexus Mehta APRN, CNP #[address] [address] Medication Refill Social History Tobacco [...] Provider Dept 06/08/23 Appointment Alexus Mehta APRN, WINDOW SHADE CLOTH SEWER [place] Showing today's visits and meeting [...] Total Score: 0 01/14/20 22 10:00 AM SUPERINTENDENT DRILLING documented as of this encounter Care Teams Coal Drier Operator Relationship Specialty Start Date End Date Alexus Mehta APRN, CNP #[facility] [address] [place] [address] PCP - General Advanced Practice Nurse 01/13/22 Aditya Reza MD #[address] [facility] [address] [place] [address] Consulting Physician Urology 12/31/21 documented as of this encounter
--- OUTSIDE RECORDS SUMMARY | 2024-06-24 09:42 | XMS_ITS | Encounter Summary ---
Author Organization [facility] Address [address] [place] [address] Phone Care Team Providers Care Civil Division Deputy Sheriff Name Role Phone Aditya Reza MD Unavailable Alexus Mehta APRN, CNP Primary Care Provid er Reason for Visit * Reason Comments Medication Refill Encounter Details Date Type Department Care Team (Late st Contact Info) Description 02/10/2023 Refill [facility] - [place] [address] [place] [address] Alexus Mehta APRN, CNP [address] [address] Medication Refill Social History Tobacco [...] on 02/10/2023 by Alexus Mehta APRN, CNP. RONMENTAL TECHNOLOGY PROFESSOR * Telephone Encounter - Lynn Saucedo RN - 02/10/2023 9:19 AM CST duplicate RONMENTAL TECHNOLOGY PROFESSOR documented in this encounter Plan of Treatment Not on file documented as of this encounter Visit Diagnoses Not on filedocumented in this encounter Additional Health Concerns Infection Onset Date Last Indicated Resolved Time ESBL 06/20/2018 01/01/2022 Assessment Noted Time PHQ-9 Depression Total Score: 0 01/14/20 22 10:00 AM ENVIRONMENTAL TECHNOLOGY PROFESSOR documented as of this encounter Care Teams Civil Division Deputy Sheriff Relationship Specialty Start Date End Date Alexus Mehta APRN, CNP #2 [facility] [address] [place] [address] PCP - General Advanced Practice Nurse 01/13/22 Aditya Reza MD #2 [facility] [address] [place] [address] Consulting Physician Urology 12/31/21 documented as of this encounter
--- OUTSIDE RECORDS SUMMARY | 2024-06-24 09:42 | XMS_ITS | Continuity of Care Document ---
Author Organization [facility] Address [address] [place] [address] Phone Care Team Providers Care Cutter Grind Tool Technician Name Role Phone Juan Daniel Thayer [...] Diagnoses Date Provider Providers Copied on Encounter [facility], [address], [place], [place], [id number], [place] tel:[phone] [employer]IV[employer] Professional No Information [address], [place], [place], [id number], [place]. tel:[phone] Family History Family Member Type Diagnosis Age [...]
--- OUTSIDE RECORDS SUMMARY | 2024-06-24 09:42 | XMS_ITS | Referral Summary ---
Author Organization [facility] Address [address] [place] [address] Care Team Providers Care Assembling Machine Operator Name Role Phone Alexus Mehta NP Primary Care Provider + Cuong Gaytan MD Unavailable [phone] Encounters Date Type Department Care Team Description 04/03/2024 Telephone [facility] [address] [facility] [address] [place] [address] Winter Womack MA from Last [...] on file Legal Sex Female 1:02 AM CUT TOBACCO BULKER Gender Identity Not on file Sexual Orientation [...] CDT PROCEDURE REPORT Patient: SINA YOO Account: [id number] Room No: : 1950 Patient Type: SDS [...] MEDICARE [facility] Care Teams Assembling Machine Operator Relationship Specialty Start Date End Date Alexus Mehta NP 2 [facility] [address] [address] PCP - General Nurse Practitioner 11/03/22 Cuong Gaytan MD [address] [facility] [address] MARIP[place] Beebe [address] [address] Consulting Physician Obstetrics and Gynecology 05/17/23
--- OUTSIDE RECORDS SUMMARY | 2024-06-24 09:42 | XMS_ITS | Encounter Summary ---
Author Organization [facility] Address [address] [place] [address] Phone Care Team Providers Care Used Car Sales Supervisor Name Role Phone Aditya Reza MD Unavailable Alexus Mehta APRN, CNP Primary Care Provid er Reason for Visit * Reason Comments Medication Refill Encounter Details Date Type Department Care Team (Late st Contact Info) Description 02/10/2023 Refill [facility] - [facility] - [place] [address] [place] [address] Alexus Mehta APRN, CNP #[address] [address] Medication Refill Social History Tobacco [...] 12/31/22 Office Visit Alexus Mehta APRN, CNP [facility] Showing recent visits within past 182 [...] Serotonin Modulators for at least 6 months TRONICS INSTRUCTOR documented in this encounter Plan of Treatment Not on file documented as of this encounter Visit Diagnoses Not on filedocumented in this encounter Additional Health Concerns Infection Onset Date Last Indicated Resolved Time ESBL 06/20/2018 01/01/2022 Assessment Noted Time PHQ-9 Depression Total Score: 0 01/14/20 10:00 AM ELECTRONICS INSTRUCTOR documented as of this encounter Care Teams Used Car Sales Supervisor Relationship Specialty Start Date End Date Alexus Mehta APRN, [place] #2 [facility] [address] [place] [phone] PCP - General Advanced Practice Nurse 01/13/22 Aditya Reza MD #2 [facility] [address] [place] [address] Consulting Physician Urology 12/31/21 documented as of this encounter
--- OUTSIDE RECORDS SUMMARY | 2024-06-24 09:42 | XMS_ITS | Encounter Summary ---
Author Organization [facility] Address [address] 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 [address] [place] [address] Consulting Physician Urology 12/31/21 documented as of this encounter
--- OUTSIDE RECORDS SUMMARY | 2024-06-24 09:42 | XMS_ITS | Clinical Summary ---
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 [facility] Provider ENDOSCOPY PROCEDURES Kelsey l Result from Last 3 Months or Most Recently Relevant to Health Maintenance Insurance [facility] MEDICARE MEDICARE [facility] MEDICARE [facility] Care Teams Minister Helper Relationship Specialty Start Date End Date Alexus Mehta NP 2 [facility] [address] [place] [address] PCP - General Nurse Practitioner 11/03/22 Cuong Gaytan MD [address] [facility] [address] MARIP[address] Beebe [facility] [address] [place] [address] Consulting Physician Obstetrics and Gynecology 05/17/23
--- OUTSIDE RECORDS SUMMARY | 2024-06-24 09:42 | XMS_ITS | Encounter Summary ---
Author Organization [employer] [facility] Address 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 2.0 - 3.0 for patients with tissue heart valves. 2.5 - 3.5 for patients with mechanical heart valves or post RI. Pediatric (12 years and under): 1.5 - 3.0 Although the target range in children is not well established, INR values of 1.5 - 3.0 are recommended for most patients. Higher values have been used in children with prosthetic cardiac valves and hereditary clotting disorders. Middle [place] (<3 days) therapeutic ranges have not been established. PROTIME 27.1(H) 12.7 - 15.1 Seconds [facility] 09/07/2008 5:57 AM CDT 09/07/2008 6:39 AM CDT us Gio Watkins MD HEMATOLOGY ORDERABLES Kelsey kaminski Result INTERFACE SYSTEM Refer to clinic/hospital department [facility] CLIA# [id number] [address] [place] [address] * (ABNORMAL) PROTIME-INR (09/06/2008 5:00 AM CDT) PROTIME 23.5(H) 12.7 - 15.1 Seconds [facility] INR 2.1(H) 0.9 - 1.1 [facility] Comment: INR Therapeutic Range: Adult: 2.0 - 3.0 for pulmonary embolism or prophylaxis against venous thrombosis or systemic embolization. 2.0 - 3.0 for patients with tissue heart valves. 2.5 - 3.5 for patients with mechanical heart valves or post RI. Pediatric (12 years and under): 1.5 - 3.0 Although the target range in children is not well established, INR values of 1.5 - 3.0 are recommended for most patients. Higher values have been used in children with prosthetic cardiac valves and hereditary clotting disorders. Middle [place] (<3 days) therapeutic ranges have not been established. 09/06/2008 5:00 AM CDT 09/06/2008 6:09 AM CDT us Subbuluxmi Sunita DONALDSON HEMATOLOGY ORDERABLES Fi nal Result INTERFACE SYSTEM Refer to clinic/hospital department [facility] CLIA# [id number] [address] [place] [address] * (ABNORMAL) BASIC METABOLIC PANEL (09/06/2008 5:00 AM CDT) CHLORIDE 104 96 - 108 mmol/L [facility] GLUCOSE 98 65 - 99 mg/dL [facility] SODIUM 135 135 - 145 mmol/L [facility] CALCIUM 8.2(L) 8.6 - 10.2 mg/dL [facility] CO2 24 22 - 30 mmol/L [facility] CREATININE 0.80 0.51 - 0.95 mg/dL [facility] POTASSIUM 4.1 3.5 - 4.9 mmol/L [facility] BUN 15 6 - 20 mg/dL [facility] GFR, >60 >=60 mL/min/1. 7 sq meter [facility] GFR >60 >=60 mL/min/1. 7 sq meter [facility] Comment: Modification of Diet in Renal Disease (MDRD) study formula. Estimated GFR rate interpretative information for both Americans and non- Americans is available on the [facility] Intranet at: [email or web address] Select: Lab Policies and Procedures Select: Reference Ranges - GFR 09/06/2008 5:00 AM CDT 09/06/2008 6:09 AM CDT us Subbuluxmi Sunita DONALDSON CHEMISTRY ORDERABLES Chavo mack INTERFACE SYSTEM Refer to clinic/hospital department [facility] CLIA# [id number] [address] [place] [address] * (ABNORMAL) CBC WITH DIFFERENTIAL (09/06/2008 5:00 AM CDT) MCV 83.8 82.0 - 99.0 fL [facility] PLATELETS 191 140 - 350 K/uL [facility] HEMOGLOBIN 8.3(L) 11.8 - 14.8 g/dL [facility] RDW 14.8(H) 11.5 - 14.5 % [facility] WBC 7.9 4.0 - 9.8 K/uL [facility] MCH 27.5 27.2 - 32.6 pg [facility] MPV 10.5 9.3 - 12.4 fL [facility] HEMATOCRIT 25.3(L) 35.5 - 44.0 % [facility] RDW-STDEV 46.0 37.1 - 48.7 fL [facility] RBC 3.02(L) 3.90 - 4.90 M/uL [facility] MCHC 32.8 31.5 - 35.5 % [facility] BASOPHILS ABSOLUTE 0.00 0.00 - 0.20 K/uL [facility] POIKILOCYTES Slight [facility] MONOCYTES 5 3 - 13 % [facility] MONOCYTE ABSOLUTE 0.40 0.10 - 1.30 K/uL [facility] PLATELET EST. Consistent w/ count Normal [facility] BANDS 1 0 - 5 % [facility] NEUTROPHIL ABSOLUTE 6.32 1.90 - 7.00 K/uL [facility] NEUTROPHILS, SEG 79(H) 45 - 70 % [facility] EOSINOPHILS 2 0 - 7 % [facility] MICROCYTES Slight [facility] EOSINOPHIL ABSOLUTE 0.16 0.00 - 0.70 K/uL [facility] LYMPHOCYTES 13(L) 16 - 45 % [facility] ANISOCYTOSIS Slight [facility] LYMPHOCYTE ABSOLUTE 1.03 0.70 - 4.50 K/uL [facility] BASOPHILS 0 0 - 2 % [facility] Blood specimen (specimen) 09/06/2008 5:00 AM CDT 09/06/2008 6:09 AM CDT Mickbuluxbrad Dorsey MD HEMATOLOGY ORDERABLES Ed ited INTERFACE SYSTEM Refer to clinic/hospital department [facility] CLIA# [id number] [address] [place], [place] [address] * (ABNORMAL) PROTIME-INR (09/05/2008 4:16 AM CDT) PROTIME 16.3(H) 12.7 - 15.1 Seconds [facility] INR 1.3(H) 0.9 - 1.1 [facility] Comment: INR Therapeutic Range: Adult: 2.0 - 3.0 for pulmonary embolism or prophylaxis against venous thrombosis or systemic embolization. 2.0 - 3.0 for patients with tissue heart valves. 2.5 - 3.5 for patients with mechanical heart valves or post RI. Pediatric (12 years and under): 1.5 - [...] ORDERABLES Kelsey kaminski Result Performing Organization Address [facility] Phone Number INTERFACE SYSTEM Refer to clinic/hospital department [facility] CLIA# [id number] [address] [facility] [place] [address] * (ABNORMAL) HEMOGLOBIN AND HEMATOCRIT (09/05/2008 4:16 AM CDT) HEMOGLOBIN 8.9(L) 11.8 - 14.8 g/dL [facility] HEMATOCRIT 27.1(L) 35.5 - 44.0 % [facility] 09/05/2008 4:16 AM CDT 09/05/2008 5:14 AM CDT Gio Watkins MD HEMATOLOGY ORDERABLES Kelsey l Result Performing Organization Address [facility] de Phone Number INTERFACE SYSTEM Refer to clinic/hospital department [facility] CLIA# [id number] [address] [place] [address] * (ABNORMAL) BASIC METABOLIC PANEL (09/05/2008 4:16 AM CDT) CREATININE 0.86 0.51 - 0.95 mg/dL [facility] POTASSIUM 3.4(L) 3.5 - 4.9 mmol/L [facility] BUN 13 6 - 20 mg/dL [facility] CHLORIDE 103 96 - 108 mmol/L [facility] GLUCOSE 115(H) 65 - 99 mg/dL [facility] SODIUM 135 135 - 145 mmol/L [facility] CALCIUM 8.1(L) 8.6 - 10.2 mg/dL [facility] CO2 23 22 - 30 mmol/L [facility] GFR, >60 >=60 mL/min/1. 7 sq meter [facility] GFR >60 >=60 mL/min/1. 7 sq meter [facility] Comment: Modification of Diet in Renal Disease (MDRD) study formula. Estimated GFR rate interpretative information for both Americans and non- Americans is available on the [facility] Intranet at: [email or web address] Select: Lab Policies and Procedures Select: Reference Ranges - GFR 09/05/2008 4:16 AM CDT 09/05/2008 5:14 AM CDT Gio Watkins MD CHEMISTRY ORDERABLES Edite d Performing Organization Address City/State/[facility] Co de Phone Number INTERFACE SYSTEM Refer to clinic/hospital department [facility] CLIA# [id number] [address] [place] [address] * XR CHEST PA AND LATERAL (08/13/2008 11:57 AM CDT) Anatomical Region Laterality Modality Chest Other 08/13/2008 11:5 7 AM CDT Narrative 08/13/2008 12:45 PM CDT [facility] [address] [place], [place] [address] Admit Date: 07/09/2008 DEANNA YOO Sex: F Admit Prov: GIO WATKINS Date: 1950 Primary Care Prov: SRIKANTH MULLINS CMRN: [id number] [facility]: [id number] IMAGING SERVICES Ordering Prov: N/A Accession Number: [id number] Interpretation PA AND LATERAL CHEST X-RAY, 08/13/2008 [...] Procedure Note Lupe Carter MD - 08/13/2008 [id number] [place], [place] [address] Admit Date: 07/09/2008 DEANNA YOO Sex: F Admit Prov: GIO WATKINS Date: 1950 Primary Care Prov: SRIKANTH MULLINS CMRN: [id number] [id number] IMAGING SERVICES Ordering Prov: N/A Interpretation PA [...] AM CDT) CLARITY UA Slt. Cloudy(A) Clear [facility] PROTEIN UA Trace(A) Negative [facility] EPITHELIAL CELLS, URINE 0-2 /HPF [facility] BILIRUBIN UA Negative Negative [facility] LEUKOCYTE ESTERASE UA 3+(A) Negative [facility] RBC UA 28(H) 0 - 4 /HPF [facility] SPECIFIC GRAVITY UA 1.013 1.001 - 1.035 [facility] BLOOD UA 2+(A) Negative [facility] GLUCOSE UA Negative Negative [facility] WBC CLUMPS Present(A) None Seen [facility] COLOR UA Yellow [facility] NITRITE UA Negative Negative [facility] UROBILINOGEN UA <1 <=1 mg/dL [facility] BACTERIA UA 3+(A) None Seen /HPF [facility] PH UA 5.5 5.0 - 8.0 [facility] KETONES UA Negative Negative [facility] WBC UA >100(H) 0 - 5 /HPF [facility] 08/13/2008 11:1 4 AM CDT 08/13/2008 12:16 PM CDT us Gio Watkins MD URINE ORDERABLES Final Res ult INTERFACE SYSTEM Refer to clinic/hospital department [facility] CLIA# [id number] [address] [place] [address] * COMPREHENSIVE METABOLIC PANEL (08/13/2008 11:14 AM CDT) Pathologist [facility] ALKALINE PHOSPHATASE 79 35 - 104 U/L [facility] CO2 22 22 - 30 mmol/L [facility] BILIRUBIN TOTAL 0.4 0.2 - 1.0 mg/dL [facility] POTASSIUM 3.5 3.5 - 4.9 mmol/L [facility] TOTAL PROTEIN 7.7 6.3 - 8.6 g/dL [facility] GLUCOSE 90 65 - 99 mg/dL [facility] AST 12 12 - 32 U/L [facility] BUN 12 6 - 20 mg/dL [facility] CALCIUM 9.6 8.6 - 10.2 mg/dL [facility] ALBUMIN 4.1 3.4 - 4.8 g/dL [facility] CHLORIDE 105 96 - 108 mmol/L [facility] CREATININE 0.92 0.51 - 0.95 mg/dL [facility] ALT 13 0 - 31 U/L [facility] SODIUM 140 135 - 145 mmol/L [facility] GFR, >60 >=60 mL/min/1.7 sq meter [facility] GFR >60 >=60 mL/min/1.7 sq meter [facility] Comment: Modification of Diet in Renal Disease (MDRD) study formula. Estimated GFR rate interpretative information for both Americans and non- Americans is available on the [facility] Intranet at: [email or web address] Select: Lab Policies and Procedures Select: Reference Ranges - GFR 08/13/2008 11:1 4 AM CDT 08/13/2008 12:08 PM CDT us Gio Watkins MD CHEMISTRY ORDERABLES Edite d INTERFACE SYSTEM Refer to clinic/hospital department [facility] CLIA# [id number] [address] [place] [address] * PROTIME-INR (08/13/2008 11:14 AM CDT) INR 1.0 0.9 - 1.1 [facility] Comment: ansiINR Therapeutic Range: Adult: 2.0 - 3.0 for pulmonary embolism or prophylaxis against venous thrombosis or systemic embolization. 2.0 - 3.0 for patients with tissue heart valves. 2.5 - 3.5 for patients with mechanical heart valves or post RI. Pediatric (12 years and under): 1.5 - 3.0 Although the target range in children is not well established, INR values of 1.5 - 3.0 are recommended for most patients. Higher values have been used in children with prosthetic cardiac valves and hereditary clotting disorders. Middle [place] (<3 days) therapeutic ranges have not been established. PROTIME 13.5 12.7 - 15.1 Seconds [facility] 08/13/2008 11:1 4 AM CDT 08/13/2008 12:08 PM CDT us Gio Watkins MD HEMATOLOGY ORDERABLES Kelsey kaminski Result INTERFACE SYSTEM Refer to clinic/hospital department [facility] CLIA# [id number] [address] [place] [address] * (ABNORMAL) CBC WITH DIFFERENTIAL (08/13/2008 11:14 AM CDT) Pathologist [facility] WBC 6.9 4.0 - 9.8 K/uL [facility] MCH 27.7 27.2 - 32.6 pg [facility] MPV 11.1 9.3 - 12.4 fL [facility] HEMATOCRIT 36.5 35.5 - 44.0 % [facility] RDW-STDEV 44.2 37.1 - 48.7 fL [facility] RBC 4.23 3.90 - 4.90 M/uL [facility] MCHC 32.1 31.5 - 35.5 % [facility] MCV 86.3 82.0 - 99.0 fL [facility] PLATELETS 334 140 - 350 K/uL [facility] HEMOGLOBIN 11.7(L) 11.8 - 14.8 g/dL [facility] RDW 14.2 11.5 - 14.5 % [facility] LYMPHOCYTES 29 16 - 45 % [facility] LYMPHOCYTE ABSOLUTE 2.01 0.70 - 4.50 K/uL [facility] BASOPHILS 0 0 - 2 % [facility] BASOPHILS ABSOLUTE 0.02 0.00 - 0.20 K/uL [facility] MONOCYTES 8 3 - 13 % [facility] MONOCYTE ABSOLUTE 0.57 0.10 - 1.30 K/uL [facility] NEUTROPHILS 62 45 - 70 % [facility] NEUTROPHIL ABSOLUTE 4.24 1.90 - 7.00 K/uL [facility] EOSINOPHILS 1 0 - 7 % [facility] EOSINOPHIL ABSOLUTE 0.05 0.00 - 0.70 K/uL [facility] 08/13/2008 11:1 4 AM CDT 08/13/2008 12:08 PM CDT us Gio Watkins MD HEMATOLOGY ORDERABLES Edit ed INTERFACE SYSTEM Refer to clinic/hospital department [facility] CLIA# [id number] [address] [place] [address] * TYPE AND CROSSMATCH (08/13/2008 11:13 AM CDT) HISTORY CHECK No Historical ABO/Rh [facility] SPECIMEN LIFE 3 days from OR date [facility] ABO/RH TYPE AB Negative [facility] ANTIBODY SCREEN Negative [facility] 08/13/2008 11:1 3 AM CDT us Gio Watkins MD BLOOD BANK ORDERABLES Edit ed INTERFACE SYSTEM Refer to clinic/hospital department [facility] CLIA# [id number] [address] [place], [place] [address] documented in this encounter Visit Diagnoses Not on filedocumented in this encounter
--- OUTSIDE RECORDS SUMMARY | 2024-06-24 09:42 | XMS_ITS | Encounter Summary ---
Author Organization [facility] Address [address] [place] [address] Phone Care Team Providers Care Bilingual Recruiter Name Role Phone Aditya Reza MD Unavailable Alexus Mehta APRN, CNP Primary Care Provid er Reason for Visit * Reason Comments Medication Refill Encounter Details Date Type Department Care Team (Late st Contact Info) Description 06/21/2023 Refill [facility] [place] [address] [place] [address] Alexus Mehta APRN, CNP [address] [address] Medication Refill Social History Tobacco [...] 12/31/22 Office Visit Alexus Mehta APRN, CNP [facility] Tone Showing recent visits within past 365 [...] documented as of this encounter Care Teams Bilingual Recruiter Relationship Specialty Start Date End Date Alexus Mehta APRN, CNP #2 [facility] [address] [place] [address] PCP - General Advanced Practice Nurse 01/13/22 Aditya Reza MD [facility] [address] [place] [address] Consulting Physician Urology 12/31/21 documented as of this encounter
== END 2024-06-24 09:38 | disposition home or self-care (01) ==
PROVIDERS: PCP Nurse Practitioner Adult Health; Visit Provider Nurse Practitioner Adult Health
DX: M47.897 Other spondylosis, lumbosacral region (principal); M47.896 Other spondylosis, lumbar region
CPT/HCPCS: 72148

== ENCOUNTER 2024-07-04 14:44 | Outpatient (CLI) | payer MEDICARE, SELFPAY ==
--- OUTSIDE RECORDS SUMMARY | 2024-07-04 17:06 | XMS_ITS | Referral Summary ---
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 [facility] Provider ENDOSCOPY PROCEDURES Kelsey l Result from Last 3 Months or Most Recently Relevant to Health Maintenance Insurance [facility] MEDICARE MEDICARE [facility] MEDICARE [facility] Care Teams Laser Engraver Relationship Specialty Start Date End Date Alexus Mehta NP 2 [facility] [address] [place] [address] PCP - General Nurse Practitioner 11/03/22 Cuong Gaytan MD [address] [facility] [place] Beebe [facility] [address] [place] [address] Consulting Physician Obstetrics and Gynecology 05/17/23
--- OUTSIDE RECORDS SUMMARY | 2024-07-04 17:06 | XMS_ITS | Clinical Summary ---
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 us Historical Provider ENDOSCOPY PROCEDURES Kelsey l Result from Last 3 Months or Most Recently Relevant to Health Maintenance Insurance [employer] MEDICARE [employer] [address] [facility] Care Teams Rim Fire Priming Operator Relationship Specialty Start Date End Date Alexus Mehta NP 2 [facility] [address] [place] [address] PCP - General Nurse Practitioner 11/03/22 Cuong Gaytan MD [address] [facility] [address] [place] Beebe [facility] [address] [place] [address] Consulting Physician Obstetrics and Gynecology 05/17/23
--- OUTSIDE RECORDS SUMMARY | 2024-07-04 17:06 | XMS_ITS | Clinical Summary ---
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
--- OUTSIDE RECORDS SUMMARY | 2024-07-04 17:06 | XMS_ITS | Continuity of Care Document ---
Author Organization [facility] Address [address] [facility] [place] [address] [place] [address] Phone Care Team Providers Care Inspector Conveyor Line Name Role Phone Juan Daniel Thayer MD [...] Diagnoses Date Provider Providers Copied on Encounter [facility], [address] [place], [place], [id number], [place] tel:[phone] [employer] Professional No Information [address] [facility], [place], [place], [address], [place]. tel:[phone] Family History Family Member Type Diagnosis Age [...]
--- OUTSIDE RECORDS SUMMARY | 2024-07-04 17:06 | XMS_ITS | Encounter Summary ---
Author Organization [employer] [facility] Address 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 2.0 - 3.0 for patients with tissue heart valves. 2.5 - 3.5 for patients with mechanical heart valves or post AR. Pediatric (12 years and under): 1.5 - 3.0 Although the target range in children is not well established, INR values of 1.5 - 3.0 are recommended for most patients. Higher values have been used in children with prosthetic cardiac valves and hereditary clotting disorders. Lagrange (<3 days) therapeutic ranges have not been established. PROTIME 27.1(H) 12.7 - 15.1 Seconds [facility] 09/07/2008 5:57 AM CDT 09/07/2008 6:39 AM CDT us Gio Watkins MD HEMATOLOGY ORDERABLES Kelsey kaminski Result INTERFACE SYSTEM Refer to clinic/hospital department [facility] CLIA# [id number] [address] [place] [address] * (ABNORMAL) PROTIME-INR (09/06/2008 5:00 AM CDT) PROTIME 23.5(H) 12.7 - 15.1 Seconds [facility] INR 2.1(H) 0.9 - 1.1 [facility] Comment: INR Therapeutic Range: Adult: 2.0 - 3.0 for pulmonary embolism or prophylaxis against venous thrombosis or systemic embolization. 2.0 - 3.0 for patients with tissue heart valves. 2.5 - 3.5 for patients with mechanical heart valves or post AR. Pediatric (12 years and under): 1.5 - 3.0 Although the target range in children is not well established, INR values of 1.5 - 3.0 are recommended for most patients. Higher values have been used in children with prosthetic cardiac valves and hereditary clotting disorders. Lagrange (<3 days) therapeutic ranges have not been established. 09/06/2008 5:00 AM CDT 09/06/2008 6:09 AM CDT us Subbuluxmi Sunita DONALDSON HEMATOLOGY ORDERABLES Fi nal Result INTERFACE SYSTEM Refer to clinic/hospital department [facility] CLIA# [id number] [address] [facility] [place] [address] * (ABNORMAL) BASIC METABOLIC PANEL (09/06/2008 5:00 AM CDT) CHLORIDE 104 96 - 108 mmol/L [facility] GLUCOSE 98 65 - 99 mg/dL [facility] SODIUM 135 135 - 145 mmol/L [facility] CALCIUM 8.2(L) 8.6 - 10.2 mg/dL [facility] CO2 24 22 - 30 mmol/L [facility] CREATININE 0.80 0.51 - 0.95 mg/dL [facility] POTASSIUM 4.1 3.5 - 4.9 mmol/L [facility] BUN 15 6 - 20 mg/dL [facility] GFR, >60 >=60 mL/min/1. 7 sq meter [facility] GFR >60 >=60 mL/min/1. 7 sq meter [facility] Comment: Modification of Diet in Renal Disease (MDRD) study formula. Estimated GFR rate interpretative information for both Americans and non- Americans is available on the [facility] Intranet at: [email or web address] Select: Lab Policies and Procedures Select: Reference Ranges - GFR 09/06/2008 5:00 AM CDT 09/06/2008 6:09 AM CDT us Subbuluxmi Sunita DONALDSON CHEMISTRY ORDERABLES Chavo mack INTERFACE SYSTEM Refer to clinic/hospital department [facility] CLIA# [id number] [address] [place] [address] * (ABNORMAL) CBC WITH DIFFERENTIAL (09/06/2008 5:00 AM CDT) MCV 83.8 82.0 - 99.0 fL [facility] PLATELETS 191 140 - 350 K/uL [facility] HEMOGLOBIN 8.3(L) 11.8 - 14.8 g/dL [facility] RDW 14.8(H) 11.5 - 14.5 % [facility] WBC 7.9 4.0 - 9.8 K/uL [facility] MCH 27.5 27.2 - 32.6 pg [facility] MPV 10.5 9.3 - 12.4 fL [facility] HEMATOCRIT 25.3(L) 35.5 - 44.0 % [facility] RDW-STDEV 46.0 37.1 - 48.7 fL [facility] RBC 3.02(L) 3.90 - 4.90 M/uL [facility] MCHC 32.8 31.5 - 35.5 % [facility] BASOPHILS ABSOLUTE 0.00 0.00 - 0.20 K/uL [facility] POIKILOCYTES Slight [facility] MONOCYTES 5 3 - 13 % [facility] MONOCYTE ABSOLUTE 0.40 0.10 - 1.30 K/uL [facility] PLATELET EST. Consistent w/ count Normal [facility] BANDS 1 0 - 5 % [facility] NEUTROPHIL ABSOLUTE 6.32 1.90 - 7.00 K/uL [facility] NEUTROPHILS, SEG 79(H) 45 - 70 % [facility] EOSINOPHILS 2 0 - 7 % [facility] MICROCYTES Slight [facility] EOSINOPHIL ABSOLUTE 0.16 0.00 - 0.70 K/uL [facility] LYMPHOCYTES 13(L) 16 - 45 % [facility] ANISOCYTOSIS Slight [facility] LYMPHOCYTE ABSOLUTE 1.03 0.70 - 4.50 K/uL [facility] BASOPHILS 0 0 - 2 % [facility] Blood specimen (specimen) 09/06/2008 5:00 AM CDT 09/06/2008 6:09 AM CDT Mickbuluxbrad Dorsey MD HEMATOLOGY ORDERABLES Ed ited INTERFACE SYSTEM Refer to clinic/hospital department [facility] CLIA# [id number] [address] [place] [address] * (ABNORMAL) PROTIME-INR (09/05/2008 4:16 AM CDT) PROTIME 16.3(H) 12.7 - 15.1 Seconds [facility] INR 1.3(H) 0.9 - 1.1 [facility] Comment: INR Therapeutic Range: Adult: 2.0 - 3.0 for pulmonary embolism or prophylaxis against venous thrombosis or systemic embolization. 2.0 - 3.0 for patients with tissue heart valves. 2.5 - 3.5 for patients with mechanical heart valves or post AR. Pediatric (12 years and under): 1.5 - [...] ORDERABLES Kelsey kaminski Result Performing Organization Address [facility] Phone Number INTERFACE SYSTEM Refer to clinic/hospital department [facility] CLIA# [id number] [address] [facility] [place] [address] * (ABNORMAL) HEMOGLOBIN AND HEMATOCRIT (09/05/2008 4:16 AM CDT) HEMOGLOBIN 8.9(L) 11.8 - 14.8 g/dL [facility] HEMATOCRIT 27.1(L) 35.5 - 44.0 % [facility] 09/05/2008 4:16 AM CDT 09/05/2008 5:14 AM CDT Gio Watkins MD HEMATOLOGY ORDERABLES Kelsey l Result Performing Organization Address [facility] de Phone Number INTERFACE SYSTEM Refer to clinic/hospital department [facility] CLIA# [id number] [address] [place] [address] * (ABNORMAL) BASIC METABOLIC PANEL (09/05/2008 4:16 AM CDT) CREATININE 0.86 0.51 - 0.95 mg/dL [facility] POTASSIUM 3.4(L) 3.5 - 4.9 mmol/L [facility] BUN 13 6 - 20 mg/dL [facility] CHLORIDE 103 96 - 108 mmol/L [facility] GLUCOSE 115(H) 65 - 99 mg/dL [facility] SODIUM 135 135 - 145 mmol/L [facility] CALCIUM 8.1(L) 8.6 - 10.2 mg/dL [facility] CO2 23 22 - 30 mmol/L [facility] GFR, >60 >=60 mL/min/1. 7 sq meter [facility] GFR >60 >=60 mL/min/1. 7 sq meter [facility] Comment: Modification of Diet in Renal Disease (MDRD) study formula. Estimated GFR rate interpretative information for both Americans and non- Americans is available on the [facility] Intranet at: [email or web address] Select: Lab Policies and Procedures Select: Reference Ranges - GFR 09/05/2008 4:16 AM CDT 09/05/2008 5:14 AM CDT Gio Watkins MD CHEMISTRY ORDERABLES Edite d Performing Organization Address City/State/[facility] Co de Phone Number INTERFACE SYSTEM Refer to clinic/hospital department [facility] CLIA# [id number] [address] [place] [address] * XR CHEST PA AND LATERAL (08/13/2008 11:57 AM CDT) Anatomical Region Laterality Modality Chest Other 08/13/2008 11:5 7 AM CDT Narrative 08/13/2008 12:45 PM CDT [facility] [address] [place], [place] [address] Admit Date: 07/09/2008 DEANNA YOO Sex: F Admit Prov: GIO WATIKNS Date: 1950 Primary Care Prov: SRIKANTH MULLINS CMRN: [id number] [id number] [facility] Ordering Prov: N/A Accession Number: [id number] Interpretation PA AND LATERAL CHEST X-RAY, 08/13/2008 [...] Procedure Note Lupe Carter MD - 08/13/2008 [id number] [place], [place] [address] Admit Date: 07/09/2008 DEANNA YOO Sex: F Admit Prov: GIO WATKINS Date: 1950 Primary Care Prov: SRIKANTH MULLINS CMRN: [id number] [id number] IMAGING SERVICES Ordering Prov: N/A Interpretation PA [...] UA Slt. Cloudy(A) Clear [facility] PROTEIN UA Trace(A) Negative [facility] EPITHELIAL CELLS, URINE 0-2 /HPF [facility] BILIRUBIN UA Negative Negative [facility] LEUKOCYTE ESTERASE UA 3+(A) Negative [facility] RBC UA 28(H) 0 - 4 /HPF [facility] SPECIFIC GRAVITY UA 1.013 1.001 - 1.035 [facility] BLOOD UA 2+(A) Negative [facility] GLUCOSE UA Negative Negative [facility] WBC CLUMPS Present(A) None Seen [facility] COLOR UA Yellow [facility] NITRITE UA Negative Negative [facility] UROBILINOGEN UA <1 <=1 mg/dL [facility] BACTERIA UA 3+(A) None Seen /HPF [facility] PH UA 5.5 5.0 - 8.0 [facility] KETONES UA Negative Negative [facility] WBC UA >100(H) 0 - 5 /HPF [facility] 08/13/2008 11:1 4 AM CDT 08/13/2008 12:16 PM CDT us Gio Watkins MD URINE ORDERABLES Final Res ult INTERFACE SYSTEM Refer to clinic/hospital department [facility] CLIA# [id number] [address] [place] [address] * COMPREHENSIVE METABOLIC PANEL (08/13/2008 11:14 AM CDT) Pathologist [facility] ALKALINE PHOSPHATASE 79 35 - 104 U/L [facility] CO2 22 22 - 30 mmol/L [facility] BILIRUBIN TOTAL 0.4 0.2 - 1.0 mg/dL [facility] POTASSIUM 3.5 3.5 - 4.9 mmol/L [facility] TOTAL PROTEIN 7.7 6.3 - 8.6 g/dL [facility] GLUCOSE 90 65 - 99 mg/dL [facility] AST 12 12 - 32 U/L [facility] BUN 12 6 - 20 mg/dL [facility] CALCIUM 9.6 8.6 - 10.2 mg/dL [facility] ALBUMIN 4.1 3.4 - 4.8 g/dL [facility] CHLORIDE 105 96 - 108 mmol/L [facility] CREATININE 0.92 0.51 - 0.95 mg/dL [facility] ALT 13 0 - 31 U/L [facility] SODIUM 140 135 - 145 mmol/L [facility] GFR, >60 >=60 mL/min/1.7 sq meter [facility] GFR >60 >=60 mL/min/1.7 sq meter [facility] Comment: Modification of Diet in Renal Disease (MDRD) study formula. Estimated GFR rate interpretative information for both Americans and non- Americans is available on the [facility] Intranet at: [email or web address] Select: Lab Policies and Procedures Select: Reference Ranges - GFR 08/13/2008 11:1 4 AM CDT 08/13/2008 12:08 PM CDT us Gio Watkins MD CHEMISTRY ORDERABLES Edite d INTERFACE SYSTEM Refer to clinic/hospital department [facility] CLIA# [id number] [address] [place] [address] * PROTIME-INR (08/13/2008 11:14 AM CDT) INR 1.0 0.9 - 1.1 [facility] Comment: ansiINR Therapeutic Range: Adult: 2.0 - 3.0 for pulmonary embolism or prophylaxis against venous thrombosis or systemic embolization. 2.0 - 3.0 for patients with tissue heart valves. 2.5 - 3.5 for patients with mechanical heart valves or post AR. Pediatric (12 years and under): 1.5 - 3.0 Although the target range in children is not well established, INR values of 1.5 - 3.0 are recommended for most patients. Higher values have been used in children with prosthetic cardiac valves and hereditary clotting disorders. Lagrange (<3 days) therapeutic ranges have not been established. PROTIME 13.5 12.7 - 15.1 Seconds [facility] 08/13/2008 11:1 4 AM CDT 08/13/2008 12:08 PM CDT us Gio Watkins MD HEMATOLOGY ORDERABLES Kelsey kaminski Result INTERFACE SYSTEM Refer to clinic/hospital department [facility] CLIA# [id number] [address] [place] [address] * (ABNORMAL) CBC WITH DIFFERENTIAL (08/13/2008 11:14 AM CDT) Pathologist [facility] WBC 6.9 4.0 - 9.8 K/uL [facility] MCH 27.7 27.2 - 32.6 pg [facility] MPV 11.1 9.3 - 12.4 fL [facility] HEMATOCRIT 36.5 35.5 - 44.0 % [facility] RDW-STDEV 44.2 37.1 - 48.7 fL [facility] RBC 4.23 3.90 - 4.90 M/uL [facility] MCHC 32.1 31.5 - 35.5 % [facility] MCV 86.3 82.0 - 99.0 fL [facility] PLATELETS 334 140 - 350 K/uL [facility] HEMOGLOBIN 11.7(L) 11.8 - 14.8 g/dL [facility] RDW 14.2 11.5 - 14.5 % [facility] LYMPHOCYTES 29 16 - 45 % [facility] LYMPHOCYTE ABSOLUTE 2.01 0.70 - 4.50 K/uL [facility] BASOPHILS 0 0 - 2 % [facility] BASOPHILS ABSOLUTE 0.02 0.00 - 0.20 K/uL [facility] MONOCYTES 8 3 - 13 % [facility] MONOCYTE ABSOLUTE 0.57 0.10 - 1.30 K/uL [facility] NEUTROPHILS 62 45 - 70 % [facility] NEUTROPHIL ABSOLUTE 4.24 1.90 - 7.00 K/uL [facility] EOSINOPHILS 1 0 - 7 % [facility] EOSINOPHIL ABSOLUTE 0.05 0.00 - 0.70 K/uL [facility] 08/13/2008 11:1 4 AM CDT 08/13/2008 12:08 PM CDT us Gio Watkins MD HEMATOLOGY ORDERABLES Edit ed INTERFACE SYSTEM Refer to clinic/hospital department [facility] CLIA# [id number] [address] [place] [address] * TYPE AND CROSSMATCH (08/13/2008 11:13 AM CDT) HISTORY CHECK No Historical ABO/Rh [facility] SPECIMEN LIFE 3 days from OR date [facility] ABO/RH TYPE AB Negative [facility] ANTIBODY SCREEN Negative [facility] 08/13/2008 11:1 3 AM CDT us Gio Watkins MD BLOOD BANK ORDERABLES Edit ed INTERFACE SYSTEM Refer to clinic/hospital department [facility] CLIA# [id number] [address] [place], [place] [address] documented in this encounter Visit Diagnoses Not on filedocumented in this encounter
[2024-07-04 21:21] LABS: Thyroid Stimulating Hormone 0.744 uIU/mL (0.465-4.680)
== END 2024-07-04 14:45 | disposition home or self-care (01) ==
PROVIDERS: PCP Nurse Practitioner Adult Health; Visit Provider Nurse Practitioner Adult Health
DX: E03.9 Hypothyroidism, unspecified (principal)
CPT/HCPCS: 36415; 84443

== ENCOUNTER 2024-07-18 16:28 | Emergency (ER) | payer MEDICARE, SELFPAY ==
--- NOTE | 2024-07-18 16:29 | ED.URI ---
HPI - URI/Sore Throat General Chief Complaint: Upper Respiratory Infection Stated Complaint: Poss sinus infection Time Seen by Provider: 07/18/24 16:29 Source: patient Mode of arrival: ambulatory Limitations: no limitations History of Present Illness HPI Narrative: Deanna is a 74-year-old female patient presenting to the clinic today with complaints of a possible sinus infection. She reports she has had nasal congestion, cough, and itchy ear/pressure in her left ear x4 days. 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 Denies any fevers, chills, body aches. States she had a sore throat yesterday but that has resolved. Has a lot of drainage going in the back of her throat. Productive cough with clear phlegm. No history of COPD or asthma. She denies any shortness of breath or chest pain. Related Data Home Medications ?Medication ?Instructions ?Recorded ?Confirmed ?Last Taken ?Type aspirin 81 mg chewable tablet 81 mg PO DAILY 12/01/19 07/04/24 Unknown History calcium 500 mg (as tablet 12/01/19 07/04/24 Unknown History carbonate)-vitamin D3 5 mcg (200 unit) tablet (Os-Kyle 500 + D3) melatonin 10 mg tablet 10 mg PO HS PRN Anxiety 12/01/19 07/04/24 Unknown History pyridoxine (vitamin B6) 100 mg 100 mg PO DAILY 12/01/19 07/04/24 Unknown History tablet (Vitamin B-6) Multiple Vitamin BYMOUTH 04/19/24 07/04/24 Unknown History brimonidine 0.2 %-timolol 0.5 % drp EACH EYE QPM 04/19/24 07/04/24 Unknown History eye drops (Combigan) cholecalciferol (vitamin D3) 50 50 mcg PO DAILY 04/19/24 07/04/24 Unknown History mcg (2,000 unit) capsule cyanocobalamin (vitamin B-12) 500 500 mcg PO DAILY 04/19/24 07/04/24 Unknown History mcg tablet famotidine 20 mg tablet PO BID 04/19/24 07/04/24 Unknown History latanoprost 0.005 % eye drops EACH EYE BID 04/19/24 07/04/24 Unknown History melatonin 5 mg tablet 5 mg PO QHS 04/19/24 07/04/24 Unknown History womens Probiotic BYMOUTH DAILY 04/19/24 07/04/24 Unknown History Allergies Allergy/AdvReac Type Severity Reaction Status Date / Time codeine Allergy Intermediate Nausea and Verified 07/18/24 16:39 Vomiting Review of Systems Review of Systems: Pertinent positives per HPI. Patient denies any fever, chills, rash, headache, visual changes, dizziness, cough, shortness of breath, chest pain, palpitations, nausea, vomiting, diarrhea, constipation, abdominal pain, or any urinary issues. [facility] Past Medical History Medical History Chronic GERD Arthritis Allergies IBS (irritable bowel syndrome) Glaucoma Depression Anxiety Sleep apnea Cataract Hypothyroidism Hypertension GERD (gastroesophageal reflux disease) Family History Family History Mother Diabetes mellitus Hypertension Father Depression Anxiety Sibling Depression Anxiety Cancer Social History Social History Smoking status: Never smoker Alcohol use details: does not drink ETOH Substance use type: does not use Do You Feel Safe in your Home?: Yes Lack of Transportation: No Lack of Food: Never True Current Housing: I Have Housing Concerned About Future Housing: No Difficulty Paying Gas/Electric Bills: No Difficulty Paying for Meds: No Currently Unemployed: No Education: High School Diploma/GED Difficulty w/ Childcare or Family Care: No Living arrangements: with family Gender identity (if verbalized by the patient): Female Agree to blood products: Yes Comments At the time of my signature, I reviewed and agree with the nursing past medical, surgical, social, and family history. There is no relevant family history pertinent to the patient complaint. Exam Narrative: General: Well-developed, well nourished, in no apparent distress Head: Normocephalic, atraumatic Eyes: Pupils equally round and reactive to light bilaterally, EOM intact, sclera and conjunctive clear, no discharge, lids normal Ears: TMs intact and clear, ear canals clear, no drainage, grossly hearing normal. Nose: Nares patent, no discharge, no inflammation, no sinus tenderness. Mouth: Oral pharynx without lesions or masses, good dentition, MMM. Neck: Supple, trachea midline, no enlargement of anterior or posterior cervical nodes, no thyroid masses or goiter palpable. Cardio: Regular rate and rhythm, s1 and s2 normal, no murmur appreciated. Resp: Clear to auscultation bilaterally, no rhonchi, rales, wheezing or rubs Course Course Emergency Course: Portions of this record may have been created with voice recognition software. Level of Care: Express Care Visit Vital Signs Vital signs: Vital Signs Temperature 37.1 C 07/18/24 16:34 Pulse Rate 85 07/18/24 16:34 Respiratory Rate 20 07/18/24 16:34 Blood Pressure 154/78 H 07/18/24 16:34 Pulse Oximetry 100 07/18/24 16:34 Oxygen Delivery Room Air 07/18/24 16:34 Temperature 37.1 C 07/18/24 16:34 Pulse Rate 85 07/18/24 16:34 Respiratory Rate 20 07/18/24 16:34 Blood Pressure 154/78 H 07/18/24 16:34 Pulse Oximetry 100 07/18/24 16:34 Oxygen Delivery Room Air 07/18/24 16:34 Vital signs reviewed MDM - URI/Sore Throat MDM Narrative Medical decision making narrative: At the time of visit patient is resting comfortably on the exam table. Patient appears to be nontoxic. Labs: COVID and influenza testing was performed and negative in the clinic today. Plan: I suspect patient has bronchitis. Prescription for prednisone, albuterol inhaler, and Tessalon Perles was sent to the pharmacy. Supportive measures were discussed with the patient and they voiced understanding discharge instructions and agrees to treatment plan. Return precautions reviewed Differential Diagnosis Differential diagnosis: Likely upper respiratory infection, otitis media, sinusitis, viral infection, bronchitis, influenza, pharyngitis and other (COVID) Discharge Plan Discharge Clinical Impression: Bronchitis Patient Disposition: Home Condition: Stable Instructions: Antibiotic Form, Acute Bronchitis (ED) Additional Instructions: Take prescription medications only as prescribed prednisone, albuterol inhaler, and Tessalon Perles Increase fluids and stay well hydrated Tylenol/motrin for pain/fever Flonase and OTC antihistamines as directed Vicks vapor rub to open sinuses Sinus rinses for congestion Cepacol spray, cough drops, throat lozenges, warm tea with honey/lemon, gargle salt water to soothe throat BRAT diet for diarrhea Clear liquids x 24 hours then advance as tolerated for nausea/vomiting Go to the ED if you develop a worsening in your condition- high fever not controlled by Tylenol or Motrin, dehydration, weakness, lethargy, shortness of breath, or chest pain. Follow up with your PCP in 3-5 days if symptoms persist. Patient Language: Macanese Prescriptions: New benzonatate 200 mg capsule 200 mg PO TID 7 Days Qty: 21 0RF prednisone 20 mg tablet 40 mg PO DAILY 5 Days Qty: 10 0RF albuterol sulfate 90 mcg/actuation HFA aerosol inhaler 2 puff inhalation Q4-6H PRN (Reason: shortness of breath or wheezing) 30 Days Qty: 8.5 0RF No Action aspirin 81 mg Tablet,Chewable 81 mg PO DAILY calcium carbonate-vitamin D3 [Os-Kyle 500 + D3] 500 mg(1,250mg) -200 unit tablet pyridoxine (vitamin B6) [Vitamin B-6] 100 mg Tablet 100 mg PO DAILY melatonin 10 mg Tablet 10 mg PO HS PRN (Reason: Anxiety) brimonidine-timolol [Combigan] 0.2-0.5 % drops EACH EYE QPM famotidine 20 mg tablet PO BID latanoprost 0.005 % drops EACH EYE BID levothyroxine [Synthroid] 175 mcg tablet 175 mcg PO DAILY Qty: 30 1RF valsartan-hydrochlorothiazide 320-12.5 mg tablet 1 tablet PO DAILY Qty: 90 3RF melatonin 5 mg tablet 5 mg PO QHS Multiple Vitamin BYMOUTH Rx Instructions: Daily womens Probiotic BYMOUTH DAILY cyanocobalamin (vitamin B-12) 500 mcg tablet 500 mcg PO DAILY cholecalciferol (vitamin D3) 50 mcg (2,000 unit) capsule 50 mcg PO DAILY tramadol 50 mg tablet 50 mg PO BID PRN (Reason: pain) Qty: 60 1RF buspirone 10 mg tablet See Rx Instructions PO .COMPLEX Qty: 75 3RF Rx Instructions: orally 1 po in am and 1.5 tablet in afternoon; meloxicam 15 mg tablet 15 mg PO DAILY Qty: 90 3RF trazodone 100 mg tablet 100 mg PO QHS Qty: 90 3RF venlafaxine 100 mg tablet 100 mg PO BID Qty: 180 3RF Follow-up/Referrals: Irma Carreon APRN [Primary Care Provider] - Stand Alone Forms: Work/School Release IP Time of Disposition: 16:49 Quality NIHSS Nursing Documentation ED NIHSS nursing documentation: reviewed/agree
--- OUTSIDE RECORDS SUMMARY | 2024-07-18 16:32 | XMS_ITS | Continuity of Care Document ---
Author Organization [email or web address] [facility] Address [address] [place] [address] Phone Care Team Providers Care Uniforms Sales Representative Name Role Phone Juan Daniel Thayer MD [...] Diagnoses Date Provider Providers Copied on Encounter [facility], [address], [place], [place], [id number], [place] tel:[phone] [employer] Professional No Information [address]. [address], [place], [place], [id number], [place]. tel:[phone] Family History Family Member Type Diagnosis Age At Onset Father Problem (finding) glaucoma Mother Problem (finding) glaucoma Mother Problem (finding) Diabetes mellitus Payers Payer name Insurance type Covered green party ID Authoriza tion(s) No Information Social [...]
--- OUTSIDE RECORDS SUMMARY | 2024-07-18 16:32 | XMS_ITS | Encounter Summary ---
Author Organization [facility] Address [address] [place] [address] Phone Care Team Providers Care Director Of Photography Name Role Phone Aditya Reza MD Unavailable Alexus Mehta APRN, CNP Primary Care Provid er Reason for Visit * Reason Comments Medication Refill Encounter Details Date Type Department Care Team (Late st Contact Info) Description 10/20/2022 Refill [facility] - [facility] - [place] [address]2 [place] [address] Alexus Mehta APRN, CNP #[address] [address] Medication Refill Social History Tobacco [...] Depression Total Score: 0 01/14/20 10:00 AM COAL TRAMMER documented as of this encounter Care Teams Director Of Photography Relationship Specialty Start Date End Date Alexus Mehta APRN, CNP #2 [facility] [address] [place] [id number] PCP - General Advanced Practice Nurse 01/13/22 Aditya Reza MD #[address] [facility] [facility] [address] [place] [address] Consulting Physician Urology 12/31/21 documented as of this encounter
--- OUTSIDE RECORDS SUMMARY | 2024-07-18 16:32 | XMS_ITS | Encounter Summary ---
Author Organization [facility] Address [address] [place] [address] Phone Care Team Providers Care Quality Eng Name Role Phone Aditya Reza MD Unavailable Alexus Mehta APRN, CNP Primary Care Provid er Reason for Visit * Reason Comments Medication Refill Encounter Details Date Type Department Care Team (Late st Contact Info) Description 04/23/2022 Refill [facility] - [facility] Medicine [facility] #2 [place] [address] Alexus Mehta APRN, CNP #[address] [address] Medication Refill Social History Tobacco [...] Coronavirus/COVID-19? No / Unsure 04/09/2022 3:43 PM OTOLARYNGOLOGY REP documented as of this encounter Miscellaneous Notes * Telephone Encounter - Lynn Saucedo RN - 04/23/2022 3:16 PM CST Signed Today (04/23/2022): venlafaxine (EFFEXOR) 100 MG Tablet Sig: TAKE 1 TABLET BY MOUTH IN THE MORNING AND AT BEDTIME Disp: 180 Tablet ? 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
--- OUTSIDE RECORDS SUMMARY | 2024-07-18 16:32 | XMS_ITS | Clinical Summary ---
Author Organization [facility] Address [address] [place] [address] Phone Care Team Providers Care Antichecking Iron Worker Name Role Phone Aditya Reza MD [...] DROP INTO BOTH EYES AT BEDTIME 11 10/11/19 19 Active Solriamfetol HCl (Sunosi) 150 MG Tablet Take by mouth. Active traMADol (ULTRAM) 50 MG Tablet TAKE 1 TABLET BY MOUTH EVERY 8 HOURS NEEDED FOR PAIN 12/27/19 22 Active Melatonin (Melatonin Maximum Strength) 5 MG Tablet Take 7.5 mg by mouth. Active Cyanocobalamin 2500 MCG Tablet Take 1 Tablet by mouth daily. 06/20/19 15 Active meloxicam (MOBIC) 7.5 MG Tablet Take 15 mg by mouth daily. 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 90 Tablet 3 06/10/19 24 Active Cholecalciferol (VITAMIN D-3 PO) Take by mouth. Active venlafaxine (EFFEXOR) 100 MG TabletIndication s:Hypersomnia with sleep apnea TAKE 1 TABLET BY MOUTH IN THE MORNING AND AT BEDTIME 180 Tablet 1 10/30/19 24 Active traZODone (DESYREL) 100 MG Tablet TAKE 1 TABLET BY MOUTH EVERY NIGHT 90 Tablet 1 12/02/19 24 Active metroNIDAZOLE (FLAGYL) 500 MG TabletIndication s:Bacterial intestinal infection Take 1 Tablet by mouth 3 times daily. 30 Tablet 01/07/20 24 Active folic acid (FOLVITE) 1 MG Tablet TAKE 1 TABLET BY MOUTH DAILY 30 Tablet 6 01/24/20 24 Active busPIRone (BUSPAR) 10 MG TabletIndication s:Anxiety TAKE 1 TABLET BY MOUTH EVERY MORNING AND 1 AND 1/2 TABLETS IN THE AFTERNOON 270 Tablet 1 03/15/19 25 Active famotidine (PEPCID) 20 MG TabletIndication s:Gastroesophage al reflux disease, unspecified whether esophagitis present TAKE 1 TABLET BY MOUTH TWICE DAILY 180 Tablet 1 03/17/19 25 Active valsartan-hydroC HLOROthiazide (DIOVAN-HCT) 320-12.5 MG TabletIndication s:Primary hypertension TAKE 1 TABLET BY MOUTH DAILY 90 Tablet 1 07/01/19 25 Active valsartan-hydroC HLOROthiazide (DIOVAN-HCT) 320-12.5 MG TabletIndication s:Primary hypertension Take 1 Tablet by mouth daily. 90 Tablet 1 12/22/19 24 025 Discontinued Active Problems Problem Noted Date Diagnosed Date [...] Encounters Date Type Department Care Team Description 06/29/2024 Refill [facility] [address] [place] [address] Alexus Mehta, GUMARO, RECOVERY COORDINATOR Medication Refill from Last 3 Months Immunizations [...] drink = 0.6 oz pur e alcohol) [facility] Utilities Answer Date Recorded In the [...] often do you attend chur ch or rastafarian services? 1 to 4 times per year 10/14/2023 Do you belong to any clubs o r organizations such as anglican groups, unions, fraternal or athletic groups, or [...] Total Score - Questions 1-9 0 03/2023 [facility] - Occupational Stress Questionnaire Answer Date [...] any time in the past 12 m [facility], were you homeless or living in a nursing home (including now)? No 10/14/2023 Education Answer [...] Comments Blood Pressure 137/93 04/12/2024 9:00 PM CARBON DIOXIDE OPERATOR Pulse 87 04/12/2024 9:15 PM CARBON DIOXIDE OPERATOR Temperature 36.1 C (96.9 F) 04/12/2024 2:43 PM CARBON DIOXIDE OPERATOR Respiratory Rate 18 04/12/2024 9:15 PM CARBON DIOXIDE OPERATOR Oxygen Saturation 100% 04/12/2024 9:15 PM CARBON DIOXIDE OPERATOR Inhaled Oxygen Concentration - - Weight 81.2 kg (179 lb) 04/12/2024 2:43 PM CARBON DIOXIDE OPERATOR Height 163.8 cm (5' 4.5 ) 04/12/2024 2:43 PM CARBON DIOXIDE OPERATOR Body Mass Index 30.25 04/12/2024 2:43 PM CARBON DIOXIDE OPERATOR Plan of Treatment Health Maintenance Due Date [...] this topic Medical Devices Implanted Type Area [employer] Fighter Pilot Device Identifier Shelf Expiration Date Model / Serial / Lot Stent Ureteral 6fr 2.1fr 24cm 2 Pigtail Curve 2 Durometer Taper Tip Loprfl Graduated Polaris Ultra - [id number] Implanted:Qty: 1 on 07/15/2018 by Marbella Alejandra MD at [facility] IMPLANT Right: Ureter [employer] 02/07/2021 [id number] 20 / [id number] 20 / [id number] Speedbridge Implant Systemw Ith Biocomposity Swivel Lock Implanted:Qty: 1 on 07/29/2016 by Kofi Henning MD at [facility] Left: Shoulder 03/07/2018 / [id number] S-4 / [id number] Explanted Type Area [employer] Fighter Pilot Device Identifier Shelf Expiration Date Model / Serial / Lot Stent Ureteral 6fr 2.1fr 24cm 2 Pigtail Curve 2 Durometer Taper Tip Loprfl Graduated Polaris Ultra - [id number] Implanted:Qty : 1 on 06/24/2018 by Marbella Alejandra MD at [facility] Explanted:Qty : 1 on 07/15/2018 by Marbella Alejandra MD at [facility] IMPLANT Right: Ureter [employer] 12/20/2020 [id number] / [id number] / [id number] Procedures Procedure Name Priority Date/Time Associated Diagnosis Comments [facility] BONE DENSITOMETRY AXIAL SKELETON Routine 08/06/2022 11:38 AM CDT Post-menopausal Encounter for screening for osteoporosis [facility] SCREENING BILATERAL DIGITAL W CAD W JESSICA Routine 08/06/2022 11:27 AM CDT Screening mammogram for breast cancer from Last 3 Months or Most Recently Relevant to Health Maintenance Results * [facility] BONE [...] old F with given history of screening. [employer] Fighter Pilot/Model: Medlanes (S/N [id number]) CLINICAL INFORMATION: Current height: 64 inches Maximum [...] Naomi Cifuentes M.D. TW: MARY Report ID: [id number] Reading Location: [id number] Procedure Note Naomi Cifuentes MD - 08/07/2022 EXAM DESCRIPTION: ANTWON BONE DENSITOMETRY AXIAL SKELETON REASON FOR STUDY: 72 y/o year old F with given history of screening. [employer] Fighter Pilot/Model: Medlanes (S/N [id number]) CLINICAL INFORMATION: Current height: 64 inches Maximum [...] Naomi Cifuentes M.D. TW: TW Report ID: [id number] Reading Location: [id number] IMPRESSION: Osteoporosis REFERENCE: Bone mineral density: Normal [...] to Prevention and Treatment of Osteoporosis (http://www.nof.org/professionals/clinical-guidelines) us Alexus Mehta PERSONAL BANKING OFFICER, RECOVERY COORDINATOR IMG DEXA ORDERABLES Final Result * ANTWON [...] made to exams dated: 04/22/2015 and 03/03/2011 [facility]. BREAST TISSUE:There are scattered fibroglandular [...] exam. Electronically signed by: Karlee boyer/mary:08/06/2022 15:06:48 Care Advocate(s): RT Wil(Carole)(M), [facility] letter sent: Normal Exam Reading location: [facility] BI-RADS: 2 Benign Procedure Note [...] made to exams dated: 04/22/2015 and 03/03/2011 [facility]. BREAST TISSUE:There are scattered fibroglandular [...] exam. Electronically signed by: Karlee boyer/mary:08/06/2022 15:06:48 Care Advocate(s): RT Wil(R)(M), [facility] letter sent: Normal Exam Reading location: [facility] BI-RADS: 2 Benign us Alexus Mehta APRN, TYRONE IMG MAMMO ORDERABLES Final Result from Last 3 Months or Most Recently Relevant to Health Maintenance Additional Health Concerns Infection Onset Date Last Indicated ESBL 06/20/2018 01/01/2022 Insurance [place] [employer] C [employer] [place] [employer] [place] MEDPAY PA L [facility] GENERIC Advance Directives * Full Code [...] measures to stabilize the patient. Care Teams Antichecking Iron Worker Relationship Specialty Start Date End Date Aleuxs Mehta APRN, RECOVERY COORDINATOR #2 [facility] [address] [place] [address] PCP - General Advanced Practice Nurse 01/13/22 Aditya Reza MD #2 [facility] [address] [place] [address] Consulting Physician Urology 12/31/21
--- OUTSIDE RECORDS SUMMARY | 2024-07-18 16:32 | XMS_ITS | Encounter Summary ---
Author Organization [facility] Address [address] [place] [address] Phone Care Team Providers Care Right Of Way Manager Name Role Phone Aditya Reza MD Unavailable Alexus Mehta APRN, CNP Primary Care Provid er Reason for Visit * Reason Comments Medication Refill Encounter Details Date Type Department Care Team (Late st Contact Info) Description 09/23/2022 Refill [facility] - [facility] #2 [place] [address] Ja Samuel MD #[address] [address] Medication Refill Social History Tobacco Use Types [...] Depression Total Score: 0 01/14/20 10:00 AM FLEX O WRITER OPERATOR documented as of this encounter Care Teams Right Of Way Manager Relationship Specialty Start Date End Date Alexus Mehta APRN, GASOLINE TRACTOR OPERATOR #2 [facility] [address] [place] [address] PCP - General Advanced Practice Nurse 01/13/22 Aditya Reza MD #2 [facility] [address] [place] [address] Consulting Physician Urology 12/31/21 documented as of this encounter
--- OUTSIDE RECORDS SUMMARY | 2024-07-18 16:32 | XMS_ITS | Encounter Summary ---
Author Organization [facility] Address [address] [place] [address] Phone Care Team Providers Care Filter Washer And Presser Name Role Phone Aditya Reza MD Unavailable Alexus Mehta APRN, CNP Primary Care Provid er Reason for Visit * Reason Comments Medication Refill Encounter Details Date Type Department Care Team (Late st Contact Info) Description 04/23/2022 Refill [facility] - Family Medicine [facility] #2 [place] [address] Alexus Mehta APRN, CNP #[address] [address] Medication Refill Social History Tobacco [...] Coronavirus/COVID-19? No / Unsure 04/09/2022 3:43 PM HOSPITAL SECURITY OFFICER documented as of this encounter Miscellaneous Notes [...] 90 days and meeting all other requirements ITAL SECURITY OFFICER 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, unspecified documented in this encounter Additional Health Concerns Infection Onset Date Last Indicated Resolved Time ESBL 06/20/2018 01/01/2022 Assessment Noted Time PHQ-9 Depression Total Score: 0 01/14/20 22 10:00 AM HOSPITAL SECURITY OFFICER documented as of this encounter Care Teams Filter Washer And Presser Relationship Specialty Start Date End Date Alexus Mehta APRN, TYRONE #[address] [address] PCP - General Advanced Practice Nurse 01/13/22 Aditya Reza MD #2 [place] [address] Consulting Physician Urology 12/31/21 documented as of this encounter
--- OUTSIDE RECORDS SUMMARY | 2024-07-18 16:32 | XMS_ITS | Encounter Summary ---
Author Organization [facility] Address [address] [place] [place] [address] Phone Care Team Providers Care Shade Bander Name Role Phone Aditya Reza MD Unavailable Alexus Mehta APRN, CNP Primary Care Provid er Reason for Visit * Reason Comments Medication Refill Encounter Details Date Type Department Care Team (Late st Contact Info) Description 01/07/2023 Refill [facility] #2 [place] [address] Ja Samuel MD #[address] [address] Medication Refill Social History Tobacco Use Types [...] Signed by: Alexus Mehta APRN, CNP [facility] [place] documented in this encounter Plan of Treatment Not on file documented as of this encounter Visit Diagnoses Diagnosis Anxiety Anxiety state, unspecified documented in this encounter Additional Health Concerns Infection Onset Date Last Indicated Resolved Time ESBL 06/20/2018 01/01/2022 Assessment Noted Time PHQ-9 Depression Total Score: 0 01/14/20 22 10:00 AM METER READER INSPECTOR documented as of this encounter Care Teams Shade Bander Relationship Specialty Start Date End Date Alexus Mehta APRN, CNP #2 [facility] [address] [place] [address] PCP - General Advanced Practice Nurse 01/13/22 Aditya Reza MD #2 [facility] [address] [place] [address] Consulting Physician Urology 12/31/21 documented as of this encounter
--- OUTSIDE RECORDS SUMMARY | 2024-07-18 16:32 | XMS_ITS | Encounter Summary ---
Author Organization [facility] Address [address] [place] [address] Phone Care Team Providers Care Arts Administrator Or Manager Name Role Phone Aditya Reza MD Unavailable Alexus Mehta APRN, CNP Primary Care Provid er Reason for Visit * Reason Comments Medication Refill Encounter Details Date Type Department Care Team (Late st Contact Info) Description 09/13/2022 Refill [facility] #2 [place] [address] Ja Samuel MD #[address] [address] Medication Refill Social History Tobacco Use Types [...] 08/02/2022 90 180 Each Ja Samuel MD [facility] #... 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, unspecified documented in this encounter Additional Health Concerns Infection Onset Date Last Indicated Resolved Time ESBL 06/20/2018 01/01/2022 Assessment Noted Time PHQ-9 Depression Total Score: 0 01/14/20 10:00 AM BLUEPRINTING AND PHOTOCOPY SUPERVISOR documented as of this encounter Care Teams Arts Administrator Or Manager Relationship Specialty Start Date End Date Alexus Mehta APRN, CNP #2 [facility] [address] [place] [address] PCP - General Advanced Practice Nurse 01/13/22 Aditya Reza MD #2 [place] [facility] [address] [place] [address] Consulting Physician Urology 12/31/21 documented as of this encounter
--- OUTSIDE RECORDS SUMMARY | 2024-07-18 16:32 | XMS_ITS | Encounter Summary ---
Author Organization [employer] [facility] Address [address] [place] [address] Care Team Providers Care Absorption Plant Operator Name Role Phone Unavailable Primary Care Provider [...] on file Legal Sex Female 5:44 AM STUDENT FINANCE SPECIALIST Gender Identity Not on file Sexual Orientation [...] AM CDT) INR 2.5(H) 0.9 - 1.1 [facility] Comment: INR Therapeutic Range: Adult: 2.0 - 3.0 for pulmonary embolism or prophylaxis against venous thrombosis or systemic embolization. 2.0 - 3.0 for patients with tissue heart valves. 2.5 - 3.5 for patients with mechanical heart valves or post PA. Pediatric (12 years and under): 1.5 - 3.0 Although the target range in children is not well established, INR values of 1.5 - 3.0 are recommended for most patients. Higher values have been used in children with prosthetic cardiac valves and hereditary clotting disorders. [place] (<3 days) therapeutic ranges have not been established. PROTIME 27.1(H) 12.7 - 15.[address] [facility] 09/07/2008 5:57 AM CDT 09/07/2008 6:39 AM CDT us Gio Watkins MD HEMATOLOGY ORDERABLES Kelsey kaminski Result INTERFACE SYSTEM Refer to clinic/hospital department [facility] CLIA# [id number] [address] [place] [address] * (ABNORMAL) PROTIME-INR (09/06/2008 5:00 AM CDT) PROTIME 23.5(H) 12.7 - 15.[address] [facility] INR 2.1(H) 0.9 - 1.1 [facility] Comment: INR Therapeutic Range: Adult: 2.0 - 3.0 for pulmonary embolism or prophylaxis against venous thrombosis or systemic embolization. 2.0 - 3.0 for patients with tissue heart valves. 2.5 - 3.5 for patients with mechanical heart valves or post PA. Pediatric (12 years and under): 1.5 - [...] Result INTERFACE SYSTEM Refer to clinic/hospital department [facility] CLIA# [id number] [address] [place] [address] * (ABNORMAL) BASIC METABOLIC PANEL (09/06/2008 5:00 AM CDT) CHLORIDE 104 96 - 108 mmol/L [facility] GLUCOSE 98 65 - 99 mg/dL [facility] SODIUM 135 135 - 145 mmol/L [facility] CALCIUM 8.2(L) 8.6 - 10.2 mg/dL [facility] CO2 24 22 - 30 mmol/L [facility] CREATININE 0.80 0.51 - 0.95 mg/dL [facility] POTASSIUM 4.1 3.5 - 4.9 mmol/L [facility] BUN 15 6 - 20 mg/dL [facility] GFR, >60 >=60 mL/min/1. [address] [facility] GFR >60 >=60 mL/min/1. [address] [facility] Comment: Modification of Diet in Renal Disease (MDRD) study formula. Estimated GFR rate interpretative information for both Americans and non- Americans is available on the [facility]an[facility] at: [email or web address] Select: Lab Policies and Procedures Select: Reference Ranges - GFR 09/06/2008 5:00 AM CDT 09/06/2008 6:09 AM CDT us Subbuluxmi Sunita DONALDSON CHEMISTRY ORDERABLES Chavo mack INTERFACE SYSTEM Refer to clinic/hospital department [facility] CLIA# [id number] [address] [place] [address] * (ABNORMAL) CBC WITH DIFFERENTIAL (09/06/2008 5:00 AM CDT) MCV 83.8 82.0 - 99.[address] [facility] PLATELETS 191 140 - 350 K/uL [facility] HEMOGLOBIN 8.3(L) 11.8 - 14.8 g/dL [facility] RDW 14.8(H) 11.5 - 14.5 % [facility] WBC 7.9 4.0 - 9.8 K/uL [facility] MCH 27.5 27.2 - 32.[address] [facility] MPV 10.5 9.3 - 12.[address] [facility] HEMATOCRIT 25.3(L) 35.5 - 44.0 % [facility] RDW-STDEV 46.0 37.1 - 48.[address] [facility] RBC 3.02(L) 3.90 - 4.90 M/uL [facility] MCHC 32.8 31.5 - 35.5 % [facility] BASOPHILS ABSOLUTE 0.00 0.00 - 0.20 K/uL [facility] POIKILOCYTES Slight [facility] MONOCYTES 5 3 - 13 % [facility] MONOCYTE ABSOLUTE 0.40 0.10 - 1.30 K/uL [facility] PLATELET EST. Consistent w/ count Normal [facility] BANDS 1 0 - 5 % [facility] NEUTROPHIL ABSOLUTE 6.32 1.90 - 7.00 K/uL [facility] NEUTROPHILS, SEG 79(H) 45 - 70 % [facility] EOSINOPHILS 2 0 - 7 % [facility] MICROCYTES Slight [facility] EOSINOPHIL ABSOLUTE 0.16 0.00 - 0.70 K/uL [facility] LYMPHOCYTES 13(L) 16 - 45 % [facility] ANISOCYTOSIS Slight [facility] LYMPHOCYTE ABSOLUTE 1.03 0.70 - 4.50 K/uL [facility] BASOPHILS 0 0 - 2 % [facility] Blood specimen (specimen) 09/06/2008 5:00 AM CDT 09/06/2008 6:09 AM CDT Mickbuluxbrad Dorsey MD HEMATOLOGY ORDERABLES Ed ited INTERFACE SYSTEM Refer to clinic/hospital department [facility] CLIA# [id number] [address] [place] [address] * (ABNORMAL) PROTIME-INR (09/05/2008 4:16 AM CDT) PROTIME 16.3(H) 12.7 - 15.[address] [facility] INR 1.3(H) 0.9 - 1.1 [facility] Comment: INR Therapeutic Range: Adult: 2.0 - 3.0 for pulmonary embolism or prophylaxis against venous thrombosis or systemic embolization. 2.0 - 3.0 for patients with tissue heart valves. 2.5 - 3.5 for patients with mechanical heart valves or post PA. Pediatric (12 years and under): 1.5 - 3.0 Although the target range in children is not well established, INR values of 1.5 - 3.0 are recommended for most patients. Higher values have been used in children with prosthetic cardiac valves and hereditary clotting disorders. [place] (<3 days) therapeutic ranges have not been established. 09/05/2008 4:16 AM CDT 09/05/2008 5:14 AM CDT Gio Watkins MD HEMATOLOGY ORDERABLES Kelsey kaminski Result Performing Organization Address [facility] Phone Number INTERFACE SYSTEM Refer to clinic/hospital department [facility] CLIA# [id number] [address] [facility] [place] [address] * (ABNORMAL) HEMOGLOBIN AND HEMATOCRIT (09/05/2008 4:16 AM CDT) HEMOGLOBIN 8.9(L) 11.8 - 14.8 g/dL [facility] HEMATOCRIT 27.1(L) 35.5 - 44.0 % [facility] 09/05/2008 4:16 AM CDT 09/05/2008 5:14 AM CDT Gio Watkins MD HEMATOLOGY ORDERABLES Kelsey l Result Performing Organization Address [facility] de Phone Number INTERFACE SYSTEM Refer to clinic/hospital department [facility] CLIA# [id number] [address] [place] [address] * (ABNORMAL) BASIC METABOLIC PANEL (09/05/2008 4:16 AM CDT) CREATININE 0.86 0.51 - 0.95 mg/dL [facility] POTASSIUM 3.4(L) 3.5 - 4.9 mmol/L [facility] BUN 13 6 - 20 mg/dL [facility] CHLORIDE 103 96 - 108 mmol/L [facility] GLUCOSE 115(H) 65 - 99 mg/dL [facility] SODIUM 135 135 - 145 mmol/L [facility] CALCIUM 8.1(L) 8.6 - 10.2 mg/dL [facility] CO2 23 22 - 30 mmol/L [facility] GFR, >60 >=60 mL/min/1. [address] [facility] GFR >60 >=60 mL/min/1. [address] [facility] Comment: Modification of Diet in Renal Disease (MDRD) study formula. Estimated GFR rate interpretative information for both Americans and non- Americans is available on the [facility]an[facility] at: [email or web address] Select: Lab Policies and Procedures Select: Reference Ranges - GFR 09/05/2008 4:16 AM CDT 09/05/2008 5:14 AM CDT Gio Watkins MD CHEMISTRY ORDERABLES Edite d Performing Organization Address City/State/[facility] Co de Phone Number INTERFACE SYSTEM Refer to clinic/hospital department [facility] CLIA# [id number] [address] [place] [address] * XR CHEST PA AND LATERAL (08/13/2008 11:57 AM CDT) Anatomical Region Laterality Modality Chest Other 08/13/2008 11:5 7 AM CDT Narrative 08/13/2008 12:45 PM CDT [facility] [address] [place], [place] [address] Admit Date: 07/09/2008 DEANNA YOO Sex: F Admit Prov: GIO WATKINS Date: 1950 Primary Care Prov: SRIKANTH MULLINS CMRN: [id number] [id number] IM[facility] Ordering Prov: N/A Accession Number: [id number] Interpretation PA AND LATERAL CHEST X-RAY, 08/13/2008 [...] Procedure Note Lupe Carter MD - 08/13/2008 [id number] [place], [place] [address] Admit Date: 07/09/2008 DEANNA YOO Sex: F Admit Prov: GIO WATKINS Date: 1950 Primary Care Prov: SRIKANTH MULLINS CMRN: [id number] [facility] [id number] IMAGING SERVICES Ordering Prov: N/A Interpretation PA [...] AM CDT) CLARITY UA Slt. Cloudy(A) Clear [facility] PROTEIN UA Trace(A) Negative [facility] EPITHELIAL CELLS, URINE 0-2 /HPF [facility] BILIRUBIN UA Negative Negative [facility] LEUKOCYTE ESTERASE UA 3+(A) Negative [facility] RBC UA 28(H) 0 - 4 /HPF [facility] SPECIFIC GRAVITY UA 1.013 1.001 - 1.035 [facility] BLOOD UA 2+(A) Negative [facility] GLUCOSE UA Negative Negative [facility] WBC CLUMPS Present(A) None Seen [facility] COLOR UA Yellow [facility] NITRITE UA Negative Negative [facility] UROBILINOGEN UA <1 <=1 mg/dL [facility] BACTERIA UA 3+(A) None Seen /HPF [facility] PH UA 5.5 5.0 - 8.0 [facility] KETONES UA Negative Negative [facility] WBC UA >100(H) 0 - 5 /HPF [facility] 08/13/2008 11:1 4 AM CDT 08/13/2008 12:16 PM CDT us Gio Watkins MD URINE ORDERABLES Final Res ult INTERFACE SYSTEM Refer to clinic/hospital department [facility] CLIA# [id number] [address] [place] [address] * COMPREHENSIVE METABOLIC PANEL (08/13/2008 11:14 AM CDT) Pathologist [facility] ALKALINE PHOSPHATASE 79 35 - 104 U/L [facility] CO2 22 22 - 30 mmol/L [facility] BILIRUBIN TOTAL 0.4 0.2 - 1.0 mg/dL [facility] POTASSIUM 3.5 3.5 - 4.9 mmol/L [facility] TOTAL PROTEIN 7.7 6.3 - 8.6 g/dL [facility] GLUCOSE 90 65 - 99 mg/dL [facility] AST 12 12 - 32 U/L [facility] BUN 12 6 - 20 mg/dL [facility] CALCIUM 9.6 8.6 - 10.2 mg/dL [facility] ALBUMIN 4.1 3.4 - 4.8 g/dL [facility] CHLORIDE 105 96 - 108 mmol/L [facility] CREATININE 0.92 0.51 - 0.95 mg/dL [facility] ALT 13 0 - 31 U/L [facility] SODIUM 140 135 - 145 mmol/L [facility] GFR, >60 >=60 mL/min/1.[address] [facility] GFR >60 >=60 mL/min/1.[address] [facility] Comment: Modification of Diet in Renal Disease (MDRD) study formula. Estimated GFR rate interpretative information for both Americans and non- Americans is available on the [facility]an[facility] at: [email or web address] Select: Lab Policies and Procedures Select: Reference Ranges - GFR 08/13/2008 11:1 4 AM CDT 08/13/2008 12:08 PM CDT us Gio Watkins MD CHEMISTRY ORDERABLES Edite d INTERFACE SYSTEM Refer to clinic/hospital department [facility] CLIA# [id number] [address] [place] [address] * PROTIME-INR (08/13/2008 11:14 AM CDT) INR 1.0 0.9 - 1.1 [facility] Comment: ansiINR Therapeutic Range: Adult: 2.0 - 3.0 for pulmonary embolism or prophylaxis against venous thrombosis or systemic embolization. 2.0 - 3.0 for patients with tissue heart valves. 2.5 - 3.5 for patients with mechanical heart valves or post PA. Pediatric (12 years and under): 1.5 - 3.0 Although the target range in children is not well established, INR values of 1.5 - 3.0 are recommended for most patients. Higher values have been used in children with prosthetic cardiac valves and hereditary clotting disorders. [place] (<3 days) therapeutic ranges have not been established. PROTIME 13.5 12.7 - 15.[address] [facility] 08/13/2008 11:1 4 AM CDT 08/13/2008 12:08 PM CDT us Gio Watkins MD HEMATOLOGY ORDERABLES Kelsey kaminski Result INTERFACE SYSTEM Refer to clinic/hospital department [facility] CLIA# [id number] [address] [place] [address] * (ABNORMAL) CBC WITH DIFFERENTIAL (08/13/2008 11:14 AM CDT) Pathologist [facility] WBC 6.9 4.0 - 9.8 K/uL [facility] MCH 27.7 27.2 - 32.[address] [facility] MPV 11.1 9.3 - 12.[address] [facility] HEMATOCRIT 36.5 35.5 - 44.0 % [facility] RDW-STDEV 44.2 37.1 - 48.[address] [facility] RBC 4.23 3.90 - 4.90 M/uL [facility] MCHC 32.1 31.5 - 35.5 % [facility] MCV 86.3 82.0 - 99.[address] [facility] PLATELETS 334 140 - 350 K/uL [facility] HEMOGLOBIN 11.7(L) 11.8 - 14.8 g/dL [facility] RDW 14.2 11.5 - 14.5 % [facility] LYMPHOCYTES 29 16 - 45 % [facility] LYMPHOCYTE ABSOLUTE 2.01 0.70 - 4.50 K/uL [facility] BASOPHILS 0 0 - 2 % [facility] BASOPHILS ABSOLUTE 0.02 0.00 - 0.20 K/uL [facility] MONOCYTES 8 3 - 13 % [facility] MONOCYTE ABSOLUTE 0.57 0.10 - 1.30 K/uL [facility] NEUTROPHILS 62 45 - 70 % [facility] NEUTROPHIL ABSOLUTE 4.24 1.90 - 7.00 K/uL [facility] EOSINOPHILS 1 0 - 7 % [facility] EOSINOPHIL ABSOLUTE 0.05 0.00 - 0.70 K/uL [facility] 08/13/2008 11:1 4 AM CDT 08/13/2008 12:08 PM CDT us Gio Watkins MD HEMATOLOGY ORDERABLES Edit ed INTERFACE SYSTEM Refer to clinic/hospital department [facility] CLIA# [id number] [address] [place] [address] * TYPE AND CROSSMATCH (08/13/2008 11:13 AM CDT) HISTORY CHECK No Historical ABO/Rh [facility] SPECIMEN LIFE [address] [facility] ABO/RH TYPE AB Negative [facility] ANTIBODY SCREEN Negative [facility] 08/13/2008 11:1 3 AM CDT us Gio Watkins MD BLOOD BANK ORDERABLES Edit ed INTERFACE SYSTEM Refer to clinic/hospital department [facility] CLIA# [id number] [address] [place], [place] [address] documented in this encounter Visit Diagnoses Not on filedocumented in this encounter
--- OUTSIDE RECORDS SUMMARY | 2024-07-18 16:32 | XMS_ITS | Encounter Summary ---
Author Organization [facility] Address [address] [place] [address] Phone Care Team Providers Care Palliative Care Nurse Practitioner Name Role Phone Aditya Reza MD Unavailable Alexus Mehta APRN, CNP Primary Care Provid er Reason for Visit * Reason Comments Medication Refill Encounter Details Date Type Department Care Team (Late st Contact Info) Description 09/20/2022 Refill [facility] #2 [place] [address] Ja Samuel MD #[address] [address] Medication Refill Social History Tobacco Use Types [...] 08/02/2022 90 180 Each Ja Samuel MD [facility] #... 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, unspecified documented in this encounter Additional Health Concerns Infection Onset Date Last Indicated Resolved Time ESBL 06/20/2018 01/01/2022 Assessment Noted Time PHQ-9 Depression Total Score: 0 01/14/20 10:00 AM NEURO PSYCH SALES SPECIALIST documented as of this encounter Care Teams Palliative Care Nurse Practitioner Relationship Specialty Start Date End Date Alexus Mehta APRN, CNP #2 [facility] [address] [place] [address] PCP - General Advanced Practice Nurse 01/13/22 Aditya Reza MD #2 [place] [facility] [address] [place] [address] Consulting Physician Urology 12/31/21 documented as of this encounter
--- OUTSIDE RECORDS SUMMARY | 2024-07-18 16:32 | XMS_ITS | Encounter Summary ---
Author Organization [facility] Address [address] [place] [address] Phone Care Team Providers Care Cytotechnologist/Cytology Supervisor Name Role Phone Aditya Reza MD Unavailable Alexus Mehta APRN, CNP Primary Care Provid er Reason for Visit * Reason Comments Medication Refill Encounter Details Date Type Department Care Team (Late st Contact Info) Description 02/02/2023 Refill [facility] - [place] #2 [place] [address] Alexus Mehta APRN, CNP #[address] [address] Medication Refill Social History Tobacco [...] CNP for the following reason: Formulary change. I CRAFT MAINTENANCE TECHNICIAN documented in this encounter Plan of Treatment Not on file documented as of this encounter Visit Diagnoses Diagnosis Anxiety Anxiety state, unspecified documented in this encounter Additional Health Concerns Infection Onset Date Last Indicated Resolved Time ESBL 06/20/2018 01/01/2022 Assessment Noted Time PHQ-9 Depression Total Score: 0 01/14/20 10:00 AM MULTI CRAFT MAINTENANCE TECHNICIAN documented as of this encounter Care Teams Cytotechnologist/Cytology Supervisor Relationship Specialty Start Date End Date Alexus Mehta APRN, CNP [facility] [address] [place] [id number] PCP - General Advanced Practice Nurse 01/13/22 Aditya Reza MD #2 [place] [facility] [address] [place] [address] Consulting Physician Urology 12/31/21 documented as of this encounter
--- OUTSIDE RECORDS SUMMARY | 2024-07-18 16:32 | XMS_ITS | Referral Summary ---
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 [facility] Provider ENDOSCOPY PROCEDURES Kelsey l Result from Last 3 Months or Most Recently Relevant to Health Maintenance Insurance [facility] MEDICARE MEDICARE [facility] MEDICARE [facility] Care Teams Materials Technician Relationship Specialty Start Date End Date Alexus Mehta NP [address] [facility] [address] [place] [address] PCP - General Nurse Practitioner 11/03/22 Cuong Gaytan MD [address] [facility] [address] [place]be [facility] [address] [place] [address] Consulting Physician Obstetrics and Gynecology 05/17/23
--- OUTSIDE RECORDS SUMMARY | 2024-07-18 16:32 | XMS_ITS | Encounter Summary ---
Author Organization [facility] Address [address] [place] [address] Phone Care Team Providers Care Fashion Coordinator Name Role Phone Aditya Reza MD Unavailable Alexus Mehta APRN, CNP Primary Care Provid er Reason for Visit * Reason Comments Medication Refill Encounter Details Date Type Department Care Team (Late st Contact Info) Description 06/28/2022 Refill [facility] #2 [place] [address] Ja Samuel MD #[address] [address] Medication Refill Social History Tobacco Use Types [...] CDT Reordered 06/04/22 for 4 months - [facility] documented in this encounter Plan of Treatment Not on file documented as of this encounter Visit Diagnoses Not on filedocumented in this encounter Additional Health Concerns Infection Onset Date Last Indicated Resolved Time ESBL 06/20/2018 01/01/2022 Assessment Noted Time PHQ-9 Depression Total Score: 0 01/14/20 10:00 AM LIGHT BULB REPLACER documented as of this encounter Care Teams Fashion Coordinator Relationship Specialty Start Date End Date Alexus Mehta APRN, HEARING AID REPAIRER #2 [facility] [address] [place] [address] PCP - General Advanced Practice Nurse 01/13/22 Aditya Reza MD #2 [facility] [address] [place] [address] Consulting Physician Urology 12/31/21 documented as of this encounter
--- OUTSIDE RECORDS SUMMARY | 2024-07-18 16:32 | XMS_ITS | Clinical Summary ---
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 Gender Identity Not on file Sexual [...] CDT PROCEDURE REPORT Patient: SINA YOO Account: [id number] Room No: : 1950 Patient Type: SDS [...] Most Recently Relevant to Health Maintenance Insurance [employer] MEDICARE [employer] MEDICARE [facility] Care Teams Health Assessment And Treatment Teacher Relationship Specialty Start Date End Date Alexus Mehta NP 2 [facility] [address] [place] [address] PCP - General Nurse Practitioner 11/03/22 Cuong Gaytan MD [address] [facility] [address] MARIPOSA Beebe [facility] [address] [place] [address] Consulting Physician Obstetrics and Gynecology 05/17/23
--- OUTSIDE RECORDS SUMMARY | 2024-07-18 16:32 | XMS_ITS | Clinical Summary ---
Author Organization [facility] Address [address] [place] [address] Phone Care Team Providers Care Floor Layer Tile Name Role Phone Unavailable Primary Care Provider Unavailabl e Social History Tobacco Use Types Packs/Day Years Used Date Smoking Tobacco: Never Assessed Comments Unknown Sex and Gender Information Value Date Recorded Sex Assigned at Not on file Legal Sex Female 5:44 AM PRODUCT SUPPORT ANALYST Gender Identity Not on file Sexual Orientation [...]
--- OUTSIDE RECORDS SUMMARY | 2024-07-18 16:32 | XMS_ITS | Encounter Summary ---
Author Organization [facility] Address [address] [place] [address] Phone Care Team Providers Care Senior Software Engineer Name Role Phone Aditya Reza MD Unavailable Alexus Mehta APRN, CNP Primary Care Provid er Reason for Visit * Reason Comments Medication Refill Encounter Details Date Type Department Care Team (Late st Contact Info) Description 11/20/2023 Refill [facility] - Family Medicine - [place] #[address] [place] [address] Alexus Mehta APRN, CNP #[address] [address] Medication Refill Social History Tobacco Use Types Packs/Day Years Used Date Smoking Tobacco: Former Cigarettes 0 07/06/1982 - 07/06/1989 Smokeless Tobacco: Never Alcohol Use Standard Drinks/Week Comments Never 0 (1 standard drink = 0.6 oz pur e alcohol) [facility] Utilities Answer Date Recorded In the past [...] often do you attend chur ch or congregation services? 1 to 4 times per year 10/14/2023 Do you belong to any clubs o r organizations such as presybeterian groups, unions, fraternal or athletic groups, or [...] Total Score - Questions 1-9 12 11/2023 [facility] - Occupational [...] any time in the past 12 m [facility], were you homeless or living in a long term (including now)? No 10/14/2023 Education Answer Date [...] discontinued on 12/31/2022 by Alexus Mehta APRN, RECEIVING TEAM MEMBER documented in this encounter Plan of Treatment [...] as of this encounter Care Teams Senior Software Engineer Relationship Specialty Start Date End Date Alexus Mehta APRN, RECEIVING TEAM MEMBER #2 [facility] [address] [place] [address] PCP - General Advanced Practice Nurse 01/13/22 Aditya Reza MD #2 [facility] [address] [place] [address] Consulting Physician Urology 12/31/21 documented as of this encounter
--- OUTSIDE RECORDS SUMMARY | 2024-07-18 16:33 | XMS_ITS | Encounter Summary ---
Author Organization [facility] Address [address] [place] [address] Phone Care Team Providers Care Education Faculty Member Name Role Phone Aditya Reza MD Unavailable Alexus Mehta APRN, CNP Primary Care Provid er Reason for Visit * Reason Comments Medication Refill Encounter Details Date Type Department Care Team (Late st Contact Info) Description 02/10/2023 Refill [facility] - [facility] Medicine - [place] #2 [place] [address] Alexus Mehta APRN, CNP #[address] [address] Medication Refill Social History Tobacco [...] 12/31/22 Office Visit Alexus Mehta APRN, CNP [facility] Showing recent visits within past 182 days [...] Serotonin Modulators for at least 6 months COUNTER documented in this encounter Plan of Treatment Not on file documented as of this encounter Visit Diagnoses Not on filedocumented in this encounter Additional Health Concerns Infection Onset Date Last Indicated Resolved Time ESBL 06/20/2018 01/01/2022 Assessment Noted Time PHQ-9 Depression Total Score: 0 01/14/20 10:00 AM LOAF COUNTER documented as of this encounter Care Teams Education Faculty Member Relationship Specialty Start Date End Date Alexus Mehta APRN, TYRONE #2 [facility] [address] [place] [phone] PCP - General Advanced Practice Nurse 01/13/22 Aditya Reza MD #2 [facility] [address] [place] [address] Consulting Physician Urology 12/31/21 documented as of this encounter
--- OUTSIDE RECORDS SUMMARY | 2024-07-18 16:33 | XMS_ITS | Encounter Summary ---
Author Organization [facility] Address [address] [place] [address] Phone Care Team Providers Care Assembly Machine Tool Setter Name Role Phone Aditya Reza MD Unavailable Alexus Mehta APRN, CNP Primary Care Provid er Reason for Visit * Reason Comments Medication Refill Encounter Details Date Type Department Care Team (Late st Contact Info) Description 02/10/2023 Refill [facility] - [facility] Medicine - [place] #2 [place] [address] Alexus Mehta APRN, CNP #[address] [address] Medication Refill Social History Tobacco [...] prescription was reordered on 02/10/2023 by Alexus Mehat APRN, CNP. EN CONSULTANT * Telephone Encounter - Lynn Saucedo RN - 02/10/2023 9:19 AM CST duplicate EN CONSULTANT documented in this encounter Plan of Treatment Not on file documented as of this encounter Visit Diagnoses Not on filedocumented in this encounter Additional Health Concerns Infection Onset Date Last Indicated Resolved Time ESBL 06/20/2018 01/01/2022 Assessment Noted Time PHQ-9 Depression Total Score: 0 01/14/20 22 10:00 AM GARDEN CONSULTANT documented as of this encounter Care Teams Assembly Machine Tool Setter Relationship Specialty Start Date End Date Alexus Mehta APRN, CNP #2 [facility] [address] [place] [address] PCP - General Advanced Practice Nurse 01/13/22 Aditya Reza MD #2 [facility] [address] [place] [address] Consulting Physician Urology 12/31/21 documented as of this encounter
--- OUTSIDE RECORDS SUMMARY | 2024-07-18 16:33 | XMS_ITS | Encounter Summary ---
Author Organization [facility] Address [address] [address] Phone Care Team Providers Care Police Department Secretary Name Role Phone Aditya Reza MD Unavailable Alexus Mehta APRN, CNP Primary Care Provid er Reason for Visit * Reason Comments Medication Refill Encounter Details Date Type Department Care Team (Late st Contact Info) Description 06/21/2023 Refill [facility] - Family Medicine - [place] #2 [place] [address] Alexus Mehta APRN, CNP #[address] [address] Medication Refill Social History Tobacco [...] AM CDT Medication(s) [facility] Medication Refill Standing Order for [...] 12/31/22 Office Visit Alexus Mehta APRN, CNP [facility] Showing recent visits within past [...] documented as of this encounter Care Teams Police Department Secretary Relationship Specialty Start Date End Date Alexus Mehta APRN, CNP #2 [facility] [address] [place] [address] PCP - General Advanced Practice Nurse 01/13/22 Aditya Reza MD #2 [facility] [address] [place] [address] Consulting Physician Urology 12/31/21 documented as of this encounter
--- OUTSIDE RECORDS SUMMARY | 2024-07-18 16:33 | XMS_ITS | Encounter Summary ---
Author Organization [facility] Address [address] [place] [address] Phone Care Team Providers Care Nailing Machine Operator Automatic Name Role Phone Aditya Reza MD Unavailable Alexus Mehta APRN, CNP Primary Care Provid er Reason for Visit * Reason Comments Medication Refill Encounter Details Date Type Department Care Team (Late st Contact Info) Description 06/24/2023 Refill [facility] - Family Medicine - [place] #2 [place] [address] Alexus Mehta APRN, CNP #[address] [address] Medication Refill Social History Tobacco [...] 12/31/22 Office Visit Alexus Mehta APRN, CNP [facility] Showing recent visits within past 365 [...] documented as of this encounter Care Teams Nailing Machine Operator Automatic Relationship Specialty Start Date End Date Alexus Mehta APRN, TYRONE #2 [facility] [address] [place] [address] PCP - General Advanced Practice Nurse 01/13/22 Aditya Reza MD #2 [facility] [address] [place] [address] Consulting Physician Urology 12/31/21 documented as of this encounter
--- OUTSIDE RECORDS SUMMARY | 2024-07-18 16:33 | XMS_ITS | Encounter Summary ---
Author Organization [facility] Address [address] [place] [address] Phone Care Team Providers Care Grinder Set Up Operator Universal Name Role Phone Aditya Reza MD Unavailable Alexus Mehta APRN, CNP Primary Care Provid er Reason for Visit * Reason Comments Medication Refill Encounter Details Date Type Department Care Team (Late st Contact Info) Description 06/06/2023 Refill [facility] - Family Medicine - [place] #2 [place] [address] Alexus Mehta APRN, CNP #[address] [address] Medication Refill Social History Tobacco [...] Provider Dept 06/08/23 Appointment Alexus Mehta APRN, LOCOMOTIVE CRANE ENGINEER [place] Showing today's visits and meeting [...] Total Score: 0 01/14/20 22 10:00 AM SYSTEM SUPPORT DEVELOPER documented as of this encounter Care Teams Grinder Set Up Operator Universal Relationship Specialty Start Date End Date Alexus Mehta APRN, CNP #2 [facility] [address] [place] [address] PCP - General Advanced Practice Nurse 01/13/22 Aditya Reza MD #[address] [facility] [address] [place] [address] Consulting Physician Urology 12/31/21 documented as of this encounter
[2024-07-18 16:34] VITALS: BP 154/78; PULSE 85; RESP 20; TEMP 37.1; O2SAT 100
--- OUTSIDE RECORDS SUMMARY | 2024-07-18 16:34 | XMS_ITS | Continuity of Care Document ---
Author Organization [facility] Address [address] [place] [address] Phone Care Team Providers Care Peoplesoft Administrator Name Role Phone Juan Daniel Thayer MD [...] Diagnoses Date Provider Providers Copied on Encounter [facility] Eye [facility], [address], [place], [place], [id number], [place] tel:[phone] SEC Tone RIVERS Professional No Information [address]. [address], [address], [place], [place], [id number], [place]. tel:[phone] Family History Family Member Type Diagnosis Age [...]
[2024-07-18 17:02] LABS: EDCOVIDSCREEN Negative (Negative); EDINFLUASCREEN Negative (Negative); EDINFLUBSCREEN Negative (Negative)
== END 2024-07-18 16:57 | disposition home or self-care (01) ==
PROVIDERS: Emergency Provider Nurse Practitioner Family; PCP Nurse Practitioner Adult Health
DX: J40 Bronchitis, not specified as acute or chronic (principal); Z20.822 Contact with and (suspected) exposure to COVID-19; I10 Essential (primary) hypertension; K21.9 Gastro-esophageal reflux disease without esophagitis; M19.90 Unspecified osteoarthritis, unspecified site; H40.9 Unspecified glaucoma; E03.9 Hypothyroidism, unspecified; F41.9 Anxiety disorder, unspecified; F32.A Depression, unspecified
CPT/HCPCS: 87426; 87804; 99213; G0463

== ENCOUNTER 2024-10-04 15:36 | Outpatient (CLI) | payer MEDICARE, SELFPAY ==
--- OUTSIDE RECORDS SUMMARY | 2024-10-04 15:40 | XMS_ITS | Encounter Summary ---
Author Organization [facility] Address [address] [place] [address] Phone Care Team Providers Care Senior Market Intelligence Consultant Name Role Phone Aditya Reza MD Unavailable Alexus Mehta APRN, CNP Primary Care Provid er Reason for Visit * Reason Comments Medication Refill Encounter Details Date Type Department Care Team (Late st Contact Info) Description 06/24/2023 Refill [facility] - Family Medicine - [place] #2 [place] [address] Alexus Mehta APRN, CNP #[address] [address] Medication Refill Social History Tobacco [...] 12/31/22 Office Visit Alexus Mehta APRN, CNP [facility] Showing recent visits within past 365 [...] as of this encounter Care Teams Senior Market Intelligence Consultant Relationship Specialty Start Date End Date Alexus Mehta APRN, TYRONE #2 [facility] [address] [place] [address] PCP - General Advanced Practice Nurse 01/13/22 Aditya Reza MD #2 [facility] [address] [place] [address] Consulting Physician Urology 12/31/21 documented as of this encounter
--- OUTSIDE RECORDS SUMMARY | 2024-10-04 15:40 | XMS_ITS | Encounter Summary ---
Author Organization [facility] Address [address] [place] [address] Phone Care Team Providers Care Vice President Of Customer Service Name Role Phone Aditya Reza MD Unavailable Alexus Mehta APRN, CNP Primary Care Provid er Reason for Visit * Reason Comments Medication Refill Encounter Details Date Type Department Care Team (Late st Contact Info) Description 01/07/2023 Refill [facility] #2 [place] [address] Ja Samuel MD #[address] [address] Medication Refill Social History Tobacco Use Types [...] 0 Signed by: Alexus Mehta APRN, CNP [facility] documented in this encounter Plan of Treatment Not on file documented as of this encounter Visit Diagnoses Diagnosis Anxiety Anxiety state, unspecified documented in this encounter Additional Health Concerns Infection Onset Date Last Indicated Resolved Time ESBL 06/20/2018 01/01/2022 Assessment Noted Time PHQ-9 Depression Total Score: 0 01/14/20 22 10:00 AM LIDAR TECHNICIAN documented as of this encounter Care Teams Vice President Of Customer Service Relationship Specialty Start Date End Date Alexus Mehta APRN, CNP #[address] [facility] [address] [place] [address] PCP - General Advanced Practice Nurse 01/13/22 Aditya Reza MD #2 [facility] [address] [place] [address] Consulting Physician Urology 12/31/21 documented as of this encounter
--- OUTSIDE RECORDS SUMMARY | 2024-10-04 15:40 | XMS_ITS | Clinical Summary ---
Author Organization [facility] Address [address] [place] [address] Phone Care Team Providers Care Motel Keeper Name Role Phone Unavailable Primary Care Provider Unavailabl e Social History Tobacco Use Types Packs/Day Years Used Date Smoking Tobacco: Never Assessed Comments Unknown Sex and Gender Information Value Date Recorded Sex Assigned at Not on file Legal Sex Female 5:44 AM MARKETING STRATEGY LEAD Gender Identity Not on file Sexual Orientation [...] (1 of 2) 1999 OSTEOPOROSIS SCREENING 2014 RSV VACCINE (60+ or ) (1 - 1-dose 75+ series) 2024 INFLUENZA VACCINE (#1) 2024
--- OUTSIDE RECORDS SUMMARY | 2024-10-04 15:40 | XMS_ITS | Encounter Summary ---
Author Organization [facility] Address [address] [place] [address] Phone Care Team Providers Care Track Vehicle Repairer Name Role Phone Aditya Reza MD Unavailable Alexus Mehta APRN, CNP Primary Care Provid er Reason for Visit * Reason Comments Medication Refill Encounter Details Date Type Department Care Team (Late st Contact Info) Description 02/10/2023 Refill [facility] - Family Medicine - [place] #2 [place] [address] Alexus Mehta APRN, CNP #[address] [address] Medication Refill Social History Tobacco [...] 12/31/22 Office Visit Alexus Mehta APRN, CNP [facility] Showing recent visits within past [...] Serotonin Modulators for at least 6 months HOSTESS documented in this encounter Plan of Treatment Not on file documented as of this encounter Visit Diagnoses Not on filedocumented in this encounter Additional Health Concerns Infection Onset Date Last Indicated Resolved Time ESBL 06/20/2018 01/01/2022 Assessment Noted Time PHQ-9 Depression Total Score: 0 01/14/20 10:00 AM HOST HOSTESS documented as of this encounter Care Teams Track Vehicle Repairer Relationship Specialty Start Date End Date Alexus Mehta APRN, TYRONE #2 [facility] [address] [place] [address] PCP - General Advanced Practice Nurse 01/13/22 Aditya Reza MD #2 [facility] [address] [place] [address] Consulting Physician Urology 12/31/21 documented as of this encounter
--- OUTSIDE RECORDS SUMMARY | 2024-10-04 15:40 | XMS_ITS | Encounter Summary ---
Author Organization [facility] Address [address] [place] [address] Phone Care Team Providers Care Motor Analyst Name Role Phone Aditya Reza MD Unavailable Alexus Mehta APRN, CNP Primary Care Provid er Reason for Visit * Reason Comments Medication Refill Encounter Details Date Type Department Care Team (Late st Contact Info) Description 09/23/2022 Refill [facility] #2 [place] [address] Ja Samuel MD #[address] [address] Medication Refill Social History Tobacco Use Types [...] Depression Total Score: 0 01/14/20 10:00 AM CONCRETE MIXER LOADER TRUCK MOUNTED documented as of this encounter Care Teams Motor Analyst Relationship Specialty Start Date End Date Alexus Mehta APRN, COMPOSING MACHINE OPERATOR #2 [facility] [address] [place] [address] PCP - General Advanced Practice Nurse 01/13/22 Aditya Reza MD #2 [facility] [address] [place] [address] Consulting Physician Urology 12/31/21 documented as of this encounter
--- OUTSIDE RECORDS SUMMARY | 2024-10-04 15:40 | XMS_ITS | Referral Summary ---
Author Organization [facility] Medical Office Building [address] Address [address] [place] [address] Care Team Providers Care Anthropologist Physical Name Role Phone Alexus Mehta NP Primary Care Provider + Cuong Gaytan MD Unavailable [phone] Allergies Active Allergy Reactions Criticality Noted Date [...] on file Legal Sex Female 1:02 AM CONCRETE FLOAT MAKER Gender Identity Not on file Sexual Orientation [...] 1:11 PM CDT Height 162.6 cm (5' 4) 05/27/2023 1:11 PM CDT Body Mass Index [...] CDT PROCEDURE REPORT Patient: SINA YOO Account: [id number] Room No: : 1950 Patient Type: SDS [...] TD: 08/09/2015 12:13 CC: Ishmael Higuera M.D. [facility] Provider ENDOSCOPY PROCEDURES Kelsey l Result from Last 3 Months or Most Recently Relevant to Health Maintenance Insurance [facility] MEDICARE MEDICARE [facility] MEDICARE [facility] Care Teams Anthropologist Physical Relationship Specialty Start Date End Date Alexus Mehta NP 2 [facility] [address] [place] [address] PCP - General Nurse Practitioner 11/03/22 Cuong Gaytan MD [address] [facility] [address] MARIPOSA Beebe [facility] [address] [place] [address] Consulting Physician Obstetrics and Gynecology 05/17/23
--- OUTSIDE RECORDS SUMMARY | 2024-10-04 15:40 | XMS_ITS | Encounter Summary ---
Author Organization [facility] Address [address] [place] [address] Phone Care Team Providers Care Burlesque Dancer Name Role Phone Aditya Reza MD Unavailable Alexus Mehta APRN, CNP Primary Care Provid er Reason for Visit * Reason Comments Medication Refill Encounter Details Date Type Department Care Team (Late st Contact Info) Description 04/23/2022 Refill [facility] #2 [place] [address] Alexus Mehta APRN, CNP #[address] [address] Medication Refill Social History Tobacco [...] Coronavirus/COVID-19? No / Unsure 04/09/2022 3:43 PM STONEWORKING SANDER documented as of this encounter Miscellaneous Notes * Telephone Encounter - Lynn Saucedo RN - 04/23/2022 3:16 PM CST Signed Today (04/23/2022): venlafaxine (EFFEXOR) 100 MG Tablet Sig: TAKE 1 TABLET BY MOUTH IN THE MORNING AND AT BEDTIME Disp: 180 Tablet ? Refills: 1 Signed by: Ja Samuel MD [facility] EWORKING SANDER 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, unspecified documented in this encounter Additional Health Concerns Infection Onset Date Last Indicated Resolved Time ESBL 06/20/2018 01/01/2022 Assessment Noted Time PHQ-9 Depression Total Score: 0 01/14/20 22 10:00 AM STONEWORKING SANDER documented as of this encounter Care Teams Burlesque Dancer Relationship Specialty Start Date End Date Alexus Mehta APRN, CNP #2 [facility] [address] [place] [address] PCP - General Advanced Practice Nurse 01/13/22 Aditya Reza MD #[address] [facility] [address] [place] [address] Consulting Physician Urology 12/31/21 documented as of this encounter
--- OUTSIDE RECORDS SUMMARY | 2024-10-04 15:40 | XMS_ITS | Encounter Summary ---
Author Organization [facility] Address [address] [place] [address] Phone Care Team Providers Care Curriculum And Instruction Specialist Name Role Phone Aditya Reza MD Unavailable Alexus Mehta APRN, CNP Primary Care Provid er Reason for Visit * Reason Comments Medication Refill Encounter Details Date Type Department Care Team (Late st Contact Info) Description 02/02/2023 Refill [facility] Medicine - [place] #2 [place] [address] Alexus Mehta APRN, CNP #[address] [address] Medication Refill Social History Tobacco [...] CNP for the following reason: Formulary change. LAY ASSOCIATE documented in this encounter Plan of Treatment Not on file documented as of this encounter Visit Diagnoses Diagnosis Anxiety Anxiety state, unspecified documented in this encounter Additional Health Concerns Infection Onset Date Last Indicated Resolved Time ESBL 06/20/2018 01/01/2022 Assessment Noted Time PHQ-9 Depression Total Score: 0 01/14/20 10:00 AM DISPLAY ASSOCIATE documented as of this encounter Care Teams Curriculum And Instruction Specialist Relationship Specialty Start Date End Date Alexus Mehta APRN, CNP #2 [facility] [address] [place] [address] PCP - General Advanced Practice Nurse 01/13/22 Aditya Reza MD #2 [facility] [address] [place] [address] Consulting Physician Urology 12/31/21 documented as of this encounter
--- OUTSIDE RECORDS SUMMARY | 2024-10-04 15:40 | XMS_ITS | Encounter Summary ---
Author Organization [employer] [facility] Address 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 2.0 - 3.0 for patients with tissue heart valves. 2.5 - 3.5 for patients with mechanical heart valves or post [place]. Pediatric (12 years and under): 1.5 - 3.0 Although the target range in children is not well established, INR values of 1.5 - 3.0 are recommended for most patients. Higher values have been used in children with prosthetic cardiac valves and hereditary clotting disorders. [place] (<3 days) therapeutic ranges have not been established. PROTIME 27.1(H) 12.7 - 15.1 Seconds [facility] 09/07/2008 5:57 AM CDT 09/07/2008 6:39 AM CDT us Gio Watkins MD HEMATOLOGY ORDERABLES Kelsey kaminski Result INTERFACE SYSTEM Refer to clinic/hospital department [facility] CLIA# [id number] [address] [place] [address] * (ABNORMAL) PROTIME-INR (09/06/2008 5:00 AM CDT) PROTIME 23.5(H) 12.7 - 15.1 Seconds [facility] INR 2.1(H) 0.9 - 1.1 [facility] Comment: INR Therapeutic Range: Adult: 2.0 - 3.0 for pulmonary embolism or prophylaxis against venous thrombosis or systemic embolization. 2.0 - 3.0 for patients with tissue heart valves. 2.5 - 3.5 for patients with mechanical heart valves or post [place]. Pediatric (12 years and under): 1.5 - [...] Result INTERFACE SYSTEM Refer to clinic/hospital department [facility] CLIA# [id number] [address] [facility] [place] [address] * (ABNORMAL) BASIC METABOLIC PANEL (09/06/2008 5:00 AM CDT) CHLORIDE 104 96 - 108 mmol/L [facility] GLUCOSE 98 65 - 99 mg/dL [facility] SODIUM 135 135 - 145 mmol/L [facility] CALCIUM 8.2(L) 8.6 - 10.2 mg/dL [facility] CO2 24 22 - 30 mmol/L [facility] CREATININE 0.80 0.51 - 0.95 mg/dL [facility] POTASSIUM 4.1 3.5 - 4.9 mmol/L [facility] BUN 15 6 - 20 mg/dL [facility] GFR, >60 >=60 mL/min/1. 7 sq meter [facility] GFR >60 >=60 mL/min/1. 7 sq meter [facility] Comment: Modification of Diet in Renal Disease (MDRD) study formula. Estimated GFR rate interpretative information for both Americans and non- Americans is available on the [facility] Intranet at: [email or web address] Select: Lab Policies and Procedures Select: Reference Ranges - GFR 09/06/2008 5:00 AM CDT 09/06/2008 6:09 AM CDT us Subbuluxmi Sunita DONALDSON CHEMISTRY ORDERABLES Chavo mack INTERFACE SYSTEM Refer to clinic/hospital department [facility] CLIA# [id number] [address] [place] [address] * (ABNORMAL) CBC WITH DIFFERENTIAL (09/06/2008 5:00 AM CDT) MCV 83.8 82.0 - 99.0 fL [facility] PLATELETS 191 140 - 350 K/uL [facility] HEMOGLOBIN 8.3(L) 11.8 - 14.8 g/dL [facility] RDW 14.8(H) 11.5 - 14.5 % [facility] WBC 7.9 4.0 - 9.8 K/uL [facility] MCH 27.5 27.2 - 32.6 pg [facility] MPV 10.5 9.3 - 12.4 fL [facility] HEMATOCRIT 25.3(L) 35.5 - 44.0 % [facility] RDW-STDEV 46.0 37.1 - 48.7 fL [facility] RBC 3.02(L) 3.90 - 4.90 M/uL [facility] MCHC 32.8 31.5 - 35.5 % [facility] BASOPHILS ABSOLUTE 0.00 0.00 - 0.20 K/uL [facility] POIKILOCYTES Slight [facility] MONOCYTES 5 3 - 13 % [facility] MONOCYTE ABSOLUTE 0.40 0.10 - 1.30 K/uL [facility] PLATELET EST. Consistent w/ count Normal [facility] BANDS 1 0 - 5 % [facility] NEUTROPHIL ABSOLUTE 6.32 1.90 - 7.00 K/uL [facility] NEUTROPHILS, SEG 79(H) 45 - 70 % [facility] EOSINOPHILS 2 0 - 7 % [facility] MICROCYTES Slight [facility] EOSINOPHIL ABSOLUTE 0.16 0.00 - 0.70 K/uL [facility] LYMPHOCYTES 13(L) 16 - 45 % [facility] ANISOCYTOSIS Slight [facility] LYMPHOCYTE ABSOLUTE 1.03 0.70 - 4.50 K/uL [facility] BASOPHILS 0 0 - 2 % [facility] Blood specimen (specimen) 09/06/2008 5:00 AM CDT 09/06/2008 6:09 AM CDT Mickbuluxbrad Dorsey MD HEMATOLOGY ORDERABLES Ed ited INTERFACE SYSTEM Refer to clinic/hospital department [facility] CLIA# [id number] [address] [facility] [place] [address] * (ABNORMAL) PROTIME-INR (09/05/2008 4:16 AM CDT) PROTIME 16.3(H) 12.7 - 15.1 Seconds [facility] INR 1.3(H) 0.9 - 1.1 [facility] Comment: INR Therapeutic Range: Adult: 2.0 - 3.0 for pulmonary embolism or prophylaxis against venous thrombosis or systemic embolization. 2.0 - 3.0 for patients with tissue heart valves. 2.5 - 3.5 for patients with mechanical heart valves or post [place]. Pediatric (12 years and under): 1.5 - 3.0 Although the target range in children is not well established, INR values of 1.5 - 3.0 are recommended for most patients. Higher values have been used in children with prosthetic cardiac valves and hereditary clotting disorders. [place] (<3 days) therapeutic ranges have not been established. 09/05/2008 4:16 AM CDT 09/05/2008 5:14 AM CDT Gio Watkins MD HEMATOLOGY ORDERABLES Kelsey kaminski Result Performing Organization Address [facility] Phone Number INTERFACE SYSTEM Refer to clinic/hospital department [facility] CLIA# [id number] [address] [facility] [place] [address] * (ABNORMAL) HEMOGLOBIN AND HEMATOCRIT (09/05/2008 4:16 AM CDT) HEMOGLOBIN 8.9(L) 11.8 - 14.8 g/dL [facility] HEMATOCRIT 27.1(L) 35.5 - 44.0 % [facility] 09/05/2008 4:16 AM CDT 09/05/2008 5:14 AM CDT Gio Watkins MD HEMATOLOGY ORDERABLES Kelsey l Result Performing Organization Address [facility] de Phone Number INTERFACE SYSTEM Refer to clinic/hospital department [facility] CLIA# [id number] [address] [place] [address] * (ABNORMAL) BASIC METABOLIC PANEL (09/05/2008 4:16 AM CDT) CREATININE 0.86 0.51 - 0.95 mg/dL [facility] POTASSIUM 3.4(L) 3.5 - 4.9 mmol/L [facility] BUN 13 6 - 20 mg/dL [facility] CHLORIDE 103 96 - 108 mmol/L [facility] GLUCOSE 115(H) 65 - 99 mg/dL [facility] SODIUM 135 135 - 145 mmol/L [facility] CALCIUM 8.1(L) 8.6 - 10.2 mg/dL [facility] CO2 23 22 - 30 mmol/L [facility] GFR, >60 >=60 mL/min/1. 7 sq meter [facility] GFR >60 >=60 mL/min/1. 7 sq meter [facility] Comment: Modification of Diet in Renal Disease (MDRD) study formula. Estimated GFR rate interpretative information for both Americans and non- Americans is available on the [facility] Intran[facility] at: [email or web address] Select: Lab Policies and Procedures Select: Reference Ranges - GFR 09/05/2008 4:16 AM CDT 09/05/2008 5:14 AM CDT Gio Watkins MD CHEMISTRY ORDERABLES Edite d Performing Organization Address City/State/[facility] Co de Phone Number INTERFACE SYSTEM Refer to clinic/hospital department [facility] CLIA# [id number] [address] [place] [address] * XR CHEST PA AND LATERAL (08/13/2008 11:57 AM CDT) Anatomical Region Laterality Modality Chest Other 08/13/2008 11:5 7 AM CDT Narrative 08/13/2008 12:45 PM CDT [facility] [address] [place], [place] [address] Admit Date: 07/09/2008 DEANNA YOO Sex: F Admit Prov: GIO WATKINS Date: 1950 Primary Care Prov: SRIKANTH MULLINS CMRN: [id number] [id number] Ordering Prov: N/A Accession Number: [id number] Interpretation PA AND LATERAL CHEST X-RAY, 08/13/2008 [...] Procedure Note Lupe Carter MD - 08/13/2008 [address] [place], [place] [address] Admit Date: 07/09/2008 DEANNA YOO Sex: F Admit Prov: GIO WATKINS Date: 1950 Primary Care Prov: SRIKANTH MULLINS CMRN: [id number] [id number] Ordering Prov: N/A Interpretation PA [...] AM CDT) CLARITY UA Slt. Cloudy(A) Clear [facility] PROTEIN UA Trace(A) Negative [facility] EPITHELIAL CELLS, URINE 0-2 /HPF [facility] BILIRUBIN UA Negative Negative [facility] LEUKOCYTE ESTERASE UA 3+(A) Negative [facility] RBC UA 28(H) 0 - 4 /HPF [facility] SPECIFIC GRAVITY UA 1.013 1.001 - 1.035 [facility] BLOOD UA 2+(A) Negative [facility] GLUCOSE UA Negative Negative [facility] WBC CLUMPS Present(A) None Seen [facility] COLOR UA Yellow [facility] NITRITE UA Negative Negative [facility] UROBILINOGEN UA <1 <=1 mg/dL [facility] BACTERIA UA 3+(A) None Seen /HPF [facility] PH UA 5.5 5.0 - 8.0 [facility] KETONES UA Negative Negative [facility] WBC UA >100(H) 0 - 5 /HPF [facility] 08/13/2008 11:1 4 AM CDT 08/13/2008 12:16 PM CDT us Gio Watkins MD URINE ORDERABLES Final Res ult INTERFACE SYSTEM Refer to clinic/hospital department [facility] CLIA# [id number] [address] [place] [address] * COMPREHENSIVE METABOLIC PANEL (08/13/2008 11:14 AM CDT) Pathologist [facility] ALKALINE PHOSPHATASE 79 35 - 104 U/L [facility] CO2 22 22 - 30 mmol/L [facility] BILIRUBIN TOTAL 0.4 0.2 - 1.0 mg/dL [facility] POTASSIUM 3.5 3.5 - 4.9 mmol/L [facility] TOTAL PROTEIN 7.7 6.3 - 8.6 g/dL [facility] GLUCOSE 90 65 - 99 mg/dL [facility] AST 12 12 - 32 U/L [facility] BUN 12 6 - 20 mg/dL [facility] CALCIUM 9.6 8.6 - 10.2 mg/dL [facility] ALBUMIN 4.1 3.4 - 4.8 g/dL [facility] CHLORIDE 105 96 - 108 mmol/L [facility] CREATININE 0.92 0.51 - 0.95 mg/dL [facility] ALT 13 0 - 31 U/L [facility] SODIUM 140 135 - 145 mmol/L [facility] GFR, >60 >=60 mL/min/1.7 sq meter [facility] GFR >60 >=60 mL/min/1.7 sq meter [facility] Comment: Modification of Diet in Renal Disease (MDRD) study formula. Estimated GFR rate interpretative information for both Americans and non- Americans is available on the [facility] Intran[facility] at: [email or web address] Select: Lab Policies and Procedures Select: Reference Ranges - GFR 08/13/2008 11:1 4 AM CDT 08/13/2008 12:08 PM CDT us Gio Watkins MD CHEMISTRY ORDERABLES Edite d INTERFACE SYSTEM Refer to clinic/hospital department [facility] CLIA# [id number] [address] [place] [address] * PROTIME-INR (08/13/2008 11:14 AM CDT) INR 1.0 0.9 - 1.1 [facility] Comment: ansiINR Therapeutic Range: Adult: 2.0 - 3.0 for pulmonary embolism or prophylaxis against venous thrombosis or systemic embolization. 2.0 - 3.0 for patients with tissue heart valves. 2.5 - 3.5 for patients with mechanical heart valves or post [place]. Pediatric (12 years and under): 1.5 - 3.0 Although the target range in children is not well established, INR values of 1.5 - 3.0 are recommended for most patients. Higher values have been used in children with prosthetic cardiac valves and hereditary clotting disorders. (<3 days) therapeutic ranges have not been established. PROTIME 13.5 12.7 - 15.1 Seconds [facility] 08/13/2008 11:1 4 AM CDT 08/13/2008 12:08 PM CDT us Gio Watkins MD HEMATOLOGY ORDERABLES Kelsey kaminski Result INTERFACE SYSTEM Refer to clinic/hospital department [facility] CLIA# [id number] [address] [place] [address] * (ABNORMAL) CBC WITH DIFFERENTIAL (08/13/2008 11:14 AM CDT) Pathologist [facility] WBC 6.9 4.0 - 9.8 K/uL [facility] MCH 27.7 27.2 - 32.6 pg [facility] MPV 11.1 9.3 - 12.4 fL [facility] HEMATOCRIT 36.5 35.5 - 44.0 % [facility] RDW-STDEV 44.2 37.1 - 48.7 fL [facility] RBC 4.23 3.90 - 4.90 M/uL [facility] MCHC 32.1 31.5 - 35.5 % [facility] MCV 86.3 82.0 - 99.0 fL [facility] PLATELETS 334 140 - 350 K/uL [facility] HEMOGLOBIN 11.7(L) 11.8 - 14.8 g/dL [facility] RDW 14.2 11.5 - 14.5 % [facility] LYMPHOCYTES 29 16 - 45 % [facility] LYMPHOCYTE ABSOLUTE 2.01 0.70 - 4.50 K/uL [facility] BASOPHILS 0 0 - 2 % [facility] BASOPHILS ABSOLUTE 0.02 0.00 - 0.20 K/uL [facility] MONOCYTES 8 3 - 13 % [facility] MONOCYTE ABSOLUTE 0.57 0.10 - 1.30 K/uL [facility] NEUTROPHILS 62 45 - 70 % [facility] NEUTROPHIL ABSOLUTE 4.24 1.90 - 7.00 K/uL [facility] EOSINOPHILS 1 0 - 7 % [facility] EOSINOPHIL ABSOLUTE 0.05 0.00 - 0.70 K/uL [facility] 08/13/2008 11:1 4 AM CDT 08/13/2008 12:08 PM CDT us Gio Watkins MD HEMATOLOGY ORDERABLES Edit ed INTERFACE SYSTEM Refer to clinic/hospital department [facility] CLIA# [id number] [address] [place] [address] * TYPE AND CROSSMATCH (08/13/2008 11:13 AM CDT) HISTORY CHECK No Historical ABO/Rh [facility] SPECIMEN LIFE 3 days from OR date [facility] ABO/RH TYPE AB Negative [facility] ANTIBODY SCREEN Negative [facility] 08/13/2008 11:1 3 AM CDT us Gio Watkins MD BLOOD BANK ORDERABLES Edit ed INTERFACE SYSTEM Refer to clinic/hospital department [facility] CLIA# [id number] [address] [place], [place] [address] documented in this encounter Visit Diagnoses Not on filedocumented in this encounter
--- OUTSIDE RECORDS SUMMARY | 2024-10-04 15:40 | XMS_ITS | Encounter Summary ---
Author Organization [facility] Address [address] [place] [address] Phone Care Team Providers Care Button Buttonhole Marker Name Role Phone Aditya Reza MD Unavailable Alexus Mehta APRN, CNP Primary Care Provid er Reason for Visit * Reason Comments Medication Refill Encounter Details Date Type Department Care Team (Late st Contact Info) Description 09/20/2022 Refill [facility] - [facility] [address] [place] [address] Ja Samuel MD #[address] [address] Medication Refill Social History Tobacco Use Types [...] Depression Total Score: 0 01/14/20 10:00 AM ACCOUNTANT SYSTEMS documented as of this encounter Care Teams Button Buttonhole Marker Relationship Specialty Start Date End Date Alexus Mehta APRN, CNP #2 [facility] [address] [place] [address] PCP - General Advanced Practice Nurse 01/13/22 Aditya Reza MD [address] [facility] [address] [place] [address] Consulting Physician Urology 12/31/21 documented as of this encounter
--- OUTSIDE RECORDS SUMMARY | 2024-10-04 15:40 | XMS_ITS | Encounter Summary ---
Author Organization [facility] Address [address] [place] [address] Phone Care Team Providers Care Technical Services Assistant Name Role Phone Aditya Reza MD Unavailable Alexus Mehta APRN, CNP Primary Care Provid er Reason for Visit * Reason Comments Medication Refill Encounter Details Date Type Department Care Team (Late st Contact Info) Description 04/23/2022 Refill [facility] - Family Medicine [facility] [address] [place] [address] Alexus Mehta APRN, CNP #[address] [address] Medication Refill Social History Tobacco [...] Coronavirus/COVID-19? No / Unsure 04/09/2022 3:43 PM MOTHER SUPERIOR documented as of this encounter Miscellaneous Notes [...] 90 days and meeting all other requirements ER SUPERIOR 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, unspecified documented in this encounter Additional Health Concerns Infection Onset Date Last Indicated Resolved Time ESBL 06/20/2018 01/01/2022 Assessment Noted Time PHQ-9 Depression Total Score: 0 01/14/20 22 10:00 AM MOTHER SUPERIOR documented as of this encounter Care Teams Technical Services Assistant Relationship Specialty Start Date End Date Alexus Mehta APRN, TYRONE [address] [address] PCP - General Advanced Practice Nurse 01/13/22 Aditya Reza MD [address]2 [place] [address] Consulting Physician Urology 12/31/21 documented as of this encounter
--- OUTSIDE RECORDS SUMMARY | 2024-10-04 15:40 | XMS_ITS | Encounter Summary ---
Author Organization [facility] Address [address] [place] [address] Phone Care Team Providers Care Screenplay Writer Name Role Phone Aditya Reza MD Unavailable Alexus Mehta APRN, CNP Primary Care Provid er Reason for Visit * Reason Comments Medication Refill Encounter Details Date Type Department Care Team (Late st Contact Info) Description 09/13/2022 Refill [facility] - [facility] [address] [place] [address] Ja Samuel MD #[address] [address] Medication Refill Social History Tobacco Use Types [...] Depression Total Score: 0 01/14/20 10:00 AM CERTIFIED REGISTERED NURSE PRACTITIONER documented as of this encounter Care Teams Screenplay Writer Relationship Specialty Start Date End Date Alexus Mehta APRN, CNP #2 [facility] [address] [place] [address] PCP - General Advanced Practice Nurse 01/13/22 Aditya Reza MD [address] [facility] [address] [place] [address] Consulting Physician Urology 12/31/21 documented as of this encounter
--- OUTSIDE RECORDS SUMMARY | 2024-10-04 15:40 | XMS_ITS | Encounter Summary ---
Author Organization [facility] Address [address] [place] [address] Phone Care Team Providers Care Bobbin Collector Name Role Phone Aditya Reza MD Unavailable Alexus Mehta APRN, CNP Primary Care Provid er Reason for Visit * Reason Comments Medication Refill Encounter Details Date Type Department Care Team (Late st Contact Info) Description 11/20/2023 Refill [facility] - Family Medicine - [place] [address] [place] [address] Alexus Mehta APRN, CNP #[address] [address] Medication Refill Social History Tobacco Use Types Packs/Day Years Used Date Smoking Tobacco: Former Cigarettes 0 07/06/1982 - 07/06/1989 Smokeless Tobacco: Never Alcohol Use Standard Drinks/Week Comments Never 0 (1 standard drink = 0.6 oz pur e alcohol) [facility] Utilities Answer Date Recorded In the past 12 months has e electric, gas, oil, or water company threatened to shut off services in your home? No 10/14/2023 Social Connection and Isolation Panel Answer Date Recorded In a typical week, how many times do you talk on the phone with family, friends, or neighbors? More than three times a week 10/14/2023 How often do you get togethe r with friends or relatives? Three times a week 10/14/2023 How often do you attend chur ch or quaker services? 1 to 4 times per year 10/14/2023 Do you belong to any clubs o r organizations such as zoroastrianism groups, unions, fraternal or athletic groups, or [...] Total Score - Questions 1-9 12 11/2023 [facility] - Occupational [...] any time in the past 12 m [facility], were you homeless or living in a fpc (including now)? No 10/14/2023 Education Answer Date [...] discontinued on 12/31/2022 by Alexus Mehta APRN, YTRONE documented in this encounter Plan of Treatment [...] documented as of this encounter Care Teams Bobbin Collector Relationship Specialty Start Date End Date Alexus Mehta APRN, PIPE ORGAN INSTALLER [address] [facility] [facility] [address] [place] [address] PCP - General Advanced Practice Nurse 01/13/22 Aditya Reza MD #[address] [facility] [address] [place] [address] Consulting Physician Urology 12/31/21 documented as of this encounter
--- OUTSIDE RECORDS SUMMARY | 2024-10-04 15:40 | XMS_ITS | Clinical Summary ---
Author Organization [facility] Medical Office Building [address] Address [address] [place] [address] Care Team Providers Care Doughnut Fryer Name Role Phone Alexus Mehta NP Primary Care Provider + Cuong Gaytan MD Unavailable [phone] Allergies Active Allergy Reactions Criticality Noted Date [...] on file Legal Sex Female 1:02 AM MILL MANAGER Gender Identity Not on file Sexual [...] of 2) 1999 Well Visit 65+ 2014 Osteoporosis Screening-Bone Density Scan 08/06/2024 08/06/2022, 10/13/2019 Influenza Vaccine (#1) 2024 , 11/26/2019, 12/08/2018, Additional history exists Colon Cancer Screening-Colonoscopy 08/08/2025 08/09/2015, 08/09/2015 DTaP/Tdap/Td [...] CDT PROCEDURE REPORT Patient: SINA YOO Account: [id number] Room No: : 1950 Patient Type: SDS [...] Most Recently Relevant to Health Maintenance Insurance [employer] MEDICARE [employer] [facility] Care Teams Doughnut Fryer Relationship Specialty Start Date End Date Alexus Mehta NP 2 [facility] [address] [place] [address] PCP - General Nurse Practitioner 11/03/22 Cuong Gaytan MD [address] [facility] [address] [place] [facility] [address] [place] [address] Consulting Physician Obstetrics and Gynecology 05/17/23
--- OUTSIDE RECORDS SUMMARY | 2024-10-04 15:40 | XMS_ITS | Encounter Summary ---
Author Organization [facility] Address [address] [place] [address] Phone Care Team Providers Care Calender Roll Operator Name Role Phone Aditya Reza MD Unavailable Alexus Mehta APRN, CNP Primary Care Provid er Reason for Visit * Reason Comments Medication Refill Encounter Details Date Type Department Care Team (Late st Contact Info) Description 06/21/2023 Refill [facility] - [place] #2 [place] [address] Alexus Mehta APRN, CNP #[address] [address] Medication Refill Social History Tobacco [...] signed per [facility] Chronic Medication Refill Standing Order for Pediatricand [...] 12/31/22 Office Visit Alexus [facility] Showing recent visits within past 365 [...] documented as of this encounter Care Teams Calender Roll Operator Relationship Specialty Start Date End Date Alexus Mehta APRN, CNP #2 [facility] [address] [place] [address] PCP - General Advanced Practice Nurse 01/13/22 Aditya Reza MD #2 [facility] [address] [place] [address] Consulting Physician Urology 12/31/21 documented as of this encounter
--- OUTSIDE RECORDS SUMMARY | 2024-10-04 15:40 | XMS_ITS | Encounter Summary ---
Author Organization [facility] Address [address] [place] [address] Phone Care Team Providers Care Plane Tender Name Role Phone Aditya Reza MD Unavailable Alexus Mehta APRN, CNP Primary Care Provid er Reason for Visit * Reason Comments Medication Refill Encounter Details Date Type Department Care Team (Late st Contact Info) Description 02/10/2023 Refill [facility] - [place] #2 [place] [address] Alexus Mehta APRN, CNP #[address] [address] Medication Refill Social History [...] on 02/10/2023 by Alexus Mehta APRN, CNP. Y ANALYST * Telephone Encounter - Lynn Saucedo RN - 02/10/2023 9:19 AM CST duplicate Y ANALYST documented in this encounter Plan of Treatment Not on file documented as of this encounter Visit Diagnoses Not on filedocumented in this encounter Additional Health Concerns Infection Onset Date Last Indicated Resolved Time ESBL 06/20/2018 01/01/2022 Assessment Noted Time PHQ-9 Depression Total Score: 0 01/14/20 22 10:00 AM ENTRY ANALYST documented as of this encounter Care Teams Plane Tender Relationship Specialty Start Date End Date Alexus Mehta APRN, CNP #2 [facility] [address] [place] [address] PCP - General Advanced Practice Nurse 01/13/22 Aditya Reza MD #2 [facility] [address] [place] [address] Consulting Physician Urology 12/31/21 documented as of this encounter
--- OUTSIDE RECORDS SUMMARY | 2024-10-04 15:40 | XMS_ITS | Encounter Summary ---
Author Organization [facility] Address [address] [place] [address] Phone Care Team Providers Care Trade Specialist Name Role Phone Aditya Reza MD Unavailable Alexus Mehta APRN, CNP Primary Care Provid er Reason for Visit * Reason Comments Medication Refill Encounter Details Date Type Department Care Team (Late st Contact Info) Description 10/20/2022 Refill [facility] - [place] #2 [place] [address] Alexus Mehta APRN, CNP #[address] [address] Medication Refill Social History Tobacco [...] Depression Total Score: 0 01/14/20 10:00 AM JAVA CORE DEVELOPER documented as of this encounter Care Teams Trade Specialist Relationship Specialty Start Date End Date Alexus Mehta APRN, CNP #2 [facility] [address] [place] [phone] PCP - General Advanced Practice Nurse 01/13/22 Aditya Reza MD #2 [facility] [address] [place] [address] Consulting Physician Urology 12/31/21 documented as of this encounter
--- OUTSIDE RECORDS SUMMARY | 2024-10-04 15:40 | XMS_ITS | Encounter Summary ---
Author Organization [facility] Address [address] [place] [address] Phone Care Team Providers Care Newborn Hearing Screener Name Role Phone Aditya Reza MD Unavailable Alexus Mehta APRN, CNP Primary Care Provid er Reason for Visit * Reason Comments Medication Refill Encounter Details Date Type Department Care Team (Late st Contact Info) Description 06/06/2023 Refill [facility] - [place] #2 [place] [address] Alexus Mehta APRN, CNP #[address] [address] Medication Refill Social History Tobacco [...] Provider Dept 06/08/23 Appointment Alexus Mehta APRN, LISW [place] Showing today's visits and meeting [...] Total Score: 0 01/14/20 22 10:00 AM OPTICAL LAB TECHNICIAN documented as of this encounter Care Teams Newborn Hearing Screener Relationship Specialty Start Date End Date Alexus Mehta APRN, CNP #2 [facility] [address] [place] [address] PCP - General Advanced Practice Nurse 01/13/22 Aditya Reza MD #2 [address] [facility] [address] [place] [address] Consulting Physician Urology 12/31/21 documented as of this encounter
--- OUTSIDE RECORDS SUMMARY | 2024-10-04 15:40 | XMS_ITS | Continuity of Care Document ---
Author Organization [facility] Address [address] [place] [address] Phone Care Team Providers Care Wheel Alignment Mechanic Name Role Phone Juan Daniel Thayer MD [...] Diagnoses Date Provider Providers Copied on Encounter [facility] Eye [facility], [address], [place], [place], [id number], [place] tel:[phone] SEC Tone RIVERS Professional No Information [address]. [address], [address], [place], [place], [id number], [place]. tel:[phone] Family History Family Member Type Diagnosis Age [...]
--- OUTSIDE RECORDS SUMMARY | 2024-10-04 15:40 | XMS_ITS | Encounter Summary ---
Author Organization [facility] Address [address] [place] [address] Phone Care Team Providers Care Commercial Solar Sales Consultant Name Role Phone Aditya Reza MD Unavailable Alexus Mehta APRN, CNP Primary Care Provid er Reason for Visit * Reason Comments Medication Refill Encounter Details Date Type Department Care Team (Late st Contact Info) Description 06/28/2022 Refill [facility] #2 [place] [address] Ja Samuel MD #[address] [address] Medication Refill Social History Tobacco Use Types [...] CDT Reordered 06/04/22 for 4 months - [facility] documented in this encounter Plan of Treatment Not on file documented as of this encounter Visit Diagnoses Not on filedocumented in this encounter Additional Health Concerns Infection Onset Date Last Indicated Resolved Time ESBL 06/20/2018 01/01/2022 Assessment Noted Time PHQ-9 Depression Total Score: 0 01/14/20 10:00 AM MANAGER MOUNTAIN documented as of this encounter Care Teams Commercial Solar Sales Consultant Relationship Specialty Start Date End Date Alexus Mehta APRN, FASHION BUYING INTERNSHIP #2 [facility] [address] [place] [address] PCP - General Advanced Practice Nurse 01/13/22 Aditya Reza MD #2 [facility] [address] [place] [address] Consulting Physician Urology 12/31/21 documented as of this encounter
--- OUTSIDE RECORDS SUMMARY | 2024-10-04 15:40 | XMS_ITS | Clinical Summary ---
Author Organization [facility] Address #1 [place] [address] Phone Care Team Providers Care Concrete Tile Machine Operator Name Role Phone Aditya Reza MD [...] EVERY NIGHT 90 Tablet 1 4 Active metroNIDAZOLE (FLAGYL) [...] TWICE DAILY 180 Tablet 1 5 Active valsartan-hydroCH LOROthiazide (DIOVAN-HCT) 320-12.5 MG TabletIndications :Primary hypertension TAKE 1 TABLET BY MOUTH DAILY 90 Tablet 1 5 Active Active Problems Problem [...] 03/12/2016 023 Clostridium difficile colitis 03/12/2016 06/12/2022 Immunizations Immunization Administration Dates Next Due Covid-19, [...] drink = 0.6 oz pur e alcohol) [facility] Utilities Answer Date Recorded In the past [...] often do you attend chur ch or pentecostalism services? 1 to 4 times per year 10/14/2023 Do you belong to any clubs o r organizations such as roman catholic groups, unions, fraternal or athletic groups, or [...] Recorded Total Score - Questions 1-9 0 11/0 03/2023 [facility] [place] of Occupat ional Health - Occupational Stress [...] any time in the past 12 m [facility], were you homeless or living in a penitentiary (including now)? No 10/14/2023 Education Answer Date [...] Comments Blood Pressure 137/93 04/12/2024 9:00 PM CASE MANAGEMENT SPECIALIST Pulse 87 04/12/2024 9:15 PM CASE MANAGEMENT SPECIALIST Temperature 36.1 C (96.9 F) 04/12/2024 2:43 PM CASE MANAGEMENT SPECIALIST Respiratory Rate 18 04/12/2024 9:15 PM CASE MANAGEMENT SPECIALIST Oxygen Saturation 100% 04/12/2024 9:15 PM CASE MANAGEMENT SPECIALIST Inhaled Oxygen Concentration - - Weight 81.2 kg (179 lb) 04/12/2024 2:43 PM CASE MANAGEMENT SPECIALIST Height 163.8 cm (5' 4.5) 04/12/2024 2:43 PM CASE MANAGEMENT SPECIALIST Body Mass Index 30.25 04/12/2024 2:43 PM CASE MANAGEMENT SPECIALIST Plan of Treatment Health Maintenance Due Date Last Done Comments Cologuard 1994 Immunochemical Fecal Occult Blood 1994 Zoster Immunization (1 of 2) 1999 SARS-COV-2 Immunization ( season) 2023 12/21/2022, 01/24/2021, 04/30/2020, Additional history exists Respiratory Syncytial Virus (RSV) Immunization (Adult) (1 - 1-dose 75+ series) 2024 DEXA Bone Density 08/06/2024 08/06/2022, 10/13/2019 Influenza Immunization (#1) 11/06/202412/07, 12/21/2022, 01/07/2022, Additional history exists Colonoscopy 08/08/2025 08/09/2015 Colorectal Cancer Screening 08/08/2025 Td Immunization Every 10 Years (Adults With 1 Tdap) 04/09/2032 04/09/2022, 11/08/2021 Pneumococcal Immunization (50+ years) Completed 05/05/2018, 05/28/2016 Pneumococcal Immunization Combined Discontinued 05/05/2018, 05/28/2016 DTaP/Tdap/Td Immunization Discontinued 04/09/2022, 05/2021 Mammogram Discontinued 08/06/2022, 04/22/2015 Hepatitis B Immunization Aged Out No longer eligible based on patient's age to complete this topic Hepatitis C Virus (HCV) Screening Discontinued Human Papillomavirus (HPV) Immunization Aged Out No longer eligible based on patient's age to complete this topic Meningococcal Immunization (ACWY) Aged Out No longer eligible based on patient's age to complete this topic Rotavirus Immunization Aged Out No lo nger eligible based on patient's age to complete this topic Medical Devices Implanted Type Area Body Shop Worker Device Identifier Shelf Expiration Date Model / Serial / Lot Stent Ureteral 6fr 2.1fr 24cm 2 Pigtail Curve 2 Durometer Taper Tip Loprfl Graduated Polaris Ultra - [id number] Implanted:Qty: 1 on 07/15/2018 by Marbella Alejandra MD at [facility] IMPLANT Right: Ureter [employer] 02/07/2021 [id number] 20 / [id number] 20 / [id number] Speedbridge Implant Systemw Ith Biocomposity Swivel Lock Implanted:Qty: 1 on 07/29/2016 by Kofi Henning MD at [facility] Left: Shoulder 03/07/2018 / [id number] S-4 / [id number] Explanted Type Area Body Shop Worker Device Identifier Shelf Expiration Date Model / Serial / Lot Stent Ureteral 6fr 2.1fr 24cm 2 Pigtail Curve 2 Durometer Taper Tip Loprfl Graduated Polaris Ultra - [id number] Implanted:Qty : 1 on 06/24/2018 by Marbella Alejandra MD at [facility] Explanted:Qty : 1 on 07/15/2018 by Marbella Alejandra MD at [facility] IMPLANT Right: Ureter [employer] 12/20/2020 [id number] 0 / [id number] / [id number] Procedures Procedure Name Priority Date/Time Associated Diagnosis Comments [facility] BONE DENSITOMETRY AXIAL SKELETON Routine 08/06/2022 11:38 AM CDT Post-menopausal Encounter for screening for osteoporosis [facility] SCREENING BILATERAL DIGITAL W CAD W JESSICA Routine 08/06/2022 11:27 AM CDT Screening mammogram for breast cancer from Last 3 Months or Most Recently Relevant to Health Maintenance Results * [facility] BONE DENSITOMETRY AXIAL SKELETON (08/06/2022 11:38 AM [...] Narrative 08/07/2022 6:06 AM CDT EXAM DESCRIPTION: [facility] BONE DENSITOMETRY AXIAL SKELETON REASON FOR STUDY: 72 y/o year old F with given history of screening. 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 TW: MARY Report ID: [id number] Reading Location: [id number] Procedure Note Naomi Cifuentes MD - 08/07/2022 EXAM DESCRIPTION: [facility] BONE DENSITOMETRY AXIAL SKELETON REASON FOR STUDY: 72 y/o year old F with given history of screening. 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 TW: TW Report ID: [id number] Reading Location: [place] [address] IMPRESSION: Osteoporosis REFERENCE: Bone mineral density: Normal [...] Treatment of Osteoporosis (http://www.nof.org/professionals/clinical-guidelines) us Alexus Mehta CAMERA REPAIRMAN, PAYROLL CLERK IMG DEXA ORDERABLES Final Result * ANTWON [...] made to exams dated: 04/22/2015 and 03/03/2011 [facility]. BREAST TISSUE:There are scattered fibroglandular densities in [...] exam. Electronically signed by: Karlee boyer/mary:08/06/2022 15:06:48 Home Office Claims Examiner(s): RT Wil(R)(M), [facility] letter sent: Normal Exam Reading location: [facility] BI-RADS: 2 Benign Procedure Note Karlee Mendiola [...] made to exams dated: 04/22/2015 and 03/03/2011 [facility]. BREAST TISSUE:There are scattered fibroglandular densities in [...] exam. Electronically signed by: Karlee boyer/mary:08/06/2022 15:06:48 Home Office Claims Examiner(s): RT Wil(R)(M), [facility] letter sent: Normal Exam Reading location: [facility] BI-RADS: 2 Benign Alexus Mehta APRN, TYRONE IMG MAMMO ORDERABLES Final Result from Last 3 Months or Most Recently Relevant to Health Maintenance Additional Health Concerns Infection Onset Date Last Indicated ESBL 06/20/2018 01/01/2022 Insurance [employer] [place] [employer] MEDICARE C HUMA[employer] UNITED [place] INSURANCE [facility] GENER[facility] Advance Directives * Full [...] measures to stabilize the patient. Care Teams Concrete Tile Machine Operator Relationship Specialty Start Date End Date Alexus Mehta APRN, CNP #2 [facility] [address] [place] [address] PCP - General Advanced Practice Nurse 01/13/22 Aditya Reza MD #2 [facility] [address] [place] [address] Consulting Physician Urology 12/31/21
[2024-10-04 19:55] LABS: Hematocrit 34.3 % (37.0-47.0); Hemoglobin 10.8 g/dL (12.0-15.0); Mean Corpuscular HGB Conc 31.5 g/dl (32-36); Mean Corpuscular Hemoglobin 29.0 pg (26-34); Mean Corpuscular Volume 92.0 fl (80-100); Platelet Count Result 296 k/mm3 (150-375); Red Blood Count 3.73 M/mm3 (4.2-5.4); White Blood Count 7.3 K/mm3 (4.5-10.0)
[2024-10-04 20:11] LABS: Alanine Aminotransferase 26 U/L (6-35); Albumin Level 4.1 g/dL (3.5-5.1); Alkaline Phosphatase 76 U/L (38-126); Anion Gap 8 mmol/L (4-12); Aspartate Amino Transferase 54 U/L (14-36); Bilirubin,Total 0.3 mg/dL (0.2-1.3); Blood Urea Nitrogen 34 mg/dL (7-17); Calcium 9.4 mg/dL (8.4-10.2); Carbon Dioxide 22 mmol/L (22-30); Chloride 104 mmol/L (98-107); Estimated Glomerular Filt Rate 43; Glucose 102 mg/dL (65-110); Potassium 3.8 mmol/L (3.4-5.0); Sodium 134 mmol/L (137-145); Total Protein 7.2 g/dL (6.3-8.2)
[2024-10-04 20:48] LABS: Thyroid Stimulating Hormone 3.430 uIU/mL (0.465-4.680)
== END 2024-10-04 15:37 | disposition home or self-care (01) ==
PROVIDERS: PCP Nurse Practitioner Adult Health; Visit Provider Nurse Practitioner Adult Health
DX: I10 Essential (primary) hypertension (principal); G47.30 Sleep apnea, unspecified
CPT/HCPCS: 36415; 80053; 84443; 85027

== ENCOUNTER 2024-10-31 14:23 | Outpatient (CLI) | payer MEDICARE, SELFPAY ==
--- OUTSIDE RECORDS SUMMARY | 2017-09-10 07:24 | XMS_ITS | Continuity of Care Document ---
Author Organization [facility] Address [address] [place] [address] Phone Care Team Providers Care Composing Machine Operator/Tender Name Role Phone Juan Daniel Thayer MD Unavailable Unavailable Allergies, Adverse Reactions, Alerts Substance Reaction Status Criticality No Known Allergies Active No Inform ation Medications Medication Instructions Dosage Effective Dates (start - stop) Status Comments folic acid 1 mg tablet take 1 tablet by oral route every day 1 MG - Active venlafaxine 100 mg tablet take 1 tablet by oral route 2 times every day with food 100 MG - Active buspirone 10 mg tablet take 1 tablet by oral route 3 times every day 10 MG - Active estradiol 1 mg tablet take 1 tablet by oral route every day 1 MG - Active medroxyprogesterone 2.5 mg tablet take 2 tablet by oral route every day 5 MG - Active modafinil 200 mg tablet take 1 tablet by oral route every day in the morning 200 MG - Active valsartan 160 mg tablet take 1 tablet by oral route every day 160 MG - Active Tirosint 125 mcg capsule take 1 capsule by oral route every day 125 MCG - Active trazodone 100 mg tablet take 1 tablet by oral route 3 times every day after meals 100 MG - Active melatonin 10 mg capsule - Active aspirin 81 mg tablet,delayed release take 1 tablet by oral route every day 81 MG - Active ranitidine 150 mg capsule take 1 capsule by oral route 2 times every day - Active Combigan 0.2 %-0.5 % eye drops instill 1 drop by ophthalmic route 2 times every day into both eyes 1 drop - Active latanoprost 0.005 % eye drops instill 1 drop by ophthalmic route every day in both eyes in the evening 1 drop - Active Advance Directives Directive Yes / No Effective Date File Name No Information Encounters Encounter Description Practice Location Reason(s) For Visit Diagnoses Date Provider Providers Copied on Encounter [facility], [address], [place], [place], [id number], [place] tel:[phone] [employer] Professional No Information [address] Frances. [address] [address], [place], [place], [id number], [place]. tel:[phone] Family History Family Member Type Diagnosis Age At Onset Father Problem (finding) glaucoma Mother Problem (finding) glaucoma Mother Problem (finding) Diabetes mellitus Payers Payer name Insurance type Covered republican ID Authoriza tion(s) No Information Social History Type Description Quantity Date Captured Comments Alcohol Use Details No Caffeine Use Details Tobacco Use Status Current non-smoker 17 Smoking Status Never smoker Non-Smoking Tobacco Use Details : No Details Available : No Details Available Sex Female Sexual Orientation Don't Know Gender Identity Female Chief Complaint And Reason For Visit No Information Reason For Referral Reason For Referral No Information History Of Present Illness Encounter Date Complaint History Of Prese nt Illness No Information Functional Status Date Functional Assessmen t No Information Instructions Date Instruction Additional Infor mation No Information Assessments Type Assessment Date No Information Patient Care Teams Name Effective Dates (start - stop) Status Members No Information
--- OUTSIDE RECORDS SUMMARY | 2024-10-31 14:28 | XMS_ITS | Encounter Summary ---
Author Organization [facility] Address [address] [place] [address] Phone Care Team Providers Care Boat Joiner Name Role Phone Aditya Reza MD Unavailable Alexus Mehta APRN, CNP Primary Care Provid er Reason for Visit * Reason Comments Medication Refill Encounter Details Date Type Department Care Team (Late st Contact Info) Description 04/23/2022 Refill [facility] #2 [place] [address] Alexus Mehta APRN, CNP #[address] [address] Medication Refill Social History Tobacco [...] Coronavirus/COVID-19? No / Unsure 04/09/2022 3:43 PM PHYSICIST LIGHT AND OPTICS documented as of this encounter Miscellaneous Notes [...] 90 days and meeting all other requirements [employer] LIGHT AND OPTICS 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, unspecified documented in this encounter Additional Health Concerns Infection Onset Date Last Indicated Resolved Time ESBL 06/20/2018 01/01/2022 Assessment Noted Time PHQ-9 Depression Total Score: 0 01/14/20 22 10:00 AM PHYSICIST LIGHT AND OPTICS documented as of this encounter Care Teams Boat Joiner Relationship Specialty Start Date End Date Alexus Mehta APRN, TYRONE #[address] [address] PCP - General Advanced Practice Nurse 01/13/22 Aditya Reza MD #2 [place] [address] Consulting Physician Urology 12/31/21 documented as of this encounter
--- OUTSIDE RECORDS SUMMARY | 2024-10-31 14:28 | XMS_ITS | Encounter Summary ---
Author Organization [facility] Address [address] [place] [address] Phone Care Team Providers Care Mailer Apprentice Name Role Phone Aditya Reza MD Unavailable Alexus Mehta APRN, CNP Primary Care Provid er Reason for Visit * Reason Comments Medication Refill Encounter Details Date Type Department Care Team (Late st Contact Info) Description 09/23/2022 Refill [facility] #2 [place] [address] Ja Samuel MD #[address] [address] Medication Refill Social History Tobacco Use Types [...] Depression Total Score: 0 01/14/20 10:00 AM PROCESS SAFETY MANAGEMENT ENGINEER documented as of this encounter Care Teams Mailer Apprentice Relationship Specialty Start Date End Date Alexus Mehta APRN, INDUSTRIAL DESIGNER #2 [facility] [address] [place] [address] PCP - General Advanced Practice Nurse 01/13/22 Aditya Reza MD #2 [facility] [address] [place] [address] Consulting Physician Urology 12/31/21 documented as of this encounter
--- OUTSIDE RECORDS SUMMARY | 2024-10-31 14:28 | XMS_ITS | Encounter Summary ---
Author Organization [facility] Address [address] [place] [address] Phone Care Team Providers Care Marina Manager Name Role Phone Aditya Reza MD Unavailable Alexus Mehta APRN, CNP Primary Care Provid er Reason for Visit * Reason Comments Medication Refill Encounter Details Date Type Department Care Team (Late st Contact Info) Description 10/20/2022 Refill [facility] - [place] #2 [place] [address] Alexus Mehta APRN, CNP #[address] [address] Medication Refill Social History Tobacco [...] Depression Total Score: 0 01/14/20 10:00 AM PRODUCT/INDUSTRY CONSULTANT documented as of this encounter Care Teams Marina Manager Relationship Specialty Start Date End Date Alexus Mehta APRN, CNP #2 [facility] [address] [place] [phone] PCP - General Advanced Practice Nurse 01/13/22 Aditya Reza MD #2 [facility] [facility] [address] [place] [address] Consulting Physician Urology 12/31/21 documented as of this encounter
--- OUTSIDE RECORDS SUMMARY | 2024-10-31 14:28 | XMS_ITS | Clinical Summary ---
Author Organization [facility] Address [address] [place] [address] Phone Care Team Providers Care Child Care Coordinator Name Role Phone Unavailable Primary Care Provider Unavailabl e Social History Tobacco Use Types Packs/Day Years Used Date Smoking Tobacco: Never Assessed Comments Unknown Sex and Gender Information Value Date Recorded Sex Assigned at Not on file Legal Sex Female 5:44 AM CAGE CASHIER Gender Identity Not on file Sexual Orientation [...]
--- OUTSIDE RECORDS SUMMARY | 2024-10-31 14:28 | XMS_ITS | Encounter Summary ---
Author Organization [facility] Address [address] [place] [address] Phone Care Team Providers Care Sap Solution Manager Consultant Name Role Phone Aditya Reza MD Unavailable Alexus Mehta APRN, CNP Primary Care Provid er Reason for Visit * Reason Comments Medication Refill Encounter Details Date Type Department Care Team (Late st Contact Info) Description 06/24/2023 Refill [facility] - [place] #2 [place] [address] Alexus Mehta APRN, CNP #[address] [address] Medication Refill Social History Tobacco [...] AM CDT Medication(s) [facility] Medication Refill Standing Order [...] 12/31/22 Office Visit Alexus Mehta APRN, CNP [facility] [place] Showing recent visits within past 365 [...] documented as of this encounter Care Teams Sap Solution Manager Consultant Relationship Specialty Start Date End Date Alexus Mehta APRN, TYRONE #2 [facility] [address] [place] [address] PCP - General Advanced Practice Nurse 01/13/22 Aditya Reza MD #2 [facility] [address] [place] [address] Consulting Physician Urology 12/31/21 documented as of this encounter
--- OUTSIDE RECORDS SUMMARY | 2024-10-31 14:28 | XMS_ITS | Encounter Summary ---
Author Organization [facility] Address [address] [place] [address] Phone Care Team Providers Care Ductfixing Plumber Name Role Phone Aditya Reza MD Unavailable Alexus Mehta APRN, CNP Primary Care Provid er Reason for Visit * Reason Comments Medication Refill Encounter Details Date Type Department Care Team (Late st Contact Info) Description 11/20/2023 Refill [facility] - Family Medicine - [place] #2 [place] [address] Alexus Mehta APRN, CNP #[address] [address] Medication Refill Social History Tobacco Use Types Packs/Day Years Used Date Smoking Tobacco: Former Cigarettes 0 07/06/1982 - 07/06/1989 Smokeless Tobacco: Never Alcohol Use Standard Drinks/Week Comments Never 0 (1 standard drink = 0.6 oz pur e alcohol) [facility] Utilities Answer Date Recorded In the [...] any clubs o r organizations such as rastafari groups, unions, fraternal or athletic groups, or [...] Total Score - Questions 1-9 12 11/2023 [facility] of Occupat ional Health - [...] any time in the past 12 m [facility], were you homeless or living in a care home (including now)? No 10/14/2023 Education Answer [...] original prescription was discontinued on 12/31/2022 by lAexus Mehta APRN, TYRONE documented in this encounter Plan of Treatment [...] documented as of this encounter Care Teams Ductfixing Plumber Relationship Specialty Start Date End Date Alexus Mehta APRN, ENDOSCOPY SPECIALTY TECHNICIAN #2 [facility] [address] [place] [address] PCP - General Advanced Practice Nurse 01/13/22 Aditya Reza MD #2 [facility] [address] [place] [address] Consulting Physician Urology 12/31/21 documented as of this encounter
--- OUTSIDE RECORDS SUMMARY | 2024-10-31 14:28 | XMS_ITS | Clinical Summary ---
Author Organization [facility] Medical Office Building [address] Address [address] [place] [address] Care Team Providers Care Logistician Name Role Phone Alexus Mehta NP Primary Care Provider + Cuong Gaytan MD Unavailable [phone] Allergies Active Allergy Reactions Criticality Noted Date [...] Nephrolithias is Sleep apnea Hypertension Bipolar disorder Depression Anxiety Family History Medical History Relation [...] on file Legal Sex Female 1:02 AM OPENER Gender Identity Not on file Sexual Orientation [...] CDT PROCEDURE REPORT Patient: DEANNA YOO Account: [id number] Room No: : 1950 Patient Type: SDS [...] [facility] [place] [facility] Care Teams Logistician Relationship Specialty Start Date End Date Alexus Mehta NP 2 [facility] MARIA TERESASELECT [facility] [address] [place] [address] PCP - General Nurse Practitioner 11/03/22 Cuong Gaytan MD [address] MARIPOSA Beebe [facility] [address] [place] [address] Consulting Physician Obstetrics and Gynecology 05/17/23
--- OUTSIDE RECORDS SUMMARY | 2024-10-31 14:28 | XMS_ITS | Encounter Summary ---
Author Organization [facility] Address [address] [place] [address] Phone Care Team Providers Care Rn Faculty Name Role Phone Aditya Reza MD Unavailable Alexus Mehta APRN, CNP Primary Care Provid er Reason for Visit * Reason Comments Medication Refill Encounter Details Date Type Department Care Team (Late st Contact Info) Description 09/13/2022 Refill [facility] #2 [place] [address] Ja Samuel MD #[address] [address] Medication Refill Social History Tobacco Use Types [...] 08/02/2022 90 180 Each Ja Samuel MD [facility] #... 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, unspecified documented in this encounter Additional Health Concerns Infection Onset Date Last Indicated Resolved Time ESBL 06/20/2018 01/01/2022 Assessment Noted Time PHQ-9 Depression Total Score: 0 01/14/20 10:00 AM BEVERAGE SERVER documented as of this encounter Care Teams Rn Faculty Relationship Specialty Start Date End Date Alexus Mehta APRN, CNP #2 [facility] [address] [place] [address] PCP - General Advanced Practice Nurse 01/13/22 Aditya Reza MD #2 [facility] [address] [place] [address] Consulting Physician Urology 12/31/21 documented as of this encounter
--- OUTSIDE RECORDS SUMMARY | 2024-10-31 14:28 | XMS_ITS | Encounter Summary ---
Author Organization [facility] Address [address] [place] [address] Phone Care Team Providers Care Tare Worker Name Role Phone Aditya Reza MD Unavailable Alexus Mehta APRN, CNP Primary Care Provid er Reason for Visit * Reason Comments Medication Refill Encounter Details Date Type Department Care Team (Late st Contact Info) Description 06/21/2023 Refill [facility] - [facility] Medicine - [place] #2 [place] [address] Alexus Mehta APRN, CNP #[address] [address] Medication Refill Social History Tobacco [...] Medication(s) [facility] Medication Refill Standing Order [...] documented as of this encounter Care Teams Tare Worker Relationship Specialty Start Date End Date Alexus Mehta APRN, CNP #2 [facility] [address] [place] [address] PCP - General Advanced Practice Nurse 01/13/22 Aditya Reza MD #2 [facility] [address] [place] [address] Consulting Physician Urology 12/31/21 documented as of this encounter
--- OUTSIDE RECORDS SUMMARY | 2024-10-31 14:28 | XMS_ITS | Encounter Summary ---
Author Organization [facility] Address [address] [place] [address] Phone Care Team Providers Care Ditch Tender Name Role Phone Aditya Reza MD Unavailable Alexus Mehta APRN, CNP Primary Care Provid er Reason for Visit * Reason Comments Medication Refill Encounter Details Date Type Department Care Team (Late st Contact Info) Description 02/10/2023 Refill [facility] - [facility] Medicine - [place] #2 [place] [address] Alexus Mehta APRN, CNP #[address] [address] Medication Refill Social History Tobacco [...] 12/31/22 Office Visit Alexus Mehta APRN, CNP [facility] Showing recent visits within past 182 [...] Serotonin Modulators for at least 6 months STRIKER documented in this encounter Plan of Treatment Not on file documented as of this encounter Visit Diagnoses Not on filedocumented in this encounter Additional Health Concerns Infection Onset Date Last Indicated Resolved Time ESBL 06/20/2018 01/01/2022 Assessment Noted Time PHQ-9 Depression Total Score: 0 01/14/20 10:00 AM RING STRIKER documented as of this encounter Care Teams Ditch Tender Relationship Specialty Start Date End Date Alexus Mehta APRN, TYRONE #2 [facility] [address] [place] [phone] PCP - General Advanced Practice Nurse 01/13/22 Aditya Reza MD #2 [facility] [address] [place] [address] Consulting Physician Urology 12/31/21 documented as of this encounter
--- OUTSIDE RECORDS SUMMARY | 2024-10-31 14:28 | XMS_ITS | Encounter Summary ---
Author Organization [facility] Address [address] [place] [address] Phone Care Team Providers Care Valve Tester Name Role Phone Aditya Reza MD Unavailable Alexus Mehta APRN, CNP Primary Care Provid er Reason for Visit * Reason Comments Medication Refill Encounter Details Date Type Department Care Team (Late st Contact Info) Description 01/07/2023 Refill [facility] Medicine [facility] #2 [place] [address] Ja Samuel MD #[address] [address] Medication Refill Social History Tobacco Use Types [...] 0 Signed by: Alexus Mehta APRN, CNP [facility] documented in this encounter Plan of Treatment Not on file documented as of this encounter Visit Diagnoses Diagnosis Anxiety Anxiety state, unspecified documented in this encounter Additional Health Concerns Infection Onset Date Last Indicated Resolved Time ESBL 06/20/2018 01/01/2022 Assessment Noted Time PHQ-9 Depression Total Score: 0 01/14/20 22 10:00 AM SPECIAL DAY CLASS TEACHER documented as of this encounter Care Teams Valve Tester Relationship Specialty Start Date End Date Alexus Mehta APRN, CNP #2 [facility] [address] [place] [address] PCP - General Advanced Practice Nurse 01/13/22 Aditya Reza MD #2 [facility] [address] [place] [address] Consulting Physician Urology 12/31/21 documented as of this encounter
--- OUTSIDE RECORDS SUMMARY | 2024-10-31 14:28 | XMS_ITS | Clinical Summary ---
Author Organization [facility] Address #1 [place] [address] Phone Care Team Providers Care Merchandising Specialist Name Role Phone Aditya Reza MD [...] AFTERNOON 270 Tablet 1 03/15/19 25 Active valsartan-hydroC HLOROthiazide (DIOVAN-HCT) 320-12.5 MG TabletIndication s:Primary hypertension TAKE 1 TABLET BY MOUTH DAILY 90 Tablet 1 07/01/19 25 Active famotidine (PEPCID) 20 MG TabletIndication s:Gastroesophage al reflux disease, unspecified whether esophagitis present TAKE 1 TABLET BY MOUTH TWICE DAILY 180 Tablet 1 10/07/19 25 Active famotidine (PEPCID) 20 MG TabletIndication s:Gastroesophage al reflux disease, unspecified whether esophagitis present TAKE 1 TABLET BY MOUTH TWICE DAILY 180 Tablet 1 03/17/19 25 025 Discontinued Active Problems Problem Noted Date [...] Encounters Date Type Department Care Team Description 10/06/2024 Refill [facility] [facility] [place] [address] Ja Samuel MD Medication Refill from Last 3 Months Immunizations [...] drink = 0.6 oz pur e alcohol) [facility] Utilities Answer Date Recorded In the [...] often do you attend chur ch or muslim services? 1 to 4 times per year 10/14/2023 Do you belong to any clubs o r organizations such as oriental orthodox groups, unions, fraternal or athletic groups, or [...] Score - Questions 1-9 0 11/0 03/[address] [facility] - Occupational Stress Questionnaire Answer Date [...] any time in the past 12 m [facility], were you homeless or living [...] Comments Blood Pressure 137/93 04/12/2024 9:00 PM HAND STONECUTTER Pulse 87 04/12/2024 9:15 PM HAND STONECUTTER Temperature 36.1 C (96.9 F) 04/12/2024 2:43 PM HAND STONECUTTER Respiratory Rate 18 04/12/2024 9:15 PM HAND STONECUTTER Oxygen Saturation 100% 04/12/2024 9:15 PM HAND STONECUTTER Inhaled Oxygen Concentration - - Weight 81.2 kg (179 lb) 04/12/2024 2:43 PM HAND STONECUTTER Height 163.8 cm (5' 4.5) 04/12/2024 2:43 PM HAND STONECUTTER Body Mass Index 30.25 04/12/2024 2:43 PM HAND STONECUTTER Plan of Treatment Health Maintenance Due Date [...] this topic Medical Devices Implanted Type Area Crystallographer Device Identifier Shelf Expiration Date Model / Serial / Lot Stent Ureteral 6fr 2.1fr 24cm 2 Pigtail Curve 2 Durometer Taper Tip Loprfl Graduated Polaris Ultra - [id number] Implanted:Qty: 1 on 07/15/2018 by [facility] IMPLANT Right: Ureter [employer] 02/07/2021 [id number] 20 / [id number] 20 / [id number] Speedbridge Implant Systemw Ith Biocomposity Swivel Lock Implanted:Qty: 1 on 07/29/2016 by [facility] Left: Shoulder 03/07/2018 / [id number] S-4 / [id number] Explanted Type Area Crystallographer Device Identifier Shelf Expiration Date Model / Serial / Lot Stent Ureteral 6fr 2.1fr 24cm 2 Pigtail Curve 2 Durometer Taper Tip Loprfl Graduated Polaris Ultra - [id number] Implanted:Qty : 1 on 06/24/2018 by Marbella [facility]andra MD at [facility] Explanted:Qty : 1 on 07/15/2018 by [facility] at [facility] IMPLANT Right: Ureter [employer] 12/20/2020 [id number] / [id number] / [id number] Procedures Procedure Name Priority Date/Time Associated Diagnosis Comments [facility] BONE DENSITOMETRY AXIAL SKELETON Routine 08/06/2022 11:38 AM CDT Post-menopausal Encounter for screening for osteoporosis [facility] SCREENING BILATERAL DIGITAL W CAD W JESSICA Routine 08/06/2022 11:27 AM CDT Screening mammogram for breast cancer from Last 3 Months or Most Recently Relevant to Health Maintenance Results * [facility] BONE DENSITOMETRY AXIAL SKELETON (08/06/2022 11:38 AM [...] old F with given history of screening. Crystallographer/Model: 3LM ([id number]/N [id number]) CLINICAL INFORMATION: Current height: 64 inches Maximum [...] Naomi Cifuentes M.D. TW: TW Report ID: [id number] Reading Location: [place] [address] Procedure Note Naomi Cifuentes MD - 08/07/2022 EXAM DESCRIPTION: ANTWON BONE DENSITOMETRY AXIAL SKELETON REASON FOR STUDY: 72 y/o year old F with given history of screening. Crystallographer/Model: 3LM ([id number]/N [id number]) CLINICAL INFORMATION: Current height: 64 inches Maximum [...] Naomi Cifuentes M.D. TW: TW Report ID: [id number] Reading Location: [place] [address] IMPRESSION: Osteoporosis REFERENCE: Bone mineral density: Normal [...] Prevention and Treatment of Osteoporosis (http://www.nof.org/professionals/clinical-guidelines) Alexus Janine FUR DRY CLEANER HAND, BILINGUAL LEGAL ASSISTANT IMG DEXA ORDERABLES Final Result * ANTWON [...] made to exams dated: 04/22/2015 and 03/03/2011 [facility]. BREAST TISSUE:There are scattered [...] exam. Electronically signed by: Karlee boyer/mary:08/06/2022 15:06:48 Supervisor Soldering(s): RT Wil(R)(M), [facility] letter sent: Normal Exam Reading location: [facility] BI-RADS: 2 Benign Procedure Note [...] made to exams dated: 04/22/2015 and 03/03/2011 [facility]. BREAST TISSUE:There are scattered [...] exam. Electronically signed by: Karlee boyer/mary:08/06/2022 15:06:48 Supervisor Soldering(s): RT Wil(R)(M), [facility] letter sent: Normal Exam Reading location: [facility] BI-RADS: 2 Benign Alexus Mehta APRN, TYRONE IMG MAMMO ORDERABLES Final Result from Last 3 Months or Most Recently Relevant to Health Maintenance Additional Health Concerns Infection Onset Date Last Indicated ESBL 06/20/2018 01/01/2022 Insurance [employer] MEDIC[employer] C [employer] PR MEDPAY PA TPL WK GENERIC Advance Directives * Full Code (Latest [...] measures to stabilize the patient. Care Teams Merchandising Specialist Relationship Specialty Start Date End Date Alexus Mehta APRN, CNP #2 [facility] [address] [place] [phone] PCP - General Advanced Practice Nurse 01/13/22 Aditya Reza MD #2 [facility] [address] [place] [address] Consulting Physician Urology 12/31/21
--- OUTSIDE RECORDS SUMMARY | 2024-10-31 14:28 | XMS_ITS | Encounter Summary ---
Author Organization [facility] Address [address] [place] [address] Phone Care Team Providers Care Verification Engineer Name Role Phone Aditya Reza MD Unavailable Alexus Mehta APRN, CNP Primary Care Provid er Reason for Visit * Reason Comments Medication Refill Encounter Details Date Type Department Care Team (Late st Contact Info) Description 06/06/2023 Refill [facility] - [facility] Medicine - [place] #2 [place] [address] Alexus Mehta APRN, CNP #[address] [address] Medication Refill Social History Tobacco [...] Provider Dept 06/08/23 Appointment Alexus Mehta APRN, [place] [place] Showing today's visits and meeting [...] Total Score: 0 01/14/20 22 10:00 AM CEMENT FITTINGS MAKER documented as of this encounter Care Teams Verification Engineer Relationship Specialty Start Date End Date Alexus Mehta APRN, CNP #2 [facility] [address] [place] [address] PCP - General Advanced Practice Nurse 01/13/22 Aditya Reza MD #2 [facility] [address] [place] [address] Consulting Physician Urology 12/31/21 documented as of this encounter
--- OUTSIDE RECORDS SUMMARY | 2024-10-31 14:28 | XMS_ITS | Encounter Summary ---
Author Organization [facility] Address [address] [place] [address] Phone Care Team Providers Care In Mold Coater Name Role Phone Aditya Reza MD Unavailable Alexus Mehta APRN, CNP Primary Care Provid er Reason for Visit * Reason Comments Medication Refill Encounter Details Date Type Department Care Team (Late st Contact Info) Description 02/10/2023 Refill [facility] - Family Medicine - [place] #2 [place] [address] Alexus Mehta APRN, CNP #[address] [address] Medication Refill Social History [...] on 02/10/2023 by Alexus Mehta APRN, CNP. TCHER LEVELER OPERATOR HELPER * Telephone Encounter - Lynn Saucedo RN - 02/10/2023 9:19 AM CST duplicate TCHER LEVELER OPERATOR HELPER documented in this encounter Plan of Treatment Not on file documented as of this encounter Visit Diagnoses Not on filedocumented in this encounter Additional Health Concerns Infection Onset Date Last Indicated Resolved Time ESBL 06/20/2018 01/01/2022 Assessment Noted Time PHQ-9 Depression Total Score: 0 01/14/20 22 10:00 AM STRETCHER LEVELER OPERATOR HELPER documented as of this encounter Care Teams In Mold Coater Relationship Specialty Start Date End Date Alexus Mehta APRN, CNP #2 [facility] [address] [place] [address] PCP - General Advanced Practice Nurse 01/13/22 Aditya Reza MD #2 [facility] [address] [place] [address] Consulting Physician Urology 12/31/21 documented as of this encounter
--- OUTSIDE RECORDS SUMMARY | 2024-10-31 14:28 | XMS_ITS | Encounter Summary ---
Author Organization [facility] Address [address] [place] [address] Phone Care Team Providers Care Assembler Steam And Gas Turbine Name Role Phone Aditya Reza MD Unavailable Alexus Mehta APRN, CNP Primary Care Provid er Reason for Visit * Reason Comments Medication Refill Encounter Details Date Type Department Care Team (Late st Contact Info) Description 06/28/2022 Refill [facility] - Family Medicine [facility] #2 [place] [address] Ja Samuel MD #[address] [address] Medication Refill Social History Tobacco Use Types [...] CDT Reordered 06/04/22 for 4 months - [facility] documented in this encounter Plan of Treatment Not on file documented as of this encounter Visit Diagnoses Not on filedocumented in this encounter Additional Health Concerns Infection Onset Date Last Indicated Resolved Time ESBL 06/20/2018 01/01/2022 Assessment Noted Time PHQ-9 Depression Total Score: 0 01/14/20 10:00 AM BARKER OPERATOR documented as of this encounter Care Teams Assembler Steam And Gas Turbine Relationship Specialty Start Date End Date Alexus Mehta APRN, MANUFACTURING INTERN #2 [facility] [address] [place] [address] PCP - General Advanced Practice Nurse 01/13/22 Aditya Reza MD #2 [facility] [address] [place] [address] Consulting Physician Urology 12/31/21 documented as of this encounter
--- OUTSIDE RECORDS SUMMARY | 2024-10-31 14:28 | XMS_ITS | Encounter Summary ---
Author Organization [facility] Address [address] [place] [address] Phone Care Team Providers Care Sand Molder Name Role Phone Aditya Reza MD Unavailable Alexus Mehta APRN, CNP Primary Care Provid er Reason for Visit * Reason Comments Medication Refill Encounter Details Date Type Department Care Team (Late st Contact Info) Description 09/20/2022 Refill [facility] - [facility] Medicine [facility] #2 [place] [address] Ja Samuel MD #[address] [address] Medication Refill Social History Tobacco Use Types [...] Depression Total Score: 0 01/14/20 10:00 AM ED EDUCATIONAL AIDE documented as of this encounter Care Teams Sand Molder Relationship Specialty Start Date End Date Alexus Mehta APRN, CNP #2 [facility] [address] [place] [address] PCP - General Advanced Practice Nurse 01/13/22 Aditya Reza MD #[address] [facility] [facility] [address] [place] [address] Consulting Physician Urology 12/31/21 documented as of this encounter
--- OUTSIDE RECORDS SUMMARY | 2024-10-31 14:28 | XMS_ITS | Encounter Summary ---
Author Organization [facility] Address [address] [place] [address] Phone Care Team Providers Care Repairer Hairspring Name Role Phone Aditya Reza MD Unavailable Alexus Mehta APRN, CNP Primary Care Provid er Reason for Visit * Reason Comments Medication Refill Encounter Details Date Type Department Care Team (Late st Contact Info) Description 02/02/2023 Refill [facility] - Family Medicine - [place] #2 [place] [address] Alexus Mehta APRN, CNP #[address] [address] Medication Refill Social History [...] CNP for the following reason: Formulary change. TENDER documented in this encounter Plan of Treatment Not on file documented as of this encounter Visit Diagnoses Diagnosis Anxiety Anxiety state, unspecified documented in this encounter Additional Health Concerns Infection Onset Date Last Indicated Resolved Time ESBL 06/20/2018 01/01/2022 Assessment Noted Time PHQ-9 Depression Total Score: 0 01/14/20 10:00 AM DRUM TENDER documented as of this encounter Care Teams Repairer Hairspring Relationship Specialty Start Date End Date Alexus Mehta APRN, CNP #2 [facility] [address] [place] [phone] PCP - General Advanced Practice Nurse 01/13/22 Aditya Reza MD #2 [facility] [address] [place] [address] Consulting Physician Urology 12/31/21 documented as of this encounter
--- OUTSIDE RECORDS SUMMARY | 2024-10-31 14:28 | XMS_ITS | Encounter Summary ---
Author Organization [facility] Address [address] [place] [address] Phone Care Team Providers Care Retail Property Manager Name Role Phone Aditya Reza MD Unavailable Alexus Mehta APRN, CNP Primary Care Provid er Reason for Visit * Reason Comments Medication Refill Encounter Details Date Type Department Care Team (Late st Contact Info) Description 04/23/2022 Refill [facility] - [facility] Medicine [facility] #2 [place] [address] Alexus Mehta APRN, CNP #[address] [address] Medication Refill Social History Tobacco [...] Coronavirus/COVID-19? No / Unsure 04/09/2022 3:43 PM PHOTOGRAPH MOUNTER documented as of this encounter Miscellaneous Notes * Telephone Encounter - Lynn Saucedo RN - 04/23/2022 3:16 PM CST Signed Today (04/23/2022): venlafaxine (EFFEXOR) 100 MG Tablet Sig: TAKE 1 TABLET BY MOUTH IN THE MORNING AND AT BEDTIME Disp: 180 Tablet ? Refills: 1 Signed by: Ja Samuel MD [facility] OGRAPH MOUNTER 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, unspecified documented in this encounter Additional Health Concerns Infection Onset Date Last Indicated Resolved Time ESBL 06/20/2018 01/01/2022 Assessment Noted Time PHQ-9 Depression Total Score: 0 01/14/20 22 10:00 AM PHOTOGRAPH MOUNTER documented as of this encounter Care Teams Retail Property Manager Relationship Specialty Start Date End Date Alexus Mehta APRN, CNP #2 [facility] [address] [place] [address] PCP - General Advanced Practice Nurse 01/13/22 Aditya Reza MD #2 [facility] [address] [place] [address] Consulting Physician Urology 12/31/21 documented as of this encounter
--- OUTSIDE RECORDS SUMMARY | 2024-10-31 14:28 | XMS_ITS | Encounter Summary ---
Author Organization [employer] [facility] Address [address] [place] [address] Care Team Providers Care Batch Dumper Name Role Phone Unavailable Primary Care Provider [...] on file Legal Sex Female 5:44 AM NUTRITION INTERN Gender Identity Not on file Sexual Orientation [...] 0.9 - 1.1 [facility] Comment: INR Therapeutic Range: Adult: 2.0 - 3.0 for pulmonary embolism or prophylaxis against venous thrombosis or systemic embolization. 2.0 - 3.0 for patients with tissue heart valves. 2.5 - 3.5 for patients with mechanical heart valves or post MS. Pediatric (12 years and under): 1.5 - 3.0 Although the target range in children is not well established, INR values of 1.5 - 3.0 are recommended for most patients. Higher values have been used in children with prosthetic cardiac valves and hereditary clotting disorders. [place] (<3 days) therapeutic ranges have not been established. PROTIME 27.1(H) 12.7 - 15.1 Seconds [facility] 09/07/2008 5:57 AM CDT 09/07/2008 6:39 AM CDT us Gio Watkins MD HEMATOLOGY ORDERABLES Kelsey kaminski Result INTERFACE SYSTEM Refer to clinic/hospital department [facility] CLIA# [id number] [address] [place] [address] * (ABNORMAL) PROTIME-INR (09/06/2008 5:00 AM CDT) PROTIME 23.5(H) 12.7 - 15.1 Seconds [facility] INR 2.1(H) 0.9 - 1.1 [facility] Comment: INR Therapeutic Range: Adult: 2.0 - 3.0 for pulmonary embolism or prophylaxis against venous thrombosis or systemic embolization. 2.0 - 3.0 for patients with tissue heart valves. 2.5 - 3.5 for patients with mechanical heart valves or post MS. Pediatric (12 years and under): 1.5 - [...] to clinic/hospital department [facility] CLIA# [id number] [address] [facility] [place] [address] * (ABNORMAL) BASIC METABOLIC PANEL (09/06/2008 5:00 AM CDT) CHLORIDE 104 96 - 108 mmol/L [facility] GLUCOSE 98 65 - 99 mg/dL [facility] SODIUM 135 135 - 145 mmol/L [facility] CALCIUM 8.2(L) 8.6 - 10.2 mg/dL [facility] CO2 24 22 - 30 mmol/L [facility] CREATININE 0.80 0.51 - 0.95 mg/dL [facility] POTASSIUM 4.1 3.5 - 4.9 mmol/L [facility] BUN 15 6 - 20 mg/dL [facility] GFR, >60 >=60 mL/min/1. 7 sq meter [facility] GFR >60 >=60 mL/min/1. 7 sq meter [facility] Comment: Modification of Diet in Renal Disease (MDRD) study formula. Estimated GFR rate interpretative information for both Americans and non- Americans is available on the [facility] Intranet at: [email or web address] Select: Lab Policies and Procedures Select: Reference Ranges - GFR 09/06/2008 5:00 AM CDT 09/06/2008 6:09 AM CDT us Subbulux[employer] Sunita DONALDSON CHEMISTRY ORDERABLES Chavo mack INTERFACE SYSTEM Refer to clinic/hospital department [facility] CLIA# [id number] [address] [place] [address] * (ABNORMAL) CBC WITH DIFFERENTIAL (09/06/2008 5:00 AM CDT) MCV 83.8 82.0 - 99.0 fL [facility] PLATELETS 191 140 - 350 K/uL [facility] HEMOGLOBIN 8.3(L) 11.8 - 14.8 g/dL [facility] RDW 14.8(H) 11.5 - 14.5 % [facility] WBC 7.9 4.0 - 9.8 K/uL [facility] MCH 27.5 27.2 - 32.6 pg [facility] MPV 10.5 9.3 - 12.4 fL [facility] HEMATOCRIT 25.3(L) 35.5 - 44.0 % [facility] RDW-STDEV 46.0 37.1 - 48.7 fL [facility] RBC 3.02(L) 3.90 - 4.90 M/uL [facility] MCHC 32.8 31.5 - 35.5 % [facility] BASOPHILS ABSOLUTE 0.00 0.00 - 0.20 K/uL [facility] POIKILOCYTES Slight [facility] MONOCYTES 5 3 - 13 % [facility] MONOCYTE ABSOLUTE 0.40 0.10 - 1.30 K/uL [facility] PLATELET EST. Consistent w/ count Normal [facility] BANDS 1 0 - 5 % [facility] NEUTROPHIL ABSOLUTE 6.32 1.90 - 7.00 K/uL [facility] NEUTROPHILS, SEG 79(H) 45 - 70 % [facility] EOSINOPHILS 2 0 - 7 % [facility] MICROCYTES Slight [facility] EOSINOPHIL ABSOLUTE 0.16 0.00 - 0.70 K/uL [facility] LYMPHOCYTES 13(L) 16 - 45 % [facility] ANISOCYTOSIS Slight [facility] LYMPHOCYTE ABSOLUTE 1.03 0.70 - 4.50 K/uL [facility] BASOPHILS 0 0 - 2 % [facility] Blood specimen (specimen) 09/06/2008 5:00 AM CDT 09/06/2008 6:09 AM CDT Mickbuluxbrad Dorsey MD HEMATOLOGY ORDERABLES Ed ited INTERFACE SYSTEM Refer to clinic/hospital department [facility] CLIA# [id number] [address] [place] [address] * (ABNORMAL) PROTIME-INR (09/05/2008 4:16 AM CDT) PROTIME 16.3(H) 12.7 - 15.1 Seconds [facility] INR 1.3(H) 0.9 - 1.1 [facility] Comment: INR Therapeutic Range: Adult: 2.0 - 3.0 for pulmonary embolism or prophylaxis against venous thrombosis or systemic embolization. 2.0 - 3.0 for patients with tissue heart valves. 2.5 - 3.5 for patients with mechanical heart valves or post MS. Pediatric (12 years and under): 1.5 - [...] ORDERABLES Kelsey kaminski Result Performing Organization Address [facility] Phone Number INTERFACE SYSTEM Refer to clinic/hospital department [facility] CLIA# [id number] [address] [place] [address] * (ABNORMAL) HEMOGLOBIN AND HEMATOCRIT (09/05/2008 4:16 AM CDT) HEMOGLOBIN 8.9(L) 11.8 - 14.8 g/dL [facility] HEMATOCRIT 27.1(L) 35.5 - 44.0 % [facility] 09/05/2008 4:16 AM CDT 09/05/2008 5:14 AM CDT Gio Watkins MD HEMATOLOGY ORDERABLES Kelsey l Result Performing Organization Address [facility] de Phone Number INTERFACE SYSTEM Refer to clinic/hospital department [facility] CLIA# [id number] [address] [place] [address] * (ABNORMAL) BASIC METABOLIC PANEL (09/05/2008 4:16 AM CDT) CREATININE 0.86 0.51 - 0.95 mg/dL [facility] POTASSIUM 3.4(L) 3.5 - 4.9 mmol/L [facility] BUN 13 6 - 20 mg/dL [facility] CHLORIDE 103 96 - 108 mmol/L [facility] GLUCOSE 115(H) 65 - 99 mg/dL [facility] SODIUM 135 135 - 145 mmol/L [facility] CALCIUM 8.1(L) 8.6 - 10.2 mg/dL [facility] CO2 23 22 - 30 mmol/L [facility] GFR, >60 >=60 mL/min/1. 7 sq meter [facility] GFR >60 >=60 mL/min/1. 7 sq meter [facility] Comment: Modification of Diet in Renal Disease (MDRD) study formula. Estimated GFR rate interpretative information for both Americans and non- Americans is available on the [facility] Intranet at: [email or web address] Select: Lab Policies and Procedures Select: Reference Ranges - GFR 09/05/2008 4:16 AM CDT 09/05/2008 5:14 AM CDT Gio Watkins MD CHEMISTRY ORDERABLES Edite d Performing Organization Address City/State/[facility] Co de Phone Number INTERFACE SYSTEM Refer to clinic/hospital department [facility] CLIA# [id number] [address] [place] [address] * XR CHEST PA AND LATERAL (08/13/2008 11:57 AM CDT) Anatomical Region Laterality Modality Chest Other 08/13/2008 11:5 7 AM CDT Narrative 08/13/2008 12:45 PM CDT [facility] [address] [place], [place] [address] Admit Date: 07/09/2008 DEANNA YOO Sex: F Admit Prov: GIO WATKINS Date: 1950 Primary Care Prov: SRIKANTH MULLINS CMRN: [id number] Room: [facility] N: [id number] IMAGING SERVICES Ordering Prov: N/A Accession Number: [id number] Interpretation PA AND LATERAL CHEST X-RAY, 08/13/2008 [...] Procedure Note Lupe Carter MD - 08/13/2008 [id number] [place], [place] [address] Admit Date: 07/09/2008 DEANNA YOO Sex: F Admit Prov: GIO WATKINS Date: 1950 Primary Care Prov: SRIKANTH MULLINS CMRN: [id number] [id number] [facility] Ordering Prov: N/A Interpretation PA [...] Slt. Cloudy(A) Clear [facility] PROTEIN UA Trace(A) Negative [facility] EPITHELIAL CELLS, URINE 0-2 /HPF [facility] BILIRUBIN UA Negative Negative [facility] LEUKOCYTE ESTERASE UA 3+(A) Negative [facility] RBC UA 28(H) 0 - 4 /HPF [facility] SPECIFIC GRAVITY UA 1.013 1.001 - 1.035 [facility] BLOOD UA 2+(A) Negative [facility] GLUCOSE UA Negative Negative [facility] WBC CLUMPS Present(A) None Seen [facility] COLOR UA Yellow [facility] NITRITE UA Negative Negative [facility] UROBILINOGEN UA <1 <=1 mg/dL [facility] BACTERIA UA 3+(A) None Seen /HPF [facility] PH UA 5.5 5.0 - 8.0 [facility] KETONES UA Negative Negative [facility] WBC UA >100(H) 0 - 5 /HPF [facility] 08/13/2008 11:1 4 AM CDT 08/13/2008 12:16 PM CDT us Gio Watkins MD URINE ORDERABLES Final Res ult INTERFACE SYSTEM Refer to clinic/hospital department [facility] CLIA# [id number] [address] [place] [address] * COMPREHENSIVE METABOLIC PANEL (08/13/2008 11:14 AM CDT) Pathologist [facility] ALKALINE PHOSPHATASE 79 35 - 104 U/L [facility] CO2 22 22 - 30 mmol/L [facility] BILIRUBIN TOTAL 0.4 0.2 - 1.0 mg/dL [facility] POTASSIUM 3.5 3.5 - 4.9 mmol/L [facility] TOTAL PROTEIN 7.7 6.3 - 8.6 g/dL [facility] GLUCOSE 90 65 - 99 mg/dL [facility] AST 12 12 - 32 U/L [facility] BUN 12 6 - 20 mg/dL [facility] CALCIUM 9.6 8.6 - 10.2 mg/dL [facility] ALBUMIN 4.1 3.4 - 4.8 g/dL [facility] CHLORIDE 105 96 - 108 mmol/L [facility] CREATININE 0.92 0.51 - 0.95 mg/dL [facility] ALT 13 0 - 31 U/L [facility] SODIUM 140 135 - 145 mmol/L [facility] GFR, >60 >=60 mL/min/1.7 sq meter [facility] GFR >60 >=60 mL/min/1.7 sq meter [facility] Comment: Modification of Diet in Renal Disease (MDRD) study formula. Estimated GFR rate interpretative information for both Americans and non- Americans is available on the [facility] Intranet at: [email or web address] Select: Lab Policies and Procedures Select: Reference Ranges - GFR 08/13/2008 11:1 4 AM CDT 08/13/2008 12:08 PM CDT us Gio Watkins MD CHEMISTRY ORDERABLES Edite d INTERFACE SYSTEM Refer to clinic/hospital department [facility] CLIA# [id number] [address] [place] [address] * PROTIME-INR (08/13/2008 11:14 AM CDT) INR 1.0 0.9 - 1.1 [facility] Comment: ansiINR Therapeutic Range: Adult: 2.0 - 3.0 for pulmonary embolism or prophylaxis against venous thrombosis or systemic embolization. 2.0 - 3.0 for patients with tissue heart valves. 2.5 - 3.5 for patients with mechanical heart valves or post MS. Pediatric (12 years and under): 1.5 - 3.0 Although the target range in children is not well established, INR values of 1.5 - 3.0 are recommended for most patients. Higher values have been used in children with prosthetic cardiac valves and hereditary clotting disorders. (<3 days) therapeutic ranges have not been established. PROTIME 13.5 12.7 - 15.1 Seconds [facility] 08/13/2008 11:1 4 AM CDT 08/13/2008 12:08 PM CDT us Gio Watkins MD HEMATOLOGY ORDERABLES Kelsey kaminski Result INTERFACE SYSTEM Refer to clinic/hospital department [facility] CLIA# [id number] [address] [place] [address] * (ABNORMAL) CBC WITH DIFFERENTIAL (08/13/2008 11:14 AM CDT) Pathologist [facility] WBC 6.9 4.0 - 9.8 K/uL [facility] MCH 27.7 27.2 - 32.6 pg [facility] MPV 11.1 9.3 - 12.4 fL [facility] HEMATOCRIT 36.5 35.5 - 44.0 % [facility] RDW-STDEV 44.2 37.1 - 48.7 fL [facility] RBC 4.23 3.90 - 4.90 M/uL [facility] MCHC 32.1 31.5 - 35.5 % [facility] MCV 86.3 82.0 - 99.0 fL [facility] PLATELETS 334 140 - 350 K/uL [facility] HEMOGLOBIN 11.7(L) 11.8 - 14.8 g/dL [facility] RDW 14.2 11.5 - 14.5 % [facility] LYMPHOCYTES 29 16 - 45 % [facility] LYMPHOCYTE ABSOLUTE 2.01 0.70 - 4.50 K/uL [facility] BASOPHILS 0 0 - 2 % [facility] BASOPHILS ABSOLUTE 0.02 0.00 - 0.20 K/uL [facility] MONOCYTES 8 3 - 13 % [facility] MONOCYTE ABSOLUTE 0.57 0.10 - 1.30 K/uL [facility] NEUTROPHILS 62 45 - 70 % [facility] NEUTROPHIL ABSOLUTE 4.24 1.90 - 7.00 K/uL [facility] EOSINOPHILS 1 0 - 7 % [facility] EOSINOPHIL ABSOLUTE 0.05 0.00 - 0.70 K/uL [facility] 08/13/2008 11:1 4 AM CDT 08/13/2008 12:08 PM CDT us Gio Watkins MD HEMATOLOGY ORDERABLES Edit ed INTERFACE SYSTEM Refer to clinic/hospital department [facility] CLIA# [id number] [address] [place] [address] * TYPE AND CROSSMATCH (08/13/2008 11:13 AM CDT) HISTORY CHECK No Historical ABO/Rh [facility] SPECIMEN LIFE 3 days from OR date [facility] ABO/RH TYPE AB Negative [facility] ANTIBODY SCREEN Negative [facility] 08/13/2008 11:1 3 AM CDT us Gio Watkins MD BLOOD BANK ORDERABLES Edit ed INTERFACE SYSTEM Refer to clinic/hospital department [facility] CLIA# [id number] [address] [place], [place] [address] documented in this encounter Visit Diagnoses Not on filedocumented in this encounter
== END 2024-10-31 14:24 | disposition home or self-care (01) ==
LOC: ANHBWCLAB 14:23
PROVIDERS: PCP Nurse Practitioner Adult Health; Visit Provider Nurse Practitioner Adult Health
DX: R39.9 Unspecified symptoms and signs involving the genitourinary system (principal)
CPT/HCPCS: 87086

== ENCOUNTER 2025-02-15 16:02 | Emergency (ER) | payer MEDICARE, SELFPAY ==
[2025-02-15 16:10] VITALS: BP 155/85; PULSE 88; RESP 20; TEMP 36.3; O2SAT 98
[2025-02-15 16:19] LABS: EDUAAPPEAR Clear; EDUABILI Negative (Negative); EDUABLOOD Negative (Negative); EDUACOLOR1 Yellow; EDUAGLUCOSE Negative (Negative); EDUAKETONE Negative (Negative); EDUALEUKO Trace (Negative); EDUANITRATE Positive (Negative); EDUAPH 5.5; EDUAPROTEIN Negative (Negative); EDUASPGRAVITY 1.025; EDUAUROBILI 0.2
--- NOTE | 2025-02-15 16:24 | ED.FEMALEGU ---
HPI - Female Genitourinary General Chief complaint: Urogenital-Female Stated complaint: Urinary Problem Time Seen by Provider: 02/15/25 16:10 Source: patient and RN notes reviewed Mode of arrival: ambulatory Limitations: no limitations History of Present Illness HPI Narrative: 74-year-old female presents Express Care complaining of urinary symptoms for 3 weeks. Patient reports having foul-smelling urine, increased frequency, hesitancy. Patient denies any fevers, dysuria, abdominal pain, body aches, chills, nausea, vomiting, diarrhea. Patient has not taken anything [id number] for symptoms. Patient denies any significant past medical history. Related Data Home Medications ?Medication ?Instructions ?Recorded ?Confirmed ?Last Taken ?Type aspirin 81 mg chewable tablet 81 mg PO DAILY 12/01/19 01/30/25 Unknown History melatonin 10 mg tablet 10 mg PO HS PRN Anxiety 12/01/19 01/30/25 Unknown History pyridoxine (vitamin B6) 100 mg 100 mg PO DAILY 12/01/19 01/30/25 Unknown History tablet (Vitamin B-6) Multiple Vitamin BYMOUTH 04/19/24 01/30/25 Unknown History brimonidine 0.2 %-timolol 0.5 % drp EACH EYE QPM 04/19/24 01/30/25 Unknown History eye drops (Combigan) cholecalciferol (vitamin D3) 50 50 mcg PO DAILY 04/19/24 01/30/25 Unknown History mcg (2,000 unit) capsule cyanocobalamin (vitamin B-12) 500 500 mcg PO DAILY 04/19/24 01/30/25 Unknown History mcg tablet famotidine 20 mg tablet PO BID 04/19/24 01/30/25 Unknown History latanoprost 0.005 % eye drops EACH EYE BID 04/19/24 01/30/25 Unknown History womens Probiotic BYMOUTH DAILY 04/19/24 01/30/25 Unknown History Allergies Allergy/AdvReac Type Severity Reaction Status Date / Time codeine Allergy Intermediate Nausea and Verified 02/15/25 16:03 Vomiting Review of Systems Review of Systems: CONSTITUTIONAL: Denies fever, chills, body aches, or sweats. EYES: Denies visual changes, redness, or discharge. ENT: Denies rhinorrhea, congestion, sore throat, or otalgia. CARDIOVASCULAR: Denies chest pain, palpitations, or edema. RESPIRATORY: Denies cough or dyspnea. GASTROINTESTINAL: Denies abdominal pain, nausea, vomiting, or diarrhea. GENITOURINARY: Positive for foul-smelling urine, increased frequency, hesitancy. Negative for hematuria. SKIN: Denies rash or itching. MUSCULOSKELETAL: Denies back pain, joint pain, or myalgia. NEUROLOGIC: Denies headache, numbness, or weakness. PSYCHIATRIC: Denies anxiety or depression. All other systems reviewed are negative, except as documented in HPI. [facility] Past Medical History Medical History Lumbosacral radiculopathy at L5 Chronic GERD Arthritis Allergies IBS (irritable bowel syndrome) Glaucoma Depression Anxiety Sleep apnea Cataract Hypothyroidism Hypertension GERD (gastroesophageal reflux disease) Family History Family History Mother Diabetes mellitus Hypertension Father Depression Anxiety Sibling Depression Anxiety Cancer Social History Social History Smoking status: Never smoker Alcohol use details: does not drink ETOH Substance use type: does not use Lack of Transportation: No Lack of Food: Never True Current Housing: I Have Housing Concerned About Future Housing: No Difficulty Paying Gas/Electric Bills: No Difficulty Paying for Meds: No Currently Unemployed: No Education: High School Diploma/GED Difficulty w/ Childcare or Family Care: No Living arrangements: with family Gender identity (if verbalized by the patient): Female Agree to blood products: Yes Comments At the time of my signature, I reviewed and agree with the nursing past medical, surgical, social, and family history. There is no relevant family history pertinent to the patient complaint. Exam Narrative: GENERAL: This is a well-nourished, well-developed adult, in no apparent distress. They are non ill-appearing, nontoxic appearing. HEAD: normocephalic, atraumatic. EYES: Sclera clear/white. Vision is grossly intact. Conjunctiva normal bilaterally. Extraocular movements intact. EARS: External ears normal,Hearing grossly intact. NOSE: External nose normal THROAT: Mucous membranes moist NECK: Normal range of motion CARDIOVASCULAR: Regular rate and rhythm. Normal S1-S2. No clicks, gallops, rubs, murmurs. RESPIRATORY: Respiratory rate normal, respiratory effort nonlabored, no respiratory distress. Lung sounds clear to auscultation throughout. Lung sounds equal bilaterally. No adventitious lung sounds. GASTROINTESTINAL: Abdomen soft, flat, non-tender, nondistended. Bowel sounds are active. No hepato-splenomegaly, or palpable masses. No guarding or rigidity. No rebound tenderness. SKIN: warm, Dry, intact with no suspicious lesions or rash, good texture and turgor. NEURO: awake, alert, and oriented to person, place and time. There were no obvious focal neurologic abnormalities. EXTREMITIES: No joint tenderness, effusion, or edema noted. BACK: Nontender without deformity. No CVA tenderness. Course Course Level of Care: Express Care Visit Vital Signs Vital signs: Vital Signs Temperature 97.3 F L 02/15/25 16:10 Pulse Rate 88 02/15/25 16:10 Respiratory Rate 20 02/15/25 16:10 Blood Pressure 155/85 H 02/15/25 16:10 Pulse Oximetry 98 02/15/25 16:10 Oxygen Delivery Room Air 02/15/25 16:10 Temperature 97.3 F L 02/15/25 16:10 Pulse Rate 88 02/15/25 16:10 Respiratory Rate 20 02/15/25 16:10 Blood Pressure 155/85 H 02/15/25 16:10 Pulse Oximetry 98 02/15/25 16:10 Oxygen Delivery Room Air 02/15/25 16:10 [facility] Narrative Medical decision making narrative: Urine dipstick shows leukocytes and nitrates. Urine cultures pending previous culture shows resistance to fluoroquinolones and cephalosporins. Patient's susceptible to Augmentin, will treat with Augmentin given possible interaction with her valsartan with Bactrim. Discussed physical exam findings. Advised supportive measures and signs/symptoms to go to the ER. Pt is appropriate for outpt treatment and f/u. Differential Diagnosis Differential Diagnosis: Urinary tract infection, cystitis, pyelonephritis Lab Data [facility] Lab Attestation statement: I personally reviewed the patient's lab results. Labs: Lab Results 02/15/25 Range/Units 16:17 POC Urine Color Yellow POC Urine Clarity Clear POC Urine pH 5.5 POC Ur Specif [place] 1.025 POC Urine Protein Negative (Negative) POC Ur Glucose (UA) Negative (Negative) POC Urine Ketones Negative (Negative) POC Urine Blood Negative (Negative) POC Urine Nitrite Positive (Negative) POC Urine Bilirubin Negative (Negative) POC Urine Urobilinogen 0.2 POC U Leukocyte Esteras Trace (Negative) Discharge Plan Discharge Clinical Impression: Urinary tract infection Qualifiers: Urinary tract infection type: site unspecified Hematuria presence: without hematuria Qualified Code(s): N39.0 - Urinary tract infection, site not specified Patient Disposition: Home Condition: Stable Instructions: Antibiotic Form, Urinary Tract Infection in Older Adults (ED) Additional Instructions: Take the antibiotic as prescribed The urine will be sent of for a culture to identify what type of bacteria is causing your infection. If the culture shows that the antibiotic will not get rid of your infection, you will be notified and a new antibiotic will be called in for you. Increase water intake you will need to follow up with your PCP 3-5 days. Go to the ER for any worsening symptoms, abdominal pain,, flank pain, confusion, weakness, fevers, nausea, vomiting, or any other concerns Patient Language: Persian Prescriptions: New amoxicillin-pot clavulanate 875-125 mg tablet 1 tablet PO Q12H 7 Days Qty: 14 0RF No Action aspirin 81 mg Tablet,Chewable 81 mg PO DAILY pyridoxine (vitamin B6) [Vitamin B-6] 100 mg Tablet 100 mg PO DAILY melatonin 10 mg Tablet 10 mg PO HS PRN (Reason: Anxiety) brimonidine-timolol [Combigan] 0.2-0.5 % drops EACH EYE QPM famotidine 20 mg tablet PO BID latanoprost 0.005 % drops EACH EYE BID valsartan-hydrochlorothiazide 320-12.5 mg tablet 1 tablet PO DAILY Qty: 90 3RF Multiple Vitamin BYMOUTH Rx Instructions: Daily womens Probiotic BYMOUTH DAILY cyanocobalamin (vitamin B-12) 500 mcg tablet 500 mcg PO DAILY cholecalciferol (vitamin D3) 50 mcg (2,000 unit) capsule 50 mcg PO DAILY venlafaxine 100 mg tablet 100 mg PO BID Qty: 180 3RF modafinil 100 mg tablet 100 mg PO QAM Qty: 30 2RF buspirone 10 mg tablet See Rx Instructions .ROUTE .COMPLEX Qty: 75 3RF Dose Instruction: TAKE 1 TABLET BY MOUTH IN THE MORNING AND 1 AND 1/2 TABLETS IN THE AFTERNOON Rx Instructions: TAKE 1 TABLET BY MOUTH IN THE MORNING AND 1 AND 1/2 TABLETS IN THE AFTERNOON trazodone 100 mg tablet 100 mg PO QHS Qty: 90 3RF tramadol 50 mg tablet 50 mg PO BID PRN (Reason: pain) Qty: 60 1RF levothyroxine 175 mcg tablet See Rx Instructions .ROUTE .COMPLEX Qty: 90 0RF Dose Instruction: TAKE 1 TABLET BY MOUTH DAILY Rx Instructions: TAKE 1 TABLET BY MOUTH DAILY gabapentin 100 mg capsule See Rx Instructions .ROUTE .COMPLEX Qty: 180 3RF Dose Instruction: TAKE 1 CAPSULE BY MOUTH TWICE DAILY Rx Instructions: TAKE 1 CAPSULE BY MOUTH TWICE DAILY Follow-up/Referrals: Irma Carreon APRN [Primary Care Provider, Family Practice] Time of Disposition: 16:28
--- OUTSIDE RECORDS SUMMARY | 2025-02-15 19:17 | XMS_ITS | Encounter Summary ---
Author Organization [facility] Address [address] [place] [address] Phone Care Team Providers Care Indexer Name Role Phone Aditya Reza MD Unavailable Alexus Mehta APRN, PURCHASING ENGINEER Primary Care Prov ider Reason for Visit * Reason Comments Medication Refill Encounter Details Date Type Department Care Team (Late st Contact Info) Description 09/23/2022 Refill [facility] - Family Medicine - [place] #[address] [place] [address] Ja Samuel MD #[address] [address] Medication Refill Social History Tobacco Use Types Packs/Day Years Used Date Smoking Tobacco: Former Cigarettes 7 0 07/06/1982 - 07/06/1989 Smokeless Tobacco: Never [...] Depression Total Score: 0 01/14/20 10:00 AM [facility] documented as of this encounter Care Teams Indexer Relationship Specialty Start Date End Date Alexus Mehta, HOME OFFICE CLAIM SPECIALIST, PURCHASING ENGINEER #2 [facility] [address] [place] [address] PCP - General Advanced Practice Nurse 01/13/22 Aditya Reza MD #2 [place] [facility] [address] [place] [address] Consulting Physician Urology 12/31/21 documented as of this encounter
--- OUTSIDE RECORDS SUMMARY | 2025-02-15 19:17 | XMS_ITS | Encounter Summary ---
Author Organization [facility] Address [address] [place] [address] Phone Care Team Providers Care It Infrastructure Project Manager Name Role Phone Aditya Reza MD Unavailable Alexus Mehta APRN, ELECTRICAL SIGN SERVICER Primary Care Prov ider Reason for Visit * Reason Comments Medication Refill Encounter Details Date Type Department Care Team (Late st Contact Info) Description 01/07/2023 Refill [facility] - Family Medicine - [place] #2 [place] [address] Ja Samuel MD #[address] [address] Medication Refill Social History Tobacco Use Types [...] 0 Signed by: Alexus Mehta APRN, CNP [facility] documented in this encounter Plan of Treatment Not on file documented as of this encounter Visit Diagnoses Diagnosis Anxiety Anxiety state, unspecified documented in this encounter Additional Health Concerns Infection Onset Date Last Indicated Resolved Time ESBL 06/20/2018 01/01/2022 Assessment Noted Time PHQ-9 Depression Total Score: 0 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
--- OUTSIDE RECORDS SUMMARY | 2025-02-15 19:17 | XMS_ITS | Encounter Summary ---
Author Organization [facility] Address [address] [place] [address] Phone Care Team Providers Care Tank Maker Wood Name Role Phone Libia Aditya DONALDSON Unavailable Alexus Mehta APRN, SHOT TUBE MACHINE TENDER Primary Care Prov ider Reason for Visit * Reason Comments Medication Refill Encounter Details Date Type Department Care Team (Late st Contact Info) Description 10/20/2022 Refill [facility] - Family Medicine - [place] #2 [place] [address] Alexus Mehta APRN, SHOT TUBE MACHINE TENDER #[address] [address] Medication Refill Social History Tobacco [...] Total Score: 0 01/14/20 10:00 AM UTILITY LOCATOR documented as of this encounter Care Teams Tank Maker Wood Relationship Specialty Start Date End Date Alexus Mehta APRN, CNP #2 [facility] [address] [place] [phone] PCP - General Advanced Practice Nurse 01/13/22 Aditya Reza MD #2 [place] [facility] [address] [place] [address] Consulting Physician Urology 12/31/21 documented as of this encounter
--- OUTSIDE RECORDS SUMMARY | 2025-02-15 19:17 | XMS_ITS | Encounter Summary ---
Author Organization [facility] Address [address] [place] [address] Phone Care Team Providers Care Pig Sticker Name Role Phone Libia Aditya DONALDSON Unavailable Aleuxs Mehta APRN, IMPREGNATOR HELPER Primary Care Prov ider Reason for Visit * Reason Comments Medication Refill Encounter Details Date Type Department Care Team (Late st Contact Info) Description 04/23/2022 Refill [facility] - Family Medicine - [place] #2 [place] [address] Alexus Mehta APRN, IMPREGNATOR HELPER #[address] [address] Medication Refill Social History Tobacco [...] Coronavirus/COVID-19? 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
--- OUTSIDE RECORDS SUMMARY | 2025-02-15 19:17 | XMS_ITS | Encounter Summary ---
Author Organization [facility] Address [address] [place] [address] Phone Care Team Providers Care Termite Control Servicer Name Role Phone Aditya Reza MD Unavailable Alexus Mehta APRN, HAND SPRING REPAIRER Primary Care Prov ider Reason for Visit * Reason Comments Medication Refill Encounter Details Date Type Department Care Team (Late st Contact Info) Description 09/13/2022 Refill [facility] - Family Medicine - [place] #2 [place] [address] Ja Samuel MD #[address] [address] Medication Refill Social History Tobacco Use Types [...] 08/02/2022 90 180 Each Ja Samuel MD [facility] #... 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, unspecified documented in this encounter Additional Health Concerns Infection Onset Date Last Indicated Resolved Time ESBL 06/20/2018 01/01/2022 Assessment Noted Time PHQ-9 Depression Total Score: 0 01/14/20 10:00 AM MANUFACTURING ASSISTANT documented as of this encounter Care Teams Termite Control Servicer Relationship Specialty Start Date End Date Alexus Mehta APRN, HAND SPRING REPAIRER #2 [facility] [address] [place] [address] PCP - General Advanced Practice Nurse 01/13/22 Aditya Reza MD #2 [facility] [facility] [address] [place] [address] Consulting Physician Urology 12/31/21 documented as of this encounter
--- OUTSIDE RECORDS SUMMARY | 2025-02-15 19:17 | XMS_ITS | Encounter Summary ---
Author Organization [facility] Address [address] [place] [address] Phone Care Team Providers Care Residential Field Manager Name Role Phone Aditya Reza MD Unavailable Alexus Mehta APRN, BUSINESS CONTROL SPECIALIST Primary Care Prov ider Reason for Visit * Reason Comments Medication Refill Encounter Details Date Type Department Care Team (Late st Contact Info) Description 09/20/2022 Refill [facility] - Family Medicine - [place] #2 [place] [address] Ja Samuel MD #[address] [address] Medication Refill Social History Tobacco Use Types [...] Depression Total Score: 0 01/14/20 10:00 AM CHRONIC CARE NURSE documented as of this encounter Care Teams Residential Field Manager Relationship Specialty Start Date End Date Alexus Mehta APRN, BUSINESS CONTROL SPECIALIST #2 [facility] [address] [place] [address] PCP - General Advanced Practice Nurse 01/13/22 Aditya Reza MD #2 [place] [facility] [address] [place] [address] Consulting Physician Urology 12/31/21 documented as of this encounter
--- OUTSIDE RECORDS SUMMARY | 2025-02-15 19:18 | XMS_ITS | Encounter Summary ---
Author Organization [facility] Address [address] [place] [address] Phone Care Team Providers Care Auto Customize Painter Name Role Phone Aditya Reza MD Unavailable Alexus Mehta APRN, LINE INSPECTOR Primary Care Prov ider Reason for Visit * Reason Comments Medication Refill Encounter Details Date Type Department Care Team (Late st Contact Info) Description 06/28/2022 Refill [facility] - Family Medicine - [place] #2 [place] [address] Ja Samuel MD #[address] [address] Medication Refill Social History Tobacco Use Types [...] CDT Reordered 06/04/22 for 4 months - [facility] documented in this encounter Plan of Treatment Not on file documented as of this encounter Visit Diagnoses Not on filedocumented in this encounter Additional Health Concerns Infection Onset Date Last Indicated Resolved Time ESBL 06/20/2018 01/01/2022 Assessment Noted Time PHQ-9 Depression Total Score: 0 01/14/20 10:00 AM ALCOHOL RUBBER documented as of this encounter Care Teams Auto Customize Painter Relationship Specialty Start Date End Date Alexus Mehta, SLUBBER MACHINE OPERATOR, LINE INSPECTOR #2 [facility] [address] [place] [phone] PCP - General Advanced Practice Nurse 01/13/22 Aditya Reza MD #2 [facility] [facility] [address] [place] [address] Consulting Physician Urology 12/31/21 documented as of this encounter
--- OUTSIDE RECORDS SUMMARY | 2025-02-15 19:18 | XMS_ITS | Encounter Summary ---
Author Organization [facility] Address [address] [place] [address] Phone Care Team Providers Care Group Director Name Role Phone Libia Aditya DONALDSON Unavailable Alexus Mehta APRN, POLEYARD SUPERVISOR Primary Care Prov ider Reason for Visit * Reason Comments Medication Refill Encounter Details Date Type Department Care Team (Late st Contact Info) Description 04/23/2022 Refill [facility] - Family Medicine - [place] #2 [place] [address] Alexus Mehta APRN, POLEYARD SUPERVISOR #[address] [address] Medication Refill Social History Tobacco [...] Coronavirus/COVID-19? No / Unsure 04/09/2022 3:43 PM DISHTANK OPERATOR documented as of this encounter Miscellaneous Notes * Telephone Encounter - Lynn Saucedo RN - 04/23/2022 3:16 PM CST Signed Today (04/23/2022): venlafaxine (EFFEXOR) 100 MG Tablet Sig: TAKE 1 TABLET BY MOUTH IN THE MORNING AND AT BEDTIME Disp: 180 Tablet ? Refills: 1 Signed by: Ja Samuel MD [facility] TANK OPERATOR 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, unspecified documented in this encounter Additional Health Concerns Infection Onset Date Last Indicated Resolved Time ESBL 06/20/2018 01/01/2022 Assessment Noted Time PHQ-9 Depression Total Score: 0 01/14/20 22 10:00 AM DISHTANK OPERATOR documented as of this encounter Care Teams Group Director Relationship Specialty Start Date End Date Alexus Mheta, GUMARO, TYRONE #2 [place] [facility] [address] [place] [address] PCP - General Advanced Practice Nurse 01/13/22 Aditya Reza MD #2 [place] [facility] [place] [address] [place] [address] Consulting Physician Urology 12/31/21 documented as of this encounter
--- OUTSIDE RECORDS SUMMARY | 2025-02-15 19:19 | XMS_ITS | Clinical Summary ---
Author Organization [facility] Medical Office Building [address] Address [address] [place] [address] Care Team Providers Care Videogame Designer Name Role Phone Alexus Mehta NP Primary Care Provider + Cuong Gaytan MD Unavailable [phone] Allergies Active Allergy Reactions Criticality Noted Date [...] on file Legal Sex Female 1:02 AM RADIO INTELLIGENCE OPERATOR Gender Identity Not on file Sexual [...] CDT PROCEDURE REPORT Patient: DEANNA YOO Account: [id number] Room No: : 1950 Patient Type: SDS [...] Most Recently Relevant to Health Maintenance Insurance [facility] MEDICARE MEDICARE [facility] MEDICARE [facility] Care Teams Videogame Designer Relationship Specialty Start Date End Date Alexus Mehta NP [facility] [address] [place] [address] PCP - General Nurse Practitioner 11/03/22 Cuong Gaytan MD [address] [facility] [address] [place]be [facility] [address] [place] [address] Consulting Physician Obstetrics and Gynecology 05/17/23
--- OUTSIDE RECORDS SUMMARY | 2025-02-15 19:19 | XMS_ITS | Encounter Summary ---
Author Organization [facility]Info [facility] Address [address] [place] [address] Care Team Providers Care Electric Screw Driver Operator Name Role Phone Unavailable Primary Care [...] on file Legal Sex Female 5:44 AM WATER REUSE PROGRAM MANAGER Gender Identity Not on file Sexual [...] AM CDT) INR 2.5(H) 0.9 - 1.1 [facility] Comment: INR Therapeutic Range: Adult: 2.0 - 3.0 for pulmonary embolism or prophylaxis against venous thrombosis or systemic embolization. 2.0 - 3.0 for patients with tissue heart valves. 2.5 - 3.5 for patients with mechanical heart valves or post [place]. Pediatric (12 years and under): 1.5 - 3.0 Although the target range in children is not well established, INR values of 1.5 - 3.0 are recommended for most patients. Higher values have been used in children with prosthetic cardiac valves and hereditary clotting disorders. (<3 days) therapeutic ranges have not been established. PROTIME 27.1(H) 12.7 - 15.1 Seconds [facility] 09/07/2008 5:57 AM CDT 09/07/2008 6:39 AM CDT us Gio Watkins MD HEMATOLOGY ORDERABLES Kelsey kaminski Result INTERFACE SYSTEM Refer to clinic/hospital department [facility] CLIA# [id number] [address] [place] [address] * (ABNORMAL) PROTIME-INR (09/06/2008 5:00 AM CDT) PROTIME 23.5(H) 12.7 - 15.1 Seconds [facility] INR 2.1(H) 0.9 - 1.1 [facility] Comment: INR Therapeutic Range: Adult: 2.0 - 3.0 for pulmonary embolism or prophylaxis against venous thrombosis or systemic embolization. 2.0 - 3.0 for patients with tissue heart valves. 2.5 - 3.5 for patients with mechanical heart valves or post [place]. Pediatric (12 years and under): 1.5 - 3.0 Although the target range in children is not well established, INR values of 1.5 - 3.0 are recommended for most patients. Higher values have been used in children with prosthetic cardiac valves and hereditary clotting disorders. [place] (<3 days) therapeutic ranges have not been established. 09/06/2008 5:00 AM CDT 09/06/2008 6:09 AM CDT us Subbuluxmi Sunita DONALDSON HEMATOLOGY ORDERABLES Fi nal Result INTERFACE SYSTEM Refer to clinic/hospital department [facility] CLIA# [id number] [address] [facility] [place] [address] * (ABNORMAL) BASIC METABOLIC PANEL (09/06/2008 5:00 AM CDT) CHLORIDE 104 96 - 108 mmol/L [facility] GLUCOSE 98 65 - 99 mg/dL [facility] SODIUM 135 135 - 145 mmol/L [facility] CALCIUM 8.2(L) 8.6 - 10.2 mg/dL [facility] CO2 24 22 - 30 mmol/L [facility] CREATININE 0.80 0.51 - 0.95 mg/dL [facility] POTASSIUM 4.1 3.5 - 4.9 mmol/L [facility] BUN 15 6 - 20 mg/dL [facility] GFR, >60 >=60 mL/min/1. 7 sq meter [facility] GFR >60 >=60 mL/min/1. 7 sq meter [facility] Comment: Modification of Diet in Renal Disease (MDRD) study formula. Estimated GFR rate interpretative information for both Americans and non- Americans is available on the [facility] Intranet at: [email or web address] Select: Lab Policies and Procedures Select: Reference Ranges - GFR 09/06/2008 5:00 AM CDT 09/06/2008 6:09 AM CDT us Subbuluxmi Sunita DONALDSON CHEMISTRY ORDERABLES Chavo mack INTERFACE SYSTEM Refer to clinic/hospital department [facility] CLIA# [id number] [address] [place] [address] * (ABNORMAL) CBC WITH DIFFERENTIAL (09/06/2008 5:00 AM CDT) MCV 83.8 82.0 - 99.0 fL [facility] PLATELETS 191 140 - 350 K/uL [facility] HEMOGLOBIN 8.3(L) 11.8 - 14.8 g/dL [facility] RDW 14.8(H) 11.5 - 14.5 % [facility] WBC 7.9 4.0 - 9.8 K/uL [facility] MCH 27.5 27.2 - 32.6 pg [facility] MPV 10.5 9.3 - 12.4 fL [facility] HEMATOCRIT 25.3(L) 35.5 - 44.0 % [facility] RDW-STDEV 46.0 37.1 - 48.7 fL [facility] RBC 3.02(L) 3.90 - 4.90 M/uL [facility] MCHC 32.8 31.5 - 35.5 % [facility] BASOPHILS ABSOLUTE 0.00 0.00 - 0.20 K/uL [facility] POIKILOCYTES Slight [facility] MONOCYTES 5 3 - 13 % [facility] MONOCYTE ABSOLUTE 0.40 0.10 - 1.30 K/uL [facility] PLATELET EST. Consistent w/ count Normal [facility] BANDS 1 0 - 5 % [facility] NEUTROPHIL ABSOLUTE 6.32 1.90 - 7.00 K/uL [facility] NEUTROPHILS, SEG 79(H) 45 - 70 % [facility] EOSINOPHILS 2 0 - 7 % [facility] MICROCYTES Slight [facility] EOSINOPHIL ABSOLUTE 0.16 0.00 - 0.70 K/uL [facility] LYMPHOCYTES 13(L) 16 - 45 % [facility] ANISOCYTOSIS Slight [facility] LYMPHOCYTE ABSOLUTE 1.03 0.70 - 4.50 K/uL [facility] BASOPHILS 0 0 - 2 % [facility] Blood specimen (specimen) 09/06/2008 5:00 AM CDT 09/06/2008 6:09 AM CDT Mickbuluxbrad Dorsey MD HEMATOLOGY ORDERABLES Ed ited INTERFACE SYSTEM Refer to clinic/hospital department [facility] CLIA# [id number] [address] [place], [place] [address] * (ABNORMAL) PROTIME-INR (09/05/2008 4:16 AM CDT) PROTIME 16.3(H) 12.7 - 15.1 Seconds [facility] INR 1.3(H) 0.9 - 1.1 [facility] Comment: INR Therapeutic Range: Adult: 2.0 - 3.0 for pulmonary embolism or prophylaxis against venous thrombosis or systemic embolization. 2.0 - 3.0 for patients with tissue heart valves. 2.5 - 3.5 for patients with mechanical heart valves or post [place]. Pediatric (12 years and under): 1.5 - 3.0 Although the target range in children is not well established, INR values of 1.5 - 3.0 are recommended for most patients. Higher values have been used in children with prosthetic cardiac valves and hereditary clotting disorders. [place] (<3 days) therapeutic ranges have not been established. 09/05/2008 4:16 AM CDT 09/05/2008 5:14 AM CDT Gio Watkins MD HEMATOLOGY ORDERABLES Kelsey kaminski Result Performing Organization Address [facility] Phone Number INTERFACE SYSTEM Refer to clinic/hospital department [facility] CLIA# [id number] [address] [place] [address] * (ABNORMAL) HEMOGLOBIN AND HEMATOCRIT (09/05/2008 4:16 AM CDT) HEMOGLOBIN 8.9(L) 11.8 - 14.8 g/dL [facility] HEMATOCRIT 27.1(L) 35.5 - 44.0 % [facility] 09/05/2008 4:16 AM CDT 09/05/2008 5:14 AM CDT Gio Watkins MD HEMATOLOGY ORDERABLES Kelsey l Result Performing Organization Address [facility] de Phone Number INTERFACE SYSTEM Refer to clinic/hospital department [facility] CLIA# [id number] [address] [place] [address] * (ABNORMAL) BASIC METABOLIC PANEL (09/05/2008 4:16 AM CDT) CREATININE 0.86 0.51 - 0.95 mg/dL [facility] POTASSIUM 3.4(L) 3.5 - 4.9 mmol/L [facility] BUN 13 6 - 20 mg/dL [facility] CHLORIDE 103 96 - 108 mmol/L [facility] GLUCOSE 115(H) 65 - 99 mg/dL [facility] SODIUM 135 135 - 145 mmol/L [facility] CALCIUM 8.1(L) 8.6 - 10.2 mg/dL [facility] CO2 23 22 - 30 mmol/L [facility] GFR, >60 >=60 mL/min/1. 7 sq meter [facility] GFR >60 >=60 mL/min/1. 7 sq meter [facility] Comment: Modification of Diet in Renal Disease (MDRD) study formula. Estimated GFR rate interpretative information for both Americans and non- Americans is available on the [facility] Intranet at: [email or web address] Select: Lab Policies and Procedures Select: Reference Ranges - GFR 09/05/2008 4:16 AM CDT 09/05/2008 5:14 AM CDT Gio Watkins MD CHEMISTRY ORDERABLES Edite d Performing Organization Address City/State/[facility] Co de Phone Number INTERFACE SYSTEM Refer to clinic/hospital department [facility] CLIA# [id number] [address] [place] [address] * XR CHEST PA AND LATERAL (08/13/2008 11:57 AM CDT) Anatomical Region Laterality Modality Chest Other 08/13/2008 11:5 7 AM CDT Narrative 08/13/2008 12:45 PM CDT [facility] [address] [place], [place] [address] Admit Date: 07/09/2008 DEANNA YOO Sex: F Admit Prov: GIO WATKINS Date: 1950 Primary Care Prov: SRIKANTH MULLINS CMRN: [id number] [id number] IM[facility] SERVICES Ordering Prov: N/A Accession Number: [id number] Interpretation PA AND LATERAL CHEST X-RAY, 08/13/2008 [...] Procedure Note Lupe Carter MD - 08/13/2008 [address] [place], [place] [address] Admit Date: 07/09/2008 DEANNA YOO Sex: F Admit Prov: GIO WATKINS Date: 1950 Primary Care Prov: SRIKANTH MULLINS CMRN: [id number] [id number] [facility] Ordering Prov: N/A Interpretation PA [...] AM CDT) CLARITY UA Slt. Cloudy(A) Clear [facility] PROTEIN UA Trace(A) Negative [facility] EPITHELIAL CELLS, URINE 0-2 /HPF [facility] BILIRUBIN UA Negative Negative [facility] LEUKOCYTE ESTERASE UA 3+(A) Negative [facility] RBC UA 28(H) 0 - 4 /HPF [facility] SPECIFIC GRAVITY UA 1.013 1.001 - 1.035 [facility] BLOOD UA 2+(A) Negative [facility] GLUCOSE UA Negative Negative [facility] WBC CLUMPS Present(A) None Seen [facility] COLOR UA Yellow [facility] NITRITE UA Negative Negative [facility] UROBILINOGEN UA <1 <=1 mg/dL [facility] BACTERIA UA 3+(A) None Seen /HPF [facility] PH UA 5.5 5.0 - 8.0 [facility] KETONES UA Negative Negative [facility] WBC UA >100(H) 0 - 5 /HPF [facility] 08/13/2008 11:1 4 AM CDT 08/13/2008 12:16 PM CDT us Gio Watkins MD URINE ORDERABLES Final Res ult INTERFACE SYSTEM Refer to clinic/hospital department [facility] CLIA# [id number] [address] [place] [address] * COMPREHENSIVE METABOLIC PANEL (08/13/2008 11:14 AM CDT) Pathologist [facility] ALKALINE PHOSPHATASE 79 35 - 104 U/L [facility] CO2 22 22 - 30 mmol/L [facility] BILIRUBIN TOTAL 0.4 0.2 - 1.0 mg/dL [facility] POTASSIUM 3.5 3.5 - 4.9 mmol/L [facility] TOTAL PROTEIN 7.7 6.3 - 8.6 g/dL [facility] GLUCOSE 90 65 - 99 mg/dL [facility] AST 12 12 - 32 U/L [facility] BUN 12 6 - 20 mg/dL [facility] CALCIUM 9.6 8.6 - 10.2 mg/dL [facility] ALBUMIN 4.1 3.4 - 4.8 g/dL [facility] CHLORIDE 105 96 - 108 mmol/L [facility] CREATININE 0.92 0.51 - 0.95 mg/dL [facility] ALT 13 0 - 31 U/L [facility] SODIUM 140 135 - 145 mmol/L [facility] GFR, >60 >=60 mL/min/1.7 sq meter [facility] GFR >60 >=60 mL/min/1.7 sq meter [facility] Comment: Modification of Diet in Renal Disease (MDRD) study formula. Estimated GFR rate interpretative information for both Americans and non- Americans is available on the [facility] Intranet at: [email or web address] Select: Lab Policies and Procedures Select: Reference Ranges - GFR 08/13/2008 11:1 4 AM CDT 08/13/2008 12:08 PM CDT us Gio Watkins MD CHEMISTRY ORDERABLES Edite d INTERFACE SYSTEM Refer to clinic/hospital department [facility] CLIA# [id number] [address] [place] [address] * PROTIME-INR (08/13/2008 11:14 AM CDT) INR 1.0 0.9 - 1.1 [facility] Comment: ansiINR Therapeutic Range: Adult: 2.0 - 3.0 for pulmonary embolism or prophylaxis against venous thrombosis or systemic embolization. 2.0 - 3.0 for patients with tissue heart valves. 2.5 - 3.5 for patients with mechanical heart valves or post [place]. Pediatric (12 years and under): 1.5 - 3.0 Although the target range in children is not well established, INR values of 1.5 - 3.0 are recommended for most patients. Higher values have been used in children with prosthetic cardiac valves and hereditary clotting disorders. [place] (<3 days) therapeutic ranges have not been established. PROTIME 13.5 12.7 - 15.1 Seconds [facility] 08/13/2008 11:1 4 AM CDT 08/13/2008 12:08 PM CDT us Gio Watkins MD HEMATOLOGY ORDERABLES Kelsey kaminski Result INTERFACE SYSTEM Refer to clinic/hospital department [facility] CLIA# [id number] [address] [place] [address] * (ABNORMAL) CBC WITH DIFFERENTIAL (08/13/2008 11:14 AM CDT) Pathologist [facility] WBC 6.9 4.0 - 9.8 K/uL [facility] MCH 27.7 27.2 - 32.6 pg [facility] MPV 11.1 9.3 - 12.4 fL [facility] HEMATOCRIT 36.5 35.5 - 44.0 % [facility] RDW-STDEV 44.2 37.1 - 48.7 fL [facility] RBC 4.23 3.90 - 4.90 M/uL [facility] MCHC 32.1 31.5 - 35.5 % [facility] MCV 86.3 82.0 - 99.0 fL [facility] PLATELETS 334 140 - 350 K/uL [facility] HEMOGLOBIN 11.7(L) 11.8 - 14.8 g/dL [facility] RDW 14.2 11.5 - 14.5 % [facility] LYMPHOCYTES 29 16 - 45 % [facility] LYMPHOCYTE ABSOLUTE 2.01 0.70 - 4.50 K/uL [facility] BASOPHILS 0 0 - 2 % [facility] BASOPHILS ABSOLUTE 0.02 0.00 - 0.20 K/uL [facility] MONOCYTES 8 3 - 13 % [facility] MONOCYTE ABSOLUTE 0.57 0.10 - 1.30 K/uL [facility] NEUTROPHILS 62 45 - 70 % [facility] NEUTROPHIL ABSOLUTE 4.24 1.90 - 7.00 K/uL [facility] EOSINOPHILS 1 0 - 7 % [facility] EOSINOPHIL ABSOLUTE 0.05 0.00 - 0.70 K/uL [facility] 08/13/2008 11:1 4 AM CDT 08/13/2008 12:08 PM CDT us Gio Watkins MD HEMATOLOGY ORDERABLES Edit ed INTERFACE SYSTEM Refer to clinic/hospital department [facility] CLIA# [id number] [address] [place] [address] * TYPE AND CROSSMATCH (08/13/2008 11:13 AM CDT) HISTORY CHECK No Historical ABO/Rh [facility] SPECIMEN LIFE 3 days from OR date [facility] ABO/RH TYPE AB Negative [facility] ANTIBODY SCREEN Negative [facility] 08/13/2008 11:1 3 AM CDT us Gio Watkins MD BLOOD BANK ORDERABLES Edit ed INTERFACE SYSTEM Refer to clinic/hospital department [facility] CLIA# [id number] [address] [place], [place] [address] documented in this encounter Visit Diagnoses Not on filedocumented in this encounter
--- OUTSIDE RECORDS SUMMARY | 2025-02-15 19:19 | XMS_ITS | Encounter Summary ---
Author Organization [facility] Address [address] [place] [address] Phone Care Team Providers Care Roastmaster Name Role Phone Libia Aditya DONALDSON Unavailable Alexus Mehta APRN, [employer] Primary Care Prov ider Reason for Visit * Reason Comments Medication Refill Encounter Details Date Type Department Care Team (Late st Contact Info) Description 11/20/2023 Refill [facility] - Family Medicine - [place] [address] [place] [address] Alexus Mehta APRN, [employer] [address] [address] Medication Refill Social History Tobacco Use Types Packs/Day Years Used Date Smoking Tobacco: Former Cigarettes 7 0 07/06/1982 - 07/06/1989 Smokeless Tobacco: Never Alcohol Use Standard Drinks/Week Comments Never 0 (1 standard drink = 0.6 oz pur e alcohol) [facility] Utilities Answer Date Recorded In [...] 10/14/2023 How often do you attend chur or congregation services? 1 to 4 times per year 10/14/2023 Do you belong to any clubs o r organizations such as catholic groups, unions, fraternal or athletic groups, [...] Total Score - Questions 1-9 12 11/2023 [facility] - [...] time in the past 12 m [facility], were you homeless or living in a jail (including now)? No 10/14/2023 Education Answer Date [...] discontinued on 12/31/2022 by Alexus Mehta APRN, [employer] documented in this encounter Plan of Treatment [...] documented as of this encounter Care Teams Roastmaster Relationship Specialty Start Date End Date Alexus Mehta APRN, [employer] #[address] [facility] [address] [place] [id number] PCP - General Advanced Practice Nurse 01/13/22 Aditya Reza MD [address] [facility] [address] [place] [address] Consulting Physician Urology 12/31/21 documented as of this encounter
--- OUTSIDE RECORDS SUMMARY | 2025-02-15 19:19 | XMS_ITS | Clinical Summary ---
Author Organization [facility] Address [address] [place] [address] Phone Care Team Providers Care Soapstoner Name Role Phone Aditya Reza MD Unavailable Alexus Mehta APRN, CERTIFIED COMPOSITES TECHNICIAN Primary Care Prov ider Allergies Active Allergy Reactions Criticality Noted Date [...] THE AFTERNOON 270 Tablet 1 5 Active valsartan-hydroCH LOROthiazide (DIOVAN-HCT) 320-12.5 MG TabletIndications :Primary hypertension TAKE 1 TABLET BY MOUTH DAILY 90 Tablet 1 5 Active famotidine (PEPCID) 20 [...] drink = 0.6 oz pur e alcohol) [facility] Utilities Answer Date Recorded In [...] often do you attend chur ch or yarsanism services? 1 to 4 times per year 10/14/2023 Do you belong to any clubs o r organizations such as christian groups, unions, fraternal or athletic groups, or [...] Score - Questions 1-9 0 11/0 03/2023 [facility] [place] of Occupat ional Health - Occupational Stress [...] any time in the past 12 m [facility], were you homeless or living in a snf (including now)? No 10/14/2023 Education Answer Date [...] Comments Blood Pressure 137/93 04/12/2024 9:00 PM WAREHOUSE TEAM MEMBER Pulse 87 04/12/2024 9:15 PM WAREHOUSE TEAM MEMBER Temperature 36.1 C (96.9 F) 04/12/2024 2:43 PM WAREHOUSE TEAM MEMBER Respiratory Rate 18 04/12/2024 9:15 PM WAREHOUSE TEAM MEMBER Oxygen Saturation 100% 04/12/2024 9:15 PM WAREHOUSE TEAM MEMBER Inhaled Oxygen Concentration - - Weight 81.2 kg (179 lb) 04/12/2024 2:43 PM WAREHOUSE TEAM MEMBER Height 163.8 cm (5' 4.5) 04/12/2024 2:43 PM WAREHOUSE TEAM MEMBER Body Mass Index 30.25 04/12/2024 2:43 PM WAREHOUSE TEAM MEMBER Plan of Treatment Health Maintenance Due Date Last Done Comments Cologuard 1994 Immunochemical Fecal Occult Blood 1994 Zoster Immunization (1 of 2) 1999 Respiratory Syncytial Virus (RSV) Immunization (Adult) (1 - 1-dose 75+ series) 2024 DEXA Bone Density 08/06/2024 08/06/2022, 10/13/2019 Influenza Immunization (#1) 11/06/202412/07, 12/21/2022, 01/07/2022, Additional history exists SARS-COV-2 Immunization (2024- season) 2024 12/21/2022, 01/24/2021, 04/30/2020, Additional history exists Colonoscopy 08/08/2025 08/09/2015 Colorectal [...] (HCV) Screening Discontinued Human Papillomavirus (HPV) Immunization (No Doses Required) Completed Meningococcal Immunization (ACWY) Aged Out No longer eligible based on patient's age to complete this topic Rotavirus Immunization Aged Out No lo nger eligible based on patient's age to complete this topic Medical Devices Implanted Type Area Car Distributor Device Identifier Shelf Expiration Date Model / Serial / Lot Stent Ureteral 6fr 2.1fr 24cm 2 Pigtail Curve 2 Durometer Taper Tip Loprfl Graduated Polaris Ultra - [id number] Implanted:Qty: 1 on 07/15/2018 by Marbella Alejandra MD at [facility] IMPLANT Right: Ureter [employer]ers2020 02/07/2021 [id number] / [id number] / [id number] Speedbridge Implant Systemw Ith Biocomposity Swivel Lock Implanted:Qty: 1 on 07/29/2016 [facility] Left: Shoulder 03/07/2018 / [id number] S-4 / [id number] Explanted Type Area Car Distributor Device Identifier Shelf Expiration Date Model / Serial / Lot Stent Ureteral 6fr 2.1fr 24cm 2 Pigtail Curve 2 Durometer Taper Tip Loprfl Graduated Polaris Ultra - [id number] Implanted:Qty : 1 on 06/24/2018 by [facility] Explanted:Qty : 1 on 07/15/2018 by [facility] IMPLANT Right: Ureter [employer]ers2020 12/20/2020 [id number] / [id number] / [id number] Procedures Procedure Name Priority Date/Time Associated Diagnosis Comments DILATED EYE EXAM 12/04/2024 1 2:00 AM CDT [facility] BONE DENSITOMETRY AXIAL SKELETON Routine 08/06/2022 11:38 AM CDT Post-menopausal Encounter for screening for osteoporosis [facility] SCREENING BILATERAL DIGITAL W CAD W JESSICA Routine 08/06/2022 11:27 AM CDT Screening mammogram for breast cancer from Last 3 Months or Most Recently Relevant to Health Maintenance Results * DILATED EYE EXAM (12/04/2024 12:00 AM CDT) 12/04/2024 us Provider Scan PROCEDURE/MINOR SURGICAL ORDERAB LES Final Result SCAN * [facility] BONE DENSITOMETRY AXIAL SKELETON (08/06/2022 11:38 [...] old F with given history of screening. Car Distributor/Model: Ak?Lex (S/N [id number]) CLINICAL INFORMATION: Current height: 64 inches Maximum [...] Naomi Cifuentes M.D. TW: MARY Report ID: [id number] Reading Location: [id number] Procedure Note Naomi Cifuentes MD - 08/07/2022 EXAM DESCRIPTION: [facility] BONE DENSITOMETRY AXIAL SKELETON REASON FOR STUDY: 72 y/o year old F with given history of screening. Car Distributor/Model: Ak?Lex (S/N [id number]) CLINICAL INFORMATION: Current height: 64 inches Maximum [...] Naomi Cifuentes M.D. TW: TW Report ID: [id number] Reading Location: [id number] IMPRESSION: Osteoporosis REFERENCE: Bone mineral density: Normal [...] Prevention and Treatment of Osteoporosis (http://www.nof.org/professionals/clinical-guidelines) Alexus Dalealison RECREATION SPECIALIST, CERTIFIED COMPOSITES TECHNICIAN IMG DEXA ORDERABLE S Final Result * [facility] SCREENING BILATERAL DIGITAL [...] made to exams dated: 04/22/2015 and 03/03/2011 [facility]. BREAST TISSUE:There are scattered fibroglandular densities in [...] exam. Electronically signed by: Karlee boyer/mary:08/06/2022 15:06:48 Tax Compliance Representative(s): RT Wil(Carole)(M), [facility] letter sent: Normal Exam Reading location: [facility] BI-RADS: 2 Benign Procedure Note Karlee [...] made to exams dated: 04/22/2015 and 03/03/2011 [facility]. BREAST TISSUE:There are scattered fibroglandular densities in [...] exam. Electronically signed by: Karlee boyer/mary:08/06/2022 15:06:48 Tax Compliance Representative(s): RT Wil(R)(M), [facility] letter sent: Normal Exam Reading location: [facility] BI-RADS: 2 Benign us Alexus Mehta APRN, CERTIFIED COMPOSITES TECHNICIAN IMG MAMMO ORDERABL ES Final Result from Last 3 Months or Most Recently Relevant to Health Maintenance Additional Health Concerns Infection Onset Date Last Indicated ESBL 06/20/2018 01/01/2022 Insurance [employer] [place] MEDICARE C [employer] [place] [employer] [facility] GENER[facility] Advance Directives * Full Code [...] measures to stabilize the patient. Care Teams Soapstoner Relationship Specialty Start Date End Date Alexus Mehta APRN, CERTIFIED COMPOSITES TECHNICIAN [address]2 [facility] [address] [place] [address] PCP - General Advanced Practice Nurse 01/13/22 Aditya Reza MD [address]2 [facility] [address] [place] [address] Consulting Physician Urology 12/31/21
--- OUTSIDE RECORDS SUMMARY | 2025-02-15 19:19 | XMS_ITS | Clinical Summary ---
Author Organization [facility] Address [address] [place] [address] Phone Care Team Providers Care Microfiche Camera Operator Name Role Phone Unavailable Primary Care Provider Unavailabl e Social History Tobacco Use Types Packs/Day Years Used Date Smoking Tobacco: Never Assessed Comments Unknown Sex and Gender Information Value Date Recorded Sex Assigned at Not on file Legal Sex Female 5:44 AM AUTOMATIC I THREADING MACHINE FEEDER Gender Identity Not on file Sexual Orientation [...]
--- OUTSIDE RECORDS SUMMARY | 2025-02-15 19:20 | XMS_ITS | Encounter Summary ---
Author Organization [facility] Address [address] [place] [address] Phone Care Team Providers Care Airbrush Artist Technical Name Role Phone Libia Aditya DONALDSON Unavailable Alexus Mehta APRN, HARBORMASTER Primary Care Prov ider Reason for Visit * Reason Comments Medication Refill Encounter Details Date Type Department Care Team (Late st Contact Info) Description 02/02/2023 Refill [facility] - [place] [address] [place] [address] Alexus Mehta APRN, HARBORMASTER [address] [address] Medication Refill Social History Tobacco [...] CNP for the following reason: Formulary change. MANAGER documented in this encounter Plan of Treatment Not on file documented as of this encounter Visit Diagnoses Diagnosis Anxiety Anxiety state, unspecified documented in this encounter Additional Health Concerns Infection Onset Date Last Indicated Resolved Time ESBL 06/20/2018 01/01/2022 Assessment Noted Time PHQ-9 Depression Total Score: 0 01/14/20 10:00 AM PARK MANAGER documented as of this encounter Care Teams Airbrush Artist Technical Relationship Specialty Start Date End Date Alexus Mehta APRN, CNP [address]2 [facility] [address] [place] [phone] PCP - General Advanced Practice Nurse 01/13/22 Aditya Reza MD #2 [facility] [address] [place] [address] Consulting Physician Urology 12/31/21 documented as of this encounter
--- OUTSIDE RECORDS SUMMARY | 2025-02-15 19:21 | XMS_ITS | Encounter Summary ---
Author Organization [facility] Address [address] [place] [address] Phone Care Team Providers Care Motor Express Clerk Name Role Phone Libia Aditya DONALDSON Unavailable Alexus Mehta APRN, TOOTH POLISHER Primary Care Prov ider Reason for Visit * Reason Comments Medication Refill Encounter Details Date Type Department Care Team (Late st Contact Info) Description 02/10/2023 Refill [facility] - [place] [address] [place] [address] Alexus Mehta APRN, TOOTH POLISHER [address] [address] Medication Refill Social History Tobacco [...] Mehta APRN, CNP [facility] Showing recent visits within past 182 days [...] Serotonin Modulators for at least 6 months IOLOGY CLINICAL NURSE SPECIALIST documented in this encounter Plan of Treatment Not on file documented as of this encounter Visit Diagnoses Not on filedocumented in this encounter Additional Health Concerns Infection Onset Date Last Indicated Resolved Time ESBL 06/20/2018 01/01/2022 Assessment Noted Time PHQ-9 Depression Total Score: 0 01/14/20 10:00 AM CARDIOLOGY CLINICAL NURSE SPECIALIST documented as of this encounter Care Teams Motor Express Clerk Relationship Specialty Start Date End Date Alexus Mehta APRN, TOOTH POLISHER [address] [facility] [address] [place] [phone] PCP - General Advanced Practice Nurse 01/13/22 Aditya Reza MD #[address] [facility] [address] [place] [address] Consulting Physician Urology 12/31/21 documented as of this encounter
--- OUTSIDE RECORDS SUMMARY | 2025-02-15 19:21 | XMS_ITS | Encounter Summary ---
Author Organization [facility] Address [address] [place] [address] Phone Care Team Providers Care Electrical And Instrument Engineer Name Role Phone Libia Aditya DONALDSON Unavailable Alexus Mehta APRN, CONTACT ACID PLANT OPERATOR HELPER Primary Care Prov ider Reason for Visit * Reason Comments Medication Refill Encounter Details Date Type Department Care Team (Late st Contact Info) Description 06/24/2023 Refill [facility] - [place] [address] [place] [address] Alexus Mehta APRN, CONTACT ACID PLANT OPERATOR HELPER #[address] [address] Medication Refill Social History Tobacco [...] 12/31/22 Office Visit Alexus Mehta APRN, CNP [facility] Showing recent visits within past 365 [...] documented as of this encounter Care Teams Electrical And Instrument Engineer Relationship Specialty Start Date End Date Alexus Mehta APRN, CONTACT ACID PLANT OPERATOR HELPER #2 [facility] [address] [place] [phone] PCP - General Advanced Practice Nurse 01/13/22 Aditya Reza MD #2 [facility] [address] [place] [address] Consulting Physician Urology 12/31/21 documented as of this encounter
--- OUTSIDE RECORDS SUMMARY | 2025-02-15 19:21 | XMS_ITS | Encounter Summary ---
Author Organization [facility] Address [address] [place] [address] Phone Care Team Providers Care Laser Machine Operator Name Role Phone Libia Aditya DONALDSON Unavailable Alexus Mehta APRN, VENDING MACHINE SERVICER Primary Care Prov ider Reason for Visit * Reason Comments Medication Refill Encounter Details Date Type Department Care Team (Late st Contact Info) Description 02/10/2023 Refill [facility] - [place] [address] [place] [address] Alexus Mehta APRN, VENDING MACHINE SERVICER #[address] [address] Medication Refill Social History Tobacco [...] reordered on 02/10/2023 by Alexus Mehta APRN, TYRONE. HYDRANT MECHANIC * Telephone Encounter - Lynn Saucedo RN - 02/10/2023 9:19 AM CST duplicate HYDRANT MECHANIC documented in this encounter Plan of Treatment Not on file documented as of this encounter Visit Diagnoses Not on filedocumented in this encounter Additional Health Concerns Infection Onset Date Last Indicated Resolved Time ESBL 06/20/2018 01/01/2022 Assessment Noted Time PHQ-9 Depression Total Score: 0 01/14/20 10:00 AM FIRE HYDRANT MECHANIC documented as of this encounter Care Teams Laser Machine Operator Relationship Specialty Start Date End Date Alexus Mehta APRN, VENDING MACHINE SERVICER #[address] [facility] [address] [place] [phone] PCP - General Advanced Practice Nurse 01/13/22 Aditya Reza MD #2 [facility] [address] [place] [address] Consulting Physician Urology 12/31/21 documented as of this encounter
--- OUTSIDE RECORDS SUMMARY | 2025-02-15 19:21 | XMS_ITS | Encounter Summary ---
Author Organization [facility] Address [address] [place] [address] Phone Care Team Providers Care Leather Goods I Assembler Name Role Phone Libia Aditya DONALDSON Unavailable Alexus Mehta APRN, STUMP BLOWER Primary Care Prov ider Reason for Visit * Reason Comments Medication Refill Encounter Details Date Type Department Care Team (Late st Contact Info) Description 06/21/2023 Refill [facility] - [place] [address] [place] [address] Alexus Mehta APRN, STUMP BLOWER #[address] [address] Medication Refill Social History Tobacco [...] CDT Medication([facility]) [facility] Chronic Medication Refill Standing Order [...] 12/31/22 Office Visit Alexus Mehta APRN, CNP [facility] [place] Showing recent visits [...] documented as of this encounter Care Teams Leather Goods I Assembler Relationship Specialty Start Date End Date Alexus Mehta APRN, STUMP BLOWER #2 [facility] [address] [place] [address] PCP - General Advanced Practice Nurse 01/13/22 Aditya Reza MD [address] [facility] [address] [place] [address] Consulting Physician Urology 12/31/21 documented as of this encounter
--- OUTSIDE RECORDS SUMMARY | 2025-02-15 19:21 | XMS_ITS | Encounter Summary ---
Author Organization [facility] Address [address] [place] [address] Phone Care Team Providers Care Armored Machine Operator Name Role Phone Libia Aditya DONALDSON Unavailable Alexus Mehta APRN, ASSISTANT BRANCH OPERATIONS MANAGER Primary Care Prov ider Reason for Visit * Reason Comments Medication Refill Encounter Details Date Type Department Care Team (Late st Contact Info) Description 06/06/2023 Refill [facility] - [place] [address] [place] [address] Alexus Mehta APRN, ASSISTANT BRANCH OPERATIONS MANAGER #[address] [address] Medication Refill Social History [...] * Question Answer Date of Assessment Author BP 114/68 06/08/2023 9:55 AM CDT Kellie Yeung MA Temp 97.4 06/08/2023 9:55 AM CDT Kellie Yeung MA Pulse 75 06/08/2023 9:55 AM CDT Kellei Yeung MA Resp 16 06/08/2023 9:55 AM CDT Kellie Yeung MA SpO2 97 06/08/2023 9:55 AM CDT Kellie Yeung MA * Question Answer Date of Assessment Author Has the patient fallen twice in the past year without injury or once in the past year with injury? No 06/08/2023 10:09 AM Kellie Wren MA Does the patient report or d o you observe difficulty in gait or balance? No 06/08/2023 10:09 AM Kellie Wren MA * Initial Score Answer Date of Assessment Author 1 06/08/2023 10:07 AM Kellie Wren MA * Question Answer Date of Assessment Author Little interest or pleasure in doing things Several days 06/08/2023 10:07 AM Melquiades Wren MA Feeling down, depressed, or hopeless Not at all 06/08/2023 10:07 AM Kellie Wren MA * Question Answer Date of Assessment Author Has the patient fallen twice in the past year without injury or once in the past year with injury? No 06/08/2023 10:09 AM Kellie Wren MA Does the patient report or d o you observe difficulty in gait or balance? No 06/08/2023 10:09 AM Kellie Wren MA * Initial Score Answer Date of Assessment Author 1 06/08/2023 10:07 AM Kellie Wren MA * Question Answer Date of Assessment Author Little interest or pleasure in doing things Several days 06/08/2023 10:07 AM Melquiades Wren MA Feeling down, depressed, or hopeless Not at all 06/08/2023 10:07 AM Kellie Wren MA * Over the past 2 weeks, how often have you been bothered by any of the following problems? Question Answer Date of Assessment Author Patient Health Questionnaire -2 Score 1 06/08/2023 10:07 AM Kellie Wren MA documented as of this encounter Mental Status * Question Answer Entry Date Author BP 114/68 06/08/2023 9:55 AM Kellie Arzate MA Temp 97.4 06/08/2023 9:55 AM Kellie Arzate MA Pulse 75 06/08/2023 9:55 AM Kellie Arzate MA SpO2 97 06/08/2023 9:55 AM Kellie Arzate MA * Question Answer Entry Date Author Has the patient fallen twice in the past year without injury or once in the past year with injury? No 06/08/2023 10:09 AM Kellie Wren MA Does the patient report or d o you observe difficulty in gait or balance? No 06/08/2023 10:09 AM Kellie Wren MA * Initial Score Answer Entry Date Author 1 06/08/2023 10:07 AM Kellie Wren MA * Question Answer Entry Date Author Little interest or pleasure in doing things Several days 06/08/2023 10:07 AM Melquiades Wren MA Feeling down, depressed, or hopeless Not at all 06/08/2023 10:07 AM Kellie Wren MA documented in this encounter Miscellaneous Notes * Telephone Encounter [...] 12/31/22 Office Visit Alexus Mehta APRN, CNP [facility] Showing recent visits within past 182 days and meeting all other requirements Today's Visits Date Type Provider Dept 06/08/23 Appointment Alexus Mehta APRN, CNP [facility] Showing today's visits and meeting all other [...] Depression Total Score: 0 01/14/20 10:00 AM CONSOLE ATTENDANT documented as of this encounter Care Teams Armored Machine Operator Relationship Specialty Start Date End Date Alexus Mehta APRN, CNP #2 [facility] [address] [place] [address] PCP - General Advanced Practice Nurse 01/13/22 Aditya Reza MD #2 [facility] [address] [place] [address] Consulting Physician Urology 12/31/21 documented as of this encounter
== END 2025-02-15 16:34 | disposition home or self-care (01) ==
PROVIDERS: PCP Nurse Practitioner Adult Health
DX: N39.0 Urinary tract infection, site not specified (principal); I10 Essential (primary) hypertension; E03.9 Hypothyroidism, unspecified; Z79.899 Other long term (current) drug therapy
CPT/HCPCS: 81003; 99213; G0463